=== PATIENT | female | born 1975 | race Caucasian/White ===

== ENCOUNTER → 2016-05-03 | Outpatient (CLI) | payer OTHER ==
--- NOTE | 2016-05-03 17:31 | WOMENS IMAGING REPORT ---
EXAM DESCRIPTION: BILAT DIAGNOSTIC MAMMO W/CAD; U/S BREAST UNILAT LIMITED COMPLETED DATE/TIME: 05/03/2016 11:02 am; 05/03/2016 1:39 pm REASON FOR STUDY: N64.4 BREAST PAIN; LT BREAST PAIN,N64.4 Z12.31 ENCNTR SCREEN MAMMOGRAM FOR MALIGN ANT NEOPLASM OF GERALDINE COMPARISON: None. TECHNIQUE: Standard craniocaudal and mediolateral oblique views of each breast recorded using digita l acquisition, bilateral 90 mediolateral tomosynthesis, left breast diagnostic 90 mediolateral view . Because of a history of left breast pain, left breast ultrasound was performed. Or And breast tomosy nthesis. LIMITATIONS: None. FINDINGS: RIGHT BREAST MASSES: No suspicious masses. CALCIFICATIONS: There are multiple calcifications which assume a meniscus shape on the 90 mediolater al view, benign milk of calcium. ARCHITECTURAL DISTORTION: None. DEVELOPING DENSITY: None. ASYMMETRY: None noted. OTHER: No other significant findings. LEFT BREAST MASSES: No suspicious masses. CALCIFICATIONS: There are multiple calcifications which assume a meniscus shape on the 90 mediolater al view, benign [id number]. ARCHITECTURAL DISTORTION: None. DEVELOPING DENSITY: None. ASYMMETRY: None noted. OTHER: No other significant finding. Read with the assistance of CAD: .[facility] - R2 Cenova Version 1.3 .[facility] - R2 Cenova Version 1.3 .[facility] - R2 Cenova Version 2.4 .[facility] [place] Cenova Version 2.4 .[facility] - R2 Maintenance Manager Version 9.2 Left breast ultrasound: Ultrasound of left breast was performed. Patient has pain in the left breast upper outer quadrant. This area was examined with ultrasound, multiple tiny less than 5 mm breast parenchymal cysts are pre sent. No solid nodules. No worrisome acoustic absorption BREAST DENSITY: c. The breasts are heterogeneously dense, which may obscure small masses. BIRAD: 2 Benign findings. RECOMMENDATION: RECOMMENDED FOLLOW UP: Please continue yearly bilateral screening tomosynthesis in J an 2018 unless otherwise clinically indicated sooner SPECIFIC INTERVENTION/IMAGING/CONSULTATION RECOMMENDED:No additional intervention/ imaging/consultati on needed at this time. COMMUNICATION:Patient notified by letter COMMENT: PATIENT NOTIFIED BY LETTER. The [employer] (ACR) has developed recommendations for screening MRI of the breast s in certain patient populations, to be used in conjunction with mammography. Breast MRI surveillanc e may be appropriate for women with more than 20% lifetime risk of developing breast cancer as deter mined by genetic testing, significant family history of the disease, or history of mantle radiation f or Hodgkins Disease. ACR Practice Guidelines 2008. DBT Technology DBT is a type of tomographic mammography. With conventional mammography, overlapping breast tissue ma y make lesions difficult to detect, even with good compression. DBT uses an x-ray tube that rotates a round the breast, taking images at different angles. These images are then combined to create thin sl ices of the breast that the radiologist can view as a 3D reconstruction. The Log[employer] unit can perform full-field digital mammograms (2D imaging); or DBT (3D imaging); or both, in a combination mode that quickly performs both the mammogram and the tomosynthesis scan while the breast is still compressed. PQRS 6045F: Fluoroscopic imaging is not utilized for breast tomosynthesis. TECHNICAL DOCUMENTATION: FINDING NUMBER: (1) ASSESSMENT: (1) JOB ID: [id number] [employer]- All Rights Reserved
--- NOTE | 2016-05-03 17:31 | WOMENS IMAGING REPORT ---
EXAM DESCRIPTION: BILAT DIAGNOSTIC MAMMO W/CAD; U/S BREAST UNILAT LIMITED COMPLETED DATE/TIME: 05/03/2016 11:02 am; 05/03/2016 1:39 pm REASON FOR STUDY: N64.4 BREAST PAIN; LT BREAST PAIN,N64.4 Z12.31 ENCNTR SCREEN MAMMOGRAM FOR MALIGN ANT NEOPLASM OF GERALDINE COMPARISON: None. TECHNIQUE: Standard craniocaudal and mediolateral oblique views of each breast recorded using digita l acquisition, bilateral 90 mediolateral tomosynthesis, left breast diagnostic 90 mediolateral view . Because of a history of left breast pain, left breast ultrasound was performed. Or And breast tomosy nthesis. LIMITATIONS: None. FINDINGS: RIGHT BREAST MASSES: No suspicious masses. CALCIFICATIONS: There are multiple calcifications which assume a meniscus shape on the 90 mediolater al view, benign milk of calcium. ARCHITECTURAL DISTORTION: None. DEVELOPING DENSITY: None. ASYMMETRY: None noted. OTHER: No other significant findings. LEFT BREAST MASSES: No suspicious masses. CALCIFICATIONS: There are multiple calcifications which assume a meniscus shape on the 90 mediolater al view, benign [id number]. ARCHITECTURAL DISTORTION: None. DEVELOPING DENSITY: None. ASYMMETRY: None noted. OTHER: No other significant finding. Read with the assistance of CAD: .[facility] - R2 Cenova Version 1.3 .[facility] Imaging - R2 Cenova Version 1.3 .[facility] - R2 Cenova Version 2.4 .[facility] [place]2 Cenova Version 2.4 .[facility] - R2 Self Contained Behavior Unit Teacher Version 9.2 Left breast ultrasound: Ultrasound of left breast was performed. Patient has pain in the left breast upper outer quadrant. This area was examined with ultrasound, multiple tiny less than 5 mm breast parenchymal cysts are pre sent. No solid nodules. No worrisome acoustic absorption BREAST DENSITY: c. The breasts are heterogeneously dense, which may obscure small masses. BIRAD: 2 Benign findings. RECOMMENDATION: RECOMMENDED FOLLOW UP: Please continue yearly bilateral screening tomosynthesis in J an 2018 unless otherwise clinically indicated sooner SPECIFIC INTERVENTION/IMAGING/CONSULTATION RECOMMENDED:No additional intervention/ imaging/consultati on needed at this time. COMMUNICATION:Patient notified by letter COMMENT: PATIENT NOTIFIED BY LETTER. The [employer] (ACR) has developed recommendations for screening MRI of the breast s in certain patient populations, to be used in conjunction with mammography. Breast MRI surveillanc e may be appropriate for women with more than 20% lifetime risk of developing breast cancer as deter mined by genetic testing, significant family history of the disease, or history of mantle radiation f or Hodgkins Disease. ACR Practice Guidelines 2008. DBT Technology DBT is a type of tomographic mammography. With conventional mammography, overlapping breast tissue ma y make lesions difficult to detect, even with good compression. DBT uses an x-ray tube that rotates a round the breast, taking images at different angles. These images are then combined to create thin sl ices of the breast that the radiologist can view as a 3D reconstruction. The [employer] unit can perform full-field digital mammograms (2D imaging); or DBT (3D imaging); or both, in a combination mode that quickly performs both the mammogram and the tomosynthesis scan while the breast is still compressed. PQRS 6045F: Fluoroscopic imaging is not utilized for breast tomosynthesis. TECHNICAL DOCUMENTATION: FINDING NUMBER: (1) ASSESSMENT: (1) JOB ID: [id number] [employer]- All Rights Reserved
== END ==
LOC: WI 10:12
PROVIDERS: ATTEND Nurse Practitioner Adult Health
DX: N64.4 Mastodynia (principal)
CPT/HCPCS: 76642; G0204; 77066

== ENCOUNTER 2016-05-11 16:24 | Emergency (ER) | payer OTHER ==
--- NOTE | 2016-05-11 16:47 | ER Document Report ---
ED Medical Screen (RME) - General Stated Complaint: CHEST PAIN Notes: chest pain substernal, sharp shooting pain that radiates into her left arm. started last evening, was constant but she was able to sleep, she thought it might be related to anxiety but the pain radiating down her arm is new to her. has had chest pain before and has taken hydroxyzine in the past which resolved her symptoms, she took one last night and it did not improve her symptoms. + headache -HTN, HLD, DM, pt is nonsmoker, denies h/o CAD, MS denies fever, chills, prod cough, cold symptoms did receive a flu shot this year TRAVEL OUTSIDE OF THE [place] IN LAST 30 DAYS: No - Related Data Allergies/Adverse Reactions: No Known Allergies Allergy (Verified 05/11/16 16:41) Past Medical History Pulmonary Medical History: Reports: Hx Asthma, Hx Pneumonia Neurological Medical History: Reports: Hx Migraine GI Medical History: Reports: Hx Gastroesophageal Reflux Disease - IBS, Hx Irritable Bowel Psychiatric Medical History: Reports: Hx Anxiety, Hx Bipolar Disorder, Hx Depression, Hx Post Traumatic Stress Disorder Past Surgical History: Reports: Hx Abdominal Surgery - abdominal hernia, Hx Cholecystectomy, Hx Herniorrhaphy, Hx Hysterectomy, Hx Tonsillectomy, Hx Tubal Ligation, Hx Umbilical Hernia - Immunizations Immunizations up to date: Yes Hx Diphtheria, Pertussis, Tetanus Vaccination: Yes - <5 years
[2016-05-11 17:10] LABS: ABSOLUTE EOSINOPHILS # (AUTO) 0.2 10^3/uL (0.0-0.6); ABSOLUTE LYMPHOCYTES (AUTO) 1.9 10^3/uL (0.5-4.7); ABSOLUTE MONOCYTES (AUTO) 0.7 10^3/uL (0.1-1.4); ABSOLUTE NEUT (AUTO) 5.4 10^3/uL (1.7-8.2); BASOPHILS % (AUTO) 0.4 % (0-2); HEMATOCRIT 42.7 % (36.0-47.0); HEMOGLOBIN 14.4 g/dL (12.0-15.5); HGB HCT DIFFERENCE 0.5; LYMPHOCYTES % (AUTO) 22.7 % (13-45); MEAN CORPUSCULAR HEMOGLOBIN 30.8 pg (27.0-33.4); MEAN CORPUSCULAR HGB CONC 33.7 g/dL (32.0-36.0); MEAN CORPUSCULAR VOLUME 91 fl (80-97); RED BLOOD COUNT 4.67 10^6/uL (3.72-5.28); RED CELL DISTRIBUTION WIDTH 13.4 % (11.5-14.0); SEGMENTED NEUTROPHILS % (AUTO) 65.9 % (42-78); WHITE BLOOD COUNT 8.2 10^3/uL (4.0-10.5)
[2016-05-11 17:27] LABS: ALANINE AMINOTRANSFERASE 20 U/L (9-52); ALBUMIN 4.1 g/dL (3.5-5.0); ALKALINE PHOSPHATASE 66 U/L (38-126); ANION GAP 11 (5-19); ASPARTATE AMINO TRANSFERASE 15 U/L (14-36); BILIRUBIN,TOTAL 0.3 mg/dL (0.2-1.3); BLOOD UREA NITROGEN 11 mg/dL (7-20); CALCIUM 9.4 mg/dL (8.4-10.2); CARBON DIOXIDE 29 mmol/L (22-30); CHLORIDE 103 mmol/L (98-107); CREATINE KINASE 31 U/L (30-135); CREATININE RESULT 0.79 mg/dL (0.52-1.25); GLUCOSE 82 mg/dL (75-110); POTASSIUM 4.5 mmol/L (3.6-5.0); SODIUM 143.1 mmol/L (137-145)
[2016-05-11 17:42] LABS: CREATINE KINASE MB < 0.22 ng/mL (<4.55); TROPONIN I < 0.012 ng/mL
[2016-05-11] MEDS ORDERED: NITROGLYCERIN 0.4 MG/TAB 25 TAB/BOTTLE SL PRN (19:22)
--- NOTE | 2016-05-11 19:31 | ER Document Report ---
ED Cardiac - General Chief Complaint: Chest Pain Stated Complaint: CHEST PAIN Notes: The patient is a 40-year-old female, past medical history migraines, anxiety, no family history of early cardiac issues, presents with 1 day of left chest achiness with intermittent shooting down the arm and mild pain and left-sided face. She also says she started develop a early migraine. She has had this in the past. She took her anti-anxiety meds without much relief of her symptoms. She denies shortness of breath, leg swelling, smoking, recent travel, estrogen use, hemoptysis, fevers, back pain, fevers, cough or abdominal pain. TRAVEL OUTSIDE OF THE [place] IN LAST 30 DAYS: No - Related Data Allergies/Adverse Reactions: No Known Allergies Allergy (Verified 05/11/16 16:41) Past Medical History - General Information source: Patient - Social History Smoking Status: Never Smoker Chew tobacco use (# tins/day): No Frequency of alcohol use: None Drug Abuse: None Family History: Arthritis, Malignancy, DM, Reviewed & Not Pertinent, Thyroid Disfunction Patient has suicidal ideation: No Patient has homicidal ideation: No Pulmonary Medical History: Reports: Hx Asthma, Hx Pneumonia Neurological Medical History: Reports: Hx Migraine Renal/ Medical History: Denies: Hx Peritoneal Dialysis GI Medical History: Reports: Hx Gastroesophageal Reflux Disease - IBS, Hx Irritable Bowel Psychiatric Medical History: Reports: Hx Anxiety, Hx Bipolar Disorder, Hx Depression, Hx Post Traumatic Stress Disorder Past Surgical History: Reports: Hx Abdominal Surgery - abdominal hernia, Hx Cholecystectomy, Hx Herniorrhaphy, Hx Hysterectomy, Hx Tonsillectomy, Hx Tubal Ligation, Hx Umbilical Hernia - Immunizations Immunizations up to date: Yes Hx Diphtheria, Pertussis, Tetanus Vaccination: Yes - <5 years Hx Pneumococcal Vaccination: 06/14/13 Review of Systems - Review of Systems Notes: REVIEW OF SYSTEMS: CONSTITUTIONAL: -fevers, -chills EENT: -eye pain, -difficulty swallowing, -nasal congestion CARDIOVASCULAR: +chest pain, -syncope. RESPIRATORY: -cough, -SOB GASTROINTESTINAL: -abdominal pain, - nausea, -vomiting, -diarrhea GENITOURINARY: -dysuria, -hematuria MUSCULOSKELETAL: -back pain, -neck pain SKIN: -rash or skin lesions. HEMATOLOGIC: -easy bruising or bleeding. LYMPHATIC: -swollen, enlarged glands. NEUROLOGICAL: -altered mental status or loss of consciousness, -headache, +left arm tingling PSYCHIATRIC: -anxiety, -depression. ALL OTHER SYSTEMS REVIEWED AND NEGATIVE. Physical Exam - Vital signs Vitals: Temp Pulse Resp BP Pulse Ox 97.8 F 100 20 125/69 98 05/11/16 16:41 05/11/16 16:41 05/11/16 16:41 05/11/16 16:41 05/11/16 16:41 - Notes Notes: PHYSICAL EXAMINATION: GENERAL: Well-appearing, well-nourished and in no acute distress. HEAD: Atraumatic, normocephalic. EYES: Pupils equal round and reactive to light, extraocular movements intact, sclera anicteric, conjunctiva are normal. ENT: nares patent, oropharynx clear without exudates. Moist mucous membranes. NECK: Normal range of motion, supple without lymphadenopathy LUNGS: Breath sounds clear to auscultation bilaterally and equal. No wheezes rales or rhonchi. HEART: Regular rate and rhythm without murmurs ABDOMEN: Soft, nontender, normoactive bowel sounds. No guarding, no rebound. No masses appreciated. EXTREMITIES: Normal range of motion, no pitting or edema. No cyanosis. NEUROLOGICAL: Cranial nerves grossly intact. Normal speech, normal gait. Normal sensory, motor, and reflex exams. PSYCH: Normal mood, normal affect. SKIN: Warm, Dry, normal turgor, no rashes or lesions noted. Course - Re-evaluation Re-evalutation: HEART score 0. PERC negative. Patient chest pain-free. Will have her follow- up with her primary care physician at the [facility] for an outpatient stress test. - Vital Signs Vital signs: Temp Pulse Resp BP Pulse Ox 97.8 F 100 20 125/69 98 05/11/16 16:41 05/11/16 16:41 05/11/16 16:41 05/11/16 16:41 05/11/16 16:41 - Laboratory Result Diagrams: 05/11/16 16:55 05/11/16 16:55 - Diagnostic Test Radiology reviewed: Image reviewed, Reports reviewed Radiology results interpreted by me: NAD: CXR - EKG Interpretation by Me EKG shows normal: Sinus rhythm, [place], Intervals, QRS Complexes, ST-T Waves Rate: Normal Discharge - Discharge Clinical Impression: Chest pain Qualifiers: Chest pain type: other chest pain Qualified Code(s): R07.89 - Other chest pain ; R07.8 - Other chest pain Condition: Good Disposition: HOME, SELF-CARE Additional Instructions: Call your primary care physician and pneumatic tool repairer for further evaluation and treatment of this chest pain, including stress test. CHEST PAIN OF UNCLEAR CAUSE: The exact cause of your chest pain isn't clear. Fortunately, there is no evidence of a dangerous medical condition. Further testing may be required to find the source of the pain. Most often, we find that this pain is coming from the chest wall -- the muscles or rib joints in the chest. But chest pain can come from the lung and lung lining, the esophagus, the heart valves or heart lining, and even the stomach or gallbladder. Rest. Eat lightly until the pain is gone. We may prescribe medicine for pain and inflammation. You should call the physician immediately if the pain radiates to the shoulder, jaw or arms; if you start to run a fever or develop a cough; or if you develop shortness of breath, or other new or alarming symptoms. NORMAL EXAM AND WORKUP: At this time, your examination and workup show no significant abnormality. No significant abnormal physical findings were noted. All laboratory, EKG, and imaging (x-ray, CT scans, ultrasound) studies that were ordered show no significant abnormality. Although your examination and all studies that were ordered showed no significant abnormal finding, there are no examinations and no studies that are 100% accurate. There is always the possibility that some abnormality could exist and not be detected with physical examination or within the limits and capabilities of laboratory and other studies. You should return or follow up as you were instructed on your visit today for further evaluation if your symptoms do not resolve. CHEST WALL PAIN: Your chest pain may be coming from the chest wall. This is often caused by straining the muscles or joints in the chest during physical activity, direct trauma, coughing, or vigorous vomiting. Persons with arthritis are especially prone to this type of pain, due to inflammation of the cartilage joints near the breast bone. Occasionally, no cause can be found. Rest from strenuous physical activity. This kind of chest pain is usually made worse by movement of the chest. Depending on the symptoms, we may prescribe medicine for pain, muscle relaxation, and antiinflammatory effects. If the pain is new, and seems to be due to muscle strain, cold packs can help. Otherwise, apply gentle warmth to the painful area for 15 minutes every hour or two. You should call contact the doctor immediately if things change. Further evaluation is needed if you develop a fever or cough, if the nature of the pain changes, or if you become short of breath. ANGINA EPISODE: Your physician has diagnosed the pain you experienced as an episode of angina. Angina occurs when a portion of the heart muscle temporarily lacks oxygen. It does not cause any permanent heart damage, but serves as a warning. Hospitalization is not necessary now. Evaluation of your cardiac condition , and medical therapy for angina will be necessary. It's important you be sure to keep all appointments and take medication exactly as prescribed. Angina is usually treated with a type of "nitrate" medication. This is available as ointment, pills, or sublingual (under the tongue) tablets. Depending on your clinical situation, other medications may be added to help control angina. These may include beta blockers or calcium blockers. If episodes of angina are occurring with increased frequency, or if chest pain lasts longer than 15 minutes or does not respond to nitroglycerin, you must seek emergency medical care immediately. ACID REFLUX DISEASE (GERD): Gastro-Esophageal Reflux Disease (GERD) is caused by stomach acid refluxing back up into the esophagus. The valve at the end of the esophagus may be weak. This is common in persons with a hiatal hernia. GERD symptoms can include indigestion, chest pain, heartburn, or food "sticking." Certain foods, alcohol, and aspirin can make GERD worse. Treatment depends on the severity. Usually, antacids or acid-suppressing medicines are used. When the esophagus is acutely inflamed, the physician will often prescribe membrane-protective drugs such as Carafate. Some patients benefit from medication such as Reglan that tightens the valve at the top of the stomach. Avoid those foods that bring on your symptoms. For many people, these foods are coffee, chocolate, onions, garlic, and carbonated drinks. Don't use alcohol, aspirin, caffeine, or tobacco. Don't eat late at night -- within 4 hours of bedtime. Don't over-eat. If necessary, elevate the head of your bed about 4 inches so that stomach acid will not roll up into your esophagus. Call the doctor if you develop severe chest pain, inability to swallow fluids, fever, or worsening symptoms. ASPIRIN: Aspirin has been shown to have a beneficial effect on blood circulation by reducing the clotting effect of platelets in the blood. These beneficial effects can be achieved by taking just a single baby (81 mg) aspirin a day. It is recommended that any person over the age of forty take a single baby aspirin every day for heart and brain circulation, unless you are allergic to aspirin or have some significant bleeding disorder. It is strongly recommended that people who have proven cardiac or blood circulation disturbances should take a baby aspirin every day. NITRATES: Nitroglycerin and related longer-acting nitrate medications are used to prevent or treat attacks of angina. These medicines dilate blood vessels, decreasing the work of the heart, and improving its supply of oxygen. Many different forms are available, including sublingual tablets (used under the tongue), sprays, skin patches, and long-acting pills. If the particular form of medication you have been given is not working well for you, contact your doctor. Long-acting forms: Take exactly as prescribed. Sudden stopping of medication can provoke increased attacks. Sublingual tabs or spray: A headache will usually occur with use. Sit or lie while waiting for the pain to go away. If angina doesn't respond to three doses (five minutes apart), call for emergency assistance. ANTACID THERAPY: You have been instructed to start antacid therapy. Antacids directly neutralize stomach acid. This is useful for acid irritation of the esophagus, gastritis, and ulcers. You should take two tablespoons of antacid one hour after each meal and three hours after each meal. If you are not eating, take the antacid every two hours. If you are using a concentrate (such as Maalox TC), use only one tablespoon. Many antacids affect the bowels. The most common problem is diarrhea. In this case, a pure aluminum hydroxide antacid (such as AlternaGel) can be substituted for some or all doses. If the problem is constipation, add a teaspoon of Milk of Magnesia to each dose. Call the doctor if you experience continued diarrhea or constipation, or if you develop lightheadedness, bloody stool or vomitus, severe abdominal pain, or black stool. PRILOSEC (ACID PUMP INHIBITOR): Prilosec (omeprazole) is an acid-pump inhibitor. It blocks the secretion of hydrogen ions in the acid-producing cells of the stomach. Prilosec keeps your stomach from making acid. Take all medication as prescribed, even after the pain is gone. Regular antacids may be added as needed if you have symptoms while taking this medicine. There are usually no side effects from this medication. Contact your doctor if there is fever, rash, yellow skin color, increasing abdominal pain, weakness, or unusual bruising. Return at once if you develop lightheadedness, black or bloody stool, or bloody vomitus. FOLLOW-UP CARE: If you have been referred to a physician for follow-up care, call the physician s office for an appointment as you were instructed or within the next two days. If you experience worsening or a significant change in your symptoms, notify the physician immediately or return to the Emergency Department at any time for re-evaluation. Referrals: MARINA HOLLOWAY MD [ACTIVE STAFF] - Follow up as needed
[2016-05-11] MEDS ORDERED: NITROGLYCERIN 5 MG (0.2 MG/HR) PATCH.TD24 TD ONE (19:52)
[2016-05-11 19:54] VITALS: BP 109/69
--- NOTE | 2016-05-12 14:57 | EKG REPORT ---
SEVERITY:- BORDERLINE ECG - SINUS RHYTHM BORDERLINE T ABNORMALITIES, ANTERIOR LEADS : Confirmed by: Joe Olmedo 12-May-2016 14:56:20
== END 2016-05-11 20:00 | disposition home or self-care (01) ==
LOC: ER 16:24
DX: R07.89 Other chest pain (principal)
CPT/HCPCS: 93005; 99285; 36415; 82553; 82550; 85025; 80053; 84484; 71010; 93010; J3490

== ENCOUNTER 2016-06-09 18:30 | Emergency (ER) | payer OTHER ==
--- NOTE | 2016-06-09 19:14 | EKG REPORT ---
SEVERITY:- BORDERLINE ECG - SINUS RHYTHM BORDERLINE T ABNORMALITIES, ANTERIOR LEADS : Confirmed by: Elvis Kngiht MD 09-Jun-2016 19:13:51
[2016-06-09] MEDS ORDERED: ASPIRIN 81 MG TABLET, CHEWABLE PO ONE (19:19)
--- NOTE | 2016-06-09 19:24 | ER Document Report ---
ED Medical Screen (RME) - General Chief Complaint: Chest Pain Stated Complaint: CHEST PAIN Notes: 40 year old, complaint of left tooth pain radiating to left ear, but also pain radiating down neck, into left chest, and into left arm. Intermittent since Sunday. Seen Dentist twice, currently on clindamycin and hydrocodone. Denies cardiac hx, smoking, FH cardiac history. Denies shortness of breath. Had a hysterectomy. TRAVEL OUTSIDE OF THE [place] IN LAST 30 DAYS: No - Related Data Allergies/Adverse Reactions: No Known Allergies Allergy (Verified 06/09/16 19:10) Past Medical History - Social History Chew tobacco use (# tins/day): No Frequency of alcohol use: None Drug Abuse: None Pulmonary Medical History: Reports: Hx Asthma, Hx Pneumonia Neurological Medical History: Reports: Hx Migraine Renal/ Medical History: Denies: Hx Peritoneal Dialysis GI Medical History: Reports: Hx Gastroesophageal Reflux Disease - IBS, Hx Irritable Bowel Psychiatric Medical History: Reports: Hx Anxiety, Hx Bipolar Disorder, Hx Depression, Hx Post Traumatic Stress Disorder Past Surgical History: Reports: Hx Abdominal Surgery - abdominal hernia, Hx Cholecystectomy, Hx Herniorrhaphy, Hx Hysterectomy, Hx Tonsillectomy, Hx Tubal Ligation, Hx Umbilical Hernia - Immunizations Immunizations up to date: Yes Hx Diphtheria, Pertussis, Tetanus Vaccination: Yes - <5 years Physical Exam - Vital signs Vitals: Temp Pulse Resp BP Pulse Ox 98.0 F 104 H 18 125/64 98 06/09/16 19:00 06/09/16 19:00 06/09/16 19:00 06/09/16 19:00 06/09/16 19:00 - Respiratory Respiratory status: No respiratory distress Breath sounds: Normal. No: Decreased air movement, Productive cough, Rales, Rhonchi, Stridor, Wheezing - Cardiovascular Rhythm: Regular. No: Tachycardia - not tachycardic on my exam Heart sounds: Normal auscultation, S1 appreciated, S2 appreciated Course - Vital Signs Vital signs: Temp Pulse Resp BP Pulse Ox 98.0 F 104 H 18 125/64 98 06/09/16 19:00 06/09/16 19:00 06/09/16 19:00 06/09/16 19:00 06/09/16 19:00
[2016-06-09 23:24] LABS: ABSOLUTE EOSINOPHILS # (AUTO) 0.1 10^3/uL (0.0-0.6); ABSOLUTE MONOCYTES (AUTO) 0.6 10^3/uL (0.1-1.4); ABSOLUTE NEUT (AUTO) 4.2 10^3/uL (1.7-8.2); BASOPHILS % (AUTO) 0.5 % (0-2); EOSINOPHILS % (AUTO) 1.2 % (0-6); HEMATOCRIT 39.4 % (36.0-47.0); HEMOGLOBIN 13.3 g/dL (12.0-15.5); HGB HCT DIFFERENCE 0.5; MEAN CORPUSCULAR HEMOGLOBIN 30.7 pg (27.0-33.4); MEAN CORPUSCULAR HGB CONC 33.7 g/dL (32.0-36.0); MEAN CORPUSCULAR VOLUME 91 fl (80-97); MONOCYTES % (AUTO) 8.7 % (3-13); RED BLOOD COUNT 4.33 10^6/uL (3.72-5.28); RED CELL DISTRIBUTION WIDTH 13.7 % (11.5-14.0); SEGMENTED NEUTROPHILS % (AUTO) 60.6 % (42-78); WHITE BLOOD COUNT 6.8 10^3/uL (4.0-10.5)
[2016-06-09 23:37] LABS: ALANINE AMINOTRANSFERASE 38 U/L (9-52); ALBUMIN 4.2 g/dL (3.5-5.0); ALKALINE PHOSPHATASE 63 U/L (38-126); ANION GAP 10 (5-19); ASPARTATE AMINO TRANSFERASE 29 U/L (14-36); BILIRUBIN,TOTAL 0.5 mg/dL (0.2-1.3); BLOOD UREA NITROGEN 13 mg/dL (7-20); CALCIUM 9.6 mg/dL (8.4-10.2); CARBON DIOXIDE 25 mmol/L (22-30); CHLORIDE 105 mmol/L (98-107); CREATININE RESULT 0.75 mg/dL (0.52-1.25); GLUCOSE 95 mg/dL (75-110); POTASSIUM 4.5 mmol/L (3.6-5.0); SODIUM 139.7 mmol/L (137-145)
[2016-06-09] MEDS ORDERED: HYDROCODONE/ACETAMINOPHEN 5-325 MG 6 TAB/DSPK PO PRN (23:59)
[2016-06-09] MEDS ORDERED: ONDANSETRON ODT 4 MG TAB (6 TAB/DSPK) PO PRN (23:59)
--- NOTE | 2016-06-10 00:02 | ER Document Report ---
ED General - General Chief Complaint: Dental Injury Stated Complaint: CHEST PAIN Notes: Patient is a 40-year-old female who presents with 2 days of progressively worsening facial pain after she had a root canal done of tooth #10. Describes the pain as a constant, sharp, radiating pain from the tooth to the entirety of the left side of her face and into the left ureter. States of the pain radiates down into the neck and into the chest. This is been constant since a root canal was completed. She has been taking Vicodin at home with minimal relief of her pain. Nothing improves the pain. It is worsened by eating food or using the left side of her mouth. She was instructed to come to the emergency department tonight by her dentist. She denies any associated fever, nausea or vomiting. No facial swelling, difficulty breathing or difficulty swallowing. She denies any chest pressure, shortness of breath or diaphoresis. TRAVEL OUTSIDE OF THE [place] IN LAST 30 DAYS: No - Related Data Allergies/Adverse Reactions: No Known Allergies Allergy (Verified 06/09/16 19:10) Past Medical History - General Information source: Patient - Social History Smoking Status: Never Smoker Chew tobacco use (# tins/day): No Frequency of alcohol use: None Drug Abuse: None Lives with: Family Family History: Arthritis, Malignancy, DM, Reviewed & Not Pertinent, Thyroid Disfunction Patient has suicidal ideation: No Patient has homicidal ideation: No Pulmonary Medical History: Reports: Hx Asthma, Hx Pneumonia Neurological Medical History: Reports: Hx Migraine Renal/ Medical History: Denies: Hx Peritoneal Dialysis GI Medical History: Reports: Hx Gastroesophageal Reflux Disease - IBS, Hx Irritable Bowel Psychiatric Medical History: Reports: Hx Anxiety, Hx Bipolar Disorder, Hx Depression, Hx Post Traumatic Stress Disorder Past Surgical History: Reports: Hx Abdominal Surgery - abdominal hernia, Hx Cholecystectomy, Hx Herniorrhaphy, Hx Hysterectomy, Hx Tonsillectomy, Hx Tubal Ligation, Hx Umbilical Hernia - Immunizations Immunizations up to date: Yes Hx Diphtheria, Pertussis, Tetanus Vaccination: Yes - <5 years Hx Pneumococcal Vaccination: 06/14/13 Review of Systems - Review of Systems Notes: Constitutional: Negative for fever. HENT: Negative for sore throat. Positive for dental pain and mouth pain Eyes: Negative for visual changes. Cardiovascular: Negative for chest pain. Respiratory: Negative for shortness of breath. Gastrointestinal: Negative for abdominal pain, vomiting or diarrhea. Genitourinary: Negative for dysuria. Musculoskeletal: Negative for back pain. Skin: Negative for rash. Neurological: Negative for headaches, weakness or numbness. 10 point ROS negative except as marked above and in HPI. Physical Exam - Vital signs Vitals: Temp Pulse Resp BP Pulse Ox 98.0 F 104 H 18 125/64 98 06/09/16 19:00 06/09/16 19:00 06/09/16 19:00 06/09/16 19:00 06/09/16 19:00 Interpretation: Tachycardic Notes: PHYSICAL EXAMINATION: GENERAL: Well-appearing, well-nourished and in no acute distress. HEAD: Atraumatic, normocephalic. EYES: Pupils equal round and reactive to light, extraocular movements intact, sclera anicteric, conjunctiva are normal. ENT: nares patent, oropharynx clear without exudates. Moist mucous membranes. NECK: Normal range of motion, supple without lymphadenopathy LUNGS: Breath sounds clear to auscultation bilaterally and equal. No wheezes rales or rhonchi. HEART: Regular rate and rhythm without murmurs ABDOMEN: Soft, nontender, normoactive bowel sounds. No guarding, no rebound. No masses appreciated. EXTREMITIES: Normal range of motion, no pitting or edema. No cyanosis. NEUROLOGICAL: No focal neurological deficits. Moves all extremities spontaneously and on command. PSYCH: Normal mood, normal affect. SKIN: Warm, Dry, normal turgor, no rashes or lesions noted. Course - Re-evaluation Re-evalutation: 06/10/16 00:00 Patient presents with complaints of tooth pain radiating into the face and the left ear after a root canal. Presentation is most consistent with likely tooth nerve root irritation. Her clinical history is not consistent with ACS as the pain has been ongoing since the root canal. EKG unremarkable and troponin is negative. Chest x-ray is clear. PE not clinically likely and she has her criteria negative. No history to suggest an aortic dissection or cervical artery dissection. The tooth itself does not appear infected and patient is already on antibiotics. I've encouraged him to follow closely the dentist who initially performed this procedure.At this time will discharge with return precautions and follow-up recommendations. Verbal discharge instructions given a the bedside and opportunity for questions given. Medication warnings reviewed. Patient is in agreement with this plan and has verbalized understanding of return precautions and the need for primary care follow-up in the next 24-72 hours. - Vital Signs Vital signs: Temp Pulse Resp BP Pulse Ox 97.7 F 91 18 110/65 97 06/10/16 00:10 06/10/16 00:10 06/10/16 00:10 06/10/16 00:10 06/10/16 00:10 - Laboratory Result Diagrams: 06/09/16 23:11 06/09/16 23:11 - Diagnostic Test Radiology reviewed: Image reviewed, Reports reviewed Radiology results interpreted by me: 06/10/16 02:53 Chest x-ray: No acute infiltrate - EKG Interpretation by Me Additional EKG results interpreted by me: 06/10/16 02:53 Sinus rhythm. Rate 96. No ST elevations or depressions. QTC is 420. Discharge - Discharge Clinical Impression: Tooth pain, Facial pain Condition: Good Disposition: HOME, SELF-CARE Additional Instructions: You have been seen for dental pain. It is very important that you follow-up with a dentist for definitive care. Please return if you develop fever greater than 101, swelling in your face, vomiting, difficulty breathing or swallowing, or any other symptoms that are concerning to you. For pain you should take ibuprofen 600 mg every 6 hours as needed.
[2016-06-10 00:12] VITALS: BP 110/65
== END 2016-06-10 00:12 | disposition home or self-care (01) ==
LOC: ER 18:30
DX: K08.89 Other specified disorders of teeth and supporting structures (principal); R51 Headache; R07.9 Chest pain, unspecified; Z98.890 Other specified postprocedural states; J45.909 Unspecified asthma, uncomplicated
CPT/HCPCS: 36415; 71010; 80053; 84484; 85025; 93005; 93010; 99285

== ENCOUNTER 2016-08-14 11:33 | Emergency (ER) | payer OTHER ==
[2016-08-14] MEDS ORDERED: ONDANSETRON 4 MG TAB.RAPDIS PO ONE (12:00)
--- NOTE | 2016-08-14 12:02 | ER Document Report ---
ED Medical Screen (RME) - General Chief Complaint: Abdominal Pain Stated Complaint: NAUSEA,ABDOMINAL PAIN Notes: This 40-year-old female patient comes from complaining of right-sided abdominal pain that started yesterday afternoon. Her last bowel movement was a liquid stool yesterday. She reports the pain got much worse last night. There is nausea without vomiting. She reports the pain is in the right lower abdomen. On brief exam she is found to have pain in the right upper abdomen just as severe as the right lower abdomen, the pain seems to be possibly coming from the anterior abdominal muscle wall. I have greeted and performed a rapid initial assessment of this patient. A comprehensive ED assessment and evaluation of the patient, analysis of test results and completion of the medical decision making process will be conducted by additional ED providers. TRAVEL OUTSIDE OF THE [place] IN LAST 30 DAYS: No - Related Data Allergies/Adverse Reactions: No Known Allergies Allergy (Verified 08/14/16 11:44) Past Medical History Pulmonary Medical History: Reports: Hx Asthma, Hx Pneumonia Neurological Medical History: Reports: Hx Migraine Renal/ Medical History: Denies: Hx Peritoneal Dialysis GI Medical History: Reports: Hx Gastroesophageal Reflux Disease - IBS, Hx Irritable Bowel Psychiatric Medical History: Reports: Hx Anxiety, Hx Bipolar Disorder, Hx Depression, Hx Post Traumatic Stress Disorder Past Surgical History: Reports: Hx Abdominal Surgery - abdominal hernia, Hx Cholecystectomy, Hx Herniorrhaphy, Hx Hysterectomy, Hx Tonsillectomy, Hx Tubal Ligation, Hx Umbilical Hernia - Immunizations Immunizations up to date: Yes Hx Diphtheria, Pertussis, Tetanus Vaccination: Yes - <5 years Physical Exam - Vital signs Vitals: Temp Pulse Resp BP Pulse Ox 98.5 F 78 16 134/65 H 99 08/14/16 11:44 08/14/16 11:44 08/14/16 11:44 08/14/16 11:44 08/14/16 11:44 Course - Vital Signs Vital signs: Temp Pulse Resp BP Pulse Ox 98.5 F 78 16 134/65 H 99 08/14/16 11:44 08/14/16 11:44 08/14/16 11:44 08/14/16 11:44 08/14/16 11:44
[2016-08-14 12:30] LABS: ABSOLUTE EOSINOPHILS # (AUTO) 0.1 10^3/uL (0.0-0.6); ABSOLUTE LYMPHOCYTES (AUTO) 1.8 10^3/uL (0.5-4.7); ABSOLUTE MONOCYTES (AUTO) 0.4 10^3/uL (0.1-1.4); ABSOLUTE NEUT (AUTO) 3.1 10^3/uL (1.7-8.2); BASOPHILS % (AUTO) 0.2 % (0-2); EOSINOPHILS % (AUTO) 1.9 % (0-6); HEMATOCRIT 42.4 % (36.0-47.0); HEMOGLOBIN 14.2 g/dL (12.0-15.5); HGB HCT DIFFERENCE 0.2; LYMPHOCYTES % (AUTO) 32.7 % (13-45); MEAN CORPUSCULAR HEMOGLOBIN 30.8 pg (27.0-33.4); MEAN CORPUSCULAR HGB CONC 33.6 g/dL (32.0-36.0); MEAN CORPUSCULAR VOLUME 92 fl (80-97); MONOCYTES % (AUTO) 7.8 % (3-13); RED BLOOD COUNT 4.63 10^6/uL (3.72-5.28); RED CELL DISTRIBUTION WIDTH 13.3 % (11.5-14.0); SEGMENTED NEUTROPHILS % (AUTO) 57.4 % (42-78); WHITE BLOOD COUNT 5.4 10^3/uL (4.0-10.5)
[2016-08-14 12:44] LABS: ALANINE AMINOTRANSFERASE 26 U/L (9-52); ALBUMIN 4.1 g/dL (3.5-5.0); ALKALINE PHOSPHATASE 64 U/L (38-126); ANION GAP 10 (5-19); ASPARTATE AMINO TRANSFERASE 21 U/L (14-36); BILIRUBIN,DIRECT 0.1 mg/dL (0.0-0.4); BILIRUBIN,TOTAL 0.4 mg/dL (0.2-1.3); BLOOD UREA NITROGEN 6 mg/dL (7-20); CALCIUM 9.4 mg/dL (8.4-10.2); CARBON DIOXIDE 26 mmol/L (22-30); CHLORIDE 107 mmol/L (98-107); CREATININE RESULT 0.64 mg/dL (0.52-1.25); GLUCOSE 86 mg/dL (75-110); LIPASE 62.6 U/L (23-300); POTASSIUM 4.8 mmol/L (3.6-5.0); SODIUM 142.9 mmol/L (137-145); TOTAL PROTEIN 6.9 g/dL (6.3-8.2)
[2016-08-14 12:47] LABS: APPEARANCE,URINE CLEAR; BILIRUBIN,URINE NEGATIVE (NEGATIVE); GLUCOSE, URINE NEGATIVE (NEGATIVE); KETONES,URINE NEGATIVE (NEGATIVE); LEUKOCYTE ESTERASE,URINE NEGATIVE (NEGATIVE); NITRITE,URINE NEGATIVE (NEGATIVE); PROTEIN,URINE NEGATIVE (NEGATIVE); URINE SPECIFIC GRAVITY 1.003; UROBILINOGEN,URINE NEGATIVE mg/dL (<2.0)
[2016-08-14] MEDS ORDERED: NORMAL SALINE 1000 ML 1,000 ML IV ONE ×2 (13:45→16:54)
[2016-08-14] MEDS ORDERED: MORPHINE SULFATE 10 MG/ML INJ IV ONE ×2 (13:45→16:54)
--- NOTE | 2016-08-14 13:50 | ER Document Report ---
ED GI/ <RIDGE JOYCE - Last Filed: 08/14/16 20:28> - General Time seen by provider: 13:46 Mode of Arrival: Ambulatory Information source: Patient TRAVEL OUTSIDE OF THE [place] IN LAST 30 DAYS: No - HPI Patient complains to provider of: Abdominal pain, Vomiting - Nausea no vomiting Onset: Yesterday Timing/Duration: Gradual Quality of pain: Sharp Severity at maximum: Moderate Severity in ED: Moderate Pain Level: 4 Location: RLQ, Pelvis LMP: hysterectomy still has ovaries Associated symptoms: Nausea. denies: Vomiting Exacerbated by: Movement, Walking Relieved by: Denies Similar symptoms previously: No Recently seen / treated by doctor: No <PAMELA BENOIT - Last Filed: 08/15/16 07:10> - General Chief Complaint: Abdominal Pain Stated Complaint: NAUSEA,ABDOMINAL PAIN Notes: 40-year-old female presents to ED for complaint of right lower abdominal pain that started yesterday afternoon. Last bowel movement was a liquid stool yesterday. She states that the pain has gotten worse worse during the night. This nausea without vomiting. (PAMELA BENOIT) - Related Data Allergies/Adverse Reactions: No Known Allergies Allergy (Verified 08/14/16 11:44) Past Medical History - General Information source: Patient - Social History Smoking Status: Former Smoker Cigarette use (# per day): No Chew tobacco use (# tins/day): No Smoking Education Provided: No Frequency of alcohol use: None Drug Abuse: None Lives with: Family - Children and mother Family History: Arthritis, CVA, DM, Malignancy, Thyroid Disfunction Patient has suicidal ideation: No Patient has homicidal ideation: No - Past Medical History Cardiac Medical History: Reports: None Pulmonary Medical History: Reports: Hx Asthma, Hx Pneumonia EENT Medical History: Reports: None Neurological Medical History: Reports: Hx Migraine Endocrine Medical History: Reports: None Renal/ Medical History: Reports: Hx Ovarian Cysts Malignancy Medical History: Reports: None GI Medical History: Reports: Hx Gastroesophageal Reflux Disease - IBS, Hx Irritable Bowel Musculoskeltal Medical History: Reports None Skin Medical History: Reports None Psychiatric Medical History: Reports: Hx Anxiety, Hx Bipolar Disorder, Hx Depression, Hx Post Traumatic Stress Disorder Traumatic Medical History: Reports: None Infectious Medical History: Reports: None Past Surgical History: Reports: Hx Cholecystectomy, Hx Hysterectomy, Hx Tonsillectomy, Hx Tubal Ligation, Hx Umbilical Hernia - Immunizations Immunizations up to date: Yes Hx Diphtheria, Pertussis, Tetanus Vaccination: Yes - <5 years Hx Pneumococcal Vaccination: 06/14/13 <PAMELA BENOIT - Last Filed: 08/15/16 07:10> Review of Systems - Review of Systems Constitutional: No symptoms reported EENT: No symptoms reported Cardiovascular: No symptoms reported Respiratory: No symptoms reported Gastrointestinal: Abdominal pain - Right lower quadrant, Nausea Genitourinary: No symptoms reported Female Genitourinary: Other - Right pelvic pain Musculoskeletal: No symptoms reported Skin: No symptoms reported Hematologic/Lymphatic: No symptoms reported Neurological/Psychological: No symptoms reported -: Yes All other systems reviewed and negative <PAMELA BENOIT - Last Filed: 08/15/16 07:10> Physical Exam - Vital signs Interpretation: Normal - General General appearance: Appears well, Alert - HEENT Head: Normocephalic, Atraumatic Eyes: Normal Pupils: PERRL - Respiratory Respiratory status: No respiratory distress Chest status: Nontender Breath sounds: Normal Chest palpation: Normal - Cardiovascular Rhythm: Regular Heart sounds: Normal auscultation Murmur: No - Abdominal Inspection: Normal Distension: No distension Bowel sounds: Normal Tenderness: Tender - Right lower quadrant down to pelvic pain Organomegaly: No organomegaly - Back Back: Normal, Nontender - Extremities General upper extremity: Normal inspection, Nontender, Normal color, Normal ROM , Normal temperature General lower extremity: Normal inspection, Nontender, Normal color, Normal ROM , Normal temperature, Normal weight bearing. No: Arun's sign - Neurological Neuro grossly intact: Yes Cognition: Normal Orientation: AAOx4 Brain Coma Scale Eye Opening: Spontaneous [place] Coma Scale Verbal: Oriented Brain Coma Scale Motor: Obeys Commands Brain Coma Scale Total: 15 Speech: Normal Motor strength normal: LUE, RUE, LLE, RLE Sensory: Normal - Psychological Associated symptoms: Normal affect, Normal mood - Skin Skin Temperature: Warm Skin Moisture: Dry Skin Color: Normal <PAMELA BENOIT - Last Filed: 08/15/16 07:10> - Vital signs Vitals: Temp Pulse Resp BP Pulse Ox 98.5 F 78 16 134/65 H 99 08/14/16 11:44 08/14/16 11:44 08/14/16 11:44 08/14/16 11:44 08/14/16 11:44 Course - Laboratory Result Diagrams: 08/14/16 12:00 08/14/16 12:00 - Diagnostic Test Radiology reviewed: Reports reviewed - CT negative <RIDGE JOYCE - Last Filed: 08/14/16 20:28> - Laboratory Result Diagrams: 08/14/16 12:00 08/14/16 12:00 <PAMELA BENOIT - Last Filed: 08/15/16 07:10> - Re-evaluation Re-evalutation: 08/14/16 19:05 Excuse myself to the patient. The patient is currently resting comfortably at this time. She is no complaints at this moment. She is currently awaiting CT of the abdomen and pelvis to complete her emergency department workup for her abdominal pain. Once results are available, I will discuss them with the patient and dispo her accordingly. 08/14/16 20:30 Patient's nontoxic. Stable vitals. The patient's workup in the emergency department has been unremarkable. Her lab work is unremarkable. Ultrasound negative. CT is negative. The patient can be discharged home with instructions to follow-up with her doctor at the next available appointment. Follow up sooner for increased pain, fever, persistent vomiting, or any further concerns. (RIDGE JOYCE) 08/14/16 18:51 Discussed labs and assessment with Dr. Parra. Pelvic exam completed in patient sent for a pelvic ultrasound. Results of this discussed with Dr. Parra as it was negative. Dr. Parra stated that the CT abdomen and pelvis with IV and oral contrast was ordered patient would need a CT abdomen pelvis IV and oral contrast if she is continuing to have abdominal pain. ( PAMELA BENOIT) - Vital Signs Vital signs: Temp Pulse Resp BP Pulse Ox 97.4 F 72 18 114/71 100 08/14/16 18:14 08/14/16 20:55 08/14/16 18:14 08/14/16 20:55 08/14/16 20:55 - Laboratory Laboratory results interpreted by me: 08/14/16 12:00 BUN 6 L Discharge <RIDGE JOYCE - Last Filed: 08/14/16 20:28> <PAMELA BENOIT - Last Filed: 08/15/16 07:10> - Discharge Clinical Impression: Bacterial vaginosis Abdominal pain Qualifiers: Abdominal location: right lower quadrant Qualified Code(s): R10.31 - Right lower quadrant pain Condition: Stable Disposition: HOME, SELF-CARE Instructions: Abdominal Pain ([facility]) Additional Instructions: Take medications as prescribed. Follow-up with your doctor at the next available appointment. Follow-up sooner for increased pain, fever, persistent vomiting, or any further concerns. Prescriptions: Metronidazole [Flagyl 500 mg Tablet] 500 mg PO TID #21 tablet Ondansetron HCl [Zofran 4 mg Tablet] 1 tab PO Q6H PRN #10 tablet PRN Reason:
[2016-08-14 15:59] LABS: CHLAM PCR NOT DETECTED (NOT DETECT)
[2016-08-14] MEDS ORDERED: ONDANSETRON HCL INJ/PF 4 MG/2 ML SDV IV ONE (16:54)
[2016-08-14 20:57] VITALS: BP 114/71
== END 2016-08-14 21:00 | disposition home or self-care (01) ==
LOC: ER 11:33
DX: N76.0 Acute vaginitis (principal); B96.89 Other specified bacterial agents as the cause of diseases classified elsewhere; R10.31 Right lower quadrant pain; R11.0 Nausea; K21.9 Gastro-esophageal reflux disease without esophagitis; Z90.49 Acquired absence of other specified parts of digestive tract; Z90.710 Acquired absence of both cervix and uterus
CPT/HCPCS: 96376; 99284; 96374; 96375; 36415; 87210; 83690; 84703; 85025; 80053; 81001; 87491; 87591; 74022; 76830; 93976; 74177; S0119; J2270; J2405; J7030

== ENCOUNTER 2016-08-27 11:27 | Emergency (ER) | payer OTHER, MEDICARE ==
[2016-08-27 11:35] VITALS: BP 118/68
--- NOTE | 2016-08-27 11:57 | ER Document Report ---
HPI - HPI Patient complains to provider of: sore throat, fever, chills, body aches, SOB Onset: Other - Sunday Quality of pain: Achy Severity: Severe Pain Level: 4 Context: Patient presents to the ED with c/o sore throat, body aches, fever, recent exposure to strep and SOB. She reports that she has a history of asthma when she doesn't feel good her asthma kicks up. She reports the shortness of breath goes away when she uses her inhaler. Denies chest pain. She reports her son was recently diagnosed with strep a few days ago. She reports she started having symptoms on Sunday to include fever or sore throat body aches. She did not take her temperature jsut felt warm, reports 99 is high for her. She denies vomiting diarrhea. Denies pain with void. She reports she is eating drinking swallowing without problems. Associated Symptoms: Body/muscle aches, Fever, Sore throat. denies: Nausea, Vomiting Exacerbated by: Denies Relieved by: Denies Similar symptoms previously: No Recently seen / treated by doctor: No - REPRODUCTIVE Reproductive: DENIES: : - DERM Skin Color: Normal Past Medical History - General Information source: Patient - Social History Smoking Status: Unknown if Ever Smoked Cigarette use (# per day): No Frequency of alcohol use: None Drug Abuse: None Occupation: none Lives with: Family Family History: Arthritis, CVA, DM, Malignancy, Thyroid Disfunction Patient has suicidal ideation: No Patient has homicidal ideation: No Pulmonary Medical History: Reports: Hx Asthma, Hx Pneumonia Neurological Medical History: Reports: Hx Migraine Renal/ Medical History: Reports: Hx Ovarian Cysts. Denies: Hx Peritoneal Dialysis GI Medical History: Reports: Hx Gastroesophageal Reflux Disease - IBS, Hx Irritable Bowel Psychiatric Medical History: Reports: Hx Anxiety, Hx Bipolar Disorder, Hx Depression, Hx Post Traumatic Stress Disorder Past Surgical History: Reports: Hx Abdominal Surgery - abdominal hernia, Hx Cholecystectomy, Hx Herniorrhaphy, Hx Hysterectomy, Hx Tonsillectomy, Hx Tubal Ligation, Hx Umbilical Hernia - Immunizations Immunizations up to date: Yes Hx Diphtheria, Pertussis, Tetanus Vaccination: Yes - <5 years Hx Pneumococcal Vaccination: 06/14/13 Vertical Provider Document - CONSTITUTIONAL Agree With Documented VS: Yes Exam Limitations: No Limitations General Appearance: WD/WN, No Apparent Distress - INFECTION CONTROL TRAVEL OUTSIDE OF THE [place] IN LAST 30 DAYS: No - HEENT HEENT: Atraumatic, Normocephalic, Pharyngeal Erythema - No peritonsillar abscess good clear voice no trismus. negative: Conjuctival Injection, Pharyngeal Exudate, Tympanic Membrane Red, Tympanic Membrane Bulging - NECK Neck: Normal Inspection, Supple. negative: Lymphadenopathy-Left, Lymphadenopathy-Right - RESPIRATORY Respiratory: Breath Sounds Normal, No Respiratory Distress O2 Sat by Pulse Oximetry: 99 - CARDIOVASCULAR Cardiovascular: Regular Rate - GI/ABDOMEN Gastrointestinal: Abdomen Soft, Abdomen Non-Tender - BACK Back: Normal Inspection - denies pain - NEURO Level of Consciousness: Awake, Alert, Appropriate Motor/Sensory: No Motor Deficit - DERM Integumentary: Warm, Dry, No Rash Course - Re-evaluation Re-evalutation: 08/27/16 12:07 pt instructed strep to be done for throat culture. she was instructed on penicillin, tyelnol for fever and body aches. She was also instructed to follow up with the ID clinic for recheck within 1 week She verbalized understanding to all instructions. - Vital Signs Vital signs: Temp Pulse Resp BP Pulse Ox 99.0 F 100 18 118/68 99 08/27/16 11:34 08/27/16 11:34 08/27/16 11:34 08/27/16 11:34 08/27/16 11:34 Discharge - Discharge Clinical Impression: Sore throat, Body aches, Fever, Exposure to strep throat Condition: Stable Disposition: HOME, SELF-CARE Instructions: Acetaminophen, Penicillin V K ([facility]), Sore Throat ([facility]), Fever ( [facility]) Additional Instructions: *You have been evaluated for a sore throat, body aches,fever, exposure to strep throat *Take medication as prescribed *Monitor your temperature, take tylenol or motrin as indicated *Warm salt water gargles and throat lozenges for comfort *Change toothbrush after two days of antibiotics *Do not let anyone drink/eat after you *Good hand washing *Follow-up with a primary care provider within one week for recheck *Return to ED for worsening condition change, needs Prescriptions: Penicillin V Potassium [Penicillin Vk 500 mg Tablet] 500 mg PO BID #20 tablet
== END 2016-08-27 12:04 | disposition home or self-care (01) ==
LOC: ER 11:27
DX: J02.9 Acute pharyngitis, unspecified (principal); M79.1 Myalgia; R50.9 Fever, unspecified; R06.02 Shortness of breath; Z90.49 Acquired absence of other specified parts of digestive tract; Z90.710 Acquired absence of both cervix and uterus
CPT/HCPCS: 87070; 87880; 99283

== ENCOUNTER 2016-09-12 16:56 | Emergency (ER) | payer OTHER, MEDICARE ==
[2016-09-12 17:20] VITALS: BP 117/68
[2016-09-12] MEDS ORDERED: AMOXICILLIN TR/POT CLAVULANATE 500-125 MG TAB PO ONE (18:21)
--- NOTE | 2016-09-12 18:27 | ER Document Report ---
HPI - HPI Patient complains to provider of: ear pain Pain Level: 3 Context: Patient is a 40-year-old female presents emergency Department complaining of left ear pain for the past 2 days. Patient states that she recently completed penicillin for strep throat which she completed about 7 days ago. Patient states that her son has been reinfected with strep and she is concerned that she cut it. Patient denies any throat pain but admits to severe air pain with associated headache. She denies any hearing loss or trauma. - REPRODUCTIVE LMP: n/a Reproductive: DENIES: : - DERM Skin Color: Normal Past Medical History - Social History Smoking Status: Unknown if Ever Smoked Family History: Arthritis, CVA, DM, Malignancy, Thyroid Disfunction Patient has suicidal ideation: No Patient has homicidal ideation: No Pulmonary Medical History: Reports: Hx Asthma, Hx Pneumonia Neurological Medical History: Reports: Hx Migraine Renal/ Medical History: Reports: Hx Ovarian Cysts. Denies: Hx Peritoneal Dialysis GI Medical History: Reports: Hx Gastroesophageal Reflux Disease - IBS, Hx Irritable Bowel Psychiatric Medical History: Reports: Hx Anxiety, Hx Bipolar Disorder, Hx Depression, Hx Post Traumatic Stress Disorder Past Surgical History: Reports: Hx Abdominal Surgery - abdominal hernia, Hx Cholecystectomy, Hx Herniorrhaphy, Hx Hysterectomy, Hx Tonsillectomy, Hx Tubal Ligation, Hx Umbilical Hernia - Immunizations Immunizations up to date: Yes Hx Diphtheria, Pertussis, Tetanus Vaccination: Yes - <5 years Hx Pneumococcal Vaccination: 06/14/13 Vertical Provider Document - CONSTITUTIONAL Agree With Documented VS: Yes Exam Limitations: No Limitations General Appearance: WD/WN, No Apparent Distress - INFECTION CONTROL TRAVEL OUTSIDE OF THE [place] IN LAST 30 DAYS: No - HEENT HEENT: Atraumatic, Normocephalic, Tympanic Membrane Red, Tympanic Membrane Bulging Notes: Of the left ear Noted serous effusion and tenderness of the external auditory canal. Uvula midline. Airway patent. No evidence of tonsillar enlargement, peritonsillar abscess, retropharyngeal abscess. - NECK Neck: Normal Inspection. negative: Lymphadenopathy-Left, Lymphadenopathy-Right - RESPIRATORY Respiratory: Breath Sounds Normal, No Respiratory Distress, Chest Non-Tender O2 Sat by Pulse Oximetry: 98 - CARDIOVASCULAR Cardiovascular: Regular Rate, Regular Rhythm, No Murmur Course - Re-evaluation Re-evalutation: 09/12/16 20:07 Patient with evidence of serous otitis media of left ear. We'll discharge home on by mouth antibiotics and follow up with primary care. - Vital Signs Vital signs: Temp Pulse Resp BP Pulse Ox 98.2 F 91 18 117/68 98 09/12/16 17:19 09/12/16 17:19 09/12/16 17:19 09/12/16 17:19 09/12/16 17:19 Discharge - Discharge Clinical Impression: Otitis media Condition: Good Disposition: HOME, SELF-CARE Instructions: Otitis Media ([facility]) Prescriptions: Amox Tr/Potassium Clavulanate [Augmentin 875-125 Tablet] 1 tab PO BID 7 Days Referrals: SUDHIR GALICIA MD [ACTIVE STAFF] - Follow up as needed
== END 2016-09-12 18:45 | disposition home or self-care (01) ==
LOC: ER 16:56
DX: H66.92 Otitis media, unspecified, left ear (principal); H92.02 Otalgia, left ear; R51 Headache
CPT/HCPCS: 99282

== ENCOUNTER 2016-09-23 08:56 | Emergency (ER) | payer OTHER, MEDICARE ==
[2016-09-23 09:01] VITALS: BP 129/66
[2016-09-23] MEDS ORDERED: CEPHALEXIN 500 MG CAPSULE PO ONE (09:20)
[2016-09-23] MEDS ORDERED: OXYCODONE-ACETAMINOPHEN 5-325 MG TABLET PO ONE (09:20)
--- NOTE | 2016-09-23 09:24 | ER Document Report ---
HPI - HPI Patient complains to provider of: ear pain Onset: Other - 11 days Onset/Duration: Persistent, Worse Quality of pain: Sharp Pain Level: 5 Context: Patient complains of left ear pain for the past 11 days. Patient states that initially she had strep and was treated with antibiotics and then she was placed on antibiotic eardrops yesterday at an urgent care. Patient complains of swelling to left ear and increase in pain. Pt denies any fever Associated Symptoms: Earache. denies: Fever, Sore throat Exacerbated by: Denies Relieved by: Denies Similar symptoms previously: No Recently seen / treated by doctor: Yes - ROS ROS below otherwise negative: Yes Systems Reviewed and Negative: Yes All other systems reviewed and negative - CONSTITUTIONAL Constitutional: DENIES: Fever, Chills - EENT EENT: REPORTS: Ear Pain. DENIES: Sore Throat - RESPIRATORY Respiratory: DENIES: Coughing - REPRODUCTIVE Reproductive: DENIES: : - MUSCULOSKELETAL Musculoskeletal: REPORTS: Neck Pain, Swelling. DENIES: Extremity pain, Back Pain - DERM Skin Color: Normal Skin Problems: None Past Medical History - General Information source: Patient Last Menstrual Period: hyster - Social History Smoking Status: Never Smoker Cigarette use (# per day): No Chew tobacco use (# tins/day): No Frequency of alcohol use: None Drug Abuse: None Occupation: none Family History: Arthritis, CVA, DM, Malignancy, Thyroid Disfunction Patient has suicidal ideation: No Patient has homicidal ideation: No Pulmonary Medical History: Reports: Hx Asthma, Hx Pneumonia Neurological Medical History: Reports: Hx Migraine Renal/ Medical History: Reports: Hx Ovarian Cysts. Denies: Hx Peritoneal Dialysis GI Medical History: Reports: Hx Gastroesophageal Reflux Disease - IBS, Hx Irritable Bowel Psychiatric Medical History: Reports: Hx Anxiety, Hx Bipolar Disorder, Hx Depression, Hx Post Traumatic Stress Disorder Traumatic Medical History: Reports: Hx Traumatic Brain Injury Past Surgical History: Reports: Hx Abdominal Surgery - abdominal hernia, Hx Cholecystectomy, Hx Herniorrhaphy, Hx Hysterectomy, Hx Tonsillectomy, Hx Tubal Ligation, Hx Umbilical Hernia - Immunizations Immunizations up to date: Yes Hx Diphtheria, Pertussis, Tetanus Vaccination: Yes - <5 years Hx Pneumococcal Vaccination: 06/14/13 Vertical Provider Document - CONSTITUTIONAL Agree With Documented VS: Yes Exam Limitations: No Limitations General Appearance: WD/WN, No Apparent Distress - INFECTION CONTROL TRAVEL OUTSIDE OF THE [place] IN LAST 30 DAYS: No - HEENT HEENT: Atraumatic, Normocephalic. negative: Pharyngeal Exudate, Pharyngeal Tenderness, Pharyngeal Erythema, Tympanic Membrane Red, Tympanic Membrane Bulging Notes: left EAC swollen with exudate, no mastoid tenderness or swelling. Pt with subtle erythema to ear canal and preauricular area - NECK Neck: Supple, Lymphadenopathy-Left. negative: Lymphadenopathy-Right - RESPIRATORY Respiratory: Breath Sounds Normal, No Respiratory Distress O2 Sat by Pulse Oximetry: 98 - CARDIOVASCULAR Cardiovascular: Regular Rate, Regular Rhythm, No Murmur - BACK Back: Normal Inspection - MUSCULOSKELETAL/EXTREMETIES Musculoskeletal/Extremeties: MAEW, FROM - NEURO Level of Consciousness: Awake, Alert, Appropriate Motor/Sensory: No Motor Deficit - DERM Integumentary: Warm, Dry Course - Vital Signs Vital signs: Temp Pulse Resp BP Pulse Ox 98.2 F 97 18 129/66 H 98 09/23/16 09:00 09/23/16 09:00 09/23/16 09:00 09/23/16 09:00 09/23/16 09:00 Discharge - Discharge Clinical Impression: Otitis externa Qualifiers: Otitis externa type: unspecified type Laterality: left Chronicity: acute Qualified Code(s): H60.502 - Unspecified acute noninfective otitis externa, left ear Cellulitis of ear Qualifiers: Laterality: left Qualified Code(s): H60.12 - Cellulitis of left external ear Condition: Stable Disposition: HOME, SELF-CARE Instructions: Oral Narcotic Medication ([facility]), Otitis Externa ([facility]), Use of Ear Drops ([facility]), Cellulitis ([facility]), Cephalexin ([facility]) Additional Instructions: Return immediately for any new or worsening symptoms Followup with your primary care provider, call tomorrow to make a followup appointment Continue to use your eardrops as previously prescribed Culture is pending, we will call if you need any different treatment Prescriptions: Cephalexin Monohydrate [Keflex 500 mg Capsule] 500 mg PO Q6H 5 Days Oxycodone HCl/Acetaminophen [Percocet 5-325 mg Tablet] 1 - 2 tab PO ASDIR PRN # 15 tablet PRN Reason: Referrals: [facility] [Provider Group] - 09/25/16
== END 2016-09-23 09:36 | disposition home or self-care (01) ==
LOC: ER 08:56
DX: H60.502 Unspecified acute noninfective otitis externa, left ear (principal); H60.12 Cellulitis of left external ear; Z87.820 Personal history of traumatic brain injury; Z90.49 Acquired absence of other specified parts of digestive tract; Z90.710 Acquired absence of both cervix and uterus
CPT/HCPCS: 87070; 87077; 87186; 87205; 99282

== ENCOUNTER 2016-10-01 21:53 | Emergency (ER) | payer OTHER, MEDICARE ==
--- NOTE | 2016-10-01 23:40 | RADIOLOGY REPORT (SQ) ---
EXAM DESCRIPTION: ANKLE LEFT COMPLETE COMPLETED DATE/TIME: 10/01/2016 11:15 pm REASON FOR STUDY: left ankle injury COMPARISON: None. NUMBER OF VIEWS: Three views. TECHNIQUE: AP, lateral, and oblique radiographic images acquired of the left ankle. LIMITATIONS: None. FINDINGS: MINERALIZATION: Normal. BONES: No acute fracture or dislocation. No worrisome bone lesions. JOINTS: No effusions. SOFT TISSUES: No soft tissue swelling. No foreign body. OTHER: No other significant finding. IMPRESSION: NO RADIOGRAPHIC EVIDENCE OF ACUTE INJURY. TECHNICAL DOCUMENTATION: JOB ID: [id number] [employer]- All Rights Reserved
[2016-10-02 02:00] VITALS: BP 118/66
--- NOTE | 2016-10-02 03:09 | ER Document Report ---
HPI - HPI Patient complains to provider of: Twisted left ankle Onset: Just prior to arrival Onset/Duration: Sudden Quality of pain: Achy Pain Level: 3 Context: 40-year-old female twisted her left ankle last night. It hurts to walk on it. Sprained in the past. Associated Symptoms: None Exacerbated by: Movement, Walking Relieved by: Denies Similar symptoms previously: No Recently seen / treated by doctor: No - ROS ROS below otherwise negative: Yes Systems Reviewed and Negative: Yes All other systems reviewed and negative - CARDIOVASCULAR Cardiovascular: DENIES: Chest pain - REPRODUCTIVE LMP: hysterectomy Reproductive: DENIES: : Past Medical History - General Information source: Patient - Social History Smoking Status: Never Smoker Frequency of alcohol use: None Drug Abuse: None Lives with: Parents Family History: Arthritis, CVA, DM, Malignancy, Thyroid Disfunction Pulmonary Medical History: Reports: Hx Asthma, Hx Pneumonia Neurological Medical History: Reports: Hx Migraine Renal/ Medical History: Reports: Hx Ovarian Cysts. Denies: Hx Peritoneal Dialysis GI Medical History: Reports: Hx Gastroesophageal Reflux Disease - IBS, Hx Irritable Bowel Psychiatric Medical History: Reports: Hx Anxiety, Hx Bipolar Disorder, Hx Depression, Hx Post Traumatic Stress Disorder Traumatic Medical History: Reports: Hx Traumatic Brain Injury Past Surgical History: Reports: Hx Abdominal Surgery - abdominal hernia, Hx Cholecystectomy, Hx Herniorrhaphy, Hx Hysterectomy, Hx Tonsillectomy, Hx Tubal Ligation, Hx Umbilical Hernia - Immunizations Immunizations up to date: Yes Hx Diphtheria, Pertussis, Tetanus Vaccination: Yes - <5 years Hx Pneumococcal Vaccination: 06/14/13 Vertical Provider Document - CONSTITUTIONAL Agree With Documented VS: Yes Exam Limitations: No Limitations - INFECTION CONTROL TRAVEL OUTSIDE OF THE [place] IN LAST 30 DAYS: No - HEENT HEENT: Normocephalic - NECK Neck: Supple - RESPIRATORY O2 Sat by Pulse Oximetry: 99 - MUSCULOSKELETAL/EXTREMETIES Musculoskeletal/Extremeties: MAEW, FROM, Tender - lateral malleolus, Edema, Eccymosis - NEURO Level of Consciousness: Awake, Alert Motor/Sensory: No Motor Deficit, No Sensory Deficit - DERM Integumentary: Warm, Dry, No Rash Course - Vital Signs Vital signs: Temp Pulse Resp BP Pulse Ox 98.2 F 95 118/66 99 10/02/16 01:59 10/02/16 01:59 10/02/16 01:59 10/02/16 01:59 Procedures - Immobilization Ankle Pre-Proc Neuro Vasc Exam: Normal Immobilizer type: Posterior ankle Performed by: PCT Post-Proc Neuro Vasc Exam: Normal Alignment checked and good: Yes Discharge - Discharge Clinical Impression: left ankle sparin Condition: Good Disposition: HOME, SELF-CARE Instructions: Use of Crutches ([facility]), Sprained Ankle ([facility]), Temporary Splint ( [facility]), Splint Precautions ([facility]) Additional Instructions: elevate crutches splint for comfort this week to er any concerns
[2016-10-02] MEDS ORDERED: IBUPROFEN 800 MG TABLET PO ONE (03:13)
== END 2016-10-02 03:35 | disposition home or self-care (01) ==
LOC: ER 21:53
PROC: 2W3RX1Z Immobilization of Left Lower Leg using Splint (ICD-10-PCS; principal; 2016-10-01)
DX: S93.402A Sprain of unspecified ligament of left ankle, initial encounter (principal); X50.0XXA Overexertion from strenuous movement or load, initial encounter; J45.909 Unspecified asthma, uncomplicated; K21.9 Gastro-esophageal reflux disease without esophagitis; Z87.820 Personal history of traumatic brain injury; Z90.49 Acquired absence of other specified parts of digestive tract; Z90.710 Acquired absence of both cervix and uterus
CPT/HCPCS: 99283

== ENCOUNTER 2016-12-17 17:21 | Emergency (ER) | payer OTHER, MEDICARE ==
[2016-12-17] MEDS ORDERED: ASPIRIN 325 MG TABLET PO ONE (18:16)
[2016-12-17] MEDS ORDERED: NORMAL SALINE 1000 ML 1,000 ML IV ONE (18:16)
[2016-12-17] MEDS ORDERED: DIPHENHYDRAMINE HCL 50 MG/ML VIAL IV ONE (18:16)
[2016-12-17] MEDS ORDERED: PROCHLORPERAZINE EDISYLATE INJ 10 MG/2 ML VIAL IV ONE (18:16)
--- NOTE | 2016-12-17 18:18 | ER Document Report ---
ED Medical Screen (RME) - General Chief Complaint: chest pain, SOB, Migraine Stated Complaint: CHEST PAIN Time Seen by Provider: 12/17/16 18:12 Mode of Arrival: Ambulatory Information source: Patient Notes: 5-year-old female who had Botox injections 1 week ago with history of migraine headache presents with complaints of headache and now having chest pain sharp today I have greeted and performed a rapid initial assessment of this patient. A comprehensive ED assessment and evaluation of the patient, analysis of test results and completion of the medical decision making process will be conducted by additional ED providers. PHYSICAL EXAMINATION: GENERAL: Well-appearing, well-nourished and in no acute distress. HEAD: Atraumatic, normocephalic. EYES: Pupils equal round extraocular movements intact, conjunctiva are normal. ENT: Nares patent NECK: Normal range of motion LUNGS: No respiratory distress Musculoskeletal: Normal range of motion NEUROLOGICAL: Normal speech, normal gait. PSYCH: Normal mood, normal affect. SKIN: Warm, Dry, normal turgor, no rashes or lesions noted. TRAVEL OUTSIDE OF THE [place] IN LAST 30 DAYS: No - Related Data Allergies/Adverse Reactions: sulfamethoxazole [From Bactrim] Allergy (Verified 12/17/16 17:59) trimethoprim [From Bactrim] Allergy (Verified 12/17/16 17:59) Past Medical History - Social History Chew tobacco use (# tins/day): No Frequency of alcohol use: None Drug Abuse: None Pulmonary Medical History: Reports: Hx Asthma, Hx Pneumonia Neurological Medical History: Reports: Hx Migraine Renal/ Medical History: Reports: Hx Ovarian Cysts. Denies: Hx Peritoneal Dialysis GI Medical History: Reports: Hx Gastroesophageal Reflux Disease - IBS, Hx Irritable Bowel Psychiatric Medical History: Reports: Hx Anxiety, Hx Bipolar Disorder, Hx Depression, Hx Post Traumatic Stress Disorder Traumatic Medical History: Reports: Hx Traumatic Brain Injury Past Surgical History: Reports: Hx Abdominal Surgery - abdominal hernia, Hx Cholecystectomy, Hx Herniorrhaphy, Hx Hysterectomy, Hx Tonsillectomy, Hx Tubal Ligation, Hx Umbilical Hernia - Immunizations Immunizations up to date: Yes Hx Diphtheria, Pertussis, Tetanus Vaccination: Yes - <5 years Physical Exam - Vital signs Vitals: Temp Pulse Resp BP Pulse Ox 98.4 F 101 H 20 131/78 H 98 12/17/16 17:49 12/17/16 17:49 12/17/16 17:49 12/17/16 17:49 12/17/16 17:49 Course - Vital Signs Vital signs: Temp Pulse Resp BP Pulse Ox 98.4 F 101 H 20 131/78 H 98 12/17/16 17:49 12/17/16 17:49 12/17/16 17:49 12/17/16 17:49 12/17/16 17:49
[2016-12-17 18:59] LABS: ABSOLUTE EOSINOPHILS # (AUTO) 0.1 10^3/uL (0.0-0.6); ABSOLUTE LYMPHOCYTES (AUTO) 2.2 10^3/uL (0.5-4.7); ABSOLUTE MONOCYTES (AUTO) 0.8 10^3/uL (0.1-1.4); ABSOLUTE NEUT (AUTO) 6.5 10^3/uL (1.7-8.2); BASOPHILS % (AUTO) 0.4 % (0-2); EOSINOPHILS % (AUTO) 0.8 % (0-6); HEMATOCRIT 41.9 % (36.0-47.0); HEMOGLOBIN 14.4 g/dL (12.0-15.5); HGB HCT DIFFERENCE 1.3; LYMPHOCYTES % (AUTO) 23.3 % (13-45); MEAN CORPUSCULAR HEMOGLOBIN 32.1 pg (27.0-33.4); MEAN CORPUSCULAR HGB CONC 34.3 g/dL (32.0-36.0); MEAN CORPUSCULAR VOLUME 94 fl (80-97); MONOCYTES % (AUTO) 8.3 % (3-13); RED BLOOD COUNT 4.48 10^6/uL (3.72-5.28); RED CELL DISTRIBUTION WIDTH 13.4 % (11.5-14.0); SEGMENTED NEUTROPHILS % (AUTO) 67.2 % (42-78); WHITE BLOOD COUNT 9.6 10^3/uL (4.0-10.5)
[2016-12-17] MEDS ORDERED: IPRATROPIUM/ALBUTEROL 0.5-2.5 MG/3 ML AMPUL NEB ONE (19:12)
[2016-12-17] MEDS ORDERED: DEXAMETHASONE SOD PHOS INJ 10 MG/1 ML VIAL IV ONE (19:13)
[2016-12-17 19:14] LABS: ALANINE AMINOTRANSFERASE 38 U/L (9-52); ALBUMIN 4.4 g/dL (3.5-5.0); ALKALINE PHOSPHATASE 74 U/L (38-126); ANION GAP 12 (5-19); ASPARTATE AMINO TRANSFERASE 23 U/L (14-36); BILIRUBIN,DIRECT 0.4 mg/dL (0.0-0.4); BILIRUBIN,TOTAL 0.5 mg/dL (0.2-1.3); BLOOD UREA NITROGEN 10 mg/dL (7-20); CALCIUM 9.5 mg/dL (8.4-10.2); CARBON DIOXIDE 21 mmol/L (22-30); CHLORIDE 104 mmol/L (98-107); CREATININE RESULT 0.75 mg/dL (0.52-1.25); GLUCOSE 78 mg/dL (75-110); POTASSIUM 4.3 mmol/L (3.6-5.0); TOTAL PROTEIN 7.6 g/dL (6.3-8.2)
--- NOTE | 2016-12-17 19:17 | ER Document Report ---
ED General - General Chief Complaint: chest pain, SOB, Migraine Stated Complaint: CHEST PAIN Time Seen by Provider: 12/17/16 18:12 Mode of Arrival: Ambulatory Notes: Patient is a 41-year-old female with a past medical history of chronic migraine headaches, bipolar disorder, who presents with 1 week of a typical migraine headache. She does describe it as a dull, constant, throbbing pain to the right side of the head that is worsened by lights and sounds. She has been trying her typical antimigraine medications without any relief. States the migraine started after she had a Botox injection done for her migraine headaches. States that has not provided any relief. She denies any nausea, vomiting, weakness, numbness, altered mental status, fever or constitutional symptoms. Patient states that the headache is a typical headache for her. She also complains of some chest tightness. States this is been present for 36-48 hours. Denies it as a chest pain. States it feels more like it is difficult to get a deep breath. She does have a history of asthma and seasonal allergens and feels like this is likely the cause. She is using albuterol inhaler at home with some improvement of her symptoms. Denies any history of DVT or pulmonary embolus. No use of estrogen. TRAVEL OUTSIDE OF THE [place] IN LAST 30 DAYS: No - Related Data Allergies/Adverse Reactions: sulfamethoxazole [From Bactrim] Allergy (Verified 12/17/16 17:59) trimethoprim [From Bactrim] Allergy (Verified 12/17/16 17:59) Past Medical History - General Information source: Patient - Social History Smoking Status: Never Smoker Chew tobacco use (# tins/day): No Frequency of alcohol use: None Drug Abuse: None Lives with: Family Family History: Arthritis, CVA, DM, Malignancy, Thyroid Disfunction Pulmonary Medical History: Reports: Hx Asthma, Hx Pneumonia Neurological Medical History: Reports: Hx Migraine Renal/ Medical History: Reports: Hx Ovarian Cysts. Denies: Hx Peritoneal Dialysis GI Medical History: Reports: Hx Gastroesophageal Reflux Disease - IBS, Hx Irritable Bowel Psychiatric Medical History: Reports: Hx Anxiety, Hx Bipolar Disorder, Hx Depression, Hx Post Traumatic Stress Disorder Traumatic Medical History: Reports: Hx Traumatic Brain Injury Past Surgical History: Reports: Hx Abdominal Surgery - abdominal hernia, Hx Cholecystectomy, Hx Herniorrhaphy, Hx Hysterectomy, Hx Tonsillectomy, Hx Tubal Ligation, Hx Umbilical Hernia - Immunizations Immunizations up to date: Yes Hx Diphtheria, Pertussis, Tetanus Vaccination: Yes - <5 years Hx Pneumococcal Vaccination: 06/14/13 Review of Systems - Review of Systems Notes: Constitutional: Negative for fever. HENT: Negative for sore throat. Eyes: Negative for visual changes. Cardiovascular: Negative for chest pain. Respiratory: Negative for shortness of breath. Gastrointestinal: Negative for abdominal pain, vomiting or diarrhea. Genitourinary: Negative for dysuria. Musculoskeletal: Negative for back pain. Skin: Negative for rash. Neurological: Positive for headaches, negative for weakness or numbness. 10 point ROS negative except as marked above and in HPI. Physical Exam - Vital signs Vitals: Temp Pulse Resp BP Pulse Ox 98.4 F 101 H 20 131/78 H 98 12/17/16 17:49 12/17/16 17:49 12/17/16 17:49 12/17/16 17:49 12/17/16 17:49 Interpretation: Normal Notes: PHYSICAL EXAMINATION: GENERAL: Well-appearing, well-nourished and in no acute distress. HEAD: Atraumatic, normocephalic. EYES: Pupils equal round and reactive to light, extraocular movements intact, sclera anicteric, conjunctiva are normal. ENT: nares patent, oropharynx clear without exudates. Moist mucous membranes. NECK: Normal range of motion, supple without lymphadenopathy LUNGS: Breath sounds clear to auscultation bilaterally and equal. No wheezes rales or rhonchi. HEART: Regular rate and rhythm without murmurs ABDOMEN: Soft, nontender, normoactive bowel sounds. No guarding, no rebound. No masses appreciated. EXTREMITIES: Normal range of motion, no pitting or edema. No cyanosis. NEUROLOGICAL: Face symmetric. Tongue protrudes midline. Extraocular motions intact. Pupils are 2 mm and equally reactive. Normal speech, normal gait. 5 out of 5 strength in both the distal and proximal upper and lower extremities bilaterally. Sensation is grossly intact throughout. Finger to nose testing normal. Pronator drift normal. PSYCH: Normal mood, normal affect. SKIN: Warm, Dry, normal turgor, no rashes or lesions noted. Course - Re-evaluation Re-evalutation: 12/17/16 19:13 Patient presents with 2 distinct complaints 1.) Migraine headache: Presentation of a headache that appears to be most consistent with tension versus migrainous type headache. Headache was not maximal in onset, patient has no focal neurologic deficits, no nuchal rigidity, vital signs within normal limits, no papilledema, and patient is overall well in appearance. Patient states this is similar to prior migraine headaches that she has had in the past. Based on clinical history and examination I do not suspect an acute subarachnoid hemorrhage, dural venous sinus thrombosis, acute meningitis, or intercranial mass. Given my low clinical suspicion for any acute life-threatening etiology, I do not feel advanced neuro imaging is indicated at this time. Will proceed with headache cocktail and reassess. 2.) Shortness of breath/chest pain: Low clinical suspicion for ACS given clinical history, exam, EKG without ST elevations or depressions, and negative initial troponin. HEART score less than or equal to 3. PE also seems unlikely given clinical history, absence of dyspnea or pleuritic pain. No estrogen. Hr initially minimally elevated but 82 at time of my assessment. CXR without evidence of pneumothorax or pneumonia. No widened mediastinum. Aortic dissection also seems unlikely given history, symmetric pulses, CXR, and vitals. Patient's symptoms have been present for greater than 24 hours making serial troponins not indicated. HEART Score: History: 0 EC Age: 1 Risk Factors: 1 Troponin:0 Total: 1 12/17/16 20:33 Patient has had complete resolution of her headache as well as her chest tightness after receiving albuterol nebulizer here in the emergency department. At this time will discharge with return precautions and follow-up recommendations. Verbal discharge instructions given a the bedside and opportunity for questions given. Medication warnings reviewed. Patient is in agreement with this plan and has verbalized understanding of return precautions and the need for primary care follow-up in the next 24-72 hours. - Vital Signs Vital signs: Temp Pulse Resp BP Pulse Ox 98.4 F 101 H 17 103/57 L 100 12/17/16 17:49 12/17/16 17:49 12/17/16 20:44 12/17/16 20:44 12/17/16 20:44 - Laboratory Result Diagrams: 12/17/16 18:46 12/17/16 18:46 Laboratory results interpreted by me: 12/17/16 18:46 Carbon Dioxide 21 L - Diagnostic Test Radiology reviewed: Image reviewed, Reports reviewed Radiology results interpreted by me: 12/17/16 20:33 Chest x-ray: No acute infiltrate or pneumothorax - EKG Interpretation by Me Additional EKG results interpreted by me: 12/17/16 19:17 Sinus tachycardia. Rate 102. No ST elevations or depressions. QTC is 417. Discharge - Discharge Clinical Impression: Chest tightness Migraine headache Qualifiers: Migraine type: unspecified Status migrainosus presence: with status migrainosus Intractability: not intractable Qualified Code(s): G43.901 - Migraine, unspecified, not intractable, with status migrainosus Condition: Good Disposition: HOME, SELF-CARE Additional Instructions: You were seen today for a migraine headache. Please follow-up with your primary care doctor regarding today's ED visit. Return to emergency department immediately if you develop a headache that gets to its maximum severity within 20 minutes of onset, you pass out, you develop weakness, numbness, changes in your vision, become unable to keep any fluids down for more than 12 hours, or develop a fever greater than 100.4 degrees Fahrenheit. If you develop a similar migraine headache in the future I recommend that you immediately take 600 mg of ibuprofen and 50 mg of Benadryl and go to sleep as quickly as possible. This can often prevent your migraine headache from becoming severe. You were seen today for chest pain. The exact cause of your pain is unclear. However, based on your cardiac enzyme testing, chest x-ray, and EKG it does not appear that it is from an immediately life-threatening cause at this time. Although your testing here is normal is critical that you follow-up with your primary care physician for continued evaluation of this chest pain. Please return to emergency department immediately if you have worsening of your chest pain, shortness of breath, vomiting, become unable to exert yourself due to pain or difficulty breathing, you pass out, or have any pain that radiates into your arms, jaw, or back. Please also return if you have any additional symptoms that are concerning to you.
--- NOTE | 2016-12-17 19:57 | RADIOLOGY REPORT (SQ) ---
EXAM DESCRIPTION: CHEST SINGLE VIEW COMPLETED DATE/TIME: 12/17/2016 7:45 pm REASON FOR STUDY: sob COMPARISON: May 2016 EXAM PARAMETERS: NUMBER OF VIEWS: One view. TECHNIQUE: Single frontal radiographic view of the chest acquired. RADIATION DOSE: NA LIMITATIONS: None. FINDINGS: LUNGS AND PLEURA: No opacities, masses or pneumothorax. No pleural effusion. MEDIASTINUM AND HILAR STRUCTURES: No masses. Contour normal. HEART AND VASCULAR STRUCTURES: Heart normal in size. Normal vasculature. BONES: No acute findings. HARDWARE: None in the chest. OTHER: No other significant finding. IMPRESSION: NO ACUTE RADIOGRAPHIC FINDING IN THE CHEST. TECHNICAL DOCUMENTATION: JOB ID: [id number]
[2016-12-17] MEDS ORDERED: HALOPERIDOL LACTATE INJ 5 MG/1 ML VIAL IV ONE (20:02)
[2016-12-17 20:49] VITALS: BP 103/57
--- NOTE | 2016-12-17 21:11 | EKG REPORT ---
SEVERITY:- OTHERWISE NORMAL ECG - SINUS TACHYCARDIA : Confirmed by: Elvis Knight MD 17-Dec-2016 21:10:40
== END 2016-12-17 20:49 | disposition home or self-care (01) ==
LOC: ER 17:21
DX: G43.901 Migraine, unspecified, not intractable, with status migrainosus (principal); Z98.890 Other specified postprocedural states; R07.89 Other chest pain; J45.909 Unspecified asthma, uncomplicated; R06.02 Shortness of breath; R00.0 Tachycardia, unspecified; Z88.1 Allergy status to other antibiotic agents
CPT/HCPCS: 93005; 94640; 99285; 96374; 96375; 36415; 85025; 80053; 84484; 71010; 93010; J1200; J1630; J0780; J7030; J1100; J7620

== ENCOUNTER 2017-01-25 14:25 | Emergency (ER) | payer OTHER, MEDICARE ==
--- NOTE | 2017-01-25 15:03 | ER Document Report ---
ED Medical Screen (RME) - General Chief Complaint: Abdominal Pain Stated Complaint: ABDOMINAL PAIN Time Seen by Provider: 01/25/17 15:02 Notes: Patient has had a previous cholecystectomy she now presents with severe right upper quadrant abdominal pain. She has loss of appetite. She has diarrhea. She denies any urinary complaints or worse. TRAVEL OUTSIDE OF THE [place] IN LAST 30 DAYS: No - Related Data Allergies/Adverse Reactions: sulfamethoxazole [From Bactrim] Allergy (Verified 01/25/17 14:33) trimethoprim [From Bactrim] Allergy (Verified 01/25/17 14:33) Past Medical History - Social History Chew tobacco use (# tins/day): No Frequency of alcohol use: None Drug Abuse: None Pulmonary Medical History: Reports: Hx Asthma, Hx Pneumonia Neurological Medical History: Reports: Hx Migraine Renal/ Medical History: Reports: Hx Ovarian Cysts. Denies: Hx Peritoneal Dialysis GI Medical History: Reports: Hx Gastroesophageal Reflux Disease - IBS, Hx Irritable Bowel Psychiatric Medical History: Reports: Hx Anxiety, Hx Bipolar Disorder, Hx Depression, Hx Post Traumatic Stress Disorder Traumatic Medical History: Reports: Hx Traumatic Brain Injury Past Surgical History: Reports: Hx Abdominal Surgery - abdominal hernia, Hx Cholecystectomy, Hx Herniorrhaphy, Hx Hysterectomy, Hx Tonsillectomy, Hx Tubal Ligation, Hx Umbilical Hernia - Immunizations Immunizations up to date: Yes Hx Diphtheria, Pertussis, Tetanus Vaccination: Yes - <5 years Physical Exam - Vital signs Vitals: Temp Pulse Resp BP Pulse Ox 98.8 F 93 18 124/72 98 01/25/17 14:32 01/25/17 14:32 01/25/17 14:32 01/25/17 14:32 01/25/17 14:32 Course - Vital Signs Vital signs: Temp Pulse Resp BP Pulse Ox 98.8 F 93 18 124/72 98 01/25/17 14:32 01/25/17 14:32 01/25/17 14:32 01/25/17 14:32 01/25/17 14:32
[2017-01-25 15:36] LABS: ABSOLUTE LYMPHOCYTES (AUTO) 1.9 10^3/uL (0.5-4.7); ABSOLUTE MONOCYTES (AUTO) 0.6 10^3/uL (0.1-1.4); ABSOLUTE NEUT (AUTO) 5.7 10^3/uL (1.7-8.2); BASOPHILS % (AUTO) 0.3 % (0-2); EOSINOPHILS % (AUTO) 0.3 % (0-6); HEMATOCRIT 41.3 % (36.0-47.0); HEMOGLOBIN 14.3 g/dL (12.0-15.5); HGB HCT DIFFERENCE 1.6; LYMPHOCYTES % (AUTO) 22.5 % (13-45); MEAN CORPUSCULAR HEMOGLOBIN 31.9 pg (27.0-33.4); MEAN CORPUSCULAR HGB CONC 34.7 g/dL (32.0-36.0); MEAN CORPUSCULAR VOLUME 92 fl (80-97); MONOCYTES % (AUTO) 7.8 % (3-13); RED BLOOD COUNT 4.48 10^6/uL (3.72-5.28); RED CELL DISTRIBUTION WIDTH 13.4 % (11.5-14.0); SEGMENTED NEUTROPHILS % (AUTO) 69.1 % (42-78); WHITE BLOOD COUNT 8.3 10^3/uL (4.0-10.5)
[2017-01-25 15:44] LABS: APPEARANCE,URINE CLEAR; BILIRUBIN,URINE NEGATIVE (NEGATIVE); GLUCOSE, URINE NEGATIVE (NEGATIVE); KETONES,URINE NEGATIVE (NEGATIVE); LEUKOCYTE ESTERASE,URINE NEGATIVE (NEGATIVE); NITRITE,URINE NEGATIVE (NEGATIVE); PROTEIN,URINE NEGATIVE (NEGATIVE); URINE SPECIFIC GRAVITY 1.003; UROBILINOGEN,URINE NEGATIVE mg/dL (<2.0)
[2017-01-25 15:53] LABS: ALANINE AMINOTRANSFERASE 20 U/L (9-52); ALBUMIN 4.5 g/dL (3.5-5.0); ALKALINE PHOSPHATASE 74 U/L (38-126); ANION GAP 10 (5-19); ASPARTATE AMINO TRANSFERASE 13 U/L (14-36); BILIRUBIN,DIRECT 0.3 mg/dL (0.0-0.4); BILIRUBIN,TOTAL 0.6 mg/dL (0.2-1.3); BLOOD UREA NITROGEN 6 mg/dL (7-20); CALCIUM 9.4 mg/dL (8.4-10.2); CARBON DIOXIDE 25 mmol/L (22-30); CHLORIDE 106 mmol/L (98-107); CREATININE RESULT 0.75 mg/dL (0.52-1.25); GLUCOSE 73 mg/dL (75-110); LIPASE 105.1 U/L (23-300); POTASSIUM 4.2 mmol/L (3.6-5.0); SODIUM 140.5 mmol/L (137-145); TOTAL PROTEIN 7.5 g/dL (6.3-8.2)
--- NOTE | 2017-01-25 17:36 | ER Document Report ---
ED GI/ - General Chief Complaint: Abdominal Pain Stated Complaint: ABDOMINAL PAIN Time Seen by Provider: 01/25/17 15:02 Notes: The patient is a 41-year-old female, past medical history cholecystectomy, IBS, bipolar, presents with right upper quadrant abdominal pain, nausea, vomiting, diarrhea and chills over the past 2 days. Pain is not associated with food. She denies hematemesis, blood in stool, chest pain, shortness of breath, urinary symptoms or headache. TRAVEL OUTSIDE OF THE [place] IN LAST 30 DAYS: No - Related Data Allergies/Adverse Reactions: sulfamethoxazole [From Bactrim] Allergy (Verified 01/25/17 14:33) trimethoprim [From Bactrim] Allergy (Verified 01/25/17 14:33) Past Medical History - General Information source: Patient - Social History Smoking Status: Former Smoker Chew tobacco use (# tins/day): No Frequency of alcohol use: None Drug Abuse: None Family History: Arthritis, CVA, DM, Malignancy, Thyroid Disfunction Pulmonary Medical History: Reports: Hx Asthma, Hx Pneumonia Neurological Medical History: Reports: Hx Migraine Renal/ Medical History: Reports: Hx Ovarian Cysts. Denies: Hx Peritoneal Dialysis GI Medical History: Reports: Hx Gastroesophageal Reflux Disease - IBS, Hx Irritable Bowel Psychiatric Medical History: Reports: Hx Anxiety, Hx Bipolar Disorder, Hx Depression, Hx Post Traumatic Stress Disorder Traumatic Medical History: Reports: Hx Traumatic Brain Injury Past Surgical History: Reports: Hx Abdominal Surgery - abdominal hernia, Hx Cholecystectomy, Hx Herniorrhaphy, Hx Hysterectomy, Hx Tonsillectomy, Hx Tubal Ligation, Hx Umbilical Hernia - Immunizations Immunizations up to date: Yes Hx Diphtheria, Pertussis, Tetanus Vaccination: Yes - <5 years Hx Pneumococcal Vaccination: 06/14/13 Review of Systems - Review of Systems Notes: REVIEW OF SYSTEMS: CONSTITUTIONAL: -fevers, +chills EENT: -eye pain, -difficulty swallowing, -nasal congestion CARDIOVASCULAR:-chest pain, -syncope. RESPIRATORY: -cough, -SOB GASTROINTESTINAL: +abdominal pain, +nausea, +vomiting, +diarrhea GENITOURINARY: -dysuria, -hematuria MUSCULOSKELETAL: -back pain, -neck pain SKIN: -rash or skin lesions. HEMATOLOGIC: -easy bruising or bleeding. LYMPHATIC: -swollen, enlarged glands. NEUROLOGICAL: -altered mental status or loss of consciousness, -headache, - neurologic symptoms PSYCHIATRIC: -anxiety, -depression. ALL OTHER SYSTEMS REVIEWED AND NEGATIVE. Physical Exam - Vital signs Vitals: Temp Pulse Resp BP Pulse Ox 98.8 F 93 18 124/72 98 01/25/17 14:32 01/25/17 14:32 01/25/17 14:32 01/25/17 14:32 01/25/17 14:32 - Notes Notes: PHYSICAL EXAMINATION: GENERAL: Well-appearing, well-nourished and in no acute distress. HEAD: Atraumatic, normocephalic. EYES: Pupils equal round and reactive to light, extraocular movements intact, sclera anicteric, conjunctiva are normal. ENT: nares patent, oropharynx clear without exudates. Moist mucous membranes. NECK: Normal range of motion, supple without lymphadenopathy LUNGS: Breath sounds clear to auscultation bilaterally and equal. No wheezes rales or rhonchi. HEART: Regular rate and rhythm without murmurs ABDOMEN: Soft, mild RUQ tenderness, normoactive bowel sounds. No guarding, no rebound. No masses appreciated. EXTREMITIES: Normal range of motion, no pitting or edema. No cyanosis. NEUROLOGICAL: Cranial nerves grossly intact. Normal speech, normal gait. Normal sensory and motor exams. PSYCH: Normal mood, normal affect. SKIN: Warm, Dry, normal turgor, no rashes or lesions noted. Course - Re-evaluation Re-evalutation: Patient's labs appear well. Ultrasound does not show any acute findings such as a retained stone. After Zofran, she is drinking without vomiting. Instructed her to stay hydrated and follow-up with her GI doctor. - Vital Signs Vital signs: Temp Pulse Resp BP Pulse Ox 98.2 F 87 18 120/70 99 01/25/17 21:15 01/25/17 21:15 01/25/17 21:15 01/25/17 21:15 01/25/17 21:15 - Laboratory Result Diagrams: 01/25/17 15:20 01/25/17 15:20 Laboratory results interpreted by me: 01/25/17 01/25/17 15:20 15:20 BUN 6 L Glucose 73 L AST 13 L Urine Blood SMALL H - Diagnostic Test Radiology reviewed: Image reviewed, Reports reviewed Radiology results interpreted by me: RUHelen US: NAD Discharge - Discharge Clinical Impression: Right upper quadrant abdominal pain, Nausea vomiting and diarrhea Condition: Stable Disposition: HOME, SELF-CARE Additional Instructions: ABDOMINAL PAIN: There are many causes of abdominal pain. Pain can mean a serious problem requiring surgery (such as appendicitis). It can also be an innocent problem that goes away on its own (such as a viral infection). Often, time must pass to determine the cause of pain. The physician does not feel that hospitalization is necessary, at present. Things may change within the next 24 hours. Call the doctor or come back for re- examination if any problems occur, such as: (1) Pain that becomes more severe, steady, or becomes concentrated in one specific area. Also, pain that is more severe with movement or coughing. (2) Vomiting that persists or becomes more frequent. (3) Blood in the vomitus, urine, or bowel movements. Blood in the stool may have a tarry or black appearance. (4) Shaking chills or fever greater than 100 degrees F. (5) The abdomen becomes more distended or swollen. (6) Bowel movements cease. (7) Failure to improve as expected. NORMAL EXAM AND WORKUP: At this time, your examination and workup show no significant abnormality. No significant abnormal physical findings are noted. All laboratory, EKG, and imaging (x-ray, CT scans, ultrasound) studies that were ordered show no significant abnormality. Although your examination and all studies that were ordered showed no significant abnormal finding, there are no examinations and no studies that are 100% accurate. There is always the possibility that some abnormality could exist and not be detected with physical examination or within the limits and capabilities of laboratory and other studies. You should return or follow up as you were instructed on your visit today for further evaluation if your symptoms do not resolve. ANTINAUSEA MEDICATION: You have been given a medication to suppress nausea and vomiting. This type of medication can be given as a shot, pill, or suppository. It will usually last for many hours. Pills and shots usually last six to eight hours, suppositories last about 12 hours. For the typical illness, only one or two doses of the medication may be necessary. Mild lightheadedness may occur. This type of medicine can cause drowsiness. Do not drive or operate dangerous machinery while under its influence. Do not mix with alcohol. See your doctor at once if you have muscle spasms or tightness, or uncontrollable motions (particularly of the neck, mouth, or jaw). Persistent vomiting or severe lightheadedness should also be evaluated by the physician. FOLLOW-UP CARE: If you have been referred to a physician for follow-up care, call the physician s office for an appointment as you were instructed or within the next two days. If you experience worsening or a significant change in your symptoms, notify the physician immediately or return to the Emergency Department at any time for re-evaluation. Prescriptions: Dicyclomine HCl [Bentyl 20 mg Tablet] 20 mg PO QID #20 tablet Ondansetron [Zofran Odt 4 mg Tablet] 1 - 2 tab PO Q4H PRN #15 tab.rapdis PRN Reason: For Nausea/Vomiting Referrals: ANGIE REYES MD [ACTIVE STAFF] - Follow up as needed
[2017-01-25] MEDS ORDERED: ACETAMINOPHEN WITH CODEINE #3 TABLET PO ONE (17:44)
[2017-01-25] MEDS ORDERED: ONDANSETRON 4 MG TAB.RAPDIS PO ONE (17:44)
--- NOTE | 2017-01-25 19:15 | RADIOLOGY REPORT (SQ) ---
EXAM DESCRIPTION: U/S ABDOMEN LIMITED W/O DOP COMPLETED DATE/TIME: 01/25/2017 7:04 pm REASON FOR STUDY: RUQ pain COMPARISON: None. TECHNIQUE: Dynamic and static grayscale images acquired of the abdomen and recorded on PACS. Additio nal selected color Doppler and spectral images recorded. LIMITATIONS: Study is limited due to overlying bowel gas. FINDINGS: PANCREAS: The pancreas was incompletely visualized due to overlying bowel gas. LIVER: No masses. Echotexture normal. LIVER VASCULATURE: Normal blood flow is identified in the portal vein GALLBLADDER: No stones. Normal wall thickness. No pericholecystic fluid. ULTRASOUND-DETECTED MCCARTY'S SIGN: Negative. INTRAHEPATIC DUCTS AND COMMON DUCT: CBD and intrahepatic ducts normal caliber. No filling defects. INFERIOR VENA CAVA: Normal flow. AORTA: No aneurysm. RIGHT KIDNEY: Normal size. Normal echogenicity. No solid or suspicious masses. No hydronephrosis. No calcifications. PERITONEAL AND RIGHT PLEURAL SPACE: No ascites or effusions. OTHER: No other significant findings. IMPRESSION: Somewhat limited study as noted above. No significant intra-abdominal abnormalities wer e identified. TECHNICAL DOCUMENTATION: JOB ID: [id number] [employer]- All Rights Reserved
[2017-01-25 21:17] VITALS: BP 120/70
== END 2017-01-25 21:18 | disposition home or self-care (01) ==
LOC: ER 14:25
DX: R10.11 Right upper quadrant pain (principal); K58.9 Irritable bowel syndrome, unspecified; F31.9 Bipolar disorder, unspecified; R11.2 Nausea with vomiting, unspecified; R19.7 Diarrhea, unspecified; Z98.890 Other specified postprocedural states; Z87.891 Personal history of nicotine dependence
CPT/HCPCS: 36415; 76705; 80053; 81001; 81025; 83690; 85025; 99284

== ENCOUNTER 2017-03-23 09:22 | Emergency (ER) | payer OTHER, MEDICARE ==
[2017-03-23 09:33] VITALS: BP 128/71
[2017-03-23] MEDS ORDERED: IBUPROFEN 600 MG TABLET PO ONE (09:49)
--- NOTE | 2017-03-23 09:51 | ER Document Report ---
ED Eye Complaint - General Chief Complaint: Eye Problem Stated Complaint: RIGHT EYE IRRITATION Time Seen by Provider: 03/23/17 09:39 Notes: Patient is a 41-year-old female who presents emergency department complaining of right eyelid irritation. She states that she noticed it this morning. She denies any trauma. She denies any eye irritation, redness, purulent drainage, trauma, vision changes or headaches. TRAVEL OUTSIDE OF THE [place] IN LAST 30 DAYS: No - Related Data Allergies/Adverse Reactions: sulfamethoxazole [From Bactrim] Allergy (Verified 03/23/17 09:32) trimethoprim [From Bactrim] Allergy (Verified 03/23/17 09:32) Past Medical History - Social History Smoking Status: Never Smoker Chew tobacco use (# tins/day): No Frequency of alcohol use: None Drug Abuse: None Family History: Arthritis, CVA, DM, Malignancy, Thyroid Disfunction. denies: CAD, COPD, Hyperlipidemia, Hypertension Patient has suicidal ideation: No Patient has homicidal ideation: No Pulmonary Medical History: Reports: Hx Asthma, Hx Bronchitis, Hx Pneumonia Neurological Medical History: Reports: Hx Migraine Renal/ Medical History: Reports: Hx Ovarian Cysts. Denies: Hx Peritoneal Dialysis GI Medical History: Reports: Hx Gastroesophageal Reflux Disease - IBS, Hx Irritable Bowel, Hx Colonoscopy Musculoskeltal Medical History: Reports Hx Arthritis, Reports Hx Musculoskeletal Deformity, Reports Hx Musculoskeletal Trauma Psychiatric Medical History: Reports: Hx Anxiety, Hx Bipolar Disorder, Hx Depression, Hx Post Traumatic Stress Disorder Traumatic Medical History: Reports: Hx Traumatic Brain Injury Past Surgical History: Reports: Hx Abdominal Surgery - umbilical hernia repair, Hx Adenoidectomy, Hx Cholecystectomy, Hx Hysterectomy, Hx Tonsillectomy, Hx Tubal Ligation, Hx Umbilical Hernia - Immunizations Immunizations up to date: Yes Hx Diphtheria, Pertussis, Tetanus Vaccination: Yes - 2009 Hx Pneumococcal Vaccination: 06/14/13 Review of Systems - Review of Systems Constitutional: No symptoms reported EENT: See HPI Neurological/Psychological: No symptoms reported -: Yes All other systems reviewed and negative Physical Exam - Vital signs Vitals: Temp Pulse Resp BP Pulse Ox 98.5 F 88 18 128/71 H 97 03/23/17 09:31 03/23/17 09:31 03/23/17 09:31 03/23/17 09:31 03/23/17 09:31 - General General appearance: Appears well, Alert In distress: None - HEENT Eyes: No: Periorbital ecchymosis, Periorbital edema Conjunctiva: No: Injected, Purulent discharge Cornea: Normal Extraocular movements intact: Yes Eyelashes: Normal Pupils: PERRL Visual acuity- Right eye: 20/50 Visual acuity- Left eye: 20/20 Visual acuity- Both eyes: 20/20 Corrective lenses worn: No Lids everted for exam: right: Stye - lower eyelid Fundascopic: Normal - Skin Skin Temperature: Warm Skin Moisture: Dry Skin Color: Normal Skin Turgor: Elastic Course - Re-evaluation Re-evalutation: 03/23/17 9:45 Patient is a 41-year-old female who is hemodynamically stable, no acute distress and afebrile. Presentation today is consistent with a stye of the right lower eyelid. No evidence of conjunctivitis or eye irritation/trauma. Naila with patient to utilize warm compresses and [id number] medications for pain and otherwise can follow-up with ophthalmology next week. Patient agrees with plan and is stable for discharge - Vital Signs Vital signs: Temp Pulse Resp BP Pulse Ox 98.5 F 88 18 128/71 H 97 03/23/17 09:31 03/23/17 09:31 03/23/17 09:31 03/23/17 09:31 03/23/17 09:31 Discharge - Discharge Clinical Impression: Stye Condition: Good Disposition: HOME, SELF-CARE Instructions: Monique (REPLACED BY [facility]) Referrals: SHABANA BHAKTA MD [ACTIVE STAFF] - Follow up in 3-5 days
== END 2017-03-23 10:02 | disposition home or self-care (01) ==
LOC: ER 09:22
DX: H00.012 Hordeolum externum right lower eyelid (principal); H57.11 Ocular pain, right eye
CPT/HCPCS: 99283

== ENCOUNTER 2017-06-01 00:51 | Emergency (ER) | payer OTHER, MEDICARE ==
[2017-06-01 02:07] LABS: APPEARANCE,URINE CLOUDY; BILIRUBIN,URINE NEGATIVE (NEGATIVE); COLOR,URINE YELLOW; GLUCOSE, URINE NEGATIVE (NEGATIVE); KETONES,URINE NEGATIVE (NEGATIVE); LEUKOCYTE ESTERASE,URINE LARGE (NEGATIVE); NITRITE,URINE POSITIVE (NEGATIVE); PROTEIN,URINE 100 mg/dL (NEGATIVE); URINE SPECIFIC GRAVITY 1.011; UROBILINOGEN,URINE NEGATIVE mg/dL (<2.0)
--- NOTE | 2017-06-01 05:11 | ER Document Report ---
ED GI/ - General Chief Complaint: Abdominal Pain Stated Complaint: RIGHT FLANK PAIN Time Seen by Provider: 06/01/17 05:10 Mode of Arrival: Ambulatory Information source: Patient Notes: Patient is a 41-year-old female who presents to the ER today for right flank pain radiating into the right lower abdomen. Patient states that she had some burning with urination but denies any hematuria. She denies any fevers or chills. She denies any history of kidney stones, ovarian cysts. She denies . TRAVEL OUTSIDE OF THE [place] IN LAST 30 DAYS: No - Related Data Allergies/Adverse Reactions: sulfamethoxazole [From Bactrim] Allergy (Verified 06/01/17 01:30) trimethoprim [From Bactrim] Allergy (Verified 06/01/17 01:30) Past Medical History - General Information source: Patient - Social History Smoking Status: Unknown if Ever Smoked Family History: Arthritis, CVA, DM, Malignancy, Thyroid Disfunction. denies: CAD, COPD, Hyperlipidemia, Hypertension Pulmonary Medical History: Reports: Hx Asthma, Hx Bronchitis, Hx Pneumonia Neurological Medical History: Reports: Hx Migraine Renal/ Medical History: Reports: Hx Ovarian Cysts. Denies: Hx Peritoneal Dialysis GI Medical History: Reports: Hx Gastroesophageal Reflux Disease - IBS, Hx Irritable Bowel, Hx Colonoscopy Musculoskeltal Medical History: Reports Hx Arthritis, Reports Hx Musculoskeletal Deformity, Reports Hx Musculoskeletal Trauma Psychiatric Medical History: Reports: Hx Anxiety, Hx Bipolar Disorder, Hx Depression, Hx Post Traumatic Stress Disorder Traumatic Medical History: Reports: Hx Traumatic Brain Injury Past Surgical History: Reports: Hx Abdominal Surgery - umbilical hernia repair, Hx Adenoidectomy, Hx Cholecystectomy, Hx Hysterectomy, Hx Tonsillectomy, Hx Tubal Ligation, Hx Umbilical Hernia - Immunizations Immunizations up to date: Yes Hx Diphtheria, Pertussis, Tetanus Vaccination: Yes - 2009 Hx Pneumococcal Vaccination: 06/14/13 Review of Systems - Review of Systems Constitutional: No symptoms reported EENT: No symptoms reported Cardiovascular: No symptoms reported Respiratory: No symptoms reported Gastrointestinal: No symptoms reported Genitourinary: See HPI Female Genitourinary: No symptoms reported Musculoskeletal: No symptoms reported Skin: No symptoms reported Hematologic/Lymphatic: No symptoms reported Neurological/Psychological: No symptoms reported Physical Exam - Vital signs Vitals: Temp Pulse Resp BP Pulse Ox 98.5 F 109 H 16 107/44 L 100 06/01/17 01:36 06/01/17 01:36 06/01/17 01:36 06/01/17 01:36 06/01/17 01:36 - Notes Notes: PHYSICAL EXAMINATION: GENERAL: Well-appearing and in no acute distress. HEAD: Atraumatic, normocephalic. EYES: Pupils equal round and reactive to light, extraocular movements intact, sclera anicteric, conjunctiva are normal. NECK: Normal range of motion, supple without lymphadenopathy LUNGS: CTAB and equal. No wheezes rales or rhonchi. HEART: Regular rate and rhythm without murmurs ABDOMEN: Soft, right-sided tenderness. No guarding, no rebound BACK: no vertebral tenderness, normal ROM GI/: Right CVA tenderness EXTREMITIES: Normal range of motion, no pitting edema. No cyanosis. NEUROLOGICAL: Cranial nerves grossly intact. Normal sensory/motor exams. PSYCH: Normal mood, normal affect. SKIN: Warm, Dry, normal turgor, no rashes or lesions noted Course - Re-evaluation Re-evalutation: 06/01/17 07:35 Urinalysis reveals moderate blood, large leukocytes, positive for nitrites, greater than [address] renal protocol negative for any stones. Patient was treated here with IV Rocephin and fluids. will be sent home on Cipro with some pain medication. - Vital Signs Vital signs: Temp Pulse Resp BP Pulse Ox 98.5 F 109 H 16 107/44 L 100 06/01/17 01:36 06/01/17 01:36 06/01/17 01:36 06/01/17 01:36 06/01/17 01:36 - Laboratory Laboratory results interpreted by me: 06/01/17 01:30 Urine Protein 100 H Urine Blood MODERATE H Urine Nitrite POSITIVE H Ur Leukocyte Esterase LARGE H Discharge - Discharge Clinical Impression: Pyelonephritis Condition: Stable Disposition: HOME, SELF-CARE Instructions: Pyelonephritis ([facility]) Additional Instructions: Return immediately for any new or worsening symptoms. Follow up with primary care provider, call tomorrow to make followup appointment. Drink plenty of water. Prescriptions: Ciprofloxacin HCl [Cipro 500 mg Tablet] 500 mg PO BID #20 tablet Hydrocodone/Acetaminophen [Gay 5-325 mg Tablet] 1 tab PO Q4 PRN #12 tablet PRN Reason: Ondansetron [Zofran Odt 4 mg Tablet] 1 - 2 tab PO Q4H PRN #15 tab.rapdis PRN Reason: For Nausea/Vomiting Forms: Return to Work
--- NOTE | 2017-06-01 05:55 | RADIOLOGY REPORT (SQ) ---
EXAM DESCRIPTION: CT LTD RENAL STONE PROTOCOL ON COMPLETED DATE/TIME: 06/01/2017 5:38 am REASON FOR STUDY: R flank pain COMPARISON: CT abdomen and pelvis 08/14/2016, 03/25/2012. TECHNIQUE: CT scan of the abdomen and pelvis performed without intravenous or oral contrast. Images reviewed with lung, soft tissue, and bone windows. Reconstructed coronal and sagittal MPR images revi ewed. All images stored on PACS. All CT scanners at this facility use dose modulation, iterative reconstruction, and/or weight based d osing when appropriate to reduce radiation dose to as low as reasonably achievable (ALARA). [facility]: Dose Right [facility]: CareDose [facility]: Dose Right [facility]: Teradose 4D [facility]: [employer] RADIATION DOSE: CT Rad equipment meets quality standard of care and radiation dose reduction techniq ues were employed. CTDIvol: 17.0 mGy. DLP: 924 mGy-cm.mGy. LIMITATIONS: None. FINDINGS: LOWER CHEST: No consolidation or pleural effusion. NON-CONTRASTED LIVER, SPLEEN, ADRENALS: Evaluation limited by lack of IV contrast. No identified sign ificant masses. PANCREAS: No peripancreatic inflammatory changes. GALLBLADDER: Surgically absent. RIGHT KIDNEY AND URETER: No significant calcifications. No hydronephrosis or hydroureter. LEFT KIDNEY AND URETER: No significant calcifications. No hydronephrosis or hydroureter. AORTA AND RETROPERITONEUM: No abdominal aortic aneurysm. No retroperitoneal masses or adenopathy. BOWEL AND PERITONEAL CAVITY: No dilated bowel loop or inflammatory changes. No free fluid. APPENDIX: Normal. PELVIS, BLADDER, AND ABDOMINAL WALL:The urinary bladder is partially distended. The uterus is surgic ally absent. No free fluid. Status post umbilical hernia repair. BONES: No significant findings. IMPRESSION: No urinary tract calculi or hydronephrosis. No acute findings on unenhanced CT. COMMENT: Quality ID # [id number]: Final reports with documentation of one or more dose reduction techniques (e.g., Automated exposure control, adjustment of the mA and/or kV according to patient size, use of iterative reconstruction technique) TECHNICAL DOCUMENTATION: JOB ID: [id number]- All Rights Reserved
[2017-06-01] MEDS ORDERED: CEFTRIAXONE INJ 1000 MG VIAL IV ONE (05:59)
[2017-06-01] MEDS ORDERED: NORMAL SALINE 1000 ML 1,000 ML IV ONE (05:59)
[2017-06-01] MEDS ORDERED: OXYCODONE-ACETAMINOPHEN 5-325 MG TABLET PO ONE (05:59)
[2017-06-01 07:35] VITALS: BP 110/55
== END 2017-06-01 07:35 | disposition home or self-care (01) ==
LOC: ER 00:51
DX: N12 Tubulo-interstitial nephritis, not specified as acute or chronic (principal); R10.31 Right lower quadrant pain
CPT/HCPCS: 99284; 96365; 87086; 87088; 81001; 87186; 76380; J0696; J7030

== ENCOUNTER 2017-07-03 18:17 | Emergency (ER) | payer OTHER, MEDICARE ==
[2017-07-03] MEDS ORDERED: ASPIRIN 81 MG TABLET, CHEWABLE PO ONE (19:00)
--- NOTE | 2017-07-03 19:03 | ER Document Report ---
ED Medical Screen (RME) - General Chief Complaint: Chest Pain Stated Complaint: CHEST PAIN Time Seen by Provider: 07/03/17 18:56 Notes: RME DISCLOSURE I have seen this patient as part of a Rapid Medical Evaluation and, if applicable, placed any initially appropriate orders. The patient will be seen and fully evaluated, including a full history and physical exam, by a provider ( in Main ED or Fast Track) when a room becomes available. 41-year-old female here with complaints of right-sided chest pain radiating up to the right shoulder and down the right arm with shortness of breath dizziness and lightheadedness that started 2.5 hours ago while she was driving. The symptoms are not worse with exertion. She has had chest pains in the past due to anxiety however today she has not felt any anxiety whatsoever and this feels different she reports. She recently drove up to [facility] last week which is a [address] She has no prior history of PE/DVT. She does not take any control. No prior history of cancer. EXAM Minimal right chest wall tenderness (states this is not the same pain that she is having) Clear to auscultation bilaterally TRAVEL OUTSIDE OF THE [place] IN LAST 30 DAYS: No - Related Data Allergies/Adverse Reactions: sulfamethoxazole [From Bactrim] Allergy (Verified 06/01/17 01:30) trimethoprim [From Bactrim] Allergy (Verified 06/01/17 01:30) Past Medical History - Social History Chew tobacco use (# tins/day): No Frequency of alcohol use: None Drug Abuse: None Pulmonary Medical History: Reports: Hx Asthma, Hx Bronchitis, Hx Pneumonia Neurological Medical History: Reports: Hx Migraine Renal/ Medical History: Reports: Hx Ovarian Cysts. Denies: Hx Peritoneal Dialysis GI Medical History: Reports: Hx Gastroesophageal Reflux Disease - IBS, Hx Irritable Bowel, Hx Colonoscopy Musculoskeltal Medical History: Reports Hx Arthritis, Reports Hx Musculoskeletal Deformity, Reports Hx Musculoskeletal Trauma Psychiatric Medical History: Reports: Hx Anxiety, Hx Bipolar Disorder, Hx Depression, Hx Post Traumatic Stress Disorder Traumatic Medical History: Reports: Hx Traumatic Brain Injury Past Surgical History: Reports: Hx Abdominal Surgery - umbilical hernia repair, Hx Adenoidectomy, Hx Cholecystectomy, Hx Hysterectomy, Hx Tonsillectomy, Hx Tubal Ligation, Hx Umbilical Hernia - Immunizations Immunizations up to date: Yes Hx Diphtheria, Pertussis, Tetanus Vaccination: Yes - 2009 Physical Exam - Vital signs Vitals: Temp Pulse Resp BP Pulse Ox 98.5 F 84 16 118/73 98 07/03/17 18:37 07/03/17 18:37 07/03/17 18:37 07/03/17 18:37 07/03/17 18:37 Course - Vital Signs Vital signs: Temp Pulse Resp BP Pulse Ox 98.5 F 84 16 118/73 98 07/03/17 18:37 07/03/17 18:37 07/03/17 18:37 07/03/17 18:37 07/03/17 18:37
[2017-07-03 19:47] LABS: ABSOLUTE MONOCYTES (AUTO) 0.6 10^3/uL (0.1-1.4); BASOPHILS % (AUTO) 0.4 % (0-2); EOSINOPHILS % (AUTO) 0.1 % (0-6); HEMATOCRIT 42.6 % (36.0-47.0); HEMOGLOBIN 14.4 g/dL (12.0-15.5); LYMPHOCYTES % (AUTO) 25.9 % (13-45); MEAN CORPUSCULAR HEMOGLOBIN 31.4 pg (27.0-33.4); MEAN CORPUSCULAR HGB CONC 33.7 g/dL (32.0-36.0); MEAN CORPUSCULAR VOLUME 93 fl (80-97); MONOCYTES % (AUTO) 7.9 % (3-13); PLATELET COUNT 295 10^3/uL (150-450); RED BLOOD COUNT 4.57 10^6/uL (3.72-5.28); RED CELL DISTRIBUTION WIDTH 13.2 % (11.5-14.0); SEGMENTED NEUTROPHILS % (AUTO) 65.7 % (42-78); TOTAL CELLS COUNTED % (AUTO) 100 %; WHITE BLOOD COUNT 7.6 10^3/uL (4.0-10.5)
[2017-07-03] MEDS ORDERED: KETOROLAC TROMETHAMINE INJ/PF 30 MG/1 ML SDV IM ONE (19:47)
--- NOTE | 2017-07-03 19:51 | ER Document Report ---
ED Cardiac - General Chief Complaint: Chest Pain Stated Complaint: CHEST PAIN Time Seen by Provider: 07/03/17 18:56 Mode of Arrival: Ambulatory Information source: Patient TRAVEL OUTSIDE OF THE [place] IN LAST 30 DAYS: No - HPI Patient complains to provider of: Chest pain Notes: The patient is here with complaints of right-sided chest pain. States that this pain started approximately 2-1/2 hours prior to her arrival here. She states that she was driving home from [place] which is approximately a [address] Pain radiates down her right arm. It is worse with deep breath. States that she feels slightly short of breath. She denies any nausea, vomiting , diarrhea. She denies abdominal pain. She denies fever. She denies dysuria or hematuria. She denies any significant cough. She denies any injury. She denies any leg swelling or leg pain, hormone use, smoking, history of cancer, history of DVT or PE. She denies a history of high cholesterol, hypertension, diabetes, smoking, drug use, CAD, family history of CAD. She does report having a history of anxiety in the past. She denies any unilateral numbness, tingling, weakness. She denies any other significant complaints at this time. - Related Data Allergies/Adverse Reactions: sulfamethoxazole [From Bactrim] Allergy (Verified 06/01/17 01:30) trimethoprim [From Bactrim] Allergy (Verified 06/01/17 01:30) Past Medical History - Social History Smoking Status: Never Smoker Chew tobacco use (# tins/day): No Frequency of alcohol use: None Drug Abuse: None Family History: Arthritis, CVA, DM, Malignancy, Thyroid Disfunction. denies: CAD, COPD, Hyperlipidemia, Hypertension Patient has suicidal ideation: No Patient has homicidal ideation: No Pulmonary Medical History: Reports: Hx Asthma, Hx Bronchitis, Hx Pneumonia Neurological Medical History: Reports: Hx Migraine Renal/ Medical History: Reports: Hx Ovarian Cysts. Denies: Hx Peritoneal Dialysis GI Medical History: Reports: Hx Gastroesophageal Reflux Disease - IBS, Hx Irritable Bowel, Hx Colonoscopy Musculoskeltal Medical History: Reports Hx Arthritis, Reports Hx Musculoskeletal Deformity, Reports Hx Musculoskeletal Trauma Psychiatric Medical History: Reports: Hx Anxiety, Hx Bipolar Disorder, Hx Depression, Hx Post Traumatic Stress Disorder Traumatic Medical History: Reports: Hx Traumatic Brain Injury Past Surgical History: Reports: Hx Abdominal Surgery - umbilical hernia repair, Hx Adenoidectomy, Hx Cholecystectomy, Hx Hysterectomy, Hx Tonsillectomy, Hx Tubal Ligation, Hx Umbilical Hernia - Immunizations Immunizations up to date: Yes Hx Diphtheria, Pertussis, Tetanus Vaccination: Yes - 2009 Hx Pneumococcal Vaccination: 06/14/13 Review of Systems - Review of Systems -: Yes All other systems reviewed and negative Physical Exam - Vital signs Vitals: Temp Pulse Resp BP Pulse Ox 98.5 F 84 16 118/73 98 07/03/17 18:37 07/03/17 18:37 07/03/17 18:37 07/03/17 18:37 07/03/17 18:37 - Notes Notes: GENERAL: alert, cooperative, nontoxic, no distress. HEAD: normocephalic, atraumatic EYES: conjunctiva pink without discharge, no external redness or swelling. EARS: no external swelling, no external redness NOSE: atraumatic, no external swelling MOUTH/THROAT: mucous membranes moist and pink, posterior pharynx without erythema, swelling, exudate. No trismus or drooling. NECK: soft, supple, full range of motion, no meningismus. CHEST: no distress, lungs clear and equal throughout. No wheezing, rales, rhonchi. Tenderness to palpation of the right anterior chest wall. CARDIAC: regular rate and rhythm, no murmur, normal capillary refill, normal pulses. No peripheral edema noted. ABDOMEN: Soft, nontender. No rebound tenderness or guarding. No right upper quadrant tenderness. No mass. Obese abdomen. BACK: full range of motion, no CVA tenderness. EXTREMITIES: full range of motion of all extremities. No redness, no swelling. NEURO: alert and oriented x 3, no focal deficits, full range of motion of all extremities. PYSCH: appropriate mood, affect. Patient is cooperative. SKIN: pink, warm, dry, no rash. Course - Re-evaluation Re-evalutation: 07/03/17 19:51 Patient recent [address] and developed some right sided pleuritic type chest pain. The patient has no PE risk factors. The patient is PERC rule negative for PE. At this point a d-dimer has been ordered to help further rule out PE in this low risk patient. 07/03/17 23:47 Heart score 0 0 points Low Score (0-3 points) Risk of MACE of 0.9-1.7%. Patient is nontoxic appearing with stable vitals. The patient arrives with right-sided chest pain is worse with deep breath and also reproducible with palpation. This started after driving home from [place]. Patient has no PE risk factors and was PERC rule negative, therefore a d-dimer was ordered. The d -dimer was mildly elevated at 0.77, therefore CTA of the chest was ordered and negative. 2 troponins are negative. No signs of consolidation on CT or x-ray of the chest. Pain is most likely chest wall in nature due to the fact that it is pleuritic as well as reproducible with palpation. At this point the patient will be discharged home with a prescription of Voltaren with instructions to follow-up with her doctor at the next available appointment for recheck. Follow -up sooner for increasing pain, high fever, persistent vomiting, or for any further concerns. The patient's emergency department workup and current diagnosis were explained to the patient and or family. Follow-up instructions were provided. Medications if prescribed were discussed. Instructions for when to return to the emergency department including specific worrisome symptoms were discussed with the patient and/or family. - Vital Signs Vital signs: Temp Pulse Resp BP Pulse Ox 98.5 F 84 17 117/52 L 97 07/03/17 18:37 07/03/17 18:37 07/03/17 23:01 07/03/17 23:01 07/03/17 23:01 - Laboratory Result Diagrams: 07/03/17 19:28 07/03/17 20:05 Laboratory results interpreted by me: 07/03/17 07/03/17 07/03/17 20:05 20:05 20:05 D-Dimer 0.77 H Chloride 109 H Direct Bilirubin 0.5 H - Diagnostic Test Radiology reviewed: Image reviewed, Reports reviewed - Chest x-ray unremarkable. CTA of the chest shows no acute abnormality. - EKG Interpretation by [facility] EKG shows normal: Sinus rhythm, [place], Intervals, QRS Complexes, ST-T Waves Rate: Normal When compared to previous EKG there are: Previous EKG unavailable Discharge - Discharge Clinical Impression: Right-sided chest pain Condition: Stable Disposition: HOME, SELF-CARE Instructions: Chest Pain of Unclear Cause ([facility]) Additional Instructions: Take medications as prescribed. Follow-up with your primary care doctor at the next available appointment. Follow-up sooner for worsening pain, high fever, persistent vomiting, or for any further concerns. Prescriptions: Diclofenac Sodium [Voltaren 50 Mg Tablet.] 50 mg PO BID #20 tablet. Forms: Smoking Cessation Education Referrals: [facility] [Provider Group] - Follow up as needed
--- NOTE | 2017-07-03 20:37 | RADIOLOGY REPORT (SQ) ---
EXAM DESCRIPTION: CHEST SINGLE VIEW COMPLETED DATE/TIME: 07/03/2017 8:02 pm REASON FOR STUDY: right cp COMPARISON: 12/17/2016. EXAM PARAMETERS: NUMBER OF VIEWS: One view. TECHNIQUE: Single frontal radiographic view of the chest acquired. RADIATION DOSE: NA LIMITATIONS: None. FINDINGS: LUNGS AND PLEURA: No opacities, masses or pneumothorax. No pleural effusion. MEDIASTINUM AND HILAR STRUCTURES: No masses. Contour normal. HEART AND VASCULAR STRUCTURES: Heart normal in size. Normal vasculature. BONES: No acute findings. HARDWARE: None in the chest. OTHER: No other significant finding. IMPRESSION: NO ACUTE RADIOGRAPHIC FINDING IN THE CHEST. TECHNICAL DOCUMENTATION: JOB ID: [id number] [employer]- All Rights Reserved Reading location - IP/workstation name: [email or web address]
[2017-07-03 20:38] LABS: APPEARANCE,URINE CLEAR; BILIRUBIN,URINE NEGATIVE (NEGATIVE); COLOR,URINE STRAW; GLUCOSE, URINE NEGATIVE (NEGATIVE); KETONES,URINE NEGATIVE (NEGATIVE); LEUKOCYTE ESTERASE,URINE NEGATIVE (NEGATIVE); NITRITE,URINE NEGATIVE (NEGATIVE); PROTEIN,URINE NEGATIVE (NEGATIVE); URINE SPECIFIC GRAVITY 1.009; UROBILINOGEN,URINE NEGATIVE mg/dL (<2.0)
[2017-07-03 20:49] LABS: ANION GAP 7 (5-19); BLOOD UREA NITROGEN 9 mg/dL (7-20); CALCIUM 9.6 mg/dL (8.4-10.2); CARBON DIOXIDE 25 mmol/L (22-30); CHLORIDE 109 mmol/L (98-107); GLUCOSE 89 mg/dL (75-110); SODIUM 141.3 mmol/L (137-145)
[2017-07-03 20:50] LABS: ALANINE AMINOTRANSFERASE 20 U/L (9-52); ALBUMIN 4.3 g/dL (3.5-5.0); ALKALINE PHOSPHATASE 58 U/L (38-126); ASPARTATE AMINO TRANSFERASE 20 U/L (14-36); BILIRUBIN,DIRECT 0.5 mg/dL (0.0-0.4); BILIRUBIN,TOTAL 0.5 mg/dL (0.2-1.3); LIPASE 76.6 U/L (23-300); TOTAL PROTEIN 7.3 g/dL (6.3-8.2)
--- NOTE | 2017-07-03 21:20 | EKG REPORT ---
SEVERITY:- NORMAL ECG - SINUS RHYTHM : Confirmed by: Joe Olmedo 03-Jul-2017 21:20:07
--- NOTE | 2017-07-03 23:40 | RADIOLOGY REPORT (SQ) ---
EXAM DESCRIPTION: CTA CHEST COMPLETED DATE/TIME: 07/03/2017 9:52 pm REASON FOR STUDY: cp, sob, elevated d-dimer COMPARISON: None. TECHNIQUE: CT scan of the chest performed using helical scanning technique with dynamic intravenous contrast injection. Images reviewed with lung, soft tissue and bone windows. Reconstructed coronal and sagittal MPR images reviewed. Additional 3 dimensional post-processing performed to develop Maximal Intensity Projection images (MD P). All images stored on PACS. All CT scanners at this facility use dose modulation, iterative reconstruction, and/or weight based d osing when appropriate to reduce radiation dose to as low as reasonably achievable (ALARA). [facility]: Dose Right [facility]: CareDose [facility]: Dose Right [facility]: Teradose 4D [facility]: [place] CONTRAST TYPE AND DOSE: contrast/concentration: Isovue 370.00 mg/ml; Total Contrast Delivered: 82.0 ml; Total Saline Delivered: 110.0 ml Contrast bolus adequate for pulmonary arteries and aorta. RENAL FUNCTION: GFR > 60. RADIATION DOSE: CT Rad equipment meets quality standard of care and radiation dose reduction techniq ues were employed. CTDIvol: 16.5 - 18.4 mGy. DLP: 719 mGy-cm. . LIMITATIONS: None. FINDINGS: LUNGS AND PLEURA: No masses, consolidation, pneumothorax. No pleural effusions, calcifica tions. AORTA AND GREAT VESSELS: No aneurysm. Contrast bolus not optimized for the aorta. HEART: No pericardial effusion. No significant coronary artery calcifications. PULMONARY ARTERIES: No emboli visualized in the main pulmonary arteries or the segmental branches. HILAR AND MEDIASTINAL STRUCTURES: No identified masses or abnormal nodes. HARDWARE: None in the chest. UPPER ABDOMEN: No significant findings. Limited exam. THYROID AND OTHER SOFT TISSUES: No masses. No adenopathy. BONES: No acute finding. 3D MIPS: Confirm above findings. OTHER: No other significant finding. IMPRESSION: No emboli visualized in the main pulmonary arteries or the segmental branches. No consolidation or pleural effusion. COMMENT: Quality ID # [id number]: Final reports with documentation of one or more dose reduction techniques (e.g., Automated exposure control, adjustment of the mA and/or kV according to patient size, use of iterative reconstruction technique) TECHNICAL DOCUMENTATION: JOB ID: [id number] [place]-72 2010 [employer] All Rights Reserved Reading location - IP/workstation name: [email or web address]
[2017-07-04 00:15] VITALS: BP 104/60
== END 2017-07-04 00:09 | disposition home or self-care (01) ==
LOC: ER 18:17
DX: R07.9 Chest pain, unspecified (principal); M79.601 Pain in right arm; R06.02 Shortness of breath; F41.9 Anxiety disorder, unspecified
CPT/HCPCS: 93005; 99285; 96372; 36415; 83690; 85025; 81025; 80076; 80048; 81001; 84484; 85379; 71045; 71275; 93010; J1885

== ENCOUNTER 2017-07-12 14:56 | Emergency (ER) | payer OTHER, MEDICARE ==
[2017-07-12] MEDS ORDERED: CYCLOBENZAPRINE HCL 10 MG TABLET PO ONE (15:17)
[2017-07-12] MEDS ORDERED: PREDNISONE 20 MG TABLET PO ONE (15:17)
--- NOTE | 2017-07-12 15:20 | ER Document Report ---
ED General - General Chief Complaint: Pain All Over Stated Complaint: BODY PAIN Time Seen by Provider: 07/12/17 15:08 Mode of Arrival: Ambulatory Information source: Patient Notes: Patient is a 41-year-old female who presents to the ER today for right lower back "spasm", bilateral hand pain, left knee pain without any injury 3 days. Patient states that she has been evaluated currently by the [facility] for fibromyalgia or lupus. Patient states that her sed rate and CRP are always elevated when her primary care provider at the [facility] draws them but they have not yet figured out what this means. Patient states she is just waiting for her next appointment to get more blood drawn. She states that it is hurting to walk upstairs and that she cannot perform daily tasks at this time with her hands. She admits to occasional swelling of random joints. She denies any tick bites that she knows of. She states that they have checked her for Lyme disease and it was negative. TRAVEL OUTSIDE OF THE [place]. IN LAST 30 DAYS: No - Related Data Allergies/Adverse Reactions: sulfamethoxazole [From Bactrim] Allergy (Verified 07/12/17 15:11) trimethoprim [From Bactrim] Allergy (Verified 07/12/17 15:11) Past Medical History - General Information source: Patient - Social History Smoking Status: Unknown if Ever Smoked Family History: Arthritis, CVA, DM, Malignancy, Thyroid Disfunction. denies: CAD, COPD, Hyperlipidemia, Hypertension Pulmonary Medical History: Reports: Hx Asthma, Hx Bronchitis, Hx Pneumonia Neurological Medical History: Reports: Hx Migraine Renal/ Medical History: Reports: Hx Ovarian Cysts. Denies: Hx Peritoneal Dialysis GI Medical History: Reports: Hx Gastroesophageal Reflux Disease - IBS, Hx Irritable Bowel, Hx Colonoscopy Musculoskeltal Medical History: Reports Hx Arthritis, Reports Hx Musculoskeletal Deformity, Reports Hx Musculoskeletal Trauma Psychiatric Medical History: Reports: Hx Anxiety, Hx Bipolar Disorder, Hx Depression, Hx Post Traumatic Stress Disorder Traumatic Medical History: Reports: Hx Traumatic Brain Injury Past Surgical History: Reports: Hx Abdominal Surgery - umbilical hernia repair, Hx Adenoidectomy, Hx Cholecystectomy, Hx Hysterectomy, Hx Tonsillectomy, Hx Tubal Ligation, Hx Umbilical Hernia - Immunizations Immunizations up to date: Yes Hx Diphtheria, Pertussis, Tetanus Vaccination: Yes - 2009 Hx Pneumococcal Vaccination: 06/14/13 Review of Systems - Review of Systems Constitutional: No symptoms reported EENT: No symptoms reported Cardiovascular: No symptoms reported Respiratory: No symptoms reported Gastrointestinal: No symptoms reported Genitourinary: No symptoms reported Female Genitourinary: No symptoms reported Musculoskeletal: See HPI Skin: No symptoms reported Hematologic/Lymphatic: No symptoms reported Neurological/Psychological: No symptoms reported Physical Exam - Vital signs Vitals: Temp Pulse Resp BP Pulse Ox 98.7 F 119 H 18 125/79 99 07/12/17 15:00 07/12/17 15:00 07/12/17 15:00 07/12/17 15:00 07/12/17 15:00 - Notes Notes: PHYSICAL EXAMINATION: GENERAL: Well-appearing and in no acute distress. HEAD: Atraumatic, normocephalic. EYES: Pupils equal round and reactive to light, extraocular movements intact, sclera anicteric, conjunctiva are normal. ENT: ear canals without erythema or foreign body, TMs pearly pink with good bony landmarks, nares patent, oropharynx clear without exudates. Moist mucous membranes. NECK: Normal range of motion, supple without lymphadenopathy LUNGS: CTAB and equal. No wheezes rales or rhonchi. HEART: Regular rate and rhythm without murmurs ABDOMEN: Soft, no tenderness. No guarding, no rebound BACK: moderate right lumbar tenderness, no vertebral tenderness, normal ROM GI/: no CVA tenderness EXTREMITIES: Normal range of motion, no pitting edema. No cyanosis. NEUROLOGICAL: Cranial nerves grossly intact. Normal sensory/motor exams. PSYCH: Normal mood, normal affect. SKIN: Warm, Dry, normal turgor, no rashes or lesions noted Course - Re-evaluation Re-evalutation: 07/12/17 15:49 Patient has been seen here many times for pain related complaints and psychiatric evaluations, suicidal ideations. For this reason I will not give her any narcotic pain medication, she has no objective findings today and has had no injury. Patient is already in the middle of a workup by her primary care provider. I will provide her with prednisone and a muscle relaxer for pain and swelling of joints. - Vital Signs Vital signs: Temp Pulse Resp BP Pulse Ox 98.7 F 119 H 18 125/79 99 07/12/17 15:00 07/12/17 15:00 07/12/17 15:00 07/12/17 15:07/12/17 15:00 Discharge - Discharge Clinical Impression: Muscle spasm of back Joint pain Qualifiers: Joint pain location: unspecified Qualified Code(s): M25.50 - Pain in unspecified joint Condition: Stable Disposition: HOME, SELF-CARE Additional Instructions: Return immediately for any new or worsening symptoms. Follow up with primary care provider, call tomorrow to make followup appointment. Definitely follow-up with them about your Rheumatologic workup that needs to be done. Prescriptions: Cyclobenzaprine HCl [Flexeril 10 mg Tablet] 10 mg PO TIDP PRN #15 tab PRN Reason: Prednisone [Deltasone 20 mg Tablet] 3 tab PO DAILY 5 Days tablet
[2017-07-12 15:56] VITALS: BP 130/81
== END 2017-07-12 15:56 | disposition home or self-care (01) ==
LOC: ER 14:56
DX: M62.830 Muscle spasm of back (principal); M25.562 Pain in left knee; M25.40 Effusion, unspecified joint; M79.641 Pain in right hand; M79.642 Pain in left hand; J45.909 Unspecified asthma, uncomplicated; Z88.1 Allergy status to other antibiotic agents; Z82.61 Family history of arthritis
CPT/HCPCS: 99283; J7512

== ENCOUNTER 2017-07-21 11:20 | Emergency (ER) | payer OTHER, MEDICARE ==
[2017-07-21] MEDS ORDERED: ONDANSETRON HCL INJ/PF 4 MG/2 ML SDV IV ONE (11:56)
[2017-07-21] MEDS ORDERED: HYDROMORPHONE HCL INJ/PF 2 MG/ML AMPULE IV ONE ×2 (11:56→13:13)
--- NOTE | 2017-07-21 11:56 | ER Document Report ---
ED Medical Screen (RME) - General Mode of Arrival: Ambulatory Information source: Patient TRAVEL OUTSIDE OF THE [place] IN LAST 30 DAYS: No - HPI Patient complains to provider of: LLQ abdominal pain Onset: This morning - 0300 Associated Symptoms: Other - see notes above <CHUY GALICIA - Last Filed: 07/21/17 12:09> <JUAN LUIS DEWITT - Last Filed: 07/21/17 18:15> - General Chief Complaint: Abdominal Pain Stated Complaint: ABDOMINAL PAIN,NAUSEA,DIARRHEA Time Seen by Provider: 07/21/17 11:51 Notes: 41 year old female with history of hysterectomy, cholecystectomy, and IBS presents to the ED complaining of left lower quadrant abdominal pain that started at 0500 and has been constant since. Patient additionally complains of nausea and vomiting, but denies dysuria, burning with urination, and fever. Patient reports that her IBS symptoms present with mid abdominal pain and that her current pain is not consistent with this. (CHUY GALICIA) - Related Data Allergies/Adverse Reactions: sulfamethoxazole [From Bactrim] Allergy (Verified 07/21/17 11:20) trimethoprim [From Bactrim] Allergy (Verified 07/21/17 11:20) Past Medical History - General Information source: Patient - Social History Frequency of alcohol use: None Drug Abuse: None Pulmonary Medical History: Reports: Hx Asthma, Hx Bronchitis, Hx Pneumonia Neurological Medical History: Reports: Hx Migraine Renal/ Medical History: Reports: Hx Ovarian Cysts. Denies: Hx Peritoneal Dialysis GI Medical History: Reports: Hx Gastroesophageal Reflux Disease - IBS, Hx Irritable Bowel, Hx Colonoscopy Musculoskeltal Medical History: Reports Hx Arthritis, Reports Hx Musculoskeletal Deformity, Reports Hx Musculoskeletal Trauma Psychiatric Medical History: Reports: Hx Anxiety, Hx Bipolar Disorder, Hx Depression, Hx Post Traumatic Stress Disorder Traumatic Medical History: Reports: Hx Traumatic Brain Injury Past Surgical History: Reports: Hx Abdominal Surgery - umbilical hernia repair, Hx Adenoidectomy, Hx Cholecystectomy, Hx Hysterectomy, Hx Tonsillectomy, Hx Tubal Ligation, Hx Umbilical Hernia - Immunizations Immunizations up to date: Yes Hx Diphtheria, Pertussis, Tetanus Vaccination: Yes - 2009 <CHUY GALICIA - Last Filed: 07/21/17 12:09> Review of Systems - Review of Systems Constitutional: No symptoms reported. denies: Fever EENT: No symptoms reported Cardiovascular: No symptoms reported Respiratory: No symptoms reported Gastrointestinal: See HPI, Abdominal pain - LLQ, Nausea, Vomiting Genitourinary: No symptoms reported. denies: Burning, Dysuria Female Genitourinary: No symptoms reported Musculoskeletal: No symptoms reported Skin: No symptoms reported Hematologic/Lymphatic: No symptoms reported Neurological/Psychological: No symptoms reported <CHUY GALICIA - Last Filed: 07/21/17 12:09> Physical Exam - General General appearance: Alert In distress: None - HEENT Head: Normocephalic, Atraumatic Eyes: Normal Extraocular movements intact: Yes Pupils: PERRL - Respiratory Respiratory status: No respiratory distress Breath sounds: Normal - Cardiovascular Rhythm: Regular Heart sounds: Normal auscultation - Abdominal Inspection: Normal Tenderness: Tender - RLQ <CHUY GALICIA - Last Filed: 07/21/17 12:09> - Vital signs Vitals: Temp Pulse Resp BP Pulse Ox 98.3 F 126 H 17 135/97 H 99 07/21/17 11:46 07/21/17 11:46 07/21/17 11:46 07/21/17 11:46 07/21/17 11:46 Course - Laboratory Result Diagrams: 07/21/17 12:06 07/21/17 12:06 <JUAN LUIS DEWITT - Last Filed: 07/21/17 18:15> - Vital Signs Vital signs: Temp Pulse Resp BP Pulse Ox 98.2 F 93 20 116/71 99 07/21/17 15:24 07/21/17 15:24 07/21/17 15:24 07/21/17 15:24 07/21/17 15:24 - Laboratory Laboratory results interpreted by me: 07/21/17 07/21/17 12:06 12:06 WBC 12.7 H Potassium 5.2 H AST 93 H ALT 100 H Doctor's Discharge <CHUY GALICIA - Last Filed: 07/21/17 12:09> <JUAN LUIS DEWITT - Last Filed: 07/21/17 18:15> - Discharge Clinical Impression: Abdominal pain, Nausea & vomiting Condition: Good Disposition: HOME, SELF-CARE Instructions: Abdominal Pain ([facility]), Vomiting ([facility]) Additional Instructions: CAT scan today and laboratory studies not show any signs of acute infection require antibiotics or surgery. Do believe her symptoms are more viral related. Please take medication as prescribed return to ER symptoms worsen. Prescriptions: Ondansetron [Zofran Odt 4 mg Tablet] 4 mg PO Q4HP PRN #30 tab.rapdis PRN Reason: Dicyclomine HCl [Bentyl 20 mg Tablet] 20 mg PO QID #30 tablet Promethazine HCl [Phenergan 25 mg Tablet] 25 mg PO Q6 #30 tablet Forms: Return to Work Scribe Documentation - Scribe Written by Donavon:: Donavon Hernandez, 07/21/2017 1213 acting as scribe for :: Phong <CHUY GALICIA - Last Filed: 07/21/17 12:09>
[2017-07-21] MEDS ORDERED: NORMAL SALINE 1000 ML 1,000 ML IV ONE (12:17)
[2017-07-21 12:30] LABS: AMORPHOUS SEDIMENT,URINE TRACE /HPF; APPEARANCE,URINE CLOUDY; BILIRUBIN,URINE NEGATIVE (NEGATIVE); COLOR,URINE YELLOW; GLUCOSE, URINE NEGATIVE (NEGATIVE); KETONES,URINE NEGATIVE (NEGATIVE); LEUKOCYTE ESTERASE,URINE NEGATIVE (NEGATIVE); NITRITE,URINE NEGATIVE (NEGATIVE); PROTEIN,URINE NEGATIVE (NEGATIVE); URINE SPECIFIC GRAVITY 1.017; UROBILINOGEN,URINE NEGATIVE mg/dL (<2.0)
[2017-07-21 12:31] LABS: HEMATOCRIT 45.1 % (36.0-47.0); HEMOGLOBIN 15.3 g/dL (12.0-15.5); MEAN CORPUSCULAR HEMOGLOBIN 31.2 pg (27.0-33.4); MEAN CORPUSCULAR HGB CONC 33.9 g/dL (32.0-36.0); MEAN CORPUSCULAR VOLUME 92 fl (80-97); PLATELET COUNT 293 10^3/uL (150-450); RED CELL DISTRIBUTION WIDTH 13.5 % (11.5-14.0); WHITE BLOOD COUNT 12.7 10^3/uL (4.0-10.5)
[2017-07-21 12:45] LABS: ALANINE AMINOTRANSFERASE 100 U/L (9-52); ALBUMIN 4.3 g/dL (3.5-5.0); ALKALINE PHOSPHATASE 77 U/L (38-126); ANION GAP 6 (5-19); ASPARTATE AMINO TRANSFERASE 93 U/L (14-36); BILIRUBIN,DIRECT 0.2 mg/dL (0.0-0.4); BILIRUBIN,TOTAL 0.7 mg/dL (0.2-1.3); BLOOD UREA NITROGEN 13 mg/dL (7-20); CALCIUM 9.9 mg/dL (8.4-10.2); CARBON DIOXIDE 29 mmol/L (22-30); CHLORIDE 102 mmol/L (98-107); GLUCOSE 82 mg/dL (75-110); POTASSIUM 5.2 mmol/L (3.6-5.0); SODIUM 137.3 mmol/L (137-145); TOTAL PROTEIN 7.2 g/dL (6.3-8.2)
[2017-07-21 13:00] LABS: ABSOLUTE LYMPHOCYTES# (MANUAL) 4.4 10^3/uL (0.5-4.7); ABSOLUTE MONOCYTES # (MANUAL) 0.5 10^3/uL (0.1-1.4); ABSOLUTE NEUTROPHILS# (MANUAL) 7.6 10^3/uL (1.7-8.2); BASOPHILS % (MANUAL) 0 % (0-2); EOSINOPHILS % (MANUAL) 1 % (0-6); LYMPHOCYTES % (MANUAL) 35 % (13-45); MONOCYTES % (MANUAL) 4 % (3-13); SEGMENTED NEUTROPHILS % (MAN) 60 % (42-78); TOTAL CELLS COUNTED 100
[2017-07-21 13:01] LABS: PLATELET COMMENT ADEQUATE; RBC MORPHOLOGY COMMENT NORMO-CYTIC/CHROMIC; TOXIC GRANULATION SLIGHT
--- NOTE | 2017-07-21 14:07 | RADIOLOGY REPORT (SQ) ---
EXAM DESCRIPTION: CT ABD/PELVIS WITH IV ONLY COMPLETED DATE/TIME: 07/21/2017 1:56 pm REASON FOR STUDY: rlq pain COMPARISON: 06/01/2017 TECHNIQUE: CT scan of the abdomen and pelvis performed using helical scanning technique with dynamic intravenous contrast injection. No oral contrast. Images reviewed with lung, soft tissue, and bone windows. Reconstructed coronal and sagittal MPR images reviewed. Delayed images for evaluation of the urinary system also acquired. All images stored on PACS. All CT scanners at this facility use dose modulation, iterative reconstruction, and/or weight based d osing when appropriate to reduce radiation dose to as low as reasonably achievable (ALARA). [facility]: Dose Right [facility]: CareDose [facility]: Dose Right [facility]: Teradose 4D [facility]: [place] CONTRAST TYPE AND DOSE: contrast/concentration: Isovue 370.00 mg/ml; Total Contrast Delivered: 100.0 ml; Total Saline Delivered: 72.0 ml RENAL FUNCTION: GFR > 60. RADIATION DOSE: CT Rad equipment meets quality standard of care and radiation dose reduction techniq ues were employed. CTDIvol: 16.9 - 19.4 mGy. DLP: 2154 mGy-cm.. LIMITATIONS: None. FINDINGS: LOWER CHEST: No significant findings. No nodules or infiltrates. LIVER: Normal size. No masses. No dilated ducts. SPLEEN: Normal size. No focal lesions. PANCREAS: No masses. No significant calcifications. No adjacent inflammation or peripancreatic fluid collections. Pancreatic duct not dilated. GALLBLADDER: Surgically absent. ADRENAL GLANDS: No significant masses or asymmetry. RIGHT KIDNEY AND URETER: No solid masses. No significant calcifications. No hydronephrosis or hyd roureter. LEFT KIDNEY AND URETER: No solid masses. No significant calcifications. No hydronephrosis or hydr oureter. AORTA AND VESSELS: No aneurysm. No dissection. Renal arteries, SMA, celiac without stenosis. RETROPERITONEUM: No retroperitoneal adenopathy, hemorrhage or masses. BOWEL AND PERITONEAL CAVITY: No masses or inflammatory changes. No free fluid or peritoneal masses. APPENDIX: Normal. PELVIS: No mass. No free fluid. Normal bladder. ABDOMINAL WALL: No masses. Stable postsurgical change related to periumbilical hernia repair without gross complication. . BONES: No significant or acute findings. OTHER: No other significant finding. IMPRESSION: NO SIGNIFICANT OR ACUTE FINDING IN THE ABDOMEN OR PELVIS ON CT SCAN WITH IV CONTRAST. N O SIGNIFICANT CHANGE FROM PRIOR CT. TECHNICAL DOCUMENTATION: JOB ID: [id number] Quality ID # [id number]: Final reports with documentation of one or more dose reduction techniques (e.g., Au tomated exposure control, adjustment of the mA and/or kV according to patient size, use of iterative reconstruction technique) 2010 [employer]- All Rights Reserved Reading location - IP/workstation name: [email or web address]
--- NOTE | 2017-07-21 15:24 | ER Document Report ---
ED General - General Chief Complaint: Abdominal Pain Stated Complaint: ABDOMINAL PAIN,NAUSEA,DIARRHEA Time Seen by Provider: 07/21/17 11:51 Mode of Arrival: Ambulatory TRAVEL OUTSIDE OF THE [place] IN LAST 30 DAYS: No - HPI Patient complains to provider of: Abdominal pain nausea vomiting Notes: Patient coming in feeling unwell abdominal pain right lower quadrant nausea vomiting diarrhea ongoing for approximately 24 hours. Patient denies any fevers at home. Patient is unable tolerate any food. Patient states pain with movement in the right lower quadrant. Has history of hysterectomy however still has her ovaries. Patient resting comfortably upon my evaluation. - Related Data Allergies/Adverse Reactions: sulfamethoxazole [From Bactrim] Allergy (Verified 07/21/17 11:20) trimethoprim [From Bactrim] Allergy (Verified 07/21/17 11:20) Past Medical History - General Information source: Patient - Social History Smoking Status: Never Smoker Frequency of alcohol use: None Drug Abuse: None Family History: Arthritis, CVA, DM, Malignancy, Thyroid Disfunction. denies: CAD, COPD, Hyperlipidemia, Hypertension Patient has suicidal ideation: No Patient has homicidal ideation: No Pulmonary Medical History: Reports: Hx Asthma, Hx Bronchitis, Hx Pneumonia Neurological Medical History: Reports: Hx Migraine Renal/ Medical History: Reports: Hx Ovarian Cysts. Denies: Hx Peritoneal Dialysis GI Medical History: Reports: Hx Gastroesophageal Reflux Disease - IBS, Hx Irritable Bowel, Hx Colonoscopy Musculoskeltal Medical History: Reports Hx Arthritis, Reports Hx Musculoskeletal Deformity, Reports Hx Musculoskeletal Trauma Psychiatric Medical History: Reports: Hx Anxiety, Hx Bipolar Disorder, Hx Depression, Hx Post Traumatic Stress Disorder Traumatic Medical History: Reports: Hx Traumatic Brain Injury Past Surgical History: Reports: Hx Abdominal Surgery - umbilical hernia repair, Hx Adenoidectomy, Hx Cholecystectomy, Hx Hysterectomy, Hx Tonsillectomy, Hx Tubal Ligation, Hx Umbilical Hernia - Immunizations Immunizations up to date: Yes Hx Diphtheria, Pertussis, Tetanus Vaccination: Yes - 2009 Hx Pneumococcal Vaccination: 06/14/13 Review of Systems - Review of Systems Constitutional: No symptoms reported EENT: No symptoms reported Cardiovascular: No symptoms reported Respiratory: No symptoms reported Gastrointestinal: Abdominal pain, Diarrhea, Nausea, Vomiting Genitourinary: No symptoms reported Female Genitourinary: No symptoms reported Musculoskeletal: No symptoms reported Skin: No symptoms reported Hematologic/Lymphatic: No symptoms reported Neurological/Psychological: No symptoms reported -: Yes All other systems reviewed and negative Physical Exam - Vital signs Vitals: Temp Pulse Resp BP Pulse Ox 98.3 F 126 H 17 135/97 H 99 07/21/17 11:46 07/21/17 11:46 07/21/17 11:46 07/21/17 11:46 07/21/17 11:46 Interpretation: Normal - General General appearance: Appears well, Alert - HEENT Head: Normocephalic, Atraumatic Eyes: Normal Pupils: PERRL - Respiratory Respiratory status: No respiratory distress Chest status: Nontender Breath sounds: Normal Chest palpation: Normal - Cardiovascular Rhythm: Regular Heart sounds: Normal auscultation Murmur: No - Abdominal Inspection: Obese Distension: No distension Bowel sounds: Normal Tenderness: Tender - Right lower quadrant abdominal pain when distracting the patient plan patient talking palpating her lower quadrant patient screams. Organomegaly: No organomegaly - Back Back: Normal, Nontender - Extremities General upper extremity: Normal inspection, Nontender, Normal color, Normal ROM , Normal temperature General lower extremity: Normal inspection, Nontender, Normal color, Normal ROM , Normal temperature, Normal weight bearing. No: Arun's sign - Neurological Neuro grossly intact: Yes Cognition: Normal Orientation: AAOx4 [place] Coma Scale Eye Opening: Spontaneous [place] Coma Scale Verbal: Oriented [place] Coma Scale Motor: Obeys Commands Brain Coma Scale Total: 15 Speech: Normal Motor strength normal: LUE, RUE, LLE, RLE Sensory: Normal - Psychological Associated symptoms: Normal affect, Normal mood - Skin Skin Temperature: Warm Skin Moisture: Dry Skin Color: Normal Course - Re-evaluation Re-evalutation: 07/21/17 16:02 The patient presents with abdominal pain without signs of peritonitis or other life-threatening or serious etiology. The patient appears stable for discharge and has been instructed to return immediately if the symptoms worsen in any way , or in 8-12hr if not improved for re-evaluation. The patient has been instructed to return if the symptoms worsen or change in any way. - Vital Signs Vital signs: Temp Pulse Resp BP Pulse Ox 98.2 F 93 20 116/71 99 07/21/17 15:24 07/21/17 15:24 07/21/17 15:24 07/21/17 15:24 07/21/17 15:24 - Laboratory Result Diagrams: 07/21/17 12:06 07/21/17 12:06 Laboratory results interpreted by me: 07/21/17 07/21/17 12:06 12:06 WBC 12.7 H Potassium 5.2 H AST 93 H ALT 100 H Discharge - Discharge Clinical Impression: Abdominal pain Qualifiers: Abdominal location: unspecified location Qualified Code(s): R10.9 - Unspecified abdominal pain Nausea & vomiting Qualifiers: Vomiting type: unspecified Vomiting Intractability: unspecified Qualified Code( s): R11.2 - Nausea with vomiting, unspecified Condition: Good Disposition: HOME, SELF-CARE Instructions: Abdominal Pain ([facility]), Vomiting ([facility]) Additional Instructions: CAT scan today and laboratory studies not show any signs of acute infection require antibiotics or surgery. Do believe her symptoms are more viral related. Please take medication as prescribed return to ER symptoms worsen. Prescriptions: Ondansetron [Zofran Odt 4 mg Tablet] 4 mg PO Q4HP PRN #30 tab.rapdis PRN Reason: Dicyclomine HCl [Bentyl 20 mg Tablet] 20 mg PO QID #30 tablet Promethazine HCl [Phenergan 25 mg Tablet] 25 mg PO Q6 #30 tablet Forms: Return to Work
[2017-07-21 15:26] VITALS: BP 116/71
== END 2017-07-21 15:26 | disposition home or self-care (01) ==
LOC: ER 11:20
DX: R10.31 Right lower quadrant pain (principal); R11.2 Nausea with vomiting, unspecified; R19.7 Diarrhea, unspecified; J45.909 Unspecified asthma, uncomplicated; Z88.1 Allergy status to other antibiotic agents; Z90.49 Acquired absence of other specified parts of digestive tract; Z98.51 Tubal ligation status; Z90.710 Acquired absence of both cervix and uterus; Z87.42 Personal history of other diseases of the female genital tract
CPT/HCPCS: 96376; 99284; 96361; 96374; 96375; 36415; 85025; 81025; 80053; 81001; 74177; J1170; J2405; J7030

== ENCOUNTER 2017-08-10 22:31 | Emergency (ER) | payer OTHER, MEDICARE ==
--- NOTE | 2017-08-10 23:44 | RADIOLOGY REPORT (SQ) ---
EXAM DESCRIPTION: KNEE RIGHT 3 VIEWS CLINICAL HISTORY: 41 years, Female, pain COMPARISON: None. NUMBER OF VIEWS: 3 Findings: Bones, joints, and soft tissues of KNEE RIGHT 3 VIEWS appear intact. No significant effusion. IMPRESSION: No acute findings.
--- NOTE | 2017-08-10 23:46 | RADIOLOGY REPORT (SQ) ---
EXAM DESCRIPTION: ANKLE RIGHT COMPLETE CLINICAL HISTORY: 41 years, Female, pain COMPARISON: None. NUMBER OF VIEWS: 3 LIMITATIONS: None. FINDINGS: 0.5 cm ossicular fragmentation of the medial malleolus and small plantar fascial enthesophyte. IMPRESSION: No acute findings.
[2017-08-10] MEDS ORDERED: OXYCODONE-ACETAMINOPHEN 5-325 MG TABLET PO ONE (23:54)
--- NOTE | 2017-08-10 23:56 | ER Document Report ---
HPI - HPI Patient complains to provider of: right knee olga causing her to roll right ankle Onset: Just prior to arrival Onset/Duration: Sudden Quality of pain: Throbbing Severity: Moderate Pain Level: 3 Context: Patient states she was in the shower and her right knee buckled causing her to twist her right ankle. States this has never happened before. No other injury. Associated Symptoms: None Exacerbated by: Movement, Walking Relieved by: Denies Similar symptoms previously: Yes - right ankle Recently seen / treated by doctor: No - ROS ROS below otherwise negative: Yes Systems Reviewed and Negative: Yes All other systems reviewed and negative - REPRODUCTIVE Reproductive: DENIES: : - MUSCULOSKELETAL Musculoskeletal: REPORTS: Extremity pain - Right ankle and right knee - DERM Skin Color: Normal Past Medical History - General Information source: Patient - Social History Smoking Status: Current Every Day Smoker Cigarette use (# per day): Yes Chew tobacco use (# tins/day): No Frequency of alcohol use: None Drug Abuse: None Lives with: Family Family History: Arthritis, CVA, DM, Malignancy, Thyroid Disfunction Patient has suicidal ideation: No Patient has homicidal ideation: No Pulmonary Medical History: Reports: Hx Asthma, Hx Bronchitis, Hx Pneumonia Neurological Medical History: Reports: Hx Migraine Renal/ Medical History: Reports: Hx Ovarian Cysts GI Medical History: Reports: Hx Gastroesophageal Reflux Disease - IBS, Hx Irritable Bowel, Hx Colonoscopy Musculoskeltal Medical History: Reports Hx Arthritis, Reports Hx Musculoskeletal Deformity, Reports Hx Musculoskeletal Trauma Psychiatric Medical History: Reports: Hx Anxiety, Hx Bipolar Disorder, Hx Depression, Hx Post Traumatic Stress Disorder Traumatic Medical History: Reports: Hx Traumatic Brain Injury Past Surgical History: Reports: Hx Abdominal Surgery - umbilical hernia repair, Hx Adenoidectomy, Hx Cholecystectomy, Hx Hysterectomy, Hx Tonsillectomy, Hx Tubal Ligation, Hx Umbilical Hernia - Immunizations Immunizations up to date: Yes Hx Diphtheria, Pertussis, Tetanus Vaccination: Yes - 2009 Hx Pneumococcal Vaccination: 06/14/13 Vertical Provider Document - CONSTITUTIONAL Agree With Documented VS: Yes Exam Limitations: No Limitations General Appearance: WD/WN, No Apparent Distress - INFECTION CONTROL TRAVEL OUTSIDE OF THE [place] IN LAST 30 DAYS: No - HEENT HEENT: Atraumatic - RESPIRATORY Respiratory: Breath Sounds Normal, No Respiratory Distress - CARDIOVASCULAR Cardiovascular: Regular Rate, Regular Rhythm - MUSCULOSKELETAL/EXTREMETIES Musculoskeletal/Extremeties: Tender, Edema. negative: Eccymosis Notes: Patient is tender to palpation on right anterior knee. Mild edema noted, no bruising. Right lateral ankle with mild edema, no bruising. Patient states she has injured that ankle before. Neurovascular and sensation is intact to right foot. - NEURO Level of Consciousness: Awake, Alert, Appropriate - DERM Integumentary: Warm, Dry, No Rash Course - Re-evaluation Re-evalutation: 08/11/17 00:11 X-ray showed no acute fractures and this was discussed with patient. Small fragment from previous injury to right ankle seen on x-ray. - Vital Signs Vital signs: Temp Pulse Resp BP Pulse Ox 98.0 F 111 H 16 123/80 98 08/10/17 22:34 08/10/17 22:34 08/10/17 22:34 08/10/17 22:34 08/10/17 22:34 Procedures - Immobilization Right Ankle Pre-Proc Neuro Vasc Exam: Normal Immobilizer type: Binu wrap - right knee, Ankle stirrup - Right ankle, Crutches Performed by: PCT Post-Proc Neuro Vasc Exam: Normal Alignment checked and good: Yes Discharge - Discharge Clinical Impression: Right ankle sprain Qualifiers: Encounter type: initial encounter Involved ligament of ankle: unspecified ligament Qualified Code(s): S93.401A - Sprain of unspecified ligament of right ankle, initial encounter Right knee sprain Qualifiers: Encounter type: initial encounter Involved ligament of knee: unspecified ligament Qualified Code(s): S83.91XA - Sprain of unspecified site of right knee , initial encounter Condition: Good Disposition: HOME, SELF-CARE Instructions: Sprained Knee ([facility]), Sprained Ankle ([facility]), Oral Narcotic Medication ([facility]), Ice & Elevation ([facility]), Ankle Stirrup Splint ([facility]), Use of Crutches ([facility]), Binu Wrap ([facility]), Ice Packs ([facility]) Additional Instructions: Ice and elevate right knee and right ankle Use crutches for ambulation tylenol or ibuprofen for pain follow up with your primary care provider next week for recheck Return as needed Prescriptions: Ibuprofen 800 mg PO TID PRN #15 tablet PRN Reason:
[2017-08-11 00:51] VITALS: BP 115/78
== END 2017-08-11 00:49 | disposition home or self-care (01) ==
LOC: ER 22:31
PROC: 2W3QX1Z Immobilization of Right Lower Leg using Splint (ICD-10-PCS; principal; 2017-08-10)
DX: S93.401A Sprain of unspecified ligament of right ankle, initial encounter (principal); S83.91XA Sprain of unspecified site of right knee, initial encounter; M25.571 Pain in right ankle and joints of right foot; X50.1XXA Overexertion from prolonged static or awkward postures, initial encounter; Y92.003 Bedroom of unspecified non-institutional (private) residence as the place of occurrence of the external cause; F17.210 Nicotine dependence, cigarettes, uncomplicated; J45.909 Unspecified asthma, uncomplicated
CPT/HCPCS: 99283; 73610; 73562; 29515; L1902

== ENCOUNTER 2017-08-31 01:03 | Emergency (ER) | payer OTHER, MEDICARE ==
--- NOTE | 2017-08-31 01:28 | ER Document Report ---
HPI - HPI Pain Level: 3 Context: Patient is a 41-year-old female presents emergency department the chief complaint of left cervical pain. Patient states that over the past couple of days she has had gradual increasing discomfort in her left posterior neck and over her left shoulder. She has been doing Motrin 800 mg 3 times a day and utilizing ice without any significant improvement. She denies any recent fall or trauma, motor vehicle accident. She denies any weakness, paresthesias in her extremities. She denies any neck pain, headaches, dizziness, vision changes. - REPRODUCTIVE Reproductive: DENIES: : Past Medical History - Social History Smoking Status: Never Smoker Family History: Arthritis, CVA, DM, Malignancy, Thyroid Disfunction Pulmonary Medical History: Reports: Hx Asthma, Hx Bronchitis, Hx Pneumonia Neurological Medical History: Reports: Hx Migraine Renal/ Medical History: Reports: Hx Ovarian Cysts. Denies: Hx Peritoneal Dialysis GI Medical History: Reports: Hx Gastroesophageal Reflux Disease - IBS, Hx Irritable Bowel, Hx Colonoscopy Musculoskeltal Medical History: Reports Hx Arthritis, Reports Hx Musculoskeletal Deformity, Reports Hx Musculoskeletal Trauma Psychiatric Medical History: Reports: Hx Anxiety, Hx Bipolar Disorder, Hx Depression, Hx Post Traumatic Stress Disorder Traumatic Medical History: Reports: Hx Traumatic Brain Injury Past Surgical History: Reports: Hx Abdominal Surgery - umbilical hernia repair, Hx Adenoidectomy, Hx Cholecystectomy, Hx Hysterectomy, Hx Tonsillectomy, Hx Tubal Ligation, Hx Umbilical Hernia - Immunizations Immunizations up to date: Yes Hx Diphtheria, Pertussis, Tetanus Vaccination: Yes - 2009 Hx Pneumococcal Vaccination: 06/14/13 Vertical Provider Document - CONSTITUTIONAL Agree With Documented VS: Yes Notes: PHYSICAL EXAM GENERAL: Alert, interacts well. HEAD: Normocephalic, atraumatic. NECK: Full range of motion. Supple. Trachea midline. LUNGS: Clear to auscultation bilaterally, no wheezes, rales, or rhonchi. No respiratory distress. HEART: Regular rate and rhythm. No murmurs, gallops, or rubs. EXTREMITIES: Moves all 4 extremities spontaneously. Tenderness and pain reproducible to left trapezius, shoulder nontender, no deformity no edema, radial pulses 2/4 bilaterally. No cyanosis. NEUROLOGICAL: Alert and oriented x4. Normal speech. PSYCH: Normal affect, normal mood. SKIN: Warm, dry, normal turgor. No rashes or lesions noted. - INFECTION CONTROL TRAVEL OUTSIDE OF THE [place] IN LAST 30 DAYS: No Course - Re-evaluation Re-evalutation: 08/31/17 01:33 Patient is a 41-year-old female who is hemodynamically stable, no acute distress. Presentation is consistent with cervical strain. Patient without any evidence of focal neurological deficits. No deformities. Physical exam without any focal neurological deficits. Patient to be discharged home with conservative management and to follow-up with primary care. Patient agrees with plan stable for discharge home - Vital Signs Vital signs: Temp Pulse Resp BP Pulse Ox 97.9 F 104 H 18 127/70 H 100 08/31/17 01:04 08/31/17 01:04 08/31/17 01:04 08/31/17 01:04 08/31/17 01:04 Discharge - Discharge Clinical Impression: Cervical strain Qualifiers: Encounter type: initial encounter Qualified Code(s): S16.1XXA - Strain of muscle, fascia and tendon at neck level, initial encounter Condition: Good Disposition: HOME, SELF-CARE Instructions: Neck Injury (Cervical Strain) ([facility]), Exercise Program for the Shoulder ([facility]) Prescriptions: Cyclobenzaprine HCl [Flexeril 10 mg Tablet] 10 mg PO TIDP PRN #15 tab PRN Reason:
[2017-08-31] MEDS ORDERED: DEXAMETHASONE SOD PHOS INJ 10 MG/1 ML VIAL IM ONE (01:34)
[2017-08-31] MEDS ORDERED: KETOROLAC TROMETHAMINE INJ/PF 30 MG/1 ML SDV IM ONE (01:34)
[2017-08-31] MEDS ORDERED: CYCLOBENZAPRINE HCL 10 MG TABLET PO ONE (01:34)
[2017-08-31 03:05] VITALS: BP 135/96
== END 2017-08-31 03:06 | disposition home or self-care (01) ==
LOC: ER 01:03
DX: S16.1XXA Strain of muscle, fascia and tendon at neck level, initial encounter (principal); X58.XXXA Exposure to other specified factors, initial encounter; J45.909 Unspecified asthma, uncomplicated
CPT/HCPCS: 99283; 96372; 96374; J1885; J1100

== ENCOUNTER 2017-09-15 10:41 | Emergency (ER) | payer OTHER, MEDICARE ==
--- NOTE | 2017-09-15 11:42 | ER Document Report ---
ED General - General Chief Complaint: Shortness Of Breath Stated Complaint: COLD SYMPTOMS Time Seen by Provider: 09/15/17 11:33 Mode of Arrival: Ambulatory Information source: Patient Notes: This is a 41-year-old female with a history of bipolar affective disorder, asthma, migraines who presents to the emergency room with cough, shortness of breath, wheezing. Patient states symptoms have been going on for the past week and she is having a difficult time sleeping at night. TRAVEL OUTSIDE OF THE [place] IN LAST 30 DAYS: No - HPI Onset: Last week Onset/Duration: Gradual Quality of pain: No pain Severity: None Pain Level: Denies Associated symptoms: Nonproductive cough, Nausea, Shortness of breath Exacerbated by: Denies Relieved by: Denies Similar symptoms previously: Yes Recently seen / treated by doctor: Yes - Related Data Allergies/Adverse Reactions: sulfamethoxazole [From Bactrim] Allergy (Verified 09/15/17 10:42) trimethoprim [From Bactrim] Allergy (Verified 09/15/17 10:42) Past Medical History - General Information source: Patient - Social History Smoking Status: Never Smoker Cigarette use (# per day): No Chew tobacco use (# tins/day): No Smoking Education Provided: No Frequency of alcohol use: None Drug Abuse: None Lives with: Family Family History: Arthritis, CVA, DM, Malignancy, Thyroid Disfunction Pulmonary Medical History: Reports: Hx Asthma, Hx Bronchitis, Hx Pneumonia Neurological Medical History: Reports: Hx Migraine Renal/ Medical History: Reports: Hx Ovarian Cysts. Denies: Hx Peritoneal Dialysis GI Medical History: Reports: Hx Gastroesophageal Reflux Disease - IBS, Hx Irritable Bowel, Hx Colonoscopy Musculoskeltal Medical History: Reports Hx Arthritis, Reports Hx Musculoskeletal Deformity, Reports Hx Musculoskeletal Trauma Psychiatric Medical History: Reports: Hx Anxiety, Hx Bipolar Disorder, Hx Depression, Hx Post Traumatic Stress Disorder Traumatic Medical History: Reports: Hx Traumatic Brain Injury Past Surgical History: Reports: Hx Abdominal Surgery - umbilical hernia repair, Hx Adenoidectomy, Hx Cholecystectomy, Hx Hysterectomy, Hx Tonsillectomy, Hx Tubal Ligation, Hx Umbilical Hernia - Immunizations Immunizations up to date: Yes Hx Diphtheria, Pertussis, Tetanus Vaccination: Yes - 2009 Hx Pneumococcal Vaccination: 06/14/13 Review of Systems - Review of Systems Constitutional: denies: Chills, Fever EENT: No symptoms reported Cardiovascular: No symptoms reported Respiratory: See HPI Gastrointestinal: No symptoms reported Genitourinary: No symptoms reported Female Genitourinary: No symptoms reported Musculoskeletal: No symptoms reported Skin: No symptoms reported Hematologic/Lymphatic: No symptoms reported Neurological/Psychological: No symptoms reported Physical Exam - Vital signs Vitals: Temp Pulse Resp BP Pulse Ox 98.4 F 96 20 126/76 H 98 09/15/17 11:05 09/15/17 11:05 09/15/17 11:05 09/15/17 11:05 09/15/17 11:05 Notes: Physical exam: GENERAL: 41-year-old female, alert and oriented 3, no acute distress HEAD: Atraumatic, normocephalic. EYES: Pupils equal round and reactive to light, extraocular movements intact, sclera anicteric, conjunctiva are normal. ENT: TMs normal, nares patent, oropharynx clear without exudates. Moist mucous membranes. NECK: Normal range of motion, supple without obvious mass or JVD. LUNGS: Breath sounds clear to auscultation bilaterally and equal. No wheezes rales or rhonchi. HEART: Regular rate and rhythm without murmurs, rubs or gallops. ABDOMEN: Soft, normoactive bowel sounds. No tenderness to palpation. No guarding, no rebound. No masses appreciated. EXTREMITIES: Normal range of motion, no pitting or edema. No clubbing or cyanosis. NEUROLOGICAL: Cranial nerves II through XII grossly intact. Normal speech, moving all extremities. PSYCH: Normal mood, normal affect. SKIN: Warm, Dry, normal turgor, no rashes or lesions noted. Course - Vital Signs Vital signs: Temp Pulse Resp BP Pulse Ox 97.7 F 82 18 124/78 100 09/15/17 14:35 09/15/17 14:35 09/15/17 11:40 09/15/17 14:35 09/15/17 14:35 - Laboratory Result Diagrams: 09/15/17 12:00 09/15/17 12:00 - Diagnostic Test Radiology reviewed: Image reviewed, Reports reviewed - Chest x-ray shows no infiltrates or effusions - EKG Interpretation by [place] Rate: Normal Rhythm: NSR - EKG shows normal sinus rhythm with a ventricular rate of 80 ST-T wave changes Discharge - Discharge Clinical Impression: Viral syndrome Condition: Stable Disposition: HOME, SELF-CARE Additional Instructions: As we discussed, your lab tests look good: Kidney function tests, electrolytes, heart tests were normal. Your chest x-ray was clear Rest, drink plenty of fluids, follow-up with your doctors at the [place]. Bring a copy of today's labs with you as well as the x-ray report when you go see your doctor. Return to the emergency room for worsening pain or shortness of breath
--- NOTE | 2017-09-15 12:25 | RADIOLOGY REPORT (SQ) ---
EXAM DESCRIPTION: CHEST 2 VIEWS COMPLETED DATE/TIME: 09/15/2017 12:14 pm REASON FOR STUDY: cough, fever, sob COMPARISON: 06/09/2016. EXAM PARAMETERS: NUMBER OF VIEWS: two views TECHNIQUE: Digital Frontal and Lateral radiographic views of the chest acquired. RADIATION DOSE: NA LIMITATIONS: none FINDINGS: LUNGS AND PLEURA: No opacities, masses or pneumothorax. No pleural effusion. MEDIASTINUM AND HILAR STRUCTURES: No masses or contour abnormalities. HEART AND VASCULAR STRUCTURES: Heart normal size. No evidence for failure. BONES: No acute findings. HARDWARE: Clips in the upper abdomen. OTHER: No other significant finding. IMPRESSION: NO ACUTE RADIOGRAPHIC FINDING IN THE CHEST. TECHNICAL DOCUMENTATION: JOB ID: [id number] [employer]- All Rights Reserved Reading location - IP/workstation name: [email or web address]
[2017-09-15 12:41] LABS: HEMATOCRIT 40.1 % (36.0-47.0); HEMOGLOBIN 13.5 g/dL (12.0-15.5); MEAN CORPUSCULAR HEMOGLOBIN 31.2 pg (27.0-33.4); MEAN CORPUSCULAR HGB CONC 33.8 g/dL (32.0-36.0); MEAN CORPUSCULAR VOLUME 92 fl (80-97); PLATELET COUNT 301 10^3/uL (150-450); RED BLOOD COUNT 4.33 10^6/uL (3.72-5.28); WHITE BLOOD COUNT 7.6 10^3/uL (4.0-10.5)
[2017-09-15 12:45] LABS: ALANINE AMINOTRANSFERASE 34 U/L (9-52); ALBUMIN 3.8 g/dL (3.5-5.0); ALKALINE PHOSPHATASE 73 U/L (38-126); ANION GAP 11 (5-19); ASPARTATE AMINO TRANSFERASE 21 U/L (14-36); BILIRUBIN,DIRECT 0.2 mg/dL (0.0-0.4); BILIRUBIN,TOTAL 0.2 mg/dL (0.2-1.3); BLOOD UREA NITROGEN 7 mg/dL (7-20); CALCIUM 9.2 mg/dL (8.4-10.2); CARBON DIOXIDE 28 mmol/L (22-30); CHLORIDE 106 mmol/L (98-107); GLUCOSE 82 mg/dL (75-110); POTASSIUM 4.3 mmol/L (3.6-5.0); SODIUM 144.5 mmol/L (137-145); TOTAL PROTEIN 6.8 g/dL (6.3-8.2)
[2017-09-15 13:12] LABS: ABSOLUTE MONOCYTES # (MANUAL) 0.4 10^3/uL (0.1-1.4); ABSOLUTE NEUTROPHILS# (MANUAL) 5.2 10^3/uL (1.7-8.2); BASOPHILS % (MANUAL) 0 % (0-2); EOSINOPHILS % (MANUAL) 1 % (0-6); LYMPHOCYTES % (MANUAL) 26 % (13-45); MONOCYTES % (MANUAL) 5 % (3-13); SEGMENTED NEUTROPHILS % (MAN) 68 % (42-78); TOTAL CELLS COUNTED 100
[2017-09-15 13:13] LABS: ANISOCYTOSIS SLIGHT; PLATELET COMMENT ADEQUATE
[2017-09-15 14:35] VITALS: BP 124/78
--- NOTE | 2017-09-15 20:50 | EKG REPORT ---
SEVERITY:- NORMAL ECG - SINUS RHYTHM : Confirmed by: Joe Olmedo 15-Sep-2017 17:48:57
== END 2017-09-15 14:35 | disposition home or self-care (01) ==
LOC: ER 10:41
DX: B34.9 Viral infection, unspecified (principal); J45.909 Unspecified asthma, uncomplicated; R05 Cough; R06.02 Shortness of breath; R11.0 Nausea; Z88.1 Allergy status to other antibiotic agents; Z87.01 Personal history of pneumonia (recurrent)
CPT/HCPCS: 36415; 71046; 80053; 84484; 85025; 85379; 93005; 93010; 99285

== ENCOUNTER 2017-10-23 14:22 | Emergency (ER) | payer OTHER, MEDICARE ==
[2017-10-23] MEDS ORDERED: KETOROLAC TROMETHAMINE INJ/PF 30 MG/1 ML SDV IV ONE (15:26)
--- NOTE | 2017-10-23 15:29 | ER Document Report ---
ED Medical Screen (RME) - General Chief Complaint: Chest Pain Stated Complaint: CHEST PAIN Time Seen by Provider: 10/23/17 15:19 Notes: RAPID MEDICAL EVALUATION DISCLOSURE I have seen this patient as part of a Rapid Medical Evaluation and, if applicable, placed any initially appropriate orders. The patient will be seen and fully evaluated, including a full history and physical exam, by a provider ( in Main ED or Fast Track) when a room becomes available. 41-year-old female here with complaints of midsternal nonradiating constant chest pain that started yesterday and has progressively worsened. She has tried her home medication of indomethacin with minimal relief. She has not had any shortness of breath lightheadedness numbness tingling weakness nausea vomiting. She is afraid she might have a blood clot because she has been doing a lot of driving recently for work including trips to [place], [place], and [place] within the past 2 months. Of note, she has had positive D-dimers in the past. EXAM CTAB RRR No chest wall TTP TRAVEL OUTSIDE OF THE [place] IN LAST 30 DAYS: No - Related Data Allergies/Adverse Reactions: sulfamethoxazole [From Bactrim] Allergy (Verified 10/23/17 14:23) trimethoprim [From Bactrim] Allergy (Verified 10/23/17 14:23) Past Medical History Pulmonary Medical History: Reports: Hx Asthma, Hx Bronchitis, Hx Pneumonia Neurological Medical History: Reports: Hx Migraine Renal/ Medical History: Reports: Hx Ovarian Cysts. Denies: Hx Peritoneal Dialysis GI Medical History: Reports: Hx Gastroesophageal Reflux Disease - IBS, Hx Irritable Bowel, Hx Colonoscopy Musculoskeltal Medical History: Reports Hx Arthritis, Reports Hx Musculoskeletal Deformity, Reports Hx Musculoskeletal Trauma Psychiatric Medical History: Reports: Hx Anxiety, Hx Bipolar Disorder, Hx Depression, Hx Post Traumatic Stress Disorder Traumatic Medical History: Reports: Hx Traumatic Brain Injury Past Surgical History: Reports: Hx Abdominal Surgery - umbilical hernia repair, Hx Adenoidectomy, Hx Cholecystectomy, Hx Hysterectomy, Hx Tonsillectomy, Hx Tubal Ligation, Hx Umbilical Hernia - Immunizations Immunizations up to date: Yes Hx Diphtheria, Pertussis, Tetanus Vaccination: Yes - 2009 Physical Exam - Vital signs Vitals: Temp Pulse Resp BP Pulse Ox 98.9 F 91 16 130/68 H 100 10/23/17 14:29 10/23/17 14:29 10/23/17 14:29 10/23/17 14:29 10/23/17 14:29 Course - Vital Signs Vital signs: Temp Pulse Resp BP Pulse Ox 98.9 F 91 16 130/68 H 100 10/23/17 14:29 10/23/17 14:29 10/23/17 14:29 10/23/17 14:29 10/23/17 14:29
[2017-10-23 16:17] LABS: ABSOLUTE EOSINOPHILS # (AUTO) 0.1 10^3/uL (0.0-0.6); ABSOLUTE LYMPHOCYTES (AUTO) 1.6 10^3/uL (0.5-4.7); ABSOLUTE MONOCYTES (AUTO) 0.7 10^3/uL (0.1-1.4); ABSOLUTE NEUT (AUTO) 5.9 10^3/uL (1.7-8.2); BASOPHILS % (AUTO) 0.1 % (0-2); EOSINOPHILS % (AUTO) 0.8 % (0-6); HEMATOCRIT 40.2 % (36.0-47.0); HEMOGLOBIN 13.6 g/dL (12.0-15.5); LYMPHOCYTES % (AUTO) 19.5 % (13-45); MEAN CORPUSCULAR HEMOGLOBIN 31.3 pg (27.0-33.4); MEAN CORPUSCULAR HGB CONC 33.8 g/dL (32.0-36.0); MEAN CORPUSCULAR VOLUME 93 fl (80-97); MONOCYTES % (AUTO) 8.1 % (3-13); PLATELET COUNT 277 10^3/uL (150-450); RED BLOOD COUNT 4.33 10^6/uL (3.72-5.28); RED CELL DISTRIBUTION WIDTH 13.8 % (11.5-14.0); SEGMENTED NEUTROPHILS % (AUTO) 71.5 % (42-78); TOTAL CELLS COUNTED % (AUTO) 100 %; WHITE BLOOD COUNT 8.3 10^3/uL (4.0-10.5)
[2017-10-23 16:33] LABS: ALANINE AMINOTRANSFERASE 23 U/L (9-52); ALBUMIN 3.8 g/dL (3.5-5.0); ALKALINE PHOSPHATASE 61 U/L (38-126); ANION GAP 8 (5-19); ASPARTATE AMINO TRANSFERASE 21 U/L (14-36); BILIRUBIN,DIRECT 0.4 mg/dL (0.0-0.4); BILIRUBIN,TOTAL 0.4 mg/dL (0.2-1.3); BLOOD UREA NITROGEN 11 mg/dL (7-20); CALCIUM 9.5 mg/dL (8.4-10.2); CARBON DIOXIDE 26 mmol/L (22-30); CHLORIDE 109 mmol/L (98-107); GLUCOSE 77 mg/dL (75-110); POTASSIUM 4.4 mmol/L (3.6-5.0); SODIUM 142.8 mmol/L (137-145); TOTAL PROTEIN 6.8 g/dL (6.3-8.2)
--- NOTE | 2017-10-23 16:41 | RADIOLOGY REPORT (SQ) ---
EXAM DESCRIPTION: CTA CHEST COMPLETED DATE/TIME: 10/23/2017 4:18 pm REASON FOR STUDY: CP long car rides; eval PE COMPARISON: CT angio chest 06/30/2013, 07/03/2017 TECHNIQUE: CT scan of the chest performed using helical scanning technique with dynamic intravenous contrast injection. Images reviewed with lung, soft tissue and bone windows. Reconstructed coronal and sagittal MPR images reviewed. Additional 3 dimensional post-processing performed to develop Maximal Intensity Projection images (VT P). All images stored on PACS. All CT scanners at this facility use dose modulation, iterative reconstruction, and/or weight based d osing when appropriate to reduce radiation dose to as low as reasonably achievable (ALARA). [facility]: Dose Right [facility]: CareDose [facility]: Dose Right [facility]: Teradose 4D [facility]: Exeger [place] AB CONTRAST TYPE AND DOSE: contrast/concentration: Isovue 370.00 mg/ml; Total Contrast Delivered: 82.0 ml; Total Saline Delivered: 97.0 ml Contrast bolus optimized for the pulmonary arteries. Not diagnostic for the aorta. RENAL FUNCTION: None required. The patient is less than 50 years old. RADIATION DOSE: CT Rad equipment meets quality standard of care and radiation dose reduction techniq ues were employed. CTDIvol: 16.5 - 19.5 mGy. DLP: 748 mGy-cm. . LIMITATIONS: None. FINDINGS: LUNGS AND PLEURA: No masses, infiltrates, or pneumothorax. No pleural effusions or pleura l calcifications. AORTA AND GREAT VESSELS: No aneurysm. Contrast bolus not optimized for the aorta. HEART: No pericardial effusion. No significant coronary artery calcifications. PULMONARY ARTERIES: No emboli visualized in the main pulmonary arteries or the proximal segmental bra nches. Suboptimal contrast bolus HILAR AND MEDIASTINAL STRUCTURES: No identified masses or abnormal nodes. HARDWARE: None in the chest. UPPER ABDOMEN: Post cholecystectomy THYROID AND OTHER SOFT TISSUES: No masses. No adenopathy. BONES: No acute or significant finding. 3D MIPS: Confirm above findings. OTHER: No other significant finding. IMPRESSION: NORMAL CTA OF THE CHEST. NO PULMONARY EMBOLI. COMMENT: Quality ID # [id number]: Final reports with documentation of one or more dose reduction techniques (e.g., Automated exposure control, adjustment of the mA and/or kV according to patient size, use of iterative reconstruction technique) TECHNICAL DOCUMENTATION: JOB ID: [id number]- All Rights Reserved Reading location - IP/workstation name: [email or web address]
--- NOTE | 2017-10-23 17:57 | ER Document Report ---
ED Cardiac <JULY HITCHCOCK - Last Filed: 10/23/17 18:00> - General Mode of Arrival: Ambulatory Information source: Patient TRAVEL OUTSIDE OF THE [place] IN LAST 30 DAYS: No <KIKI DE LEON - Last Filed: 10/23/17 18:03> - General Chief Complaint: Chest Pain Stated Complaint: CHEST PAIN Time Seen by Provider: 10/23/17 15:19 Notes: 41 y.o. female with bipolar affective disorder, anxiety, depression, asthma, migraines and GERD presents to the ED with central CP of onset yesterday that has progressively worsened. Pt denies any radiation of pain. Pt reports a lot traveling recently, including traveling to [place], [place] and [place] within the past 2 months and is concerned for a blood clot. Pt reports getting up and walking and drinking plenty of fluids recently. Pt reports trying indomethacin at home but with minimal relief. Pt denies any SOB, lightheadedness , numbness, tingling, weakness, nausea or vomiting. Pt PCP is [facility] in [place]. (KIKI DE LEON) - Related Data Allergies/Adverse Reactions: sulfamethoxazole [From Bactrim] Allergy (Verified 10/23/17 14:23) trimethoprim [From Bactrim] Allergy (Verified 10/23/17 14:23) Past Medical History - General Information source: Patient - Social History Smoking Status: Never Smoker Chew tobacco use (# tins/day): No Frequency of alcohol use: None Drug Abuse: None Family History: Arthritis, CVA, DM, Malignancy, Thyroid Disfunction Patient has suicidal ideation: No Patient has homicidal ideation: No Pulmonary Medical History: Reports: Hx Asthma, Hx Bronchitis, Hx Pneumonia Neurological Medical History: Reports: Hx Migraine Renal/ Medical History: Reports: Hx Ovarian Cysts. Denies: Hx Peritoneal Dialysis GI Medical History: Reports: Hx Gastroesophageal Reflux Disease - IBS, Hx Irritable Bowel, Hx Colonoscopy Musculoskeltal Medical History: Reports Hx Arthritis, Reports Hx Musculoskeletal Deformity, Reports Hx Musculoskeletal Trauma Psychiatric Medical History: Reports: Hx Anxiety, Hx Bipolar Disorder, Hx Depression, Hx Post Traumatic Stress Disorder Traumatic Medical History: Reports: Hx Traumatic Brain Injury Past Surgical History: Reports: Hx Abdominal Surgery - umbilical hernia repair, Hx Adenoidectomy, Hx Cholecystectomy, Hx Hysterectomy, Hx Tonsillectomy, Hx Tubal Ligation, Hx Umbilical Hernia - Immunizations Immunizations up to date: Yes Hx Diphtheria, Pertussis, Tetanus Vaccination: Yes - 2009 Hx Pneumococcal Vaccination: 06/14/13 <KIKI DE LEON - Last Filed: 10/23/17 18:03> Review of Systems - Review of Systems Constitutional: No symptoms reported EENT: No symptoms reported Cardiovascular: See HPI, Chest pain. denies: Lightheaded Respiratory: See HPI. denies: Short of breath Gastrointestinal: See HPI, Vomiting. denies: Nausea Genitourinary: No symptoms reported Female Genitourinary: No symptoms reported Musculoskeletal: No symptoms reported Skin: No symptoms reported Hematologic/Lymphatic: No symptoms reported Neurological/Psychological: See HPI. denies: Weakness, Numbness, Tingling -: Yes All other systems reviewed and negative <KIKI DE LEON - Last Filed: 10/23/17 18:03> Physical Exam <JULY HITCHCOCK - Last Filed: 10/23/17 18:00> <KIKI DE LEON - Last Filed: 10/23/17 18:03> - Vital signs Vitals: Temp Pulse Resp BP Pulse Ox 98.9 F 91 16 130/68 H 100 10/23/17 14:29 10/23/17 14:29 10/23/17 14:29 10/23/17 14:29 10/23/17 14:29 - Notes Notes: Physical Exam: General: Alert, appears well. HEENT: Normocephalic. Atraumatic. PERRL. Extraocular movements intact. Oropharynx clear. Neck: Supple. Non-tender. Respiratory: No respiratory distress. Clear and equal breath sounds bilaterally. Cardiovascular: Regular rate and rhythm. Sternum very tender to palpate. Abdominal: Normal Inspection. Non-tender. No distension. Normal Bowel Sounds. Back: Non-tender. No deformity or step off. Extremities: Moves all four extremities. Upper extremities: Normal inspection. Normal ROM. Lower extremities: Normal inspection. No edema. Normal ROM. Neurological: Normal cognition. AAOx3. Normal speech. Psychological: Normal affect. Normal Mood. Skin: Warm. Dry. Normal color. (KIKI DE LEON) Course - Laboratory Result Diagrams: 10/23/17 15:55 10/23/17 15:55 - Diagnostic Test Radiology reviewed: Image reviewed, Reports reviewed - CTA chest is normal - EKG Interpretation by Me EKG shows normal: Sinus rhythm, [place], Intervals, QRS Complexes, ST-T Waves Rate: Normal - 99 Rhythm: NSR <JULY HITCHCOCK - Last Filed: 10/23/17 18:00> - Laboratory Result Diagrams: 10/23/17 15:55 10/23/17 15:55 <KIKI DE LEON - Last Filed: 10/23/17 18:03> - Vital Signs Vital signs: Temp Pulse Resp BP Pulse Ox 98.9 F 91 16 130/68 H 100 10/23/17 14:29 10/23/17 14:29 10/23/17 14:29 10/23/17 14:29 10/23/17 14:29 - Laboratory Laboratory results interpreted by me: 10/23/17 15:55 Chloride 109 H Discharge <JULY HITCHCOCK - Last Filed: 10/23/17 18:00> <KIKI DE LEON - Last Filed: 10/23/17 18:03> - Discharge Clinical Impression: Chest wall pain Additional Instructions: Chest Wall Pain Your chest pain has been diagnosed as coming from the chest wall. This is often caused by straining the muscles or joints in the chest during physical activity, direct trauma, coughing, or vigorous vomiting. Persons with arthritis are especially prone to this type of pain, due to inflammation of the cartilage joints near the breast bone. Occasionally, no cause can be found. Rest from strenuous physical activity. This kind of chest pain is usually made worse by movement of the chest. Depending on the symptoms, we may recommend medicine such as ibuprofen or Aleve for pain and antiinflammatory effects. If the pain is new, and seems to be due to muscle strain, cold packs can help. Otherwise, apply gentle warmth to the painful area for 15 minutes every hour or two. You should contact the doctor immediately if things change. Further evaluation is needed if you develop a fever or cough, if the nature of the pain changes, or if you become short of breath. FOLLOW UP WITH YOUR DOCTOR IF NOT IMPROVING. RETURN TO THE EMERGENCY ROOM IF ANY NEW OR WORSENING SYMPTOMS. Scribe Attestation: 10/23/17 18:00 I personally performed the services described in the documentation, reviewed and edited the documentation which was dictated to the scribe in my presence, and it accurately records my words and actions. (JULY HITCHCOCK) Scribe Documentation - Scribe Written by Donavon:: Donavon Guajardo 10/23/171802 acting as scribe for :: Kristopher <KIKI DE LEON - Last Filed: 10/23/17 18:03>
[2017-10-23 18:04] VITALS: BP 114/79
--- NOTE | 2017-10-23 19:42 | EKG REPORT ---
SEVERITY:- NORMAL ECG - SINUS RHYTHM : Confirmed by: Radha Silveira MD 23-Oct-2017 19:41:56
== END 2017-10-23 18:09 | disposition home or self-care (01) ==
LOC: ER 14:22
DX: R07.89 Other chest pain (principal); Z88.3 Allergy status to other anti-infective agents; Z90.49 Acquired absence of other specified parts of digestive tract
CPT/HCPCS: 93005; 99285; 96374; 36415; 85025; 80053; 84484; 71275; 93010; J1885

== ENCOUNTER 2017-11-08 07:55 | Emergency (ER) | payer OTHER, MEDICARE ==
[2017-11-08] MEDS ORDERED: PREDNISONE 20 MG TABLET PO ONE (08:29)
[2017-11-08] MEDS ORDERED: OXYCODONE-ACETAMINOPHEN 5-325 MG TABLET PO ONE (08:29)
--- NOTE | 2017-11-08 08:30 | ER Document Report ---
ED Neck/Back Problem - General Chief Complaint: Back Pain Stated Complaint: BACK PAIN Time Seen by Provider: 11/08/17 08:16 Mode of Arrival: Ambulatory Information source: Patient Notes: Patient is a 41-year-old female with fibromyalgia, chronic pain, history of anxiety and depression who is well-known to this emergency department for pain complaints who presents to the ER today for right-sided low back pain radiating sharp pain down the right leg. Patient denies any injury, history of chronic back pain. She denies any loss of bladder or bowel function. She denies any numbness or tingling. She denies any suicidal or homicidal ideations today. TRAVEL OUTSIDE OF THE [place] IN LAST 30 DAYS: No - Related Data Allergies/Adverse Reactions: sulfamethoxazole [From Bactrim] Allergy (Verified 10/23/17 14:23) trimethoprim [From Bactrim] Allergy (Verified 10/23/17 14:23) Past Medical History - General Information source: Patient - Social History Smoking Status: Unknown if Ever Smoked Family History: Arthritis, CVA, DM, Malignancy, Thyroid Disfunction Pulmonary Medical History: Reports: Hx Asthma, Hx Bronchitis, Hx Pneumonia Neurological Medical History: Reports: Hx Migraine Renal/ Medical History: Reports: Hx Ovarian Cysts. Denies: Hx Peritoneal Dialysis GI Medical History: Reports: Hx Gastroesophageal Reflux Disease - IBS, Hx Irritable Bowel, Hx Colonoscopy Musculoskeletal Medical History: Reports Hx Arthritis, Reports Hx Musculoskeletal Deformity, Reports Hx Musculoskeletal Trauma Psychiatric Medical History: Reports: Hx Anxiety, Hx Bipolar Disorder, Hx Depression, Hx Post Traumatic Stress Disorder Traumatic Medical History: Reports: Hx Traumatic Brain Injury Past Surgical History: Reports: Hx Abdominal Surgery - umbilical hernia repair, Hx Adenoidectomy, Hx Cholecystectomy, Hx Hysterectomy, Hx Tonsillectomy, Hx Tubal Ligation, Hx Umbilical Hernia - Immunizations Immunizations up to date: Yes Hx Diphtheria, Pertussis, Tetanus Vaccination: Yes - 2009 Hx Pneumococcal Vaccination: 06/14/13 Review of Systems - Review of Systems Constitutional: No symptoms reported EENT: No symptoms reported Cardiovascular: No symptoms reported Respiratory: No symptoms reported Gastrointestinal: No symptoms reported Genitourinary: No symptoms reported Female Genitourinary: No symptoms reported Musculoskeletal: See HPI Skin: No symptoms reported Hematologic/Lymphatic: No symptoms reported Neurological/Psychological: No symptoms reported Physical Exam - Vital signs Vitals: Temp Pulse Resp BP Pulse Ox 97.7 F 92 16 127/64 H 99 11/08/17 08:01 11/08/17 08:01 11/08/17 08:01 11/08/17 08:01 11/08/17 08:01 - Notes Notes: PHYSICAL EXAMINATION: GENERAL: Uncomfortable appearing, but in no acute distress. HEAD: Atraumatic, normocephalic. EYES: Pupils equal round and reactive to light, extraocular movements intact, sclera anicteric, conjunctiva are normal. ENT: ear canals without erythema or foreign body, TMs pearly pink with good bony landmarks, nares patent, oropharynx clear without exudates. Moist mucous membranes. NECK: Normal range of motion, supple without lymphadenopathy LUNGS: CTAB and equal. No wheezes rales or rhonchi. HEART: Regular rate and rhythm without murmurs ABDOMEN: Soft, no tenderness. No guarding, no rebound BACK: Lumbar vertebral tenderness right SI joint tenderness, normal ROM but with pain on bending and rotating at the hips GI/: no CVA tenderness EXTREMITIES: Normal range of motion, no pitting edema. No cyanosis. NEUROLOGICAL: Cranial nerves grossly intact. Normal sensory/motor exams. PSYCH: Normal mood, normal affect. SKIN: Warm, Dry, normal turgor, no rashes or lesions noted Course - Re-evaluation Re-evalutation: 11/08/17 09:31 Lumbar x-ray and SI joint x-ray negative for any acute pathology, patient has a significant history of chronic pain, here many times a month for different pain complaints. She also has a history of suicidal ideation and psychiatric evaluations here in the emergency department. For this reason I will not provide her with narcotic pain medication that she may be able to overdose on. - Vital Signs Vital signs: Temp Pulse Resp BP Pulse Ox 98.0 F 78 16 115/72 99 11/08/17 09:58 11/08/17 09:58 11/08/17 09:58 11/08/17 09:58 11/08/17 09:58 Discharge - Discharge Clinical Impression: Back pain Qualifiers: Back pain location: low back pain Chronicity: unspecified Back pain laterality : right Sciatica presence: with sciatica Sciatica laterality: sciatica of right side Qualified Code(s): M54.41 - Lumbago with sciatica, right side Condition: Stable Disposition: HOME, SELF-CARE Additional Instructions: Return immediately for any new or worsening symptoms. Follow up with primary care provider, call tomorrow to make followup appointment. Prescriptions: Lidocaine 1 each TP DAILY #10 adh..patch Methocarbamol [Robaxin 500 mg Tablet] 500 mg PO QID PRN #20 tablet PRN Reason: Methylprednisolone [Medrol Dosepack (4 mg/Tab) 21 Tab/Dosepak] 4 mg PO ASDIR PRN #21 tab.ds.pk PRN Reason:
--- NOTE | 2017-11-08 09:21 | RADIOLOGY REPORT (SQ) ---
EXAM DESCRIPTION: SACROILIAC JOINTS 3 OR MORE COMPLETED DATE/TIME: 11/08/2017 9:08 am REASON FOR STUDY: low back pain, sharp pain down leg, tender l spine COMPARISON: None. NUMBER OF VIEWS: Three views. TECHNIQUE: AP and oblique views of the sacroiliac joints. LIMITATIONS: None. FINDINGS: MINERALIZATION: Normal. BONES: No acute fracture or dislocation. No worrisome bone lesions. No significant osteophytes. JOINTS: The sacroiliac joints are patent. No unusual widening, sclerosis, or fusion. SOFT TISSUES: No soft tissue swelling. No radio-opaque foreign body. OTHER: There is a large right L5 transverse process articulating with the upper right sacrum. Mild b frank spurring. IMPRESSION: NORMAL STUDY OF THE SACROILIAC JOINTS. TECHNICAL DOCUMENTATION: JOB ID: [id number] [employer]- All Rights Reserved Reading location - IP/workstation name: [email or web address]
--- NOTE | 2017-11-08 09:23 | RADIOLOGY REPORT (SQ) ---
EXAM DESCRIPTION: L SPINE WHOLE COMPLETED DATE/TIME: 11/08/2017 9:08 am REASON FOR STUDY: low back pain, sharp pain down leg, tender l spine COMPARISON: CT abdomen pelvis 07/21/2017 Lumbar spine five views 04/28/2015 NUMBER OF VIEWS: Five views including obliques. TECHNIQUE: AP, lateral, oblique, and sacral radiographic images acquired of the lumbar spine. LIMITATIONS: None. FINDINGS: MINERALIZATION: Normal. SEGMENTATION: Large right L5 transverse process articulating with the upper sacrum. Mild bony spurri ng at this joint, similar compared to 2014 ALIGNMENT: Normal. VERTEBRAE: Maintained height. No fracture or worrisome bone lesion. DISCS: Preserved height. No significant osteophytes or end plate irregularity. POSTERIOR ELEMENTS: Pedicles and facets are intact. No pars defect or posterior arch defects. HARDWARE: Right upper quadrant clips post cholecystectomy. Laparoscopic tacks post ventral umbilical hernia repair PARASPINAL SOFT TISSUES: Normal. PELVIS: Intact as visualized. No fractures or worrisome bone lesions. SI joints intact. OTHER: No other significant finding. IMPRESSION: No acute findings TECHNICAL DOCUMENTATION: JOB ID: [id number]- All Rights Reserved Reading location - IP/workstation name: [email or web address]
[2017-11-08 10:00] VITALS: BP 115/72
== END 2017-11-08 10:00 | disposition home or self-care (01) ==
LOC: ER 07:55
DX: M54.41 Lumbago with sciatica, right side (principal); M79.1 Myalgia; F32.9 Major depressive disorder, single episode, unspecified; Z88.3 Allergy status to other anti-infective agents; Z87.820 Personal history of traumatic brain injury; Z90.49 Acquired absence of other specified parts of digestive tract; Z90.710 Acquired absence of both cervix and uterus
CPT/HCPCS: 99283; 72110; 72202; J7512

== ENCOUNTER 2018-03-08 10:33 | Emergency (ER) | payer OTHER, MEDICARE ==
--- NOTE | 2018-03-08 12:03 | ER Document Report ---
ED General - General Chief Complaint: Ankle Injury Stated Complaint: ANKLE INJURY Time Seen by Provider: 03/08/18 11:05 Mode of Arrival: Ambulatory Information source: Patient, [facility] Records Notes: 42-year-old female with fibromyalgia, arthritis, bipolar disorder, history of traumatic brain injury presents with complaint of right ankle pain. Patient states that just prior to arrival she was standing up when she rolled her ankle and felt immediate pain. Patient has been able to ambulate but with pain. She did take indomethacin which helped the pain mildly. She does report previous multiple sprained ankles. Patient did fall to the ground but denies any head injury, loss of consciousness, hip or back pain. TRAVEL OUTSIDE OF THE [place] IN LAST 30 DAYS: No - HPI Onset: Just prior to arrival Onset/Duration: Sudden Quality of pain: Throbbing Severity: Moderate Associated symptoms: None Exacerbated by: Movement, Walking Relieved by: Remaining still Similar symptoms previously: Yes Recently seen / treated by doctor: No - Related Data Allergies/Adverse Reactions: sulfamethoxazole [From Bactrim] Allergy (Verified 03/08/18 10:35) trimethoprim [From Bactrim] Allergy (Verified 03/08/18 10:35) Past Medical History - General Information source: Patient - Social History Smoking Status: Current Every Day Smoker Cigarette use (# per day): Yes - 15 Chew tobacco use (# tins/day): No Smoking Education Provided: Yes - Smoking cessation counseling was provided for 4 minutes at the bedside Frequency of alcohol use: None Drug Abuse: None Lives with: Spouse/Significant other Family History: Arthritis, CVA, DM, Malignancy, Thyroid Disfunction Patient has suicidal ideation: No Patient has homicidal ideation: No Pulmonary Medical History: Reports: Hx Asthma, Hx Bronchitis, Hx Pneumonia Neurological Medical History: Reports: Hx Migraine Renal/ Medical History: Reports: Hx Ovarian Cysts. Denies: Hx Peritoneal Dialysis GI Medical History: Reports: Hx Gastroesophageal Reflux Disease - IBS, Hx Irritable Bowel, Hx Colonoscopy Musculoskeletal Medical History: Reports Hx Arthritis, Reports Hx Musculoskeletal Deformity, Reports Hx Musculoskeletal Trauma Psychiatric Medical History: Reports: Hx Anxiety, Hx Bipolar Disorder, Hx Depression, Hx Post Traumatic Stress Disorder Traumatic Medical History: Reports: Hx Traumatic Brain Injury Past Surgical History: Reports: Hx Abdominal Surgery - umbilical hernia repair, Hx Adenoidectomy, Hx Cholecystectomy, Hx Hysterectomy, Hx Tonsillectomy, Hx Tubal Ligation, Hx Umbilical Hernia - Immunizations Immunizations up to date: Yes Hx Diphtheria, Pertussis, Tetanus Vaccination: Yes - 2009 Hx Pneumococcal Vaccination: 06/14/13 Review of Systems - Review of Systems Notes: REVIEW OF SYSTEMS: CONSTITUTIONAL : Denies fever, chills, or sweats. Denies recent illness. Denies weight loss, recent hospitalizations. EENT: Denies visual changes, eye pain. Denies sore throat, oral lesions, difficulty swallowing. CARDIOVASCULAR: Denies chest pain. Denies palpitations. Denies lower extremity edema. RESPIRATORY: Denies cough. Denies shortness of breath, wheezing. GASTROINTESTINAL: Denies abdominal pain or distention. Denies nausea, vomiting , or diarrhea. Denies blood in vomitus, stools, or per rectum. Denies black, tarry stools. Denies constipation. GENITOURINARY: Denies difficulty urinating, painful urination, frequency, blood in urine, or vaginal discharge. MUSCULOSKELETAL: Denies back or neck pain or stiffness. SKIN: Denies rash, lesions or sores. HEMATOLOGIC : Denies easy bruising or bleeding. LYMPHATIC: Denies swollen glands. NEUROLOGICAL: Denies confusion or altered mental status. Denies loss of consciousness. Denies dizziness or lightheadedness. Denies headache. Denies weakness or paralysis. Denies problems difficulty with ambulation, slurred speech. Denies sensory loss, numbness, or tingling. Denies seizures. PSYCHIATRIC: Denies anxiety or stress. Denies depression, suicidal ideation, or homicidal ideation. Denies visual or auditory hallucinations. Physical Exam - Vital signs Vitals: Temp Pulse Resp BP Pulse Ox 97.9 F 99 18 126/75 H 98 03/08/18 10:37 03/08/18 10:37 03/08/18 10:37 03/08/18 10:37 03/08/18 10:37 Interpretation: No: Febrile - Notes Notes: PHYSICAL EXAMINATION: GENERAL: Well-appearing, well-nourished and in no acute distress. HEAD: Atraumatic, normocephalic. EYES: Pupils equal round and reactive to light, extraocular movements intact, conjunctiva are normal. ENT: Nares patent, oropharynx clear without exudates. Moist mucous membranes. NECK: Normal range of motion, supple without lymphadenopathy LUNGS: Breath sounds clear to auscultation bilaterally and equal. No wheezes rales or rhonchi. HEART: Regular rate and rhythm without murmurs ABDOMEN: Soft, nontender, nondistended abdomen. No guarding, no rebound. No masses appreciated. Female : deferred Musculoskeletal: Normal range of motion, no pitting or edema. No cyanosis. Right ankle-tender along the lateral mall bolus. No obvious deformity. Patient is able to wiggle her toes. DP pulse intact. Sensation intact. Cap refill less than 3 seconds. NEUROLOGICAL: Cranial nerves grossly intact. Normal speech, normal gait. Normal sensory, motor exams PSYCH: Normal mood, normal affect. SKIN: Warm, Dry, normal turgor, no rashes or lesions noted. Course - Re-evaluation Re-evalutation: 03/08/18 21:46 42-year-old female presents after a slip and near fall with complaint of right ankle pain. Patient does have significant pain along the lateral malleolus. No obvious deformity, ecchymosis, swelling. X-rays negative for any acute fracture, dislocation. Vital signs stable upon arrival. Patient declining pain medication. Patient placed in an Binu wrap and Aircast. Patient was evaluated and treated as appropriate for the patient's presenting symptoms and complaint, with consideration of any critical or life threatening conditions that may be associated with their obtained history and exam as noted above. All results were discussed with patient. Patient provided the opportunity to ask questions, and express concerns. Patient was educated on treatments based on their presumed diagnosis as noted above. At this time we will discharge the patient with return precautions and follow-up recommendations. Verbal discharge instructions given a the bedside. Medication warnings reviewed. Patient is in agreement with this plan and has verbalized understanding of return precautions. After careful consideration I feel that that patient can be safely discharged from the emergency department, they were advised to followup with a primary care physician in 2-3 days. Dictation on this chart was performed using voice recognition software and may result in unintended grammatical, spelling, syntax or errors. - Vital Signs Vital signs: Temp Pulse Resp BP Pulse Ox 98.0 F 94 16 124/74 98 03/08/18 12:56 03/08/18 12:56 03/08/18 12:56 03/08/18 12:56 03/08/18 12:56 - Diagnostic Test Radiology reviewed: Image reviewed, Reports reviewed Discharge - Discharge Clinical Impression: Right ankle strain Qualifiers: Encounter type: initial encounter Qualified Code(s): S96.911A - Strain of unspecified muscle and tendon at ankle and foot level, right foot, initial encounter Right foot strain Qualifiers: Encounter type: initial encounter Qualified Code(s): S96.911A - Strain of unspecified muscle and tendon at ankle and foot level, right foot, initial encounter Fall Qualifiers: Encounter type: initial encounter Qualified Code(s): W19.XXXA - Unspecified fall, initial encounter Condition: Good Disposition: HOME, SELF-CARE Instructions: Binu Wrap ([facility]), Ankle Stirrup Splint ([facility]), Ice & Elevation ([facility]) , Sprained Ankle ([facility]) Additional Instructions: Your x-ray does not show any acute fracture. You have a sprained ankle. Keep the area elevated, apply ice 20 minutes every 2 hours, and use crutches as needed. You should take indomethacin as already prescribed. You can also take Tylenol 1000 mg every 6 hours.. Please return if you have worsening pain and swelling, fever greater than 101, you notice spreading redness from the area, or have any other symptoms that are concerning to you. Please follow-up with orthopedic surgery if your symptoms have not improved in the next 2-3 weeks. Forms: Elevated Blood Pressure
--- NOTE | 2018-03-08 12:04 | RADIOLOGY REPORT (SQ) ---
EXAM DESCRIPTION: ANKLE RIGHT COMPLETE COMPLETED DATE/TIME: 03/08/2018 11:34 am REASON FOR STUDY: pain COMPARISON: None. NUMBER OF VIEWS: Three views. TECHNIQUE: AP, lateral, and oblique radiographic images acquired of the right ankle. LIMITATIONS: None. FINDINGS: MINERALIZATION: Normal. BONES: Old avulsion fracture distal fibula. No acute fracture or dislocation. No worrisome bone les ions. JOINTS: No effusions. SOFT TISSUES: No soft tissue swelling. No foreign body. OTHER: No other significant finding. IMPRESSION: NO RADIOGRAPHIC EVIDENCE OF ACUTE INJURY. TECHNICAL DOCUMENTATION: JOB ID: [id number] [employer]- All Rights Reserved Reading location - IP/workstation name: [email or web address]
[2018-03-08 13:01] VITALS: BP 124/74
== END 2018-03-08 13:15 | disposition home or self-care (01) ==
LOC: ER 10:33
DX: S96.911A Strain of unspecified muscle and tendon at ankle and foot level, right foot, initial encounter (principal); M25.571 Pain in right ankle and joints of right foot; X50.0XXA Overexertion from strenuous movement or load, initial encounter; J45.909 Unspecified asthma, uncomplicated; F17.210 Nicotine dependence, cigarettes, uncomplicated; Z71.6 Tobacco abuse counseling; Z88.1 Allergy status to other antibiotic agents
CPT/HCPCS: 99283; 73610; L4350

== ENCOUNTER 2018-04-06 21:25 | Emergency (ER) | payer OTHER, MEDICARE ==
[2018-04-06] MEDS ORDERED: HYDROCODONE/ACETAMINOPHEN 5-325 MG TABLET PO ONE (22:26)
[2018-04-06] MEDS ORDERED: ONDANSETRON 4 MG TAB.RAPDIS PO ONE (22:26)
--- NOTE | 2018-04-06 22:54 | ER Document Report ---
HPI - HPI Patient complains to provider of: right ankle injury Time Seen by Provider: 04/06/18 22:20 Pain Level: 4 Context: Patient is a 42-year-old female that comes to the emergency department for chief complaint of right ankle injury. She states she tucked her leg up underneath her and sat down, she states that she felt a sharp pain and a pop, she states afterwards her ankle started to swell. She states she has broken this ankle before in a similar fashion, has repeated problems with this ankle. Pain radiates up into her right leg. Denies fall or any other injuries. Denies any other complaint. - REPRODUCTIVE Reproductive: DENIES: : Past Medical History - General Information source: Patient - Social History Smoking Status: Never Smoker Drug Abuse: None Family History: Arthritis, CVA, DM, Malignancy, Thyroid Disfunction Pulmonary Medical History: Reports: Hx Asthma, Hx Bronchitis, Hx Pneumonia Neurological Medical History: Reports: Hx Migraine Renal/ Medical History: Reports: Hx Ovarian Cysts. Denies: Hx Peritoneal Dialysis GI Medical History: Reports: Hx Gastroesophageal Reflux Disease - IBS, Hx Irritable Bowel, Hx Colonoscopy Musculoskeletal Medical History: Reports Hx Arthritis, Reports Hx Musculoskeletal Deformity, Reports Hx Musculoskeletal Trauma Psychiatric Medical History: Reports: Hx Anxiety, Hx Bipolar Disorder, Hx Depression, Hx Post Traumatic Stress Disorder Traumatic Medical History: Reports: Hx Traumatic Brain Injury Past Surgical History: Reports: Hx Abdominal Surgery - umbilical hernia repair, Hx Adenoidectomy, Hx Cholecystectomy, Hx Hysterectomy, Hx Tonsillectomy, Hx Tubal Ligation, Hx Umbilical Hernia - Immunizations Immunizations up to date: Yes Hx Diphtheria, Pertussis, Tetanus Vaccination: Yes - 2009 Hx Pneumococcal Vaccination: 06/14/13 Vertical Provider Document - CONSTITUTIONAL General Appearance: WD/WN, No Apparent Distress - INFECTION CONTROL TRAVEL OUTSIDE OF THE [place] IN LAST 30 DAYS: No - HEENT HEENT: Atraumatic, Normocephalic - NECK Neck: Normal Inspection - RESPIRATORY Respiratory: Breath Sounds Normal, No Respiratory Distress - CARDIOVASCULAR Cardiovascular: Regular Rate, Regular Rhythm - GI/ABDOMEN Gastrointestinal: Abdomen Soft, Abdomen Non-Tender - BACK Back: Normal Inspection - MUSCULOSKELETAL/EXTREMETIES Musculoskeletal/Extremeties: Tender - Tender over the lateral malleolus of the right ankle with some tenderness over the dorsum and lateral side of the foot. Pain with range of motion. Normal capillary refill and sensation. There is also pain over the lateral aspect of the leg approximately closer to the knee. Unremarkable calf, unremarkable lower extremity exam otherwise. Course - Re-evaluation Re-evalutation: X-ray shows no acute fracture or dislocation. It shows chronic avulsion injury at the medial malleolus, also shows spurring probably from repetitive plantar fasciitis. Patient states she has had to adjust her footwear, I did provide her with a copy of the report and discussed it. Patient does have evidence of ankle sprain on evaluation as well. Placed in ankle stirrup, crutches, referred to orthopedics, discussed referral and return precautions. Patient states understanding and agreement. 04/07/18 Patient asked me back to the room, requesting posterior splint be placed instead of ankle stirrup. Patient has had ankle stirrup in the past and states she feels this is not supportive enough. This was adjusted for her. She understands that she will be wearing it as needed. - Vital Signs Vital signs: Temp Pulse Resp BP Pulse Ox 97.4 F 101 H 18 134/67 H 99 04/06/18 21:31 04/06/18 21:31 04/06/18 21:31 04/06/18 21:31 04/06/18 21:31 Procedures - Immobilization right ankle Pre-Proc Neuro Vasc Exam: Normal Immobilizer type: Posterior ankle Performed by: PCT Post-Proc Neuro Vasc Exam: Normal Alignment checked and good: Yes Discharge - Discharge Clinical Impression: Right leg pain Right ankle pain Qualifiers: Chronicity: acute Qualified Code(s): M25.571 - Pain in right ankle and joints of right foot Condition: Stable Disposition: HOME, SELF-CARE Additional Instructions: Your examination today is consistent with a sprain and soft tissue swelling, no new fracture or dislocation is seen. Elevate your leg, apply ice 3-4 times a day for 10-15 minutes, take anti-inflammatory, wear the ankle stirrup, use crutches. Perform this for the next 2-3 days and resume activity as tolerated. You have old spurring and avulsion fractures in your ankle with healing. Because of ongoing problems with your ankle/foot I recommend orthopedic follow- up for additional management. Return for any concerning symptoms including severe swelling or pain. Prescriptions: Naproxen [Naprosyn 375 Mg Tablet] 375 mg PO BID #20 tablet Referrals: DAVIAN COLE MD [ACTIVE STAFF] - Follow up as needed
--- NOTE | 2018-04-06 22:55 | RADIOLOGY REPORT (SQ) ---
EXAM DESCRIPTION: XR TIBIA FIBULA 2 VIEWS, XR ANKLE 3 VIEWS COMPLETED DATE/TME: 04/06/2018 22:25 CLINICAL HISTORY: 42 years Female, ankle injury, pain at top of fibula COMPARISON: March 08, 2018, right ankle. Findings: Small chronic ossicular avulsive fragments measuring up to 0.7 cm of the medial malleolus stable compared with prior exam from March 08 2018.. Plantar fascial enthesophyte. Bones, joints, and soft tissues of the RIGHT XR TIBIA FIBULA 2 VIEWS, XR ANKLE 3 VIEWS appear otherwise intact. IMPRESSION: No acute findings.
[2018-04-06 23:47] VITALS: BP 129/66
== END 2018-04-06 23:28 | disposition home or self-care (01) ==
LOC: ER 21:25
DX: M25.571 Pain in right ankle and joints of right foot (principal); S93.401A Sprain of unspecified ligament of right ankle, initial encounter; X58.XXXA Exposure to other specified factors, initial encounter; M79.604 Pain in right leg; J45.909 Unspecified asthma, uncomplicated
CPT/HCPCS: 29515; 99283; 73610; 73590; L1902; S0119

== ENCOUNTER 2018-05-19 09:09 | Emergency (ER) | payer OTHER, MEDICARE ==
[2018-05-19 09:15] VITALS: BP 113/52
--- NOTE | 2018-05-19 09:31 | ER Document Report ---
HPI - HPI Time Seen by Provider: 05/19/18 09:23 Pain Level: 3 Notes: Patient is an otherwise healthy 42-year-old female who presents with chief complaint of right ankle pain. Patient reports approximately 10 minutes prior to arrival she was walking out her front door when she rolled her right ankle and felt and heard a pop. Patient reports history of fracture to this ankle many years ago. Patient reports she took Aleve prior to arrival. - REPRODUCTIVE Reproductive: DENIES: : - MUSCULOSKELETAL Musculoskeletal: REPORTS: Extremity pain - R ankle Past Medical History - General Information source: Patient - Social History Smoking Status: Never Smoker Chew tobacco use (# tins/day): No Frequency of alcohol use: None Drug Abuse: None Family History: Arthritis, CVA, DM, Malignancy, Thyroid Disfunction Patient has suicidal ideation: No Patient has homicidal ideation: No Pulmonary Medical History: Reports: Hx Asthma, Hx Bronchitis, Hx Pneumonia Neurological Medical History: Reports: Hx Migraine Renal/ Medical History: Reports: Hx Ovarian Cysts. Denies: Hx Peritoneal Dialysis GI Medical History: Reports: Hx Gastroesophageal Reflux Disease - IBS, Hx Irritable Bowel, Hx Colonoscopy Musculoskeletal Medical History: Reports Hx Arthritis, Reports Hx Musculoskeletal Deformity, Reports Hx Musculoskeletal Trauma Psychiatric Medical History: Reports: Hx Anxiety, Hx Bipolar Disorder, Hx Depression - PTSD, Hx Post Traumatic Stress Disorder Traumatic Medical History: Reports: Hx Traumatic Brain Injury Past Surgical History: Reports: Hx Abdominal Surgery - umbilical hernia repair, Hx Adenoidectomy, Hx Cholecystectomy, Hx Hysterectomy, Hx Tonsillectomy, Hx Tubal Ligation, Hx Umbilical Hernia - Immunizations Immunizations up to date: Yes Hx Diphtheria, Pertussis, Tetanus Vaccination: Yes - 2009 Hx Pneumococcal Vaccination: 06/14/13 Vertical Provider Document - CONSTITUTIONAL Notes: PHYSICAL EXAMINATION: GENERAL: Well-appearing, well-nourished and in no acute distress. HEAD: Atraumatic, normocephalic. EYES: Pupils equal round extraocular movements intact, conjunctiva are normal. ENT: Nares patent NECK: Normal range of motion LUNGS: No respiratory distress Musculoskeletal: Normal range of motion cap refill less than 3 seconds, no ecchymosis, erythema or edema noted,. Tenderness to palpation to lateral right ankle. NEUROLOGICAL: Normal speech. PSYCH: Normal mood, normal affect. SKIN: Warm, Dry, normal turgor, no rashes or lesions noted. - INFECTION CONTROL TRAVEL OUTSIDE OF THE [place] IN LAST 30 DAYS: No Course - Re-evaluation Re-evalutation: X-ray of the right ankle negative for any acute findings to include fracture or dislocation. Patient will be placed in ankle stirrup splint for comfort and support. - Vital Signs Vital signs: Temp Pulse Resp BP Pulse Ox 97.7 F 95 18 113/52 L 99 05/19/18 09:13 05/19/18 09:13 05/19/18 09:13 05/19/18 09:13 05/19/18 09:13 Procedures - Immobilization Right ankle Pre-Proc Neuro Vasc Exam: Normal Immobilizer type: Ankle stirrup, Crutches Performed by: PCT Post-Proc Neuro Vasc Exam: Normal Alignment checked and good: Yes Discharge - Discharge Clinical Impression: Ankle sprain Qualifiers: Encounter type: initial encounter Involved ligament of ankle: unspecified ligament Laterality: right Qualified Code(s): S93.401A - Sprain of unspecified ligament of right ankle, initial encounter Condition: Stable Disposition: HOME, SELF-CARE Additional Instructions: SPRAINED ANKLE: Your sprained ankle results from stretching or tearing of the ligaments which support the ankle. This usually results from twisting the foot inward and under. The ligaments will require time and protection in order to heal properly. Many ankle sprains are quite disabling, and should be taken seriously. The usual treatment for an ankle sprain is cold packs; protection with tape, splints, or wraps; elevation; and staying off the ankle for at least a day. As the ankle improves, you can walk IF it's not painful to bear weight. Sports are best postponed until healing is complete. More serious sprains usually require strengthening exercises after early healing. Your physician has assessed the seriousness of the ligament injury to your ankle. However, the treatment may change, depending on how your ankle progresses. If further exams were recommended, it is important that you follow through. Call the doctor if your foot becomes numb, painful, or severely swollen. ANKLE STIRRUP SPLINT: You are to use an ankle brace called a stirrup splint. This type of brace allows you to place greater stresses on the ankle without risk of re-injury, and is often used for more severe ankle injuries such as avulsion fractures and ligament ruptures. The splint can be worn over a sock or tape. For proper support, wear the splint with a shoe over it. It's important that the splint fit properly. Adjust the heel tension, if needed. If your splint has air bladders, peel back the bottom of each air bladder, then move the Velcro attachment of the heel strap up or down. Air bladder pressure can be adjusted by pulling up the valve at the top, threading the air tube down into the main bladder, then blowing air into the bladder or squeezing it out. The two sides of the stirrup can be moved forward or back on your ankle by changing the attachment of the main straps. If you are unable to use the ankle comfortably in the splint, return for re-evaluation. USE OF CRUTCHES: The doctor has recommended that you not bear weight at this time. You will need to use crutches. Adjust the crutches so the tops come to about two inches under the armpit while you are standing upright. Use your hands -- not your armpits -- to support your weight. To get into a chair, support yourself with one crutch on the injured side. Hold the chair with the other hand, then lower yourself while putting all your weight on the good leg. Going up stairs is `good leg up, step up, then bring up crutches and bad leg.' Down stairs is `bad leg and crutches down, then bring good leg down.' If you develop numbness or swelling in an arm or hand, you are using the crutches incorrectly. Return if you are having any problems with the crutches. ICE & ELEVATION: Apply ice packs frequently against the painful area. Many different schedules are recommended, such as "20 minutes on, 20 minutes off" or "one hour ice, two hours rest." If you need to work, you may need to go longer between ice treatments. You should plan to have the area ice packed AT LEAST one-fourth of the time. The ice should be applied over the wrap, tape, or splint, or over a layer of cloth -- not directly against the skin. Some ice bags have a built-in cloth and can be put directly on the skin. Your injured part should be elevated as much as possible over the next 48 hours. Try to keep the injury above the level of the heart. Avoid use of the injured area. Elevation and rest will decrease the swelling. USE OF KBII-EIL-IRGLUZS IBUPROFEN: Ibuprofen (Advil, Nuprin, Medipren, Motrin IB) is a medication for fever and pain control. In addition, it has anti- inflammatory effects which may be beneficial, especially in the treatment of injuries. It's best to take ibuprofen with food. Persons with ulcer disease or allergy to aspirin should notify their physician of this before taking ibuprofen. Ibuprofen can be given every four to six hours, for a total of four doses daily. Age Pain or fever dose Antiinflammatory dose 6-8 yr 200 mg (1 tab) 200 mg (1 tab) 9-11 yr 200 mg (1 tab) 200-400 mg (1-2 tab) 11-14 yr 200-400 mg (1-2 tab) 400 mg (2 tab) 15-adult 400 mg (2 tab) 600 mg (3 tab) FOLLOW-UP CARE: If you have been referred to a physician for follow-up care, call the physicians office for an appointment as you were instructed or within the next two days. If you experience worsening or a significant change in your symptoms, notify the physician immediately or return to the Emergency Department at any time for re-evaluation.
--- NOTE | 2018-05-19 10:14 | RADIOLOGY REPORT (SQ) ---
EXAM DESCRIPTION: ANKLE RIGHT COMPLETE COMPLETED DATE/TIME: 05/19/2018 10:05 am REASON FOR STUDY: rolled ankle today COMPARISON: 04/06/2018 and 02/28/2016. NUMBER OF VIEWS: Three views. TECHNIQUE: AP, lateral, and oblique radiographic images acquired of the right ankle. LIMITATIONS: None. FINDINGS: MINERALIZATION: Normal. BONES: No acute fracture or dislocation. Old ossicle adjacent to the medial malleolus. Prominent he el spur. No worrisome bone lesions. JOINTS: No effusions. SOFT TISSUES: No soft tissue swelling. No foreign body. OTHER: No other significant finding. IMPRESSION: NEGATIVE STUDY OF THE RIGHT ANKLE. NO RADIOGRAPHIC EVIDENCE OF ACUTE INJURY. TECHNICAL DOCUMENTATION: JOB ID: [id number] [employer]- All Rights Reserved Reading location - IP/workstation name: [email or web address]
== END 2018-05-19 10:31 | disposition home or self-care (01) ==
LOC: ER 09:09
DX: S93.401A Sprain of unspecified ligament of right ankle, initial encounter (principal); M25.571 Pain in right ankle and joints of right foot; X50.9XXA Other and unspecified overexertion or strenuous movements or postures, initial encounter; J45.909 Unspecified asthma, uncomplicated
CPT/HCPCS: 99283; 73610; L4350

== ENCOUNTER 2018-06-17 13:10 | Emergency (ER) | payer OTHER, MEDICARE | END 2018-06-17 13:53 | disposition left against medical advice (07) | LOC: ER 13:10 | DX: Z53.21 Procedure and treatment not carried out due to patient leaving prior to being seen by health care provider (principal) ==

== ENCOUNTER 2018-07-11 09:27 | Emergency (ER) | payer OTHER, MEDICARE ==
[2018-07-11] MEDS ORDERED: IBUPROFEN 800 MG TABLET PO ONE (10:07)
--- NOTE | 2018-07-11 10:13 | ER Document Report ---
HPI - HPI Patient complains to provider of: Left knee pain Time Seen by Provider: 07/11/18 09:59 Onset: Other - 2-3 days ago Onset/Duration: Persistent Quality of pain: Achy, Throbbing Pain Level: 3 Context: Patient presents emergency department with complaints of left knee pain. She reports she just woke up with a knee pain. Denies falling or trauma. She has not been exercising/walking more, does not work. Reports she sprained her knee approximately 1-1/2 years ago. No other complaints such as fever vomiting diarrhea. Associated Symptoms: None Exacerbated by: Movement, Walking Relieved by: Denies Similar symptoms previously: Yes Recently seen / treated by doctor: No - REPRODUCTIVE Reproductive: DENIES: : Past Medical History - General Information source: Patient Last Menstrual Period: Hysterectomy - Social History Smoking Status: Current Every Day Smoker Cigarette use (# per day): Yes Frequency of alcohol use: None Drug Abuse: None Family History: Arthritis, CVA, DM, Malignancy, Thyroid Disfunction Patient has suicidal ideation: No Patient has homicidal ideation: No Pulmonary Medical History: Reports: Hx Asthma, Hx Bronchitis, Hx Pneumonia Neurological Medical History: Reports: Hx Migraine Renal/ Medical History: Reports: Hx Ovarian Cysts. Denies: Hx Peritoneal Dialysis GI Medical History: Reports: Hx Gastroesophageal Reflux Disease - IBS, Hx Irritable Bowel, Hx Colonoscopy Musculoskeletal Medical History: Reports Hx Arthritis, Reports Hx Musculoskeletal Deformity, Reports Hx Musculoskeletal Trauma Psychiatric Medical History: Reports: Hx Anxiety, Hx Bipolar Disorder, Hx Depression - PTSD, Hx Post Traumatic Stress Disorder Traumatic Medical History: Reports: Hx Traumatic Brain Injury Past Surgical History: Reports: Hx Abdominal Surgery - umbilical hernia repair, Hx Adenoidectomy, Hx Cholecystectomy, Hx Hysterectomy, Hx Tonsillectomy, Hx Tubal Ligation, Hx Umbilical Hernia - Immunizations Immunizations up to date: Yes Hx Diphtheria, Pertussis, Tetanus Vaccination: Yes - 2009 Hx Pneumococcal Vaccination: 06/14/13 Vertical Provider Document - CONSTITUTIONAL Agree With Documented VS: Yes Exam Limitations: No Limitations General Appearance: WD/WN, No Apparent Distress - Nontoxic looking - INFECTION CONTROL TRAVEL OUTSIDE OF THE [place] IN LAST 30 DAYS: No - HEENT HEENT: Atraumatic - NECK Neck: Supple - RESPIRATORY Respiratory: No Respiratory Distress - CARDIOVASCULAR Cardiovascular: Regular Rate - MUSCULOSKELETAL/EXTREMETIES Musculoskeletal/Extremeties: MAEW, FROM, Tender - Right anterior patella tender, no obvious deformity no swelling no erythema no warmth full range of motion - NEURO Level of Consciousness: Awake, Alert, Appropriate Motor/Sensory: No Motor Deficit - DERM Integumentary: Warm, Dry Adult Front & Back Diagram: 1 - She reports tender to palpation pain Course - Re-evaluation Re-evalutation: 07/11/18 10:53 Left knee x-ray negative no acute injury no effusion no obvious swelling or deformity to knee. Patient was instructed on the x-ray. Patient was also advised to follow-up with orthopedic for continued pain rest ice and Motrin or Tylenol for the pain. Dictation of this chart was performed using voice recognition software; therefore, there may be some unintended grammatical errors. - Vital Signs Vital signs: Temp Pulse Resp BP Pulse Ox 98.2 F 94 18 114/80 98 07/11/18 09:37 07/11/18 09:37 07/11/18 09:37 07/11/18 09:37 07/11/18 09:37 - Diagnostic Test Radiology reviewed: Image reviewed, Reports reviewed - EXAM DESCRIPTION: KNEE LEFT 4 VIEW COMPLETED DATE/TIME: 07/11/2018 10:25 am REASON FOR STUDY: knee pain COMPARISON: None. NUMBER OF VIEWS: Four views. TECHNIQUE: AP, lateral, and both oblique radiographic images acquired of the left knee. LIMITATIONS: None. FINDINGS: MINERALIZATION: Normal. BONES: No acute fracture or dislocation. No worrisome bone lesions. No significant osteophytes. JOINT: No effusion. No chondrocalcinosis. OTHER: No other significant finding. IMPRESSION: NEGATIVE STUDY OF THE LEFT KNEE. NO EXPLANATION FOR PAIN. No interval change since multiple previous radiographs of the left knee. TECHNICAL DOCUMENTATION: JOB ID: [id number] [employer]- All Rights Reserved Reading location - IP/workstation name: [facility] Dictated by: LORAINE GREEN MD 1024 CC: CECELIA ROBERTS NP > 07/11/18 1037 Discharge - Discharge Clinical Impression: Left knee pain Qualifiers: Chronicity: acute Qualified Code(s): M25.562 - Pain in left knee Condition: Stable Disposition: HOME, SELF-CARE Instructions: Ice & Elevation ([facility]) Additional Instructions: *You have been evaluated for left knee pain *The x-ray did not show an acute injury *Rest/Ice/Elevate *Follow up with orthopedics for continued pain within one week-call for an appointment *Take ibuprofen as indicated for pain *Return to ED for worsening condition, changes, needs [facility]errals: [facility] [[facility] - Follow up in 3-5 days
--- NOTE | 2018-07-11 10:37 | RADIOLOGY REPORT (SQ) ---
EXAM DESCRIPTION: KNEE LEFT 4 VIEW COMPLETED DATE/TIME: 07/11/2018 10:25 am REASON FOR STUDY: knee pain COMPARISON: None. NUMBER OF VIEWS: Four views. TECHNIQUE: AP, lateral, and both oblique radiographic images acquired of the left knee. LIMITATIONS: None. FINDINGS: MINERALIZATION: Normal. BONES: No acute fracture or dislocation. No worrisome bone lesions. No significant osteophytes. JOINT: No effusion. No chondrocalcinosis. OTHER: No other significant finding. IMPRESSION: NEGATIVE STUDY OF THE LEFT KNEE. NO EXPLANATION FOR PAIN. No interval change since mult iple previous radiographs of the left knee. TECHNICAL DOCUMENTATION: JOB ID: [id number] [employer]- All Rights Reserved Reading location - IP/workstation name: [email or web address]
[2018-07-11 11:45] VITALS: BP 110/58
== END 2018-07-11 11:11 | disposition home or self-care (01) ==
LOC: ER 09:27
DX: M25.562 Pain in left knee (principal); F17.210 Nicotine dependence, cigarettes, uncomplicated
CPT/HCPCS: 99283

== ENCOUNTER 2018-12-14 16:15 | Emergency (ER) | payer OTHER, MEDICARE ==
[2018-12-14 16:25] VITALS: BP 125/63
[2018-12-14] MEDS ORDERED: HYDROCODONE/ACETAMINOPHEN 5-325 MG (6 TAB/ER DISP) PO PRN (17:23)
--- NOTE | 2018-12-14 17:26 | ER Document Report ---
HPI - HPI Patient complains to provider of: left knee pain Time Seen by Provider: 12/14/18 17:08 Onset: This afternoon Onset/Duration: Sudden Quality of pain: Achy Pain Level: 3 Context: Patient presents complaining of left knee pain. Patient was walking on the treadmill and it automatically started to incline. Patient states she felt her knee start to give out and popped. Patient did not fall. Patient does report a history of previous sprains involving the left knee. Associated Symptoms: Other - knee pain Exacerbated by: Standing, Movement, Walking Relieved by: Denies Similar symptoms previously: Yes Recently seen / treated by doctor: No - ROS ROS below otherwise negative: Yes Systems Reviewed and Negative: Yes All other systems reviewed and negative - CONSTITUTIONAL Constitutional: DENIES: Fever, Chills - NEURO Neurology: DENIES: Weakness - GASTROINTESTINAL Gastrointestinal: DENIES: Nausea, Patient vomiting - REPRODUCTIVE Reproductive: DENIES: : - MUSCULOSKELETAL Musculoskeletal: REPORTS: Extremity pain - LEFT KNEE. DENIES: Swelling - DERM Skin Color: Normal Skin Problems: None Past Medical History - General Information source: Patient - Social History Smoking Status: Never Smoker Chew tobacco use (# tins/day): No Frequency of alcohol use: None Drug Abuse: None Occupation: none Family History: Arthritis, CVA, DM, Malignancy, Thyroid Disfunction Patient has suicidal ideation: No Patient has homicidal ideation: No Pulmonary Medical History: Reports: Hx Asthma, Hx Bronchitis, Hx Pneumonia Neurological Medical History: Reports: Hx Migraine Renal/ Medical History: Reports: Hx Ovarian Cysts. Denies: Hx Peritoneal Dialysis GI Medical History: Reports: Hx Gastroesophageal Reflux Disease - IBS, Hx Irrit able Bowel, Hx Colonoscopy Musculoskeletal Medical History: Reports Hx Arthritis, Reports Hx Musculoskeletal Deformity, Reports Hx Musculoskeletal Trauma Psychiatric Medical History: Reports: Hx Anxiety, Hx Bipolar Disorder, Hx Depression - PTSD, Hx Post Traumatic Stress Disorder Traumatic Medical History: Reports: Hx Traumatic Brain Injury Past Surgical History: Reports: Hx Abdominal Surgery - umbilical hernia repair, Hx Adenoidectomy, Hx Cholecystectomy, Hx Hysterectomy, Hx Tonsillectomy, Hx T ubal Ligation, Hx Umbilical Hernia - Immunizations Immunizations up to date: Yes Hx Diphtheria, Pertussis, Tetanus Vaccination: Yes - 2009 Hx Pneumococcal Vaccination: 06/14/13 Vertical Provider Document - CONSTITUTIONAL Agree With Documented VS: Yes Exam Limitations: No Limitations General Appearance: WD/WN, No Apparent Distress - INFECTION CONTROL TRAVEL OUTSIDE OF THE [place] IN LAST 30 DAYS: No - HEENT HEENT: Atraumatic, Normocephalic - NECK Neck: Normal Inspection - RESPIRATORY Respiratory: Breath Sounds Normal, No Respiratory Distress - CARDIOVASCULAR Cardiovascular: Regular Rate, Regular Rhythm Pulses: Normal: Posterior tibial, Dorsalis pedis - MUSCULOSKELETAL/EXTREMETIES Musculoskeletal/Extremeties: MAEW, FROM, Tender - Left knee joint tenderness to medial compartment, no effusion, no laxity with varus or valgus maneuvers. Patellar tendon intact. Normal skin color and temperature overlying joint, No Edema - NEURO Level of Consciousness: Awake, Alert, Appropriate Motor/Sensory: No Motor Deficit - DERM Integumentary: Warm, Dry, No Rash Course - Re-evaluation Re-evalutation: 12/14/18 17:24 Patient with likely internal left knee injury given protracted history of frequent knee sprains. Patient states she is only followed up with physical therapy and has not had any advanced imaging. Patient does report having negative x-rays in the past. Patient denies any fall and only states that her knee felt like it gave out. No concern for dislocation at this time. No concern for septic arthritis or fracture. Patient agreeable with deferring x- ray imaging at this time. - Vital Signs Vital signs: Temp Pulse Resp BP Pulse Ox 98.4 F 110 H 16 125/63 97 12/14/18 16:24 12/14/18 16:24 12/14/18 16:24 12/14/18 16:24 12/14/18 16:24 Procedures - Immobilization Left Knee Pre-Proc Neuro Vasc Exam: Normal Immobilizer type: Knee immobilizer Performed by: PCT Post-Proc Neuro Vasc Exam: Normal Alignment checked and good: Yes Discharge - Discharge Clinical Impression: Left knee sprain Qualifiers: Encounter type: initial encounter Involved ligament of knee: unspecified ligament Qualified Code(s): S83.92XA - Sprain of unspecified site of left knee, initial encounter Condition: Stable Disposition: HOME, SELF-CARE Instructions: Use of Crutches ([facility]), Ice & Elevation ([facility]), Suspected Internal Knee Injury ([facility]), Knee Immobilizing Splint ([facility]), Sprained Knee ([facility]) Additional Instructions: Return immediately for any new or worsening symptoms Followup with your primary care provider, call tomorrow to make a followup appointment Follow-up with orthopedics for further evaluation, call Sunday for an appointment Referrals: [facility] [[facility]] - Follow up as needed [facility] [Provider Group] - Follow up in 3-5 days
== END 2018-12-14 17:39 | disposition home or self-care (01) ==
LOC: ER 16:15
DX: S83.92XA Sprain of unspecified site of left knee, initial encounter (principal); M25.562 Pain in left knee; X58.XXXA Exposure to other specified factors, initial encounter; J45.909 Unspecified asthma, uncomplicated
CPT/HCPCS: 99283; L1830

== ENCOUNTER 2019-01-13 17:02 | Emergency (ER) | payer OTHER, MEDICARE ==
[2019-01-13] MEDS ORDERED: ASPIRIN 81 MG TABLET, CHEWABLE PO ONE (17:34)
--- NOTE | 2019-01-13 17:40 | ER Document Report ---
ED Medical Screen (RME) - General Chief Complaint: Chest Pain Stated Complaint: CHEST PAINS Time Seen by Provider: 01/13/19 17:32 Primary Care Provider: JOSEPHINE COSTA [Primary Care Provider] - Follow up as needed Mode of Arrival: Ambulatory Information source: Patient Notes: Patient is a 43-year-old female presenting to the emergency department with 45- minute history of midsternal chest pressure and sharp stabbing pains. She reports pain started while she was sitting on the couch. She reports the pain radiates in the left arm and she has associated nausea. She denies any shortness of breath or diaphoresis. She denies any cardiac history. Exam: Heart sounds S1-S2 present with no ectopy noted. No pain with palpation to the chest wall. I have greeted and performed a rapid initial assessment of this patient. A comprehensive ED assessment and evaluation of the patient, analysis of test results and completion of the medical decision making process will be conducted by additional ED providers. I have specifically instructed the patient or family members with the patient to immediately return to any nursing staff should anything change in the patient's condition or with their chief complaint. This medical record was dictated with voice recognizing software. There may be grammatical, syntax errors that are unintended. TRAVEL OUTSIDE OF THE [place] IN LAST 30 DAYS: No - Related Data Allergies/Adverse Reactions: sulfamethoxazole [From Bactrim] Allergy (Verified 01/13/19 17:08) trimethoprim [From Bactrim] Allergy (Verified 01/13/19 17:08) Past Medical History - Social History Frequency of alcohol use: None Drug Abuse: None Pulmonary Medical History: Reports: Hx Asthma, Hx Bronchitis, Hx Pneumonia Neurological Medical History: Reports: Hx Migraine Renal/ Medical History: Reports: Hx Ovarian Cysts. Denies: Hx Peritoneal Dialysis GI Medical History: Reports: Hx Gastroesophageal Reflux Disease - IBS, Hx Irritable Bowel, Hx Colonoscopy Musculoskeltal Medical History: Reports Hx Arthritis, Reports Hx Musculoskeletal Deformity, Reports Hx Musculoskeletal Trauma Psychiatric Medical History: Reports: Hx Anxiety, Hx Bipolar Disorder, Hx Depression - PTSD, Hx Post Traumatic Stress Disorder Traumatic Medical History: Reports: Hx Traumatic Brain Injury Past Surgical History: Reports: Hx Abdominal Surgery - umbilical hernia repair, Hx Adenoidectomy, Hx Cholecystectomy, Hx Hysterectomy, Hx Tonsillectomy, Hx Tubal Ligation, Hx Umbilical Hernia - Immunizations Immunizations up to date: Yes Hx Diphtheria, Pertussis, Tetanus Vaccination: Yes - 2009 Physical Exam - Vital signs Vitals: Temp Pulse Resp BP Pulse Ox 97.9 F 89 16 124/66 97 01/13/19 17:18 01/13/19 17:18 01/13/19 17:18 01/13/19 17:18 01/13/19 17:18 Course - Vital Signs Vital signs: Temp Pulse Resp BP Pulse Ox 97.9 F 89 16 124/66 97 01/13/19 17:18 01/13/19 17:18 01/13/19 17:18 01/13/19 17:18 01/13/19 17:18 Doctor's Discharge - Discharge [facility]errals: [facility] [[facility]] - Follow up as needed
--- NOTE | 2019-01-13 18:13 | RADIOLOGY REPORT (SQ) ---
EXAM DESCRIPTION: CHEST 2 VIEWS COMPLETED DATE/TIME: 01/13/2019 5:51 pm REASON FOR STUDY: chest pain COMPARISON: 09/15/2017 EXAM PARAMETERS: NUMBER OF VIEWS: two views TECHNIQUE: Digital Frontal and Lateral radiographic views of the chest acquired. RADIATION DOSE: NA LIMITATIONS: none FINDINGS: LUNGS AND PLEURA: No opacities, masses or pneumothorax. No pleural effusion. MEDIASTINUM AND HILAR STRUCTURES: No masses or contour abnormalities. HEART AND VASCULAR STRUCTURES: Heart normal size. No evidence for failure. BONES: No acute findings. HARDWARE: None in the chest. OTHER: No other significant finding. IMPRESSION: NO ACUTE RADIOGRAPHIC FINDING IN THE CHEST. TECHNICAL DOCUMENTATION: JOB ID: [id number] [facility]- All Rights Reserved Reading location - IP/workstation name: [email or web address]
--- NOTE | 2019-01-13 18:14 | EKG REPORT ---
SEVERITY:- NORMAL ECG - SINUS RHYTHM : Confirmed by: Elvis Knight MD 13-Jan-2019 18:14:18
[2019-01-13 18:31] LABS: ABSOLUTE BASOPHILS # (AUTO) 0.1 10^3/uL (0.0-0.2); ABSOLUTE EOSINOPHILS # (AUTO) 0.2 10^3/uL (0.0-0.6); ABSOLUTE LYMPHOCYTES (AUTO) 2.1 10^3/uL (0.5-4.7); ABSOLUTE MONOCYTES (AUTO) 0.5 10^3/uL (0.1-1.4); ABSOLUTE NEUT (AUTO) 4.4 10^3/uL (1.7-8.2); BASOPHILS % (AUTO) 0.7 % (0-2); EOSINOPHILS % (AUTO) 2.3 % (0-6); HEMOGLOBIN 14.1 g/dL (12.0-15.5); LYMPHOCYTES % (AUTO) 29.4 % (13-45); MEAN CORPUSCULAR HEMOGLOBIN 31.9 pg (27.0-33.4); MEAN CORPUSCULAR HGB CONC 34.3 g/dL (32.0-36.0); MEAN CORPUSCULAR VOLUME 93 fl (80-97); MONOCYTES % (AUTO) 6.5 % (3-13); PLATELET COUNT 263 10^3/uL (150-450); RED CELL DISTRIBUTION WIDTH 12.7 % (11.5-14.0); SEGMENTED NEUTROPHILS % (AUTO) 61.1 % (42-78); TOTAL CELLS COUNTED % (AUTO) 100 %; WHITE BLOOD COUNT 7.2 10^3/uL (4.0-10.5)
[2019-01-13 18:36] LABS: APPEARANCE,URINE CLEAR; BILIRUBIN,URINE NEGATIVE (NEGATIVE); COLOR,URINE YELLOW; GLUCOSE, URINE NEGATIVE (NEGATIVE); KETONES,URINE NEGATIVE (NEGATIVE); LEUKOCYTE ESTERASE,URINE TRACE (NEGATIVE); NITRITE,URINE NEGATIVE (NEGATIVE); PROTEIN,URINE NEGATIVE (NEGATIVE); URINE SPECIFIC GRAVITY 1.014; UROBILINOGEN,URINE NEGATIVE mg/dL (<2.0)
[2019-01-13 18:45] LABS: ALBUMIN 4.1 g/dL (3.5-5.0); ALKALINE PHOSPHATASE 48 U/L (38-126); ANION GAP 8 (5-19); ASPARTATE AMINO TRANSFERASE 25 U/L (14-36); BILIRUBIN,DIRECT 0.1 mg/dL (0.0-0.4); BILIRUBIN,TOTAL 0.5 mg/dL (0.2-1.3); BLOOD UREA NITROGEN 8 mg/dL (7-20); CALCIUM 9.1 mg/dL (8.4-10.2); CARBON DIOXIDE 24 mmol/L (22-30); CHLORIDE 108 mmol/L (98-107); GLUCOSE 107 mg/dL (75-110)
[2019-01-13] MEDS: NITROGLYCERIN 0.4 MG/TAB 25 TAB/BOTTLE SL PRN ×2 (21:39→21:51)
--- NOTE | 2019-01-13 22:14 | ER Document Report ---
ED Cardiac - General Chief Complaint: Chest Pain Stated Complaint: CHEST PAINS Time Seen by Provider: 01/13/19 17:32 Primary Care Provider: [facility] [[facility]] - Follow up as needed Mode of Arrival: Ambulatory TRAVEL OUTSIDE OF THE [place] IN LAST 30 DAYS: No - HPI Notes: Patient presents complaining of 1 day of chest pain. She states it started about 3 hours before arrival. It is a pressure sensation that radiates to her left arm. No previous history of cardiac disease. She states that nothing makes it better or worse. Exertion does not change the pain. She has been short of breath and nauseous with the pain. She has not been sweaty. She states she does not smoke. No history of hormone use. Patient denies any cough or cold symptoms. Pain is been moderate. - Related Data Allergies/Adverse Reactions: sulfamethoxazole [From Bactrim] Allergy (Verified 01/13/19 17:08) trimethoprim [From Bactrim] Allergy (Verified 01/13/19 17:08) Past Medical History - General Information source: Patient - Social History Smoking Status: Never Smoker Frequency of alcohol use: None Drug Abuse: None Family History: Arthritis, CVA, DM, Malignancy, Thyroid Disfunction Patient has suicidal ideation: No Patient has homicidal ideation: No Pulmonary Medical History: Reports: Hx Asthma, Hx Bronchitis, Hx Pneumonia Neurological Medical History: Reports: Hx Migraine Renal/ Medical History: Reports: Hx Ovarian Cysts. Denies: Hx Peritoneal Dialysis GI Medical History: Reports: Hx Gastroesophageal Reflux Disease - IBS, Hx Irritable Bowel, Hx Colonoscopy Musculoskeletal Medical History: Reports Hx Arthritis, Reports Hx Musculoskeletal Deformity, Reports Hx Musculoskeletal Trauma Psychiatric Medical History: Reports: Hx Anxiety, Hx Bipolar Disorder, Hx Depression - PTSD, Hx Post Traumatic Stress Disorder Traumatic Medical History: Reports: Hx Traumatic Brain Injury Past Surgical History: Reports: Hx Abdominal Surgery - umbilical hernia repair, Hx Adenoidectomy, Hx Cholecystectomy, Hx Hysterectomy, Hx Tonsillectomy, Hx Tubal Ligation, Hx Umbilical Hernia - Immunizations Immunizations up to date: Yes Hx Diphtheria, Pertussis, Tetanus Vaccination: Yes - 2009 Hx Pneumococcal Vaccination: 06/14/13 Review of Systems - Review of Systems Constitutional: denies: Chills, Fever Cardiovascular: Chest pain, Dyspnea Respiratory: Short of breath. denies: Cough Gastrointestinal: Nausea. denies: Abdominal pain, Diarrhea -: Yes All other systems reviewed and negative Physical Exam - Vital signs Vitals: Temp Pulse Resp BP Pulse Ox 97.9 F 89 16 124/66 97 01/13/19 17:18 01/13/19 17:18 01/13/19 17:18 01/13/19 17:18 01/13/19 17:18 Interpretation: Normal - General General appearance: Appears well, Alert - HEENT Head: Normocephalic, Atraumatic Eyes: Normal Pupils: PERRL - Respiratory Respiratory status: No respiratory distress Chest status: Nontender Breath sounds: Normal Chest palpation: Normal - Cardiovascular Rhythm: Regular Heart sounds: Normal auscultation Murmur: No - Abdominal Inspection: Normal Distension: No distension Bowel sounds: Normal Tenderness: Nontender Organomegaly: No organomegaly - Back Back: Normal, Nontender - Extremities General upper extremity: Normal inspection, Nontender, Normal color, Normal ROM, Normal temperature General lower extremity: Normal inspection, Nontender, Normal color, Normal ROM, Normal temperature, Normal weight bearing. No: Arun's sign - Neurological Neuro grossly intact: Yes Cognition: Normal Orientation: AAOx4 Brain Coma Scale Eye Opening: Spontaneous [place] Coma Scale Verbal: Oriented [place] Coma Scale Motor: Obeys Commands Brain Coma Scale Total: 15 Speech: Normal Motor strength normal: LUE, RUE, LLE, RLE Sensory: Normal - Psychological Associated symptoms: Normal affect, Normal mood - Skin Skin Temperature: Warm Skin Moisture: Dry Skin Color: Normal Course - Re-evaluation Re-evalutation: 01/13/19 22:15 Patient at this time states she is still having the pressure sensation. However 2 troponins are negative and 2 EKGs are negative. Her heart score is a 1. I find no evidence for cardiac or pulmonary disease. She states she can follow-up with her primary care physician tomorrow. This seems to be the most prudent course is to have patient pursue outpatient follow-up with her primary care physician tomorrow. She was instructed that she needs to discuss an outpatient cardiac stress test with her physician. - Vital Signs Vital signs: Temp Pulse Resp BP Pulse Ox 98.2 F 89 22 H 105/67 98 01/13/19 21:01 01/13/19 17:18 01/13/19 21:01 01/13/19 21:52 09/16/19 21:01 - Laboratory Result Diagrams: 01/13/19 18:05 01/13/19 18:05 Laboratory results interpreted by me: 01/13/19 01/13/19 18:05 18:05 Chloride 108 H Ur Leukocyte Esterase TRACE H - Diagnostic Test Radiology reviewed: Image reviewed, Reports reviewed - EKG Interpretation by Me EKG shows normal: Sinus rhythm Rate: Normal - 80 Rhythm: NSR [place]/QRS: No: Right axis deviation, Left axis deviation Additional EKG results interpreted by me: 01/13/19 22:15 Repeat EKG was performed that 2107. This EKG shows a sinus rhythm. Rate is 71. There is no ischemic changes. It is unchanged from the previous EKG. Discharge - Discharge Clinical Impression: Chest pain, atypical Condition: Stable Disposition: HOME, SELF-CARE Instructions: Chest Pain of Unclear Cause ([facility]) Additional Instructions: Please call your primary care physician first thing in the morning to arrange follow-up. Please discuss an outpatient cardiac stress test with your primary care physician. Referrals: [facility] [[facility]] - Follow up as needed
[2019-01-13 22:59] VITALS: BP 110/72
--- NOTE | 2019-01-14 07:47 | EKG REPORT ---
SEVERITY:- BORDERLINE ECG - SINUS RHYTHM NONSPECIFIC ST-T CHANGES ANTERIOR LEADS : Confirmed by: Elvis Knight MD 14-Jan-2019 07:46:34
== END 2019-01-13 22:59 | disposition home or self-care (01) ==
LOC: ER 17:02
DX: R07.89 Other chest pain (principal); R06.02 Shortness of breath; R11.0 Nausea; Z88.3 Allergy status to other anti-infective agents; Z90.49 Acquired absence of other specified parts of digestive tract; Z90.710 Acquired absence of both cervix and uterus
CPT/HCPCS: 36415; 71046; 80053; 81001; 84484; 85025; 93005; 93010; 99285

== ENCOUNTER 2019-02-03 12:52 | Emergency (ER) | payer OTHER, MEDICARE ==
--- NOTE | 2019-02-03 14:46 | ER Document Report ---
HPI - HPI Time Seen by Provider: 02/03/19 14:38 Notes: Patient is an otherwise healthy 43-year-old female presenting to the emergency department with complaints of lump to her right breast. Patient reports lump at the 12:00 location. She states that is been there for approximately 1 month and states that she has been having bloody drainage from her nipple. She denies any personal history of cancer but reports that her mother had breast cancer. - REPRODUCTIVE Reproductive: DENIES: : Past Medical History - General Information source: Patient - Social History Smoking Status: Never Smoker Frequency of alcohol use: None Drug Abuse: None Family History: Arthritis, CVA, DM, Malignancy, Thyroid Disfunction Pulmonary Medical History: Reports: Hx Asthma, Hx Bronchitis, Hx Pneumonia Neurological Medical History: Reports: Hx Migraine Renal/ Medical History: Reports: Hx Ovarian Cysts. Denies: Hx Peritoneal Dialysis GI Medical History: Reports: Hx Gastroesophageal Reflux Disease - IBS, Hx Irritable Bowel, Hx Colonoscopy Musculoskeletal Medical History: Reports Hx Arthritis, Reports Hx Musculoskeletal Deformity, Reports Hx Musculoskeletal Trauma Psychiatric Medical History: Reports: Hx Anxiety, Hx Bipolar Disorder, Hx Depression - PTSD, Hx Post Traumatic Stress Disorder Traumatic Medical History: Reports: Hx Traumatic Brain Injury Past Surgical History: Reports: Hx Abdominal Surgery - umbilical hernia repair, Hx Adenoidectomy, Hx Cholecystectomy, Hx Hysterectomy, Hx Tonsillectomy, Hx Tubal Ligation, Hx Umbilical Hernia - Immunizations Immunizations up to date: Yes Hx Diphtheria, Pertussis, Tetanus Vaccination: Yes - 2009 Hx Pneumococcal Vaccination: 06/14/13 Vertical Provider Document - CONSTITUTIONAL Notes: PHYSICAL EXAMINATION: GENERAL: Well-appearing, well-nourished and in no acute distress. HEAD: Atraumatic, normocephalic. EYES: Pupils equal round extraocular movements intact, conjunctiva are normal. ENT: Nares patent NECK: Normal range of motion LUNGS: No respiratory distress Musculoskeletal: Normal range of motion NEUROLOGICAL: Normal speech, normal gait. PSYCH: Normal mood, normal affect. SKIN: Palpable nodule noted at the 12-1 o'clock location of the left breast, no dimpling or erythema. No abnormality noted at the areola or nipple. - INFECTION CONTROL TRAVEL OUTSIDE OF THE [place] IN LAST 30 DAYS: No Course - Vital Signs Vital signs: Temp Pulse Resp BP Pulse Ox 98.1 F 73 18 124/52 L 100 02/03/19 13:37 10/07/19 13:37 02/03/19 13:37 02/03/19 13:37 02/03/19 13:37 Discharge - Discharge Clinical Impression: Breast lump Condition: Stable Disposition: HOME, SELF-CARE Additional Instructions: You have an appointment scheduled tomorrow [facility] 7[facility]45 [facility] and right breast ultrasound. An order sheet is enclosed with this packet. It is imperative that you follow-up with this appointment. Forms: Follow-Up Radiology Testing Referrals: [facility] [Outside] - Follow up as needed
[2019-02-03 16:16] VITALS: BP 120/52
== END 2019-02-03 16:16 | disposition home or self-care (01) ==
LOC: ER 12:52
DX: N63.11 Unspecified lump in the right breast, upper outer quadrant (principal)
CPT/HCPCS: 99283

== ENCOUNTER → 2019-02-04 | Outpatient (CLI) | payer OTHER, MEDICARE ==
--- NOTE | 2019-02-04 12:12 | WOMENS IMAGING REPORT ---
EXAM DESCRIPTION: U/S BREAST UNILAT LIMITED COMPLETE DATE/TIME: 02/04/2019 8:41 am REASON FOR STUDY: RT BREAST MASS AND DISCHARGE N63.0 UNSPECIFIED LUMP IN UNSPECIFIED BREAST FINDINGS: Please see combined report for performance of procedure and radiologic supervision and int erpretation. IMPRESSION: Please see combined report for performance of procedure and radiologic supervision and i nterpretation. Reading location - IP/workstation name: [email or web address]
--- NOTE | 2019-02-04 12:20 | WOMENS IMAGING REPORT ---
EXAM DESCRIPTION: BILAT DIAGNOSTIC MAMMO W/CAD COMPLETED DATE/TIME: 02/04/2019 8:16 am REASON FOR STUDY: BILAT DX N63.0 UNSPECIFIED LUMP IN UNSPECIFIED BREAST COMPARISON: Digital bilateral diagnostic mammogram dated 05/03/2016. EXAM PARAMETERS: Standard craniocaudal and mediolateral oblique views of each breast recorded using digital acquisition. Read with the assistance of CAD: .[employer] Version 9.2 LIMITATIONS: None. FINDINGS: RIGHT BREAST MASSES: A marker was placed over the clinically palpable area in the upper mid breast. No suspiciou s masses. CALCIFICATIONS: No new or suspicious calcifications. ARCHITECTURAL DISTORTION: None. DEVELOPING DENSITY: None. ASYMMETRY: None noted. OTHER: No other significant findings. LEFT BREAST MASSES: No suspicious masses. CALCIFICATIONS: No new or suspicious calcifications. ARCHITECTURAL DISTORTION: None. DEVELOPING DENSITY: None. ASYMMETRY: None noted. OTHER: No other significant finding. BREAST ULTRASOUND: TECHNIQUE: Static and dynamic grayscale images acquired of the right breast in the specific areas of clinical/mammographic concern. Selected color Doppler images recorded. ELASTOGRAPHY PERFORMED: No. LIMITATIONS: None. FINDINGS: MASS: The right breast was scanned at the 12 o'clock axis (area of palpable concern). No mass ident ified. Dense glandular tissue. The right areolar-periareolar area was also scanned (the patient states that she has a bloody right n ipple discharge). No mass identified. ELASTOGRAPHY CHARACTERISTICS: Not applicable. OTHER: No other significant finding. IMPRESSION: 1. No discrete mass is identified. Stable examination since the prior study dated 2016. BREAST DENSITY: c. The breasts are heterogeneously dense, which may obscure small masses. BIRAD: ASSESSMENT: 0 Incomplete: Needs additional imaging evaluation and/or prior mammograms for co mparison. RECOMMENDATION: 1. Clinical correlation and patient advised to follow-up with her provider. In vie w of the patient's given history and symptoms, further evaluation with MRI Breast with and without co ntrast maybe helpful. COMMENT: The patient has been notified of the results by letter per MQSA requirements. Additional no tification policies are in place for contacting patient with suspicious or incomplete findings. Quality ID #[id number]: The [employer] recommends an annual screening mammogram for women aged 40 years or over. This facility utilizes a reminder system to ensure that all patients receive reminder letters, and/or direct phone calls for appointments. This includes reminders for routine scr eening mammograms, diagnostic mammograms, or other Breast Imaging Interventions when appropriate. Th is patient will be placed in the appropriate reminder system. TECHNICAL DOCUMENTATION: FINDING NUMBER: (1) ASSESSMENT: (1) JOB ID: [id number] [employer]- All Rights Reserved Reading location - IP/workstation name: [email or web address]
== END ==
LOC: WI 07:45
PROVIDERS: ATTEND Nurse Practitioner
DX: N64.4 Mastodynia (principal); N63.0 Unspecified lump in unspecified breast
CPT/HCPCS: 76642; 77066

== ENCOUNTER → 2019-02-25 | Outpatient (CLI) | payer OTHER | LOC: RAD 12:42 | PROVIDERS: ATTEND Nurse Practitioner Adult Health | DX: N64.52 Nipple discharge (principal) | CPT/HCPCS: 77049; A9576 ==

== ENCOUNTER 2019-06-01 14:25 | Emergency (ER) | payer OTHER, MEDICARE ==
[2019-06-01 14:32] VITALS: BP 141/52
--- NOTE | 2019-06-01 14:44 | ER Document Report ---
HPI - HPI Patient complains to provider of: Right shoulder pain Time Seen by Provider: 06/01/19 14:36 Onset: Other Onset/Duration: Persistent Quality of pain: Achy Pain Level: 2 Context: 43-year-old female presents emergency department with complaints of left shoulder pain. Pt reports left shoulder pain x 3 days. Pt denies injury. Denies trauma. Denies falling. Reports she noticed it when she was putting a glass away. Pt able to move left shoulder, but reports pain with movement. Past medical history of injury to the shoulder. Denies other complaints such as fever vomiting diarrhea. Patient complains of pain with abduction of left arm or moving her arm backwards. She reports no pain when moving her left arm in front of her. Patient is left-handed. Associated Symptoms: None Exacerbated by: Movement Relieved by: Denies Similar symptoms previously: No Recently seen / treated by doctor: No - REPRODUCTIVE Reproductive: DENIES: : Past Medical History - General Information source: Patient - Social History Smoking Status: Former Smoker Cigarette use (# per day): No Frequency of alcohol use: None Drug Abuse: None Family History: Arthritis, CVA, DM, Malignancy, Thyroid Disfunction Patient has suicidal ideation: No Patient has homicidal ideation: No Pulmonary Medical History: Reports: Hx Asthma, Hx Bronchitis, Hx Pneumonia Neurological Medical History: Reports: Hx Migraine Renal/ Medical History: Reports: Hx Ovarian Cysts. Denies: Hx Peritoneal Dialysis GI Medical History: Reports: Hx Gastroesophageal Reflux Disease - IBS, Hx Irritable Bowel, Hx Colonoscopy Musculoskeletal Medical History: Reports Hx Arthritis, Reports Hx Musculoskeletal Deformity, Reports Hx Musculoskeletal Trauma Psychiatric Medical History: Reports: Hx Anxiety, Hx Bipolar Disorder, Hx Depre ssion - PTSD, Hx Post Traumatic Stress Disorder Traumatic Medical History: Reports: Hx Traumatic Brain Injury Past Surgical History: Reports: Hx Abdominal Surgery - umbilical hernia repair, Hx Adenoidectomy, Hx Cholecystectomy, Hx Hysterectomy, Hx Tonsillectomy, Hx Tubal Ligation, Hx Umbilical Hernia - Immunizations Immunizations up to date: Yes Hx Diphtheria, Pertussis, Tetanus Vaccination: Yes - 2009 Hx Pneumococcal Vaccination: 06/14/13 Vertical Provider Document - CONSTITUTIONAL Agree With Documented VS: Yes Exam Limitations: No Limitations General Appearance: WD/WN, No Apparent Distress - INFECTION CONTROL TRAVEL OUTSIDE OF THE [place]. IN LAST 30 DAYS: No - HEENT HEENT: Atraumatic, Normocephalic - NECK Neck: Normal Inspection, Supple. negative: Lymphadenopathy-Right - RESPIRATORY Respiratory: Breath Sounds Normal, No Respiratory Distress - CARDIOVASCULAR Cardiovascular: Regular Rate - GI/ABDOMEN Gastrointestinal: Abdomen Non-Tender - MUSCULOSKELETAL/EXTREMETIES Musculoskeletal/Extremeties: Tender - Complaints of left anterior shoulder tenderness, good radial pulse cap refill less than 3 seconds. No erythema no swelling no warmth no obvious deformity. - NEURO Level of Consciousness: Awake, Alert, Appropriate - DERM Integumentary: Warm, Dry Course - Re-evaluation Re-evalutation: 06/01/19 17:22 Patient presents with left shoulder pain. Denies trauma. Reports it just started hurting. She reports she possibly remembers hurting it when she raised her arm to get a glass. Denies past medical history of injury to the arm. Suspect rotator cuff tear. Patient was instructed on sling Tylenol Motrin for the pain ice packs and follow-up with orthopedics. She verbalized understanding to all instructions. - Vital Signs Vital signs: Temp Pulse Resp BP Pulse Ox 97.8 F 80 18 141/52 H 100 06/01/19 14:31 06/01/19 14:31 06/01/19 14:31 06/01/19 14:31 06/01/19 14:31 Procedures - Immobilization Left Arm Pre-Proc Neuro Vasc Exam: Normal Immobilizer type: Sling Performed by: PCT Post-Proc Neuro Vasc Exam: Unchanged from pre-exam Discharge - Discharge Clinical Impression: Left shoulder pain Qualifiers: Chronicity: acute Qualified Code(s): M25.512 - Pain in left shoulder Injury of tendon of left rotator cuff Qualifiers: Encounter type: initial encounter Qualified Code(s): S46.002A - Unspecified injury of muscle(s) and tendon(s) of the rotator cuff of left shoulder, initial encounter Condition: Stable Disposition: HOME, SELF-CARE Instructions: Use of [id number]-Knq-Oeynybe Ibuprofen ([facility]), Ice Packs ([facility]), Rotator Cuff Injury ([facility]), Temporary Sling ([facility]) Additional Instructions: *You have been evaluated for left shoulder pain suspect rotator cuff injury *Maintain the sling for comfort *Rest/Ice/Elevate to your left shoulder *[facility] *Take ibuprofen as indicated for pain *Return to ED for worsening condition, changes, needs Referrals: YOLANDA HENRY, MARIANO [NO LOCAL MD] - Follow up in 3-5 days
== END 2019-06-01 14:56 | disposition home or self-care (01) ==
LOC: ER 14:25
DX: S46.002A Unspecified injury of muscle(s) and tendon(s) of the rotator cuff of left shoulder, initial encounter (principal); M25.511 Pain in right shoulder; X58.XXXA Exposure to other specified factors, initial encounter; Z90.49 Acquired absence of other specified parts of digestive tract; Z90.710 Acquired absence of both cervix and uterus
CPT/HCPCS: 99283

== ENCOUNTER 2019-06-06 21:06 | Emergency (ER) | payer OTHER, MEDICARE ==
[2019-06-06] MEDS ORDERED: DICYCLOMINE HCL INJ 20 MG/2 ML AMPULE IM ONE (21:28)
[2019-06-06] MEDS ORDERED: ONDANSETRON 4 MG TAB.RAPDIS PO ONE (21:28)
--- NOTE | 2019-06-06 21:32 | ER Document Report ---
ED Medical Screen (RME) - General Stated Complaint: STOMACH PAIN Time Seen by Provider: 06/06/19 21:28 Primary Care Provider: JOSEPHINE COSTA [Primary Care Provider] - Follow up as needed Notes: 43-year-old female presents with generalized abdominal pain, nausea vomiting and diarrhea that started after eating [employer] tonight at 6 PM. Patient states that first she thought she needs to go to the bathroom but the pain has progressively gotten worse. Abdomen soft, diffusely tender. I have greeted and performed a rapid initial assessment of this patient. A comprehensive ED assessment and evaluation of the patient, analysis of test results and completion of the medical decision making process with be conducted by additional ED providers. TRAVEL OUTSIDE OF THE U.[place]. IN LAST 30 DAYS: No - Related Data Allergies/Adverse Reactions: sulfamethoxazole [From Bactrim] Allergy (Verified 06/01/19 14:36) trimethoprim [From Bactrim] Allergy (Verified 06/01/19 14:36) Past Medical History Pulmonary Medical History: Reports: Hx Asthma, Hx Bronchitis, Hx Pneumonia Neurological Medical History: Reports: Hx Migraine Renal/ Medical History: Reports: Hx Ovarian Cysts. Denies: Hx Peritoneal Dialysis GI Medical History: Reports: Hx Gastroesophageal Reflux Disease - IBS, Hx Irritable Bowel, Hx Colonoscopy Musculoskeltal Medical History: Reports Hx Arthritis, Reports Hx Musculoskeletal Deformity, Reports Hx Musculoskeletal Trauma Psychiatric Medical History: Reports: Hx Anxiety, Hx Bipolar Disorder, Hx Depression - PTSD, Hx Post Traumatic Stress Disorder Traumatic Medical History: Reports: Hx Traumatic Brain Injury Past Surgical History: Reports: Hx Abdominal Surgery - umbilical hernia repair, Hx Adenoidectomy, Hx Cholecystectomy, Hx Hysterectomy, Hx Tonsillectomy, Hx Tubal Ligation, Hx Umbilical Hernia - Immunizations Immunizations up to date: Yes Hx Diphtheria, Pertussis, Tetanus Vaccination: Yes - 2009 Physical Exam - Vital signs Vitals: Temp Pulse Resp BP Pulse Ox 97.5 F 86 16 128/64 H 100 06/06/19 21:10 06/06/19 21:10 06/06/19 21:10 06/06/19 21:10 06/06/19 21:10 Course - Vital Signs Vital signs: Temp Pulse Resp BP Pulse Ox 97.5 F 86 16 128/64 H 100 06/06/19 21:10 06/06/19 21:10 06/06/19 21:10 06/06/19 21:10 06/06/19 21:10 Doctor's Discharge - Discharge [facility] - Follow up as needed
[2019-06-06 22:18] LABS: ABSOLUTE EOSINOPHILS # (AUTO) 0.1 10^3/uL (0.0-0.6); ABSOLUTE LYMPHOCYTES (AUTO) 1.4 10^3/uL (0.5-4.7); ABSOLUTE MONOCYTES (AUTO) 0.7 10^3/uL (0.1-1.4); ABSOLUTE NEUT (AUTO) 7.1 10^3/uL (1.7-8.2); BASOPHILS % (AUTO) 0.1 % (0-2); HEMATOCRIT 41.4 % (36.0-47.0); HEMOGLOBIN 14.2 g/dL (12.0-15.5); LYMPHOCYTES % (AUTO) 15.2 % (13-45); MEAN CORPUSCULAR HEMOGLOBIN 32.1 pg (27.0-33.4); MEAN CORPUSCULAR HGB CONC 34.2 g/dL (32.0-36.0); MEAN CORPUSCULAR VOLUME 94 fl (80-97); MONOCYTES % (AUTO) 7.2 % (3-13); PLATELET COUNT 292 10^3/uL (150-450); RED BLOOD COUNT 4.41 10^6/uL (3.72-5.28); RED CELL DISTRIBUTION WIDTH 13.8 % (11.5-14.0); SEGMENTED NEUTROPHILS % (AUTO) 76.5 % (42-78); TOTAL CELLS COUNTED % (AUTO) 100 %; WHITE BLOOD COUNT 9.3 10^3/uL (4.0-10.5)
[2019-06-06 22:27] LABS: APPEARANCE,URINE SLIGHTLY-CLOUDY; BILIRUBIN,URINE NEGATIVE (NEGATIVE); COLOR,URINE YELLOW; GLUCOSE, URINE NEGATIVE (NEGATIVE); KETONES,URINE NEGATIVE (NEGATIVE); PROTEIN,URINE NEGATIVE (NEGATIVE); URINE SPECIFIC GRAVITY 1.025; UROBILINOGEN,URINE NEGATIVE mg/dL (<2.0)
[2019-06-06] MEDS ORDERED: NORMAL SALINE 1000 ML 1,000 ML IV ONE (22:33)
[2019-06-06 22:34] LABS: ALBUMIN 4.4 g/dL (3.5-5.0); ALKALINE PHOSPHATASE 65 U/L (38-126); ANION GAP 6 (5-19); ASPARTATE AMINO TRANSFERASE 30 U/L (14-36); BILIRUBIN,DIRECT 0.3 mg/dL (0.0-0.4); BILIRUBIN,TOTAL 0.3 mg/dL (0.2-1.3); BLOOD UREA NITROGEN 15 mg/dL (7-20); CALCIUM 9.7 mg/dL (8.4-10.2); CARBON DIOXIDE 28 mmol/L (22-30); CHLORIDE 105 mmol/L (98-107); GLUCOSE 80 mg/dL (75-110); POTASSIUM 5.2 mmol/L (3.6-5.0); TOTAL PROTEIN 7.7 g/dL (6.3-8.2)
[2019-06-06] MEDS ORDERED: KETOROLAC TROMETHAMINE INJ/PF 30 MG/1 ML SDV IV ONE (22:34)
--- NOTE | 2019-06-06 22:39 | ER Document Report ---
ED GI/ - General Chief Complaint: Nausea/Vomiting Stated Complaint: STOMACH PAIN Time Seen by Provider: 06/06/19 21:28 Primary Care Provider: JULISSA,JOSEPHINE [Primary Care Provider] - Follow up as needed Mode of Arrival: Ambulatory Information source: Patient Notes: This 43-year-old woman presents to the emergency department with a complaint of cramping abdominal pain with associated nausea and vomiting with diarrhea which began after she ate at [employer] this afternoon. Patient states that she began having cramping abdominal pain nausea soon after eating. She went to the gym and before she could start exercising she began having vomiting and diarrhea. She had 3 episodes of emesis, foodstuff, no blood and several episodes of diarrhea. She continues to have nausea and cramping abdominal pain no fever. She has a prior history of irritable bowel syndrome. TRAVEL OUTSIDE OF THE [place] IN LAST 30 DAYS: No - Related Data Allergies/Adverse Reactions: sulfamethoxazole [From Bactrim] Allergy (Verified 06/01/19 14:36) trimethoprim [From Bactrim] Allergy (Verified 06/01/19 14:36) Home Medications: lyrica Past Medical History - Social History Smoking Status: Never Smoker Family History: Arthritis, CVA, DM, Malignancy, Thyroid Disfunction Patient has suicidal ideation: No Patient has homicidal ideation: No Pulmonary Medical History: Reports: Hx Asthma, Hx Bronchitis, Hx Pneumonia Neurological Medical History: Reports: Hx Migraine Renal/ Medical History: Reports: Hx Ovarian Cysts. Denies: Hx Peritoneal Dialysis GI Medical History: Reports: Hx Gastroesophageal Reflux Disease - IBS, Hx Irritable Bowel, Hx Colonoscopy Musculoskeletal Medical History: Reports Hx Arthritis, Reports Hx Muscul oskeletal Deformity, Reports Hx Musculoskeletal Trauma Psychiatric Medical History: Reports: Hx Anxiety, Hx Bipolar Disorder, Hx Depression - PTSD, Hx Post Traumatic Stress Disorder Traumatic Medical History: Reports: Hx Traumatic Brain Injury Past Surgical History: Reports: Hx Abdominal Surgery - umbilical hernia repair, Hx Adenoidectomy, Hx Cholecystectomy, Hx Hysterectomy, Hx Tonsillectomy, Hx Tubal Ligation, Hx Umbilical Hernia - Immunizations Immunizations up to date: Yes Hx Diphtheria, Pertussis, Tetanus Vaccination: Yes - 2009 Hx Pneumococcal Vaccination: 06/14/13 Review of Systems - Review of Systems Notes: Constitutional: Negative for fever. HENT: Negative for sore throat. Eyes: Negative for visual changes. Cardiovascular: Negative for chest pain. Respiratory: Negative for shortness of breath. Gastrointestinal: + Abdominal pain, + nausea and vomiting, + diarrhea. Genitourinary: Negative for dysuria. Musculoskeletal: Negative for back pain. Skin: Negative for rash. Neurological: Negative for headaches, weakness or numbness. 10 point ROS negative except as marked above and in HPI. Physical Exam - Vital signs Vitals: Temp Pulse Resp BP Pulse Ox 97.5 F 86 16 128/64 H 100 06/06/19 21:10 06/06/19 21:10 06/06/19 21:10 06/06/19 21:10 06/06/19 21:10 - Notes Notes: PHYSICAL EXAMINATION: Physical Exam: General: Well-nourished well-developed 43-year-old woman in no acute distress HEENT: NC/AT, pupils equal round and reactive to light, MM moist,nares clear, oropharynx clear Neck: supple, no adenopathy, no masses. Lungs: clear, no wheezing, no rales no rhonchi CVS: Regular rate and rhythm no murmur gallop or rub Abdomen: Soft, active, mild diffuse tenderness, no masses, no hepatosplenomegaly Ext: No edema clubbing or cyanosis. Neuro: Alert and responsive, moving all 4 extremities on command, cranial nerves intact. Skin: Intact no open lesions, no rash PSYCH: Normal mood, normal affect. Course - Re-evaluation Re-evalutation: 06/07/19 01:03 Patient was given IV fluids and antiemetic, anti-spasmatic medications. She has improved with that treatment she is being discharged home with [facility] with instructions to increase her fluid intake over the next 24 to 48 hours. The patient acknowledges understanding plan and is in agreement. - Vital Signs Vital signs: Temp Pulse Resp BP Pulse Ox 97.7 F 58 L 18 118/53 L 100 06/07/19 01:26 06/07/19 01:26 06/07/19 01:26 06/07/19 01:26 06/07/19 01:26 - Laboratory Result Diagrams: 06/06/19 21:56 06/06/19 21:56 Laboratory results interpreted by me: 06/06/19 06/06/19 21:56 22:10 Potassium 5.2 H Urine Ascorbic Acid 40 H 06/07/19 01:03 I have reviewed laboratory data and used this information for the treatment decisions regarding the patient. Discharge - Discharge Clinical Impression: Enteritis Nausea and vomiting Qualifiers: Vomiting type: unspecified Vomiting Intractability: non-intractable Qualified Code(s): R11.2 - Nausea with vomiting, unspecified Diarrhea Qualifiers: Diarrhea type: unspecified type Qualified Code(s): R19.7 - Diarrhea, unspecified Condition: Good Disposition: HOME, SELF-CARE Instructions: Antinausea Medication ([facility]), Antispasmodics ([facility]), Diarrhea, Nonspecific ([facility]), Gastroenteritis (adult) ([facility]), Irritable Bowel Syndrome ([facility]) Additional Instructions: You are diagnosed with nausea vomiting and diarrhea related to ingestion of food from a local restaurant franchise. Please symptoms may be caused by irritation of the GI tract disagreeable food or by infectious etiology. Push fluids, use the medication Bentyl, Zofran as needed for symptom management. You may continue bowel rest until your symptoms have resolved without the need for medication. Follow-up with your doctor as needed or if your symptoms are worsening or not improving you may return to the emergency department. Prescriptions: Ondansetron [Zofran Odt 4 mg Tablet] 1 - 2 tab PO Q4HP PRN #10 tab.rapdis PRN Reason: Dicyclomine HCl [Bentyl 10 mg Capsule] 1 cap PO TID #30 cap [facility] - Follow up as needed
[2019-06-06] MEDS ORDERED: ONDANSETRON HCL INJ/PF 4 MG/2 ML SDV IV ONE (23:20)
[2019-06-07 01:27] VITALS: BP 118/53
== END 2019-06-07 01:26 | disposition home or self-care (01) ==
LOC: ER 21:06
DX: K52.9 Noninfective gastroenteritis and colitis, unspecified (principal); R11.2 Nausea with vomiting, unspecified; R10.84 Generalized abdominal pain; Z88.3 Allergy status to other anti-infective agents; Z90.49 Acquired absence of other specified parts of digestive tract; Z90.710 Acquired absence of both cervix and uterus
CPT/HCPCS: 99283; 36415; 83690; 84703; 85025; 80053; 81001; J0500; S0119; J1885; J2405; J7030

== ENCOUNTER 2019-07-02 09:02 | Emergency (ER) | payer OTHER, MEDICARE ==
--- NOTE | 2019-07-02 10:17 | ER Document Report ---
HPI - HPI Time Seen by Provider: 07/02/19 10:13 Pain Level: 3 Notes: CHIEF COMPLAINT: Bilateral knee injury HPI: 43-year-old female presenting to the emergency department for evaluation of bilateral knee injury. Patient states she has had issues with her knees in the past where they will "just give out". This happened again today while she was running and training for a marathon. Left knee gave out initially and she fell to the ground striking both knees on the ground. Complains of pain and a feeling of instability when walking. Denies other injuries or complaints ROS: See HPI - all other systems were reviewed and are otherwise negative Constitutional: no fever Integumentary: no rash Allergy: no hives Musculoskeletal: + extremity pain or swelling Neurological: no numbness/tingling, no weakness MEDICATIONS: I agree with the patient medications as charted by the RN. ALLERGIES: I agree with the allergies as charted by the RN. PAST MEDICAL HISTORY/PAST SURGICAL HISTORY: Reviewed and agree as charted by RN. SOCIAL HISTORY: Reviewed and agree as charted by RN. FAMILY HISTORY: No significant familial comorbid conditions directly related to patient complaint EXAM: Reviewed vital signs as charted by RN. CONSTITUTIONAL: Alert and oriented and responds appropriately to questions. Well-appearing; well-nourished, mild distress secondary to pain HEAD: Normocephalic; atraumatic EYES: PERRL; Conjunctivae clear, sclerae non-icteric ENT: normal nose; no rhinorrhea; moist mucous membranes NECK: Supple without meningismus CARD: symmetric distal pulses RESP: Normal chest excursion without splinting or tachypnea ABD/GI: non-distended. BACK: The back appears normal EXT: Normal ROM in all joints; no cyanosis, slight effusion over the anterior left knee is noted. No laxity on varus or valgus rotation bilaterally. Negative anterior drawer bilaterally. No ballottement of the patella. Mild tenderness on palpation over the bilateral anterior knees SKIN: Normal color for age and race; warm; dry; good turgor; no acute lesions noted NEURO: Moves all extremities equally; Motor and sensory function intact PSYCH: The patient's mood and manner are appropriate. Grooming and personal hygiene are appropriate. MDM: 43-year-old female with injury to the bilateral knees today. Will obtain x-ray to evaluate bone structure if no fracture is noted will refer to orthopedics for follow-up and evaluation. Patient follows at the [facility] - CONSTITUTIONAL Constitutional: DENIES: Fever, Chills - EENT EENT: DENIES: Sore Throat, Ear Pain, Eye problems - NEURO Neurology: DENIES: Headache - CARDIOVASCULAR Cardiovascular: DENIES: Chest pain - RESPIRATORY Respiratory: DENIES: Trouble Breathing, Coughing - GASTROINTESTINAL Gastrointestinal: DENIES: Abdominal Pain, Black / Bloody Stools - URINARY Urinary: DENIES: Dysuria, Urgency, Frequency - REPRODUCTIVE Reproductive: DENIES: : - MUSCULOSKELETAL Musculoskeletal: REPORTS: Extremity pain Past Medical History - Social History Smoking Status: Never Smoker Chew tobacco use (# tins/day): No Frequency of alcohol use: None Drug Abuse: None Family History: Arthritis, CVA, DM, Malignancy, Thyroid Disfunction Patient has suicidal ideation: No Patient has homicidal ideation: No Pulmonary Medical History: Reports: Hx Asthma, Hx Bronchitis, Hx Pneumonia Neurological Medical History: Reports: Hx Migraine Renal/ Medical History: Reports: Hx Ovarian Cysts. Denies: Hx Peritoneal Dialysis GI Medical History: Reports: Hx Gastroesophageal Reflux Disease - IBS, Hx Irritable Bowel, Hx Colonoscopy Musculoskeletal Medical History: Reports Hx Arthritis, Reports Hx Musculoskeletal Deformity, Reports Hx Musculoskeletal Trauma Psychiatric Medical History: Reports: Hx Anxiety, Hx Bipolar Disorder, Hx Depression - PTSD, Hx Post Traumatic Stress Disorder Traumatic Medical History: Reports: Hx Traumatic Brain Injury Past Surgical History: Reports: Hx Abdominal Surgery - umbilical hernia repair, Hx Adenoidectomy, Hx Cholecystectomy, Hx Hysterectomy, Hx Tonsillectomy, Hx Tubal Ligation, Hx Umbilical Hernia - Immunizations Immunizations up to date: Yes Hx Diphtheria, Pertussis, Tetanus Vaccination: Yes - 2009 Hx Pneumococcal Vaccination: 06/14/13 Vertical Provider Document - INFECTION CONTROL TRAVEL OUTSIDE OF THE [place] IN LAST 30 DAYS: No Course - Re-evaluation Re-evalutation: 07/02/19 10:51 Imaging study does not show evidence of fracture does not completely rule out soft tissue injury which patient is aware of, will discharge to follow-up with orthopedics through the [facility] - Vital Signs Vital signs: Temp Pulse Resp BP Pulse Ox 98.2 F 84 18 134/58 H 100 07/02/19 09:55 07/02/19 09:55 07/02/19 09:55 07/02/19 09:55 07/02/19 09:55 Discharge - Discharge Clinical Impression: Knee injury Qualifiers: Encounter type: initial encounter Laterality: unspecified laterality Qualified Code(s): S89.90XA - Unspecified injury of unspecified lower leg, initial encounter Condition: Stable Disposition: HOME, SELF-CARE Additional Instructions: Ice to the knees twice daily for 5 to 10 minutes at a time to help with swelling and discomfort. Take the Voltaren as prescribed to help with pain and discomfort. [facility] for [facility]. Imaging studies today did not show evidence of a bony fracture or injury but this does not rule out a soft tissue injury Prescriptions: Diclofenac Sodium [Voltaren 50 Mg Tablet.] 50 mg PO BID #20 tablet. [facility] [[facility]] - Follow up as needed
--- NOTE | 2019-07-02 10:42 | RADIOLOGY REPORT (SQ) ---
EXAM DESCRIPTION: KNEE LEFT 4 VIEW COMPLETED DATE/TIME: 07/02/2019 10:32 am REASON FOR STUDY: fall COMPARISON: None. NUMBER OF VIEWS: Four views. TECHNIQUE: AP, lateral, and both oblique radiographic images acquired of the left knee. LIMITATIONS: None. FINDINGS: MINERALIZATION: Normal. BONES: No acute fracture or dislocation. JOINT: No effusion. SOFT TISSUES: No soft tissue swelling. The quadriceps and patellar tendon silhouettes are intact. OTHER: Mild patellofemoral osteophytosis. IMPRESSION: No acute osseous abnormality of the left knee. TECHNICAL DOCUMENTATION: JOB ID: [id number] 2010 [employer]- All Rights Reserved Reading location - IP/workstation name: [email or web address]
--- NOTE | 2019-07-02 10:43 | RADIOLOGY REPORT (SQ) ---
EXAM DESCRIPTION: KNEE RIGHT 4 VIEWS COMPLETED DATE/TIME: 07/02/2019 10:34 am REASON FOR STUDY: fall COMPARISON: AP, lateral and sunrise views of the right knee from 08/10/2017. NUMBER OF VIEWS: Four views. TECHNIQUE: AP, lateral, and both oblique radiographic images acquired of the right knee. LIMITATIONS: None. FINDINGS: MINERALIZATION: Normal. BONES: No acute fracture or dislocation. JOINT: No effusion. SOFT TISSUES: No soft tissue swelling. The quadriceps and patellar tendon silhouettes are intact. OTHER: Mild patellofemoral osteophytosis. IMPRESSION: No acute osseous abnormality of the right knee. TECHNICAL DOCUMENTATION: JOB ID: [id number] 2010 [employer]- All Rights Reserved Reading location - IP/workstation name: [email or web address]
[2019-07-02 11:25] VITALS: BP 124/67
== END 2019-07-02 11:18 | disposition home or self-care (01) ==
LOC: ER 09:02
DX: S89.91XA Unspecified injury of right lower leg, initial encounter (principal); S89.92XA Unspecified injury of left lower leg, initial encounter; M25.462 Effusion, left knee; W19.XXXA Unspecified fall, initial encounter; Y93.02 Activity, running; J45.909 Unspecified asthma, uncomplicated
CPT/HCPCS: 99283

== ENCOUNTER 2019-07-10 16:43 | Emergency (ER) | payer OTHER, MEDICARE ==
--- NOTE | 2019-07-10 18:03 | ER Document Report ---
ED Respiratory Problem - General Chief Complaint: Cough Stated Complaint: COUGH,CONGESTION Time Seen by Provider: 07/10/19 18:02 Primary Care Provider: JOSEPHINE COSTA [Primary Care Provider] - Follow up as needed Notes: CHIEF COMPLAINT: Cough for 4 days HPI: 43-year-old female with asthma history presenting to the emergency department complaining of 4 days of upper respiratory symptoms and shortness of breath progressively worsening. She has had chills, no definite fevers. Patient states she was concerned because she has pneumonia history in the past. Patient states that she does normally go through the [place] and was told that she was low risk for coronavirus, her son is visiting her from [place] but is not sick. She states that they had told her to isolate over the last 2 days but as her symptoms became worse they told her to come to the emergency department ROS: See HPI - all other systems were reviewed and are otherwise negative Constitutional: no fever Eyes: no drainage, no blurred vision ENT: Positive runny nose, no sore throat Cardiovascular: no chest pain Resp: Positive SOB, positive cough GI: no vomiting, no diarrhea, no abdominal pain : no dysuria Integumentary: no rash Allergy: no hives Musculoskeletal: no extremity pain or swelling Neurological: no numbness/tingling, no weakness MEDICATIONS: I agree with the patient medications as charted by the RN. ALLERGIES: I agree with the allergies as charted by the RN. PAST MEDICAL HISTORY/PAST SURGICAL HISTORY: Reviewed and agree as charted by RN. SOCIAL HISTORY: Reviewed and agree as charted by RN. FAMILY HISTORY: No significant familial comorbid conditions directly related to patient complaint EXAM: Reviewed vital signs as charted by RN. CONSTITUTIONAL: Alert and oriented and responds appropriately to questions. Well-appearing; well-nourished HEAD: Normocephalic; atraumatic EYES: PERRL; Conjunctivae clear, sclerae non-icteric ENT: normal nose; no rhinorrhea; moist mucous membranes; pharynx without lesions noted, no uvula edema or deviation, no tonsillar hypertrophy, phonation normal NECK: Supple without meningismus; non-tender; no cervical lymphadenopathy, no masses CARD: RRR; no murmurs, no clicks, no rubs, no gallops; symmetric distal pulses RESP: Normal chest excursion without splinting or tachypnea; breath sounds with very slight expiratory wheezing noted, no rhonchi, no rales, pulse oximetry 97% on room air not hypoxic ABD/GI: Normal bowel sounds; non-distended; soft, non-tender, no rebound, no guarding; no palpable organomegaly or masses. BACK: The back appears normal and is non-tender to palpation, there is no CVA tenderness EXT: Normal ROM in all joints; non-tender to palpation; no cyanosis, no effusions, no edema SKIN: Normal color for age and race; warm; dry; good turgor; no acute lesions noted NEURO: Moves all extremities equally; Motor and sensory function intact PSYCH: The patient's mood and manner are appropriate. Grooming and personal hygiene are appropriate. MDM: 43-year-old female with asthma history presenting to the emergency department complaining of worsening upper respiratory symptoms over the last 4 days. Patient is low risk for coronavirus. Her son is visiting from [place] but he is not sick. Rapid flu and strep sent from triage. Will obtain chest x- ray for infiltrate will give steroids, breathing treatment reassess TRAVEL OUTSIDE OF THE [place] IN LAST 30 DAYS: No - Related Data Allergies/Adverse Reactions: sulfamethoxazole [From Bactrim] Allergy (Verified 07/02/19 10:03) trimethoprim [From Bactrim] Allergy (Verified 07/02/19 10:03) Past Medical History - Social History Smoking Status: Unknown if Ever Smoked Family History: Arthritis, CVA, DM, Malignancy, Thyroid Disfunction Pulmonary Medical History: Reports: Hx Asthma, Hx Bronchitis, Hx Pneumonia Neurological Medical History: Reports: Hx Migraine Renal/ Medical History: Reports: Hx Ovarian Cysts. Denies: Hx Peritoneal Dialysis GI Medical History: Reports: Hx Gastroesophageal Reflux Disease - IBS, Hx Irritable Bowel, Hx Colonoscopy Musculoskeletal Medical History: Reports Hx Arthritis, Reports Hx Muscu loskeletal Deformity, Reports Hx Musculoskeletal Trauma Psychiatric Medical History: Reports: Hx Anxiety, Hx Bipolar Disorder, Hx Depression - PTSD, Hx Post Traumatic Stress Disorder Traumatic Medical History: Reports: Hx Traumatic Brain Injury Past Surgical History: Reports: Hx Abdominal Surgery - umbilical hernia repair, Hx Adenoidectomy, Hx Cholecystectomy, Hx Hysterectomy, Hx Tonsillectomy, Hx Tubal Ligation, Hx Umbilical Hernia - Immunizations Immunizations up to date: Yes Hx Diphtheria, Pertussis, Tetanus Vaccination: Yes - 2009 Hx Pneumococcal Vaccination: 02/15/14 Physical Exam - Vital signs Vitals: Temp Pulse Resp BP Pulse Ox 98.5 F 87 16 148/74 H 98 07/10/19 16:50 07/10/19 16:50 07/10/19 16:50 07/10/19 16:50 07/10/19 16:50 Course - Re-evaluation Re-evalutation: 07/10/19 19:02 Patient feels better after breathing treatment. Her influenza and rapid strep are both negative. I believe that this is likely a viral etiology. Patient is low risk for coronavirus. Patient has albuterol at home. We will continue steroids, she will follow-up with her PCP - Vital Signs Vital signs: Temp Pulse Resp BP Pulse Ox 98.5 F 87 16 148/74 H 98 07/10/19 16:50 07/10/19 16:50 07/10/19 16:50 07/10/19 16:50 07/10/19 16:50 Discharge - Discharge Clinical Impression: Acute bronchospasm due to viral infection Condition: Stable Disposition: HOME, SELF-CARE Additional Instructions: Continue to use your albuterol treatments every 4 hours. Take the steroids as prescribed. Your flu and strep tests were negative. Your chest x-ray did not show evidence of pneumonia at this time. If you have worsening symptoms return for reevaluation Prescriptions: Prednisone [Deltasone 20 mg Tablet] 2 tab PO DAILY 5 Days #10 tablet [facility]errals: [facility] [[facility]] - Follow up as needed
[2019-07-10] MEDS ORDERED: PREDNISONE 20 MG TABLET PO ONE (18:07)
[2019-07-10] MEDS ORDERED: IPRATROPIUM/ALBUTEROL 0.5-2.5 MG/3 ML AMPUL NEB ONE (18:08)
[2019-07-10 18:21] LABS: A TYPE INFLUENZA AG NEGATIVE (NEGATIVE)
[2019-07-10 18:22] LABS: B INFLUENZA AG NEGATIVE (NEGATIVE)
--- NOTE | 2019-07-10 19:23 | RADIOLOGY REPORT (SQ) ---
EXAM DESCRIPTION: CHEST 2 VIEWS COMPLETED DATE/TIME: 07/10/2019 6:49 pm REASON FOR STUDY: cough COMPARISON: None. EXAM PARAMETERS: NUMBER OF VIEWS: two views TECHNIQUE: Digital Frontal and Lateral radiographic views of the chest acquired. RADIATION DOSE: NA LIMITATIONS: none FINDINGS: LUNGS AND PLEURA: No opacities, masses or pneumothorax. No pleural effusion. MEDIASTINUM AND HILAR STRUCTURES: No masses or contour abnormalities. HEART AND VASCULAR STRUCTURES: Heart normal size. No evidence for failure. BONES: No acute findings. HARDWARE: None in the chest. OTHER: No other significant finding. IMPRESSION: NO ACUTE RADIOGRAPHIC FINDING IN THE CHEST. TECHNICAL DOCUMENTATION: JOB ID: [id number] 2010 [id number]- All Rights Reserved Reading location - IP/workstation name: [email or web address]
[2019-07-10 19:32] VITALS: BP 134/56
== END 2019-07-10 19:35 | disposition home or self-care (01) ==
LOC: ER 16:43
DX: B34.9 Viral infection, unspecified (principal); J45.909 Unspecified asthma, uncomplicated; R06.02 Shortness of breath; R68.83 Chills (without fever); R09.89 Other specified symptoms and signs involving the circulatory and respiratory systems; R05 Cough; Z79.899 Other long term (current) drug therapy; Z87.01 Personal history of pneumonia (recurrent); Z88.1 Allergy status to other antibiotic agents
CPT/HCPCS: 94640; 99283; 87070; 87880; 87804; 71046; J7512; J7620

== ENCOUNTER 2019-07-15 19:56 | Emergency (ER) | payer OTHER, MEDICARE ==
[2019-07-15] MEDS ORDERED: ONDANSETRON 4 MG TAB.RAPDIS PO ONE (20:20)
--- NOTE | 2019-07-15 20:22 | ER Document Report ---
ED Medical Screen (RME) - General Chief Complaint: Nausea/Vomiting/Diarrhea Stated Complaint: FEVER VOMITING Time Seen by Provider: 07/15/19 20:18 Primary Care Provider: JULISSA,JOSEPHINE [Primary Care Provider] - Follow up as needed Mode of Arrival: Ambulatory Information source: Patient Notes: 43-year-old female presented to ED for complaint of cough congestion fever naus ea and vomiting. She states she had a fever earlier today but she does not have a fever now. She does have an elevated pulse at this time. States her pulse used to run that high but has not recently. She is alert and oriented respirations regular nonlabored speaking in full sentences. She does walk with a even steady gait. I have greeted and performed a rapid initial assessment of this patient. A comprehensive ED assessment and evaluation of the patient, analysis of test results and completion of medical decision making process will be conducted by an additional ED providers. TRAVEL OUTSIDE OF THE [place] IN LAST 30 DAYS: No - Related Data Allergies/Adverse Reactions: sulfamethoxazole [From Bactrim] Allergy (Verified 07/02/19 10:03) trimethoprim [From Bactrim] Allergy (Verified 07/02/19 10:03) Past Medical History Pulmonary Medical History: Reports: Hx Asthma, Hx Bronchitis, Hx Pneumonia Neurological Medical History: Reports: Hx Migraine Renal/ Medical History: Reports: Hx Ovarian Cysts. Denies: Hx Peritoneal Di alysis GI Medical History: Reports: Hx Gastroesophageal Reflux Disease - IBS, Hx Irritable Bowel, Hx Colonoscopy Musculoskeltal Medical History: Reports Hx Arthritis, Reports Hx Musculoskeletal Deformity, Reports Hx Musculoskeletal Trauma Psychiatric Medical History: Reports: Hx Anxiety, Hx Bipolar Disorder, Hx Depression - PTSD, Hx Post Traumatic Stress Disorder Traumatic Medical History: Reports: Hx Traumatic Brain Injury Past Surgical History: Reports: Hx Abdominal Surgery - umbilical hernia repair, Hx Adenoidectomy, Hx Cholecystectomy, Hx Hysterectomy, Hx Tonsillectomy, Hx Tubal Ligation, Hx Umbilical Hernia - Immunizations Immunizations up to date: Yes Hx Diphtheria, Pertussis, Tetanus Vaccination: Yes - 2009 Physical Exam - Vital signs Vitals: Temp Pulse Resp BP Pulse Ox 97.9 F 110 H 20 132/82 H 97 07/15/19 19:59 07/15/19 19:59 07/15/19 19:59 07/15/19 19:59 07/15/19 19:59 Course - Vital Signs Vital signs: Temp Pulse Resp BP Pulse Ox 97.9 F 110 H 20 132/82 H 97 07/15/19 19:59 07/15/19 19:59 07/15/19 19:59 07/15/19 19:59 07/15/19 19:59 Doctor's Discharge - Discharge [facility]errals: [facility] [[facility]] - Follow up as needed
[2019-07-15 20:59] LABS: ABSOLUTE LYMPHOCYTES (AUTO) 0.7 10^3/uL (0.5-4.7); ABSOLUTE MONOCYTES (AUTO) 0.3 10^3/uL (0.1-1.4); ABSOLUTE NEUT (AUTO) 9.3 10^3/uL (1.7-8.2); BASOPHILS % (AUTO) 0.1 % (0-2); HEMATOCRIT 42.5 % (36.0-47.0); HEMOGLOBIN 14.6 g/dL (12.0-15.5); MEAN CORPUSCULAR HEMOGLOBIN 32.3 pg (27.0-33.4); MEAN CORPUSCULAR HGB CONC 34.4 g/dL (32.0-36.0); MEAN CORPUSCULAR VOLUME 94 fl (80-97); MONOCYTES % (AUTO) 2.6 % (3-13); PLATELET COUNT 300 10^3/uL (150-450); RED BLOOD COUNT 4.53 10^6/uL (3.72-5.28); RED CELL DISTRIBUTION WIDTH 13.3 % (11.5-14.0); SEGMENTED NEUTROPHILS % (AUTO) 90.3 % (42-78); TOTAL CELLS COUNTED % (AUTO) 100 %; WHITE BLOOD COUNT 10.4 10^3/uL (4.0-10.5)
[2019-07-15 20:59] LABS: APPEARANCE,URINE SLIGHTLY-CLOUDY; BILIRUBIN,URINE NEGATIVE (NEGATIVE); COLOR,URINE YELLOW; GLUCOSE, URINE NEGATIVE (NEGATIVE); KETONES,URINE NEGATIVE (NEGATIVE); PROTEIN,URINE NEGATIVE (NEGATIVE); URINE SPECIFIC GRAVITY 1.019; UROBILINOGEN,URINE NEGATIVE mg/dL (<2.0)
[2019-07-15 21:12] LABS: ALBUMIN 4.1 g/dL (3.5-5.0); ALKALINE PHOSPHATASE 66 U/L (38-126); ANION GAP 8 (5-19); ASPARTATE AMINO TRANSFERASE 19 U/L (14-36); BILIRUBIN,TOTAL 0.3 mg/dL (0.2-1.3); BLOOD UREA NITROGEN 16 mg/dL (7-20); CALCIUM 9.5 mg/dL (8.4-10.2); CARBON DIOXIDE 27 mmol/L (22-30); CHLORIDE 103 mmol/L (98-107); GLUCOSE 103 mg/dL (75-110); POTASSIUM 4.8 mmol/L (3.6-5.0); TOTAL PROTEIN 7.2 g/dL (6.3-8.2)
[2019-07-15 21:12] LABS: A TYPE INFLUENZA AG NEGATIVE (NEGATIVE); B INFLUENZA AG NEGATIVE (NEGATIVE)
--- NOTE | 2019-07-15 21:28 | RADIOLOGY REPORT (SQ) ---
EXAM DESCRIPTION: PA and lateral radiographs of the chest CLINICAL HISTORY: 43 years Female, Cough congestion fever COMPARISON: Two views of the chest 07/10/2019 FINDINGS: Lungs: Lungs are clear. No pneumonia or edema. No pneumothorax or pleural effusion. Mediastinum: Cardiac and mediastinal silhouette are normal. Bones: Osseous structures are normal. Clips are present in the right upper quadrant. IMPRESSION: No acute process. No significant interval change.
--- NOTE | 2019-07-16 01:20 | ER Document Report ---
HPI - HPI Time Seen by Provider: 07/15/19 20:18 Pain Level: 2 Notes: Patient is a 43-year-old female with h/o asthma and MH disorders presents complaining of having nasal congestion/discharge, cough, nausea/vomiting. Overall symptoms for 10 days. Patient states that she was seen here about 6 days ago and states that she has been having continued symptoms after finishing the steroids. She does have some sinus pressure and postnasal drip associated as well. No known exposure to coronavirus or persons under investigation. No travel outside the country. She is able to eat and drink without difficulty, but does have decreased p.o. intake. Nausea and vomiting did not start until the past couple days. Denies any headache, recent fever, head injury, neck pain , sore throat, chest pain, palpitations, syncope, shortness of breath, wheeze, dyspnea, abdominal pain, diarrhea, urinary retention, dysuria, hematuria, or rash. - ROS Systems Reviewed and Negative: Yes All other systems reviewed and negative - CONSTITUTIONAL Constitutional: REPORTS: Chills. DENIES: Fever - RESPIRATORY Respiratory: REPORTS: Coughing - REPRODUCTIVE Reproductive: DENIES: : Past Medical History - General Information source: Patient - Social History Smoking Status: Never Smoker Family History: Arthritis, CVA, DM, Malignancy, Thyroid Disfunction Patient has suicidal ideation: No Patient has homicidal ideation: No Pulmonary Medical History: Reports: Hx Asthma, Hx Bronchitis, Hx Pneumonia Neurological Medical History: Reports: Hx Migraine Renal/ Medical History: Reports: Hx Ovarian Cysts. Denies: Hx Peritoneal Dialysis GI Medical History: Reports: Hx Gastroesophageal Reflux Disease - IBS, Hx Irritable Bowel, Hx Colonoscopy Musculoskeletal Medical History: Reports Hx Arthritis, Reports Hx Musculoskeleta l Deformity, Reports Hx Musculoskeletal Trauma Psychiatric Medical History: Reports: Hx Anxiety, Hx Bipolar Disorder, Hx Depression - PTSD, Hx Post Traumatic Stress Disorder Traumatic Medical History: Reports: Hx Traumatic Brain Injury Past Surgical History: Reports: Hx Abdominal Surgery - umbilical hernia repair, Hx Adenoidectomy, Hx Cholecystectomy, Hx Hysterectomy, Hx Tonsillectomy, Hx Tubal Ligation, Hx Umbilical Hernia - Immunizations Immunizations up to date: Yes Hx Diphtheria, Pertussis, Tetanus Vaccination: Yes - 2009 Hx Pneumococcal Vaccination: 06/14/13 Vertical Provider Document - CONSTITUTIONAL Agree With Documented VS: Yes Notes: PHYSICAL EXAMINATION: GENERAL: Well-appearing, well-nourished and in no acute distress. A&Ox4. Answers questions appropriately. Moves comfortably w/o notable distress HEAD: Atraumatic, normocephalic. EYES: Pupils equal round and reactive to light, extraocular movements intact, sclera anicteric, conjunctiva are normal. ENT: Nares patent and with clear discharge. oropharynx no erythema without exudates. No tonsilar hypertrophy without erythema or exudate. No palatine shift. Uvula midline. No tongue protrusion. No drooling, hoarseness, or airway compromise. Moist mucous membranes. No sinus tenderness. NECK: Normal range of motion, supple without lymphadenopathy. No rig idity/meningismus. LUNGS: Breath sounds clear to auscultation bilaterally and equal. No wheezes ra les or rhonchi. No retractions HEART: Regular rate and rhythm without murmurs, rubs, gallops. ABDOMEN: Soft, nontender, nondistended abdomen. No guarding, no rebound. Normal bowel sounds present. No CVA tenderness bilaterally. NEUROLOGICAL: Normal speech, normal gait. PSYCH: Normal mood, normal affect. SKIN: Warm, Dry, normal turgor, no rashes or lesions noted. - INFECTION CONTROL TRAVEL OUTSIDE OF THE [place] IN LAST 30 DAYS: No Course - Re-evaluation Re-evalutation: 07/16/19 01:16 Patient is an afebrile, well-hydrated, 43-year-old female who presents to the emergency department with n/v and nasal carloz/discharge. I overall suspect her illness to be viral. Vitals are acceptable without significant tachycardia, tachypnea, or hypoxia. PE is otherwise unremarkable. She is nontoxic-appearing and is tolerating p.o. without difficulty. Lungs are clear to auscultation bilaterally. Rapid strep was negative with a throat culture pending, flu negative. CXR negative. No further labs or imaging warranted at this time. Patient does not present clinically has coronavirus and has low risk otherwise of exposure. Low suspicion for any meningitis, sepsis, peritonsillar/pharyngeal abscess, respiratory compromise, Luciano's, or other emergent systemic condition at this time. Patient is aware this condition can change from initial presentation and she needs to monitor symptoms closely. Rx for pocket script of zithromax to use with worsening symptoms x2-3 days. Conservative measures otherwise for symptoms. Recheck with your PCM in 2-3 days. Return to the ED with any worsening/concerning symptoms otherwise as reviewed in discharge. Patient is in agreement. - Vital Signs Vital signs: Temp Pulse Resp BP Pulse Ox 97.8 F 88 18 114/70 100 07/16/19 00:34 07/16/19 00:34 07/16/19 00:34 07/16/19 00:34 07/16/19 00:34 - Laboratory Result Diagrams: 07/15/19 20:40 07/15/19 20:40 Laboratory results interpreted by me: 07/15/19 07/15/19 20:32 20:40 Lymph % (Auto) 7.0 L Dare % (Auto) 2.6 L Absolute Neuts (auto) 9.3 H Seg Neutrophils % 90.3 H Leukocyte Esterase Rfl TRACE H Discharge - Discharge Clinical Impression: Nasal congestion with rhinorrhea, Cough Nausea and vomiting Qualifiers: Vomiting type: unspecified Vomiting Intractability: non-intractable Qualified Code(s): R11.2 - Nausea with vomiting, unspecified Condition: Stable Disposition: HOME, SELF-CARE Instructions: Antinausea Medication ([facility]) Additional Instructions: Maintain adequate fluid and food intake [place] diet (B.R.A.T.) Bananas, rice, apples, toast, etc tylenol/motrin if needed Monitor for any worsening symptoms Cold medicines as needed Make sure you are staying hydrated enough to urinate and have normal BM's Recheck with your PCM in 2-3 days Consider consult with Gastroenterology for ongoing/worsening symptoms Return to the ED with any worsening symptoms and/or development of fever, headache, chest pain, palpitations, syncope, shortness of breath, trouble breathing, abdominal pain, n/v/d, blood in stool/urine, weakness, or other worsening symptoms that are concerning to you. Prescriptions: Metoclopramide HCl [Reglan] 10 mg PO BID PRN #6 tablet PRN Reason: Azithromycin [Zithromax 250 mg Tablet] 250 mg PO ASDIR PRN #6 tablet PRN Reason: [facility]errals: [facility] [[facility]] - Follow up as needed
[2019-07-16 01:46] VITALS: BP 116/68
== END 2019-07-16 01:36 | disposition home or self-care (01) ==
LOC: ER 19:56
DX: R09.81 Nasal congestion (principal); R05 Cough; R11.2 Nausea with vomiting, unspecified; R68.83 Chills (without fever); Z90.49 Acquired absence of other specified parts of digestive tract; Z90.710 Acquired absence of both cervix and uterus
CPT/HCPCS: 99283; 36415; 87070; 87880; 84703; 85025; 80053; 81001; 87804; 71046; S0119

== ENCOUNTER 2019-07-26 05:27 | Emergency (ER) | payer OTHER, MEDICARE ==
--- NOTE | 2019-07-26 08:02 | RADIOLOGY REPORT (SQ) ---
EXAM: XR Chest, 1 View EXAM DATE/TIME: 07/26/2019 7:37 AM CLINICAL HISTORY: The patient is 43 years old and is Female; cough TECHNIQUE: Frontal view of the chest. COMPARISON: Chest radiograph from 07/15/2019 FINDINGS: LUNGS: Unremarkable. No consolidation. PLEURAL SPACE: Unremarkable. No pneumothorax. HEART: No significant enlargement of the cardiac silhouette. MEDIASTINUM: Unremarkable. BONES/JOINTS: No acute osseous findings. IMPRESSION: No acute findings visualized in the chest.
--- NOTE | 2019-07-26 08:15 | ER Document Report ---
Entered by NATHAN DYKES SCRIBE 07/26/19 0701 Acting as scribe for:ART BENJAMIN MD ED Respiratory Problem - General Chief Complaint: Shortness Of Breath Stated Complaint: SHORTNESS OF BREATH,FEVER,HEADACHE,NAUSEA Time Seen by Provider: 07/26/19 06:13 Primary Care Provider: [facility] [[facility]] - Follow up as needed Notes: This 43-year-old female patient presents to the emergency department today with complaints a 3-week history of a cough and sore throat that has not responded to previously prescribed azithromycin, Augmentin, and steroids. Patient has been seen multiple times for this cough and sore throat and she was found to be negative for influenza A/influenza B/strep throat on both 07/09 and 07/14. Of note, the patient's son visited her the first week of june and he was living in [place], [place]. TRAVEL OUTSIDE OF THE [place] IN LAST 30 DAYS: No - Related Data Allergies/Adverse Reactions: sulfamethoxazole [From Bactrim] Allergy (Verified 07/02/19 10:03) trimethoprim [From Bactrim] Allergy (Verified 07/02/19 10:03) Home Medications: prednisone, augmentin, abilify im q6 weeks, amloviq for migranes q mnth Past Medical History - Social History Smoking Status: Never Smoker Family History: Arthritis, CVA, DM, Malignancy, Thyroid Disfunction Patient has suicidal ideation: No Patient has homicidal ideation: No Pulmonary Medical History: Reports: Hx Asthma, Hx Bronchitis, Hx Pneumonia Neurological Medical History: Reports: Hx Migraine Renal/ Medical History: Reports: Hx Ovarian Cysts. Denies: Hx Peritoneal Dialysis GI Medical History: Reports: Hx Gastroesophageal Reflux Disease - IBS, Hx Irritable Bowel, Hx Colonoscopy Musculoskeletal Medical History: Reports Hx Arthritis, Reports Hx Musculoskeletal Deformity, Reports Hx Musculoskeletal Trauma Psychiatric Medical History: Reports: Hx Anxiety, Hx Bipolar Disorder, Hx Depression - PTSD, Hx Post Traumatic Stress Disorder Traumatic Medical History: Reports: Hx Traumatic Brain Injury Past Surgical History: Reports: Hx Abdominal Surgery - umbilical hernia repair, Hx Adenoidectomy, Hx Cholecystectomy, Hx Hysterectomy, Hx Tonsillectomy, Hx Tubal Ligation, Hx Umbilical Hernia - Immunizations Immunizations up to date: Yes Hx Diphtheria, Pertussis, Tetanus Vaccination: Yes - 2009 Hx Pneumococcal Vaccination: 06/14/13 Review of Systems - Review of Systems Constitutional: See HPI, Fever - subjective EENT: See HPI, Throat pain Cardiovascular: No symptoms reported Respiratory: See HPI, Cough Gastrointestinal: No symptoms reported Genitourinary: No symptoms reported Female Genitourinary: No symptoms reported Musculoskeletal: No symptoms reported Skin: No symptoms reported Hematologic/Lymphatic: No symptoms reported Neurological/Psychological: No symptoms reported -: Yes All other systems reviewed and negative Physical Exam - Notes Notes: Physical Exam: General: Alert and non-toxic appearing. HEENT: Normocephalic. Atraumatic. PERRL. Extraocular movements intact. Posterior oropharynx erythema without exudate, airway is patent. TMs are clear and non-bulging bilaterally. Neck: Supple. Non-tender. Respiratory: No respiratory distress. Clear and equal breath sounds bilaterally. Cardiovascular: Regular rate and rhythm. Abdominal: Normal Inspection. Non-tender. No distension. Normal Bowel Sounds. Back: No gross abnormalities. Extremities: Moves all four extremities. Upper extremities: Normal inspection. Normal ROM. Lower extremities: Normal inspection. No edema. Normal ROM. Neurological: Normal cognition. AAOx4. Normal speech. Psychological: Normal affect. Normal Mood. Skin: Warm. Dry. Normal color. Course - Re-evaluation Re-evalutation: 07/26/19 08:11 Patient resting comfortably no signs of distress. Vital signs are stable. - Diagnostic Test Radiology reviewed: Image reviewed, Reports reviewed Radiology results interpreted by me: 07/26/19 08:12 Chest x-ray no acute process no infiltrate no evidence for pneumonia. Discharge - Discharge Clinical Impression: Upper respiratory infection Condition: Stable Disposition: HOME, SELF-CARE Instructions: Acetaminophen, Upper Respiratory Illness ([facility]) Additional Instructions: Upper Respiratory Illness You have a viral infection of the respiratory passages -- a "cold." This common infection causes nasal congestion, drainage, and often sore throat and cough. It is caused by a virus and is highly contagious. The disease usually lasts a week or more, though the worst symptoms are usually over in 3 or 4 days. There is no "cure" for the viral infection -- it must run its course. If there is a complication, such as bacterial infection in the nose, sinuses, middle ear, or bronchial tubes, antibiotics may be required, but antibiotics won't affect the virus. If you smoke, you should STOP!! Drink plenty of fluids. A humidifier may help. An expectorant medication or decongestant may make you more comfortable. Use acetaminophen or ibuprofen for fever or aches. See the doctor if fever persists over two or three days, if there is any significant worsening of your symptoms, or if you simply fail to improve as expected. Today you were tested for the coronavirus. That test will be sent to the laboratory and once it is completed which may takes days to perhaps a week or more you are to continue self quarantine for the next 14 days. Once test results have been revealed to you if further diagnosing work-up evaluations are indicated it will depend on the test results. Follow-up with your primary care physician. And again self quarantine for the next 14 days. There are no new prescriptions at this time. Continue your course of steroids and Augmentin to complete those courses of treatment. Referrals: [facility] [Primary [facility]] - Follow up as needed I personally performed the services described in the documentation, reviewed and edited the documentation which was dictated to the scribe in my presence, and it accurately records my words and actions.
[2019-07-26 08:42] VITALS: BP 119/52
[2019-07-26 08:45] LABS: A TYPE INFLUENZA AG NEGATIVE (NEGATIVE)
[2019-07-26 08:46] LABS: B INFLUENZA AG NEGATIVE (NEGATIVE)
== END 2019-07-26 08:42 | disposition home or self-care (01) ==
LOC: ER 05:27
DX: J06.9 Acute upper respiratory infection, unspecified (principal); R06.02 Shortness of breath; R50.9 Fever, unspecified; R51 Headache; R11.0 Nausea; R05 Cough; J02.9 Acute pharyngitis, unspecified; Z88.2 Allergy status to sulfonamides; Z79.899 Other long term (current) drug therapy; J45.909 Unspecified asthma, uncomplicated; Z20.828 Contact with and (suspected) exposure to other viral communicable diseases
CPT/HCPCS: 36415; 71045; 87635; 87804; 99283

== ENCOUNTER 2019-08-15 15:34 | Emergency (ER) | payer OTHER, MEDICARE ==
[2019-08-15 15:44] VITALS: BP 123/60
[2019-08-15] MEDS ORDERED: LIDOCAINE 2% VISCOUS SOLN 15 ML UDCUP PO ONE (16:10)
--- NOTE | 2019-08-15 16:25 | ER Document Report ---
ED Fall - General Chief Complaint: Fall Injury Stated Complaint: FALL/LEG LACERATION/ANKLE PAIN/KNEE PAIN Time Seen by Provider: 08/15/19 16:08 Primary Care Provider: GEOFFREY JENKINS MD [ACTIVE PROVISIONAL STAFF] - Follow up as needed [facility] [[facility]] - Follow up as needed Mode of Arrival: Wheelchair Information source: Patient Notes: 43-year-old female presented to ED for complaint of pain to the right ankle and left knee with abrasions to the left lower leg. She states she was weed eating when she tripped causing abrasions from falling on cement to the leg and twisted the ankle. Patient is alert oriented respirations regular nonlabored speaking in full sentences. TRAVEL OUTSIDE OF THE [place] IN LAST 30 DAYS: No - HPI Occurred: Just prior to arrival Where: Home, Outdoors Context: Tripped Associated symptoms: None Location of injury/pain: Ankle - Right, Knee - Left, Lower extremity - Left Quality of pain: Burning, Sharp, Throbbing Severity: Moderate Pain Level: 3 - Related data Allergies/Adverse Reactions: sulfamethoxazole [From Bactrim] Allergy (Verified 08/15/19 16:01) trimethoprim [From Bactrim] Allergy (Verified 08/15/19 16:01) Past Medical History - General Information source: Patient - Social History Smoking Status: Never Smoker Chew tobacco use (# tins/day): No Frequency of alcohol use: None Drug Abuse: None Lives with: Family Family History: Arthritis, CVA, DM, Malignancy, Thyroid Disfunction Patient has suicidal ideation: No Patient has homicidal ideation: No - Past Medical History Cardiac Medical History: Reports: None Pulmonary Medical History: Reports: Hx Asthma, Hx Bronchitis, Hx Pneumonia EENT Medical History: Reports: None Neurological Medical History: Reports: Hx Migraine Endocrine Medical History: Reports: None Renal/ Medical History: Reports: Hx Ovarian Cysts Malignancy Medical History: Reports: None GI Medical History: Reports: Hx Gastroesophageal Reflux Disease - IBS, Hx Irritable Bowel, Hx Colonoscopy Musculoskeletal Medical History: Reports Hx Arthritis, Reports Hx Musculoskeletal Deformity, Reports Hx Musculoskeletal Trauma Skin Medical History: Reports None Psychiatric Medical History: Reports: Hx Anxiety, Hx Bipolar Disorder, Hx Depression - PTSD, Hx Post Traumatic Stress Disorder Traumatic Medical History: Reports: Hx Traumatic Brain Injury Infectious Medical History: Reports: None Past Surgical History: Reports: Hx Abdominal Surgery - umbilical hernia repair, Hx Adenoidectomy, Hx Cholecystectomy, Hx Hysterectomy, Hx Tonsillectomy, Hx Tubal Ligation, Hx Umbilical Hernia - Immunizations Immunizations up to date: Yes Hx Diphtheria, Pertussis, Tetanus Vaccination: Yes - 2009 Hx Pneumococcal Vaccination: 06/14/13 Review of Systems - Review of Systems Constitutional: No symptoms reported EENT: No symptoms reported Cardiovascular: No symptoms reported Respiratory: No symptoms reported Gastrointestinal: No symptoms reported Genitourinary: No symptoms reported Female Genitourinary: No symptoms reported Musculoskeletal: Joint pain - Right ankle left knee, Other - Left lower leg bruising swelling abrasions Skin: No symptoms reported Hematologic/Lymphatic: No symptoms reported Neurological/Psychological: No symptoms reported -: Yes All other systems reviewed and negative Physical Exam - Vital signs Vitals: Temp Pulse Resp BP Pulse Ox 97.8 F 101 H 16 123/60 99 08/15/19 15:41 08/15/19 15:41 08/15/19 15:41 08/15/19 15:41 08/15/19 15:41 Interpretation: Normal - General General appearance: Appears well, Alert - HEENT Head: Normocephalic, Atraumatic Eyes: Normal Pupils: PERRL - Respiratory Respiratory status: No respiratory distress Chest status: Nontender Breath sounds: Normal Chest palpation: Normal - Cardiovascular Rhythm: Regular Heart sounds: Normal auscultation Murmur: No - Abdominal Inspection: Normal Distension: No distension Bowel sounds: Normal Tenderness: Nontender Organomegaly: No organomegaly - Back Back: Normal, Nontender - Extremities General upper extremity: Normal inspection, Nontender, Normal color, Normal ROM, Normal temperature General lower extremity: Normal temperature. No: Arun's sign Knee: Tender - Left, Abrasion, Pain with ROM - Left Calf: Tender, Abrasion Ankle: Tender, Edema, Limited ROM - Right - Neurological Neuro grossly intact: Yes Cognition: Normal Orientation: AAOx4 [place] Coma Scale Eye Opening: Spontaneous Brain Coma Scale Verbal: Oriented [place] Coma Scale Motor: Obeys Commands [place] Coma Scale Total: 15 Speech: Normal Motor strength normal: LUE, RUE, LLE, RLE Sensory: Normal - Psychological Associated symptoms: Normal affect, Normal mood - Skin Skin Temperature: Warm Skin Moisture: Dry Skin Color: Normal Course - Re-evaluation Re-evalutation: 08/15/19 18:31 Discussed x-ray results with patient. Written report of x-rays given to patient to follow-up with primary care. She was also given name and number of orthopedic. She does have a sprain to her right ankle contusion to her left knee and abrasions to her left leg. Abrasions were cleaned with surgical scrub and saline bacitracin applied. - Vital Signs Vital signs: Temp Pulse Resp BP Pulse Ox 97.8 F 101 H 16 123/60 99 08/15/19 15:41 08/15/19 15:41 08/15/19 15:41 08/15/19 15:41 08/15/19 15:41 - Diagnostic Test Radiology reviewed: Image reviewed, Reports reviewed Discharge - Discharge Clinical Impression: Abrasion, left lower leg, initial encounter Right ankle sprain Qualifiers: Encounter type: initial encounter Involved ligament of ankle: unspecified ligament Qualified Code(s): S93.401A - Sprain of unspecified ligament of right ankle, initial encounter Contusion of left knee and lower leg Qualifiers: Encounter type: initial encounter Qualified Code(s): S80.02XA - Contusion of left knee, initial encounter Condition: Stable Disposition: HOME, SELF-CARE Additional Instructions: CONTUSION: Your injury has resulted in a contusion -- a crushing of the deep tissues. No injury to important structures was detected during the physician's exam. Contusions vary in the amount of pain they cause, and in the length of time required for healing. Typically, the area will become bruised, and will remain painful to touch for two or three weeks. However, most patients are back to working and playing within a few days. After the initial period of rest and cold-packs, your symptoms (together with the doctor's recommendations) will determine how rapidly you can get back to full activity. Usually this means "do what feels okay, but don't do things that hurt." If re-examination was recommended, it's important to follow up as instructed. Call the doctor or return any time if pain increases, if swelling becomes severe, if you develop numbness or weakness in an injured extremity, or if any other alarming symptoms occur. ABRASIONS: An abrasion is a scraping injury of the skin. Some scarring may result. The seriousness of an abrasion is not always obvious at first. Hidden tissue damage may be present and infection may occur despite proper care. Complete healing may take from ten days to as long as a month. The healing time depends on the depth of the abrasion, and on the amount of crushing of underlying tissues from the injury. Keep the wound and dressing clean. Do not shower or bathe the area until okayed by the doctor. If the dressing gets wet, remove it and blot the wound dr y, then reapply a clean dressing. Dressings should be changed every day. Sunscreen should be used for six months after the skin is healed. If any signs of infection occur (swelling, redness, increasing tenderness, red streaks, profuse purulent drainage from the abrasion, tender lumps in the armpit or groin above the abrasion, or fever), see the doctor immediately. SPRAINED ANKLE: Your sprained ankle results from stretching or tearing of the ligaments which support the ankle. This usually results from twisting the foot inward and under. The ligaments will require time and protection in order to heal properly. Many ankle sprains are quite disabling, and should be taken seriously. The usual treatment for an ankle sprain is cold packs; protection with tape, splints, or wraps; elevation; and staying off the ankle for at least a day. As the ankle improves, you can walk IF it's not painful to bear weight. Sports are best postponed until healing is complete. More serious sprains usually require strengthening exercises after early healing. Your physician has assessed the seriousness of the ligament injury to your ankle. However, the treatment may change, depending on how your ankle progresses. If further exams were recommended, it is important that you follow through. Call the doctor if your foot becomes numb, painful, or severely swollen. JOHNSON WRAP: A compression dressing (johnson wrap) has been placed. This helps hold the area still. It limits swelling and internal bleeding. The wrap should be comfortably snug -- not tight. You should feel a sense of pressure, but not severe pain under the wrap. Unless the physician tells you otherwise, you can adjust the wrap for comfort. If the wrap causes symptoms suggesting it's too tight -- uncomfortable pressure, swelling or discoloration beyond the wrap, numbness, or severe pain -- you must loosen the wrap. If these symptoms don't resolve promptly, return for re-evaluation. ANKLE STIRRUP SPLINT: You are to use an ankle brace called a stirrup splint. This type of brace allows you to place greater stresses on the ankle without risk of re-injury, and is often used for more severe ankle injuries such as avulsion fractures and ligament ruptures. The splint can be worn over a sock or tape. For proper support, wear the splint with a shoe over it. It's important that the splint fit properly. Adjust the heel tension, if needed. If your splint has air bladders, peel back the bottom of each air bladder, then move the Velcro attachment of the heel strap up or down. Air bladder pressure can be adjusted by pulling up the valve at the top, threading the air tube down into the main bladder, then blowing air into the bladder or squeezing it out. The two sides of the stirrup can be moved forward or back on your ankle by changing the attachment of the main straps. If you are unable to use the ankle comfortably in the splint, return for re-evaluation. USE OF CRUTCHES: The doctor has recommended that you not bear weight at this time. You will need to use crutches. Adjust the crutches so the tops come to about two inches under the armpit while you are standing upright. Use your hands -- not your armpits -- to support your weight. To get into a chair, support yourself with one crutch on the injured side. Hold the chair with the other hand, then lower yourself while putting all your weight on the good leg. Going up stairs is `good leg up, step up, then bring up crutches and bad leg.' Down stairs is `bad leg and crutches down, then bring good leg down.' If you develop numbness or swelling in an arm or hand, you are using the crutches incorrectly. Return if you are having any problems with the crutches. ICE & ELEVATION: Apply ice packs frequently against the painful area. Many different schedules are recommended, such as "20 minutes on, 20 minutes off" or "one hour ice, two hours rest." If you need to work, you may need to go longer between ice treatments. You should plan to have the area ice packed AT LEAST one-fourth of the time. The ice should be applied over the wrap, tape, or splint, or over a layer of cloth -- not directly against the skin. Some ice bags have a built-in cloth and can be put directly on the skin. Your injured part should be elevated as much as possible over the next 48 hours. Try to keep the injury above the level of the heart. Avoid use of the injured area. Elevation and rest will decrease the swelling. USE OF TDXL-CVW-JAKUFRO IBUPROFEN: Ibuprofen (Advil, Nuprin, Medipren, Motrin IB) is a medication for fever and pain control. In addition, it has anti- inflammatory effects which may be beneficial, especially in the treatment of injuries. It's best to take ibuprofen with food. Persons with ulcer disease or allergy to aspirin should notify their physician of this before taking ibuprofen. Ibuprofen can be given every four to six hours, for a total of four doses daily. Age Pain or fever dose Antiinflammatory dose 6-8 yr 200 mg (1 tab) 200 mg (1 tab) 9-11 yr 200 mg (1 tab) 200-400 mg (1-2 tab) 11-14 yr 200-400 mg (1-2 tab) 400 mg (2 tab) 15-adult 400 mg (2 tab) 600 mg (3 tab) USE OF TYLENOL (ACETAMINOPHEN): Acetaminophen may be taken for pain relief or fever control. It's much safer than aspirin, offering a wider range of "safe" dosages. It is safe during . Some brand names are Tylenol, Panadol, Datril, Anacin 3, Tempra, and Liquiprin. Acetaminophen can be repeated every four hours. The following are maximum recommended dosages: WEIGHT Dose Drops Elixir Chewable(80mg) (LBS.) drprs=droppers tsp=teaspoon 6 40 mg 0.4 ml (1/2) 6-11 80 mg 0.8 ml (full) tsp 1 tab 12-16 120 mg 1 1/2 drprs 3/4 tsp 1 1/2 tabs 17-23 160 mg 2 drprs 1 tsp 2 tabs 24-30 240 mg 3 drprs 1 1/2 tsp 3 tabs 30-35 320 mg 2 tsp 4 tabs 36-41 360 mg 2 1/4 tsp 4 1/2 tabs 42-47 400 mg 2 1/2 tsp 5 tabs 48-53 480 mg 3 tsp 6 tabs 54-59 520 mg 3 1/4 tsp 6 1/2 tabs 60-64 560 mg 3 1/2 tsp 7 tabs 65-70 600 mg 3 3/4 tsp 7 1/2 tabs 71-76 640 mg 4 tsp 8 tabs 77-82 720 mg 4 1/2 tsp 9 tabs 83-88 800 mg 5 tsp 10 tabs >89 pounds or adults 650 mg to 900 mg Acetaminophen can be repeated every four hours. Maximum dose not to exceed 4000 mg a day. These maximum recommended dosages are slightly higher than the dosages written on the product container, but these dosages are very safe and below the toxic dosage for acetaminophen. FOLLOW-UP CARE: If you have been referred to a physician for follow-up care, call the physicians office for an appointment as you were instructed or within the next two days. If you experience worsening or a significant change in your symptoms, notify the physician immediately or return to the Emergency Department at any time for re-evaluation. Referrals: [facility] [[facility]] - Follow up as needed GEOFFREY JENKINS MD [ACTIVE PROVISIONAL STAFF] - Follow up as needed
--- NOTE | 2019-08-15 16:37 | RADIOLOGY REPORT (SQ) ---
EXAM DESCRIPTION: KNEE LEFT 4 VIEW IMAGES COMPLETED DATE/TIME: 08/15/2019 4:29 pm REASON FOR STUDY: fall pain and injury COMPARISON: None. NUMBER OF VIEWS: Four views. TECHNIQUE: AP, lateral, and both oblique radiographic images acquired of the left knee. LIMITATIONS: None. FINDINGS: MINERALIZATION: Normal. BONES: No acute fracture or dislocation. JOINT: No effusion. SOFT TISSUES: No radiopaque foreign body. OTHER: No other finding. IMPRESSION: No acute osseous abnormality of the left knee. TECHNICAL DOCUMENTATION: JOB ID: [id number] 2010 [email or web address]- All Rights Reserved Reading location - IP/workstation name: [email or web address]
--- NOTE | 2019-08-15 16:38 | RADIOLOGY REPORT (SQ) ---
EXAM DESCRIPTION: TIBIA FIBULA LEFT IMAGES COMPLETED DATE/TIME: 08/15/2019 4:29 pm REASON FOR STUDY: fall pain and injury COMPARISON: None. NUMBER OF VIEWS: Two views. TECHNIQUE: Two radiographic images acquired of the left tibia and fibula to include the knee and ank le in at least one projection. LIMITATIONS: None. FINDINGS: MINERALIZATION: Normal. BONES: No acute fracture or dislocation. No periosteal reaction or osseous lesion. SOFT TISSUES: No soft tissue swelling or radiopaque foreign body. OTHER: No other finding. IMPRESSION: No acute osseous abnormality of the left tibia and fibula. TECHNICAL DOCUMENTATION: JOB ID: [id number] 2010 [employer]- All Rights Reserved Reading location - IP/workstation name: [email or web address]
--- NOTE | 2019-08-15 16:40 | RADIOLOGY REPORT (SQ) ---
EXAM DESCRIPTION: ANKLE RIGHT COMPLETE IMAGES COMPLETED DATE/TIME: 08/15/2019 4:29 pm REASON FOR STUDY: fall pain and injury COMPARISON: None. NUMBER OF VIEWS: Three views. TECHNIQUE: AP, lateral, and oblique radiographic images acquired of the right ankle. LIMITATIONS: None. FINDINGS: MINERALIZATION: Normal. BONES: The corticated osseous fragments that project inferior to the medial malleolus could represent the sequela of a prior injury. There is no acute fracture or dislocation. The ankle mortise and ta lar dome are intact. JOINTS: No effusions. SOFT TISSUES: Soft tissue swelling around the lateral malleolus. OTHER: Enthesophytes at the calcaneal insertion of the plantar fascia. IMPRESSION: Soft tissue swelling around the lateral malleolus without an associated acute osseous ab normality. TECHNICAL DOCUMENTATION: JOB ID: [id number] 2010 [employer]- All Rights Reserved Reading location - IP/workstation name: [email or web address]
== END 2019-08-15 17:02 | disposition home or self-care (01) ==
LOC: ER 15:34
DX: S80.812A Abrasion, left lower leg, initial encounter (principal); S93.401A Sprain of unspecified ligament of right ankle, initial encounter; S80.02XA Contusion of left knee, initial encounter; M25.571 Pain in right ankle and joints of right foot; M25.562 Pain in left knee; W01.0XXA Fall on same level from slipping, tripping and stumbling without subsequent striking against object, initial encounter; Z88.3 Allergy status to other anti-infective agents; Z90.49 Acquired absence of other specified parts of digestive tract; Z90.710 Acquired absence of both cervix and uterus
CPT/HCPCS: 99283; 73610; 73564; 73590; J3490

== ENCOUNTER 2019-08-31 17:23 | Emergency (ER) | payer OTHER, MEDICARE ==
--- NOTE | 2019-08-31 17:46 | ER Document Report ---
ED Medical Screen (RME) - General Chief Complaint: Fall Stated Complaint: FALL/LOW BACK, RIGHT WRIST PAIN Time Seen by Provider: 08/31/19 17:44 Primary Care Provider: JULISSA,JOSEPHINE [Primary Care Provider] - Follow up as needed Mode of Arrival: Ambulatory Information source: Patient Notes: 43-year-old female presented to ED for complaint of falling down the stairs about an hour and a half ago. She states she fell down 4 steps and landed on her wrist. She does have right wrist and low back pain. She is not able to move the right wrist. She does not have any cauda equina, she denies any loss of control of bowel bladder, saddle anesthesia, no loss of control or sensation to the lower extremities. She does have some bony tenderness to the lumbar spine more pain to the right than to the left side of the lower back. She is alert oriented respirations regular nonlabored speaking in full sentences. She states she does have a history of bipolar, PTSD, IBS, migraines, and fibromyalgia. I have greeted and performed a rapid initial assessment of this patient. A comprehensive ED assessment and evaluation of the patient, analysis of test results and completion of medical decision making process will be conducted by an additional ED providers. TRAVEL OUTSIDE OF THE [place] IN LAST 30 DAYS: No - Related Data Allergies/Adverse Reactions: sulfamethoxazole [From Bactrim] Allergy (Verified 08/31/19 17:36) trimethoprim [From Bactrim] Allergy (Verified 08/31/19 17:36) Past Medical History - Social History Chew tobacco use (# tins/day): No Frequency of alcohol use: None Drug Abuse: None Pulmonary Medical History: Reports: Hx Asthma, Hx Bronchitis, Hx Pneumonia Neurological Medical History: Reports: Hx Migraine Renal/ Medical History: Reports: Hx Ovarian Cysts GI Medical History: Reports: Hx Gastroesophageal Reflux Disease - IBS, Hx Irritable Bowel, Hx Colonoscopy Musculoskeltal Medical History: Reports Hx Arthritis, Reports Hx Musculoskeletal Deformity, Reports Hx Musculoskeletal Trauma Psychiatric Medical History: Reports: Hx Anxiety, Hx Bipolar Disorder, Hx Depression - PTSD, Hx Post Traumatic Stress Disorder Traumatic Medical History: Reports: Hx Traumatic Brain Injury Past Surgical History: Reports: Hx Abdominal Surgery - umbilical hernia repair, Hx Adenoidectomy, Hx Cholecystectomy, Hx Hysterectomy, Hx Tonsillectomy, Hx Tubal Ligation, Hx Umbilical Hernia - Immunizations Immunizations up to date: Yes Hx Diphtheria, Pertussis, Tetanus Vaccination: Yes - 2009 Physical Exam - Vital signs Vitals: Temp Pulse Resp BP Pulse Ox 98.9 F 101 H 18 121/67 99 08/31/19 17:35 08/31/19 17:35 08/31/19 17:35 08/31/19 17:35 08/31/19 17:35 Course - Vital Signs Vital signs: Temp Pulse Resp BP Pulse Ox 98.9 F 101 H 18 121/67 99 08/31/19 17:37 08/31/19 17:35 08/31/19 17:35 08/31/19 17:35 08/31/19 17:35 Doctor's Discharge - Discharge Referrals: [facility] [[facility]] - Follow up as needed
--- NOTE | 2019-08-31 18:13 | RADIOLOGY REPORT (SQ) ---
EXAM DESCRIPTION: L SPINE WHOLE IMAGES COMPLETED DATE/TIME: 08/31/2019 5:00 pm REASON FOR STUDY: Fall pain to the right wrist and low back COMPARISON: None. NUMBER OF VIEWS: Five views including obliques. TECHNIQUE: AP, lateral, oblique, and sacral radiographic images acquired of the lumbar spine. LIMITATIONS: None. FINDINGS: MINERALIZATION: Normal. SEGMENTATION: Normal. No transitional anatomy. ALIGNMENT: Normal. VERTEBRAE: Maintained height. No fracture or worrisome bone lesion. Mild spondylosis with small end plate osteophytes. DISCS: Mild degenerative disc disease with mild loss of intervertebral disc height. POSTERIOR ELEMENTS: Pedicles and facets are intact. No pars defect or posterior arch defects. HARDWARE: None in the spine. PARASPINAL SOFT TISSUES: Normal. PELVIS: Intact as visualized. No fractures or worrisome bone lesions. SI joints intact. OTHER: No other significant finding. IMPRESSION: No acute fracture or dislocation of the lumbar spine. Mild spondylosis and degenerative disc disease. TECHNICAL DOCUMENTATION: JOB ID: [id number] 2010 [employer]- All Rights Reserved Reading location - IP/workstation name: [email or web address]
--- NOTE | 2019-08-31 18:23 | RADIOLOGY REPORT (SQ) ---
EXAM DESCRIPTION: WRIST RIGHT 3 VIEWS IMAGES COMPLETED DATE/TIME: 08/31/2019 5:00 pm REASON FOR STUDY: Fall pain to the right wrist and low back COMPARISON: None. NUMBER OF VIEWS: Three views. TECHNIQUE: AP, lateral, and oblique radiographic images acquired of the right wrist. LIMITATIONS: None. FINDINGS: MINERALIZATION: Normal. BONES: No acute fracture or dislocation. No worrisome bone lesions. Normal alignment. SOFT TISSUES: No soft tissue swelling. No foreign body. OTHER: No other significant finding. IMPRESSION: NEGATIVE STUDY OF THE RIGHT WRIST. NO RADIOGRAPHIC EVIDENCE OF ACUTE INJURY. TECHNICAL DOCUMENTATION: JOB ID: [id number] 2010 [employer]- All Rights Reserved Reading location - IP/workstation name: [email or web address]
--- NOTE | 2019-08-31 19:12 | ER Document Report ---
ED General - General Chief Complaint: Fall Stated Complaint: FALL/LOW BACK, RIGHT WRIST PAIN Time Seen by Provider: 08/31/19 17:44 Primary Care Provider: [facility] [Primary Care Provider] - Follow up as needed Mode of Arrival: Ambulatory Information source: Patient TRAVEL OUTSIDE OF THE [place] IN LAST 30 DAYS: No - HPI Onset: Just prior to arrival Onset/Duration: Sudden Severity: Moderate Associated symptoms: Other - mild swelling of right wrist Exacerbated by: Movement - of right wrist and of low back Relieved by: Remaining still Similar symptoms previously: No Recently seen / treated by doctor: No Notes: 43 year old female with a history of Fibromyalgia, GERD, IBS, Asthma here in the ER for pain in her left wrist and low back after felling down 4 steps. The patient says she tripped and fell while on the steps. The patient endorses some mild swelling of her left wrist. The patient took Aleve at home before coming to the ER. Movement of the patient's back and left wrist make the pain worse. - Related Data Allergies/Adverse Reactions: sulfamethoxazole [From Bactrim] Allergy (Verified 08/31/19 17:36) trimethoprim [From Bactrim] Allergy (Verified 08/31/19 17:36) Past Medical History - General Information source: Patient - Social History Smoking Status: Never Smoker Chew tobacco use (# tins/day): No Frequency of alcohol use: None Drug Abuse: None Family History: Arthritis, CVA, DM, Malignancy, Thyroid Disfunction Patient has homicidal ideation: No Pulmonary Medical History: Reports: Hx Asthma, Hx Bronchitis, Hx Pneumonia Neurological Medical History: Reports: Hx Migraine Renal/ Medical History: Reports: Hx Ovarian Cysts GI Medical History: Reports: Hx Gastroesophageal Reflux Disease - IBS, Hx Irritable Bowel, Hx Colonoscopy Musculoskeletal Medical History: Reports Hx Arthritis, Reports Hx Musculoskeletal Deformity, Reports Hx Musculoskeletal Trauma Psychiatric Medical History: Reports: Hx Anxiety, Hx Bipolar Disorder, Hx Depression - PTSD, Hx Post Traumatic Stress Disorder Traumatic Medical History: Reports: Hx Traumatic Brain Injury Past Surgical History: Reports: Hx Abdominal Surgery - umbilical hernia repair, Hx Adenoidectomy, Hx Cholecystectomy, Hx Hysterectomy, Hx Tonsillectomy, Hx Tubal Ligation, Hx Umbilical Hernia - Immunizations Immunizations up to date: Yes Hx Diphtheria, Pertussis, Tetanus Vaccination: Yes - 2009 Hx Pneumococcal Vaccination: 06/14/13 Review of Systems - Review of Systems Constitutional: No symptoms reported EENT: No symptoms reported Cardiovascular: No symptoms reported Respiratory: No symptoms reported Gastrointestinal: No symptoms reported Genitourinary: No symptoms reported Female Genitourinary: No symptoms reported Musculoskeletal: Back pain, Other - left wrist pain Skin: No symptoms reported Hematologic/Lymphatic: No symptoms reported Neurological/Psychological: No symptoms reported -: Yes All other systems reviewed and negative Physical Exam - Vital signs Vitals: Temp Pulse Resp BP Pulse Ox 98.9 F 101 H 18 121/67 99 08/31/19 17:35 08/31/19 17:35 08/31/19 17:35 08/31/19 17:35 08/31/19 17:35 - Notes Notes: GENERAL: Well-appearing, well-nourished and in no acute distress. HEAD: Atraumatic, normocephalic. EYES: Pupils equal round and reactive to light, extraocular movements intact, sclera anicteric, conjunctiva are normal. ENT: External Ears normal, nares patent, oropharynx clear without exudates. Moist mucous membranes. NECK: Normal range of motion, supple without lymphadenopathy or JVD. LUNGS: Breath sounds clear to auscultation bilaterally and equal. No wheezes rales or rhonchi. HEART: Regular rate and rhythm without murmurs, rubs or gallops. ABDOMEN: Soft, nontender, normoactive bowel sounds. No guarding, no rebound. No masses appreciated. BACK: Tender in paralumbar area of low back. No step offs or skin changes. EXTREMITIES: Left wrist tender to palpation diffusely with mild swelling. 2+ radial pulses. No specific snuff box tenderness on palpation. Normal range of motion, no pitting or edema. No clubbing or cyanosis. NEUROLOGICAL: Cranial nerves II through XII grossly intact. Normal speech, normal gait. PSYCH: Normal mood, normal affect. SKIN: Warm, Dry, normal turgor, no rashes or lesions noted. Course - Re-evaluation Re-evalutation: 08/31/19 22:47 The patient fell down some steps and now she has pain in her lumbar spine region and left wrists. Xrays of these areas show no fractures. Patient prescribed Mobic, told to use heating pads, told to use ice packs, and she was told to follow up with her PCP if symptoms persist. - Vital Signs Vital signs: Temp Pulse Resp BP Pulse Ox 98.5 F 90 16 126/73 H 100 08/31/19 19:53 08/31/19 19:53 08/31/19 19:53 08/31/19 19:53 08/31/19 19:53 - Diagnostic Test Radiology reviewed: Image reviewed, Reports reviewed Discharge - Discharge Clinical Impression: Sprain of wrist, right Qualifiers: Encounter type: initial encounter Qualified Code(s): S63.501A - Unspecified sprain of right wrist, initial encounter Lumbar contusion Qualifiers: Encounter type: initial encounter Qualified Code(s): S30.0XXA - Contusion of lower back and pelvis, initial encounter Condition: Stable Disposition: HOME, SELF-CARE Instructions: Low Back Pain ([facility]), Wrist Sprain ([facility]) Additional Instructions: Use the prescribed Mobic for pain along with over the counter tylenol, a heating pad, and an ice pack. Follow up with your primary care doctor if symptoms persist over the next few weeks. Prescriptions: Meloxicam [Mobic 7.5 Mg Tablet] 7.5 mg PO BID PRN #20 tablet PRN Reason: Referrals: [facility] [Primary Care Provider] - Follow up as needed
[2019-08-31 19:54] VITALS: BP 126/73
== END 2019-08-31 19:54 | disposition home or self-care (01) ==
LOC: ER 17:23
DX: S30.0XXA Contusion of lower back and pelvis, initial encounter (principal); S63.501A Unspecified sprain of right wrist, initial encounter; W10.9XXA Fall (on) (from) unspecified stairs and steps, initial encounter; Y93.E5 Activity, floor mopping and cleaning; J45.909 Unspecified asthma, uncomplicated; Z88.1 Allergy status to other antibiotic agents
CPT/HCPCS: 72110; 99283

== ENCOUNTER 2019-09-23 06:01 | Emergency (ER) | payer OTHER, MEDICARE ==
--- NOTE | 2019-09-23 06:22 | ER Document Report ---
ED General - General Chief Complaint: Urinary Problem Stated Complaint: PAINFUL URINATION/BACK PAIN Time Seen by Provider: 09/23/19 06:20 Primary Care Provider: JULISSA,JOSEPHINE [Primary Care Provider] - Follow up as needed Notes: 43-year-old female presents with right-sided back pain and dysuria for 1 day history of kidney infections but no stones, no hematuria or fever. No nausea or vomiting. Able to tolerate p.o. The patient has NO history of travel to high- risk locations for COVID-19 or contact with persons under investigation for or confirmed positive for COVID-19. TRAVEL OUTSIDE OF THE [place] IN LAST 30 DAYS: No - Related Data Allergies/Adverse Reactions: sulfamethoxazole [From Bactrim] Allergy (Verified 08/31/19 17:36) trimethoprim [From Bactrim] Allergy (Verified 08/31/19 17:36) Past Medical History - General Information source: Patient - Social History Smoking Status: Never Smoker Frequency of alcohol use: None Drug Abuse: None Family History: Arthritis, CVA, DM, Malignancy, Thyroid Disfunction Patient has homicidal ideation: No Pulmonary Medical History: Reports: Hx Asthma, Hx Bronchitis, Hx Pneumonia Neurological Medical History: Reports: Hx Migraine Renal/ Medical History: Reports: Hx Ovarian Cysts GI Medical History: Reports: Hx Gastroesophageal Reflux Disease - IBS, Hx Irritable Bowel, Hx Colonoscopy Musculoskeletal Medical History: Reports Hx Arthritis, Reports Hx Musculoskeletal Deformity, Reports Hx Musculoskeletal Trauma Psychiatric Medical History: Reports: Hx Anxiety, Hx Bipolar Disorder, Hx Depression - PTSD, Hx Post Traumatic Stress Disorder Traumatic Medical History: Reports: Hx Traumatic Brain Injury Past Surgical History: Reports: Hx Abdominal Surgery - umbilical hernia repair, Hx Adenoidectomy, Hx Cholecystectomy, Hx Hysterectomy, Hx Tonsillectomy, Hx Tubal Ligation, Hx Umbilical Hernia - Immunizations Immunizations up to date: Yes Hx Diphtheria, Pertussis, Tetanus Vaccination: Yes - 2009 Hx Pneumococcal Vaccination: 06/14/13 Review of Systems - Review of Systems Notes: REVIEW OF SYSTEMS GEN: Denies fever, chills, weight loss ENT: Denies sore throat, nasal discharge, ear pain EYES: Denies blurry vision, eye pain, discharge CV: Denies chest pain, palpitations, edema RESP: Denies cough, shortness of breath, wheezing GI: Area suprapubic pressure MSK: Back pain SKIN: Denies rash, skin lesions LYMPH: Denies swollen glands/lymph nodes NEURO: Denies headache, focal weakness or numbness, dizziness PSYCH: Denies depression, suicidal or homicidal ideation PHYSICAL EXAMINATION General: No acute distress, well-nourished Head: Atraumatic, normocephalic ENT: Mouth normal, oropharynx moist, no exudates or tonsillar enlargement Eyes: Conjunctiva normal, pupils equal, lids normal Neck: No JVD, supple, no guarding CVS: Normal rate, regular rhythm, no murmurs Resp: No resp distress, equal and normal breath sounds bilaterally GI: Nondistended, soft, no tenderness to palpation, no rebound or guarding Ext: No deformities, no edema, normal range of motion in upper and lower ext Back: No CVA or midline TTP Skin: No rash, warm Lymphatic: No lymphadeopathy noted Neuro: Awake, alert. Face symmetric. GCS 15. Physical Exam - Vital signs Vitals: Temp 97.9 F 09/23/19 06:16 Course - Re-evaluation Re-evalutation: 09/23/19 06:22 Clinical pyelonephritis no evidence of sepsis in a well-appearing female with no relevant past history ER wait times are up to 8 hours at this time, and I did let her know that we would be discharging her with a prescription and I will call her cell phone if she is or has any other findings on her UA. She is amenable to this I have discussed with the patient there likely diagnosis, aftercare plan, follow-up plans and my usual and customary return precautions. They verbalized understanding of this. - Vital Signs Vital signs: Temp Pulse Resp BP Pulse Ox 97.9 F 09/23/19 06:16 Discharge - Discharge Clinical Impression: Pyelonephritis Condition: Good Disposition: HOME, SELF-CARE Prescriptions: Nitrofurantoin Monohyd/M-Cryst [Macrobid 100 mg Capsule] 100 mg PO BID #14 cap Phenazopyridine HCl [Pyridium 100 Mg Tablet] 100 mg PO BIDP PRN #12 tablet PRN Reason: Forms: Return to Work Referrals: [facility] [Primary Care Provider] - Follow up as needed
[2019-09-23 06:58] LABS: APPEARANCE,URINE CLOUDY; BILIRUBIN,URINE NEGATIVE (NEGATIVE); COLOR,URINE YELLOW; GLUCOSE, URINE NEGATIVE (NEGATIVE); KETONES,URINE NEGATIVE (NEGATIVE); LEUKOCYTE ESTERASE,URINE LARGE (NEGATIVE); NITRITE,URINE NEGATIVE (NEGATIVE); PROTEIN,URINE 100 mg/dL (NEGATIVE); URINE SPECIFIC GRAVITY 1.023; UROBILINOGEN,URINE NEGATIVE mg/dL (<2.0)
== END 2019-09-23 06:39 | disposition home or self-care (01) ==
LOC: ER 06:01
DX: N12 Tubulo-interstitial nephritis, not specified as acute or chronic (principal); R39.198 Other difficulties with micturition; R30.9 Painful micturition, unspecified; M54.9 Dorsalgia, unspecified; Z88.2 Allergy status to sulfonamides; Z88.8 Allergy status to other drugs, medicaments and biological substances; J45.909 Unspecified asthma, uncomplicated
CPT/HCPCS: 81001; 81025; 99283

== ENCOUNTER 2019-10-04 16:38 | Emergency (ER) | payer OTHER, MEDICARE ==
[2019-10-04] MEDS ORDERED: NORMAL SALINE 1000 ML 1,000 ML IV PRN (17:00)
--- NOTE | 2019-10-04 17:02 | ER Document Report ---
ED Medical Screen (RME) - General Chief Complaint: Abdominal Pain Stated Complaint: LOWER ABDOMINAL PAIN Time Seen by Provider: 10/04/19 17:00 Primary Care Provider: JOSEPHINE COSTA [Primary Care Provider] - Follow up as needed Notes: This 43-year-old female presents to the emergency room today stating she had right lower quadrant abdominal discomfort which is been ongoing for the last 2 days she has anorexia has a lot of discomfort to the light right lower quadrant especially when she ambulates striking her heel hard. I greeted and performed a rapid initial assessment of this patient. Comprehensive ED assessment and evaluation of the patient, analysis of test results and completion of the medical decision making process will be conducted by additional ED providers. TRAVEL OUTSIDE OF THE [place] IN LAST 30 DAYS: No - Related Data Allergies/Adverse Reactions: sulfamethoxazole [From Bactrim] Allergy (Verified 10/04/19 16:55) trimethoprim [From Bactrim] Allergy (Verified 10/04/19 16:55) Past Medical History - Social History Chew tobacco use (# tins/day): No Frequency of alcohol use: None Drug Abuse: None Pulmonary Medical History: Reports: Hx Asthma, Hx Bronchitis, Hx Pneumonia Neurological Medical History: Reports: Hx Migraine Renal/ Medical History: Reports: Hx Ovarian Cysts GI Medical History: Reports: Hx Gastroesophageal Reflux Disease - IBS, Hx Irritable Bowel, Hx Colonoscopy Musculoskeltal Medical History: Reports Hx Arthritis, Reports Hx Musculoskeletal Deformity, Reports Hx Musculoskeletal Trauma Psychiatric Medical History: Reports: Hx Anxiety, Hx Bipolar Disorder, Hx Depression - PTSD, Hx Post Traumatic Stress Disorder Traumatic Medical History: Reports: Hx Traumatic Brain Injury Past Surgical History: Reports: Hx Abdominal Surgery - umbilical hernia repair, Hx Adenoidectomy, Hx Cholecystectomy, Hx Hysterectomy, Hx Tonsillectomy, Hx Tubal Ligation, Hx Umbilical Hernia - Immunizations Immunizations up to date: Yes Hx Diphtheria, Pertussis, Tetanus Vaccination: Yes - 2009 Physical Exam - Vital signs Vitals: Temp Pulse Resp BP Pulse Ox 98.1 F 78 14 114/57 L 100 10/04/19 16:41 10/04/19 16:41 10/04/19 16:41 10/04/19 16:41 10/04/19 16:41 Course - Vital Signs Vital signs: Temp Pulse Resp BP Pulse Ox 98.1 F 78 14 114/57 L 100 10/04/19 16:55 10/04/19 16:41 10/04/19 16:41 10/04/19 16:41 10/04/19 16:41 Doctor's Discharge - Discharge Referrals: [facility] [Primary Care Provider] - Follow up as needed
[2019-10-04 17:36] LABS: ABSOLUTE EOSINOPHILS # (AUTO) 0.1 10^3/uL (0.0-0.6); ABSOLUTE LYMPHOCYTES (AUTO) 2.2 10^3/uL (0.5-4.7); ABSOLUTE MONOCYTES (AUTO) 0.5 10^3/uL (0.1-1.4); ABSOLUTE NEUT (AUTO) 4.8 10^3/uL (1.7-8.2); BASOPHILS % (AUTO) 0.5 % (0-2); EOSINOPHILS % (AUTO) 1.5 % (0-6); HEMATOCRIT 40.4 % (36.0-47.0); LYMPHOCYTES % (AUTO) 28.3 % (13-45); MEAN CORPUSCULAR HEMOGLOBIN 32.1 pg (27.0-33.4); MEAN CORPUSCULAR HGB CONC 34.6 g/dL (32.0-36.0); MEAN CORPUSCULAR VOLUME 93 fl (80-97); PLATELET COUNT 295 10^3/uL (150-450); RED BLOOD COUNT 4.35 10^6/uL (3.72-5.28); RED CELL DISTRIBUTION WIDTH 13.3 % (11.5-14.0); SEGMENTED NEUTROPHILS % (AUTO) 62.7 % (42-78); TOTAL CELLS COUNTED % (AUTO) 100 %; WHITE BLOOD COUNT 7.7 10^3/uL (4.0-10.5)
[2019-10-04 17:39] LABS: APPEARANCE,URINE CLEAR; BILIRUBIN,URINE NEGATIVE (NEGATIVE); COLOR,URINE STRAW; GLUCOSE, URINE NEGATIVE (NEGATIVE); KETONES,URINE NEGATIVE (NEGATIVE); LEUKOCYTE ESTERASE,URINE TRACE (NEGATIVE); NITRITE,URINE NEGATIVE (NEGATIVE); PROTEIN,URINE NEGATIVE (NEGATIVE); URINE SPECIFIC GRAVITY 1.003; UROBILINOGEN,URINE NEGATIVE mg/dL (<2.0)
--- NOTE | 2019-10-04 17:46 | RADIOLOGY REPORT (SQ) ---
EXAM DESCRIPTION: CT ABD/PELVIS NO ORAL OR IV IMAGES COMPLETED DATE/TIME: 10/04/2019 5:31 pm REASON FOR STUDY: pain COMPARISON: 08/14/2016 TECHNIQUE: CT scan of the abdomen and pelvis performed without intravenous or oral contrast. Images reviewed with lung, soft tissue, and bone windows. Reconstructed coronal and sagittal MPR images revi ewed. All images stored on PACS. All CT scanners at this facility use dose modulation, iterative reconstruction, and/or weight based d osing when appropriate to reduce radiation dose to as low as reasonably achievable (ALARA). [facility]: Dose Right [facility]: CareDose [facility]: Dose Right [facility]: Teradose 4D [facility]: Smart IF[employer] RADIATION DOSE: CT Rad equipment meets quality standard of care and radiation dose reduction techniq ues were employed. CTDIvol: 13.2 mGy. DLP: 727 mGy-cm.mGy. LIMITATIONS: None. FINDINGS: LOWER CHEST: No significant findings. No nodules or infiltrates. NON-CONTRASTED LIVER, SPLEEN, ADRENALS: Evaluation limited by lack of IV contrast. No identified sign ificant masses. PANCREAS: No masses. No peripancreatic inflammatory changes. GALLBLADDER: Surgically absent. RIGHT KIDNEY AND URETER: No cysts identified. No solid masses. No calcified stones. No hydronephrosis or hydroureter. LEFT KIDNEY AND URETER: No cysts identified. No solid masses. No calcified stones. No hydronephrosis or hydroureter. AORTA AND RETROPERITONEUM: No aneurysm. No retroperitoneal masses or adenopathy. BOWEL AND PERITONEAL CAVITY: No obvious masses or inflammatory changes. No free fluid. APPENDIX: Normal. PELVIS, BLADDER, AND ABDOMINAL WALL:Prior hysterectomy No free fluid. Unremarkable bladder. BONES: No acute findings. OTHER: No other significant finding. IMPRESSION: NO ACUTE FINDINGS. TECHNICAL DOCUMENTATION: JOB ID: [id number] [place]-72 Quality ID # [id number]: Final reports with documentation of one or more dose reduction techniques (e.g., Au tomated exposure control, adjustment of the mA and/or kV according to patient size, use of iterative reconstruction technique) 2010 [employer]- All Rights Reserved Reading location - IP/workstation name: [employer]
[2019-10-04 21:38] LABS: ALBUMIN 4.4 g/dL (3.5-5.0); ALKALINE PHOSPHATASE 65 U/L (38-126); ANION GAP 7 (5-19); ASPARTATE AMINO TRANSFERASE 21 U/L (14-36); BILIRUBIN,TOTAL 0.7 mg/dL (0.2-1.3); BLOOD UREA NITROGEN 9 mg/dL (7-20); CALCIUM 9.4 mg/dL (8.4-10.2); CARBON DIOXIDE 24 mmol/L (22-30); CHLORIDE 107 mmol/L (98-107); GLUCOSE 90 mg/dL (75-110); POTASSIUM 4.1 mmol/L (3.6-5.0); TOTAL PROTEIN 7.6 g/dL (6.3-8.2)
[2019-10-04] MEDS ORDERED: MORPHINE SULFATE 10 MG/ML INJ IV ONE (23:27)
[2019-10-04] MEDS ORDERED: MORPHINE SULFATE IR 15 MG TABLET PO ONE (23:29)
--- NOTE | 2019-10-04 23:29 | ER Document Report ---
ED General - General Chief Complaint: Abdominal Pain Stated Complaint: LOWER ABDOMINAL PAIN Time Seen by Provider: 10/04/19 17:00 Primary Care Provider: JOSEPHINE COSTA [Primary Care Provider] - Follow up as needed Notes: 43-year-old female presenting with 2 days of right lower quadrant pain. States pain has become sharp and worth worse with movement. Becomes dull when she is sitting down. Notes some nausea and chills. She has taken Tylenol with no relief of pain. Pain is nonradiating. Denies any pain with urination or gross hematuria. Denies any vaginal bleeding or vaginal discharge. She is sexually active. Denies new sexual partners. Is having some diarrhea. 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 Had a colonoscopy 1-2 year ago which showed no abnormal findings. No vomiting. Patient has a past medical history of IBS D, ovarian cysts, partial hysterectomy, cholecystectomy. TRAVEL OUTSIDE OF THE [place] IN LAST 30 DAYS: No - Related Data Allergies/Adverse Reactions: sulfamethoxazole [From Bactrim] Allergy (Verified 10/04/19 16:55) trimethoprim [From Bactrim] Allergy (Verified 10/04/19 16:55) Past Medical History - Social History Smoking Status: Never Smoker Chew tobacco use (# tins/day): No Frequency of alcohol use: None Drug Abuse: None Family History: Arthritis, CVA, DM, Malignancy, Thyroid Disfunction Patient has homicidal ideation: No Pulmonary Medical History: Reports: Hx Asthma, Hx Bronchitis, Hx Pneumonia Neurological Medical History: Reports: Hx Migraine Renal/ Medical History: Reports: Hx Ovarian Cysts GI Medical History: Reports: Hx Gastroesophageal Reflux Disease - IBS, Hx Irritable Bowel, Hx Colonoscopy Musculoskeletal Medical History: Reports Hx Arthritis, Reports Hx Musculoskeletal Deformity, Reports Hx Musculoskeletal Trauma Psychiatric Medical History: Reports: Hx Anxiety, Hx Bipolar Disorder, Hx Depression - PTSD, Hx Post Traumatic Stress Disorder Traumatic Medical History: Reports: Hx Traumatic Brain Injury Past Surgical History: Reports: Hx Abdominal Surgery - umbilical hernia repair, Hx Adenoidectomy, Hx Cholecystectomy, Hx Hysterectomy, Hx Tonsillectomy, Hx Tubal Ligation, Hx Umbilical Hernia - Immunizations Immunizations up to date: Yes Hx Diphtheria, Pertussis, Tetanus Vaccination: Yes - 2009 Hx Pneumococcal Vaccination: 06/14/13 Review of Systems - Review of Systems Constitutional: See HPI EENT: No symptoms reported Cardiovascular: No symptoms reported Respiratory: No symptoms reported Gastrointestinal: See HPI Genitourinary: No symptoms reported Female Genitourinary: Painful intercourse Musculoskeletal: No symptoms reported Physical Exam - Vital signs Vitals: Temp Pulse Resp BP Pulse Ox 98.1 F 78 14 114/57 L 100 10/04/19 16:41 10/04/19 16:41 10/04/19 16:41 10/04/19 16:41 10/04/19 16:41 Interpretation: Normal - Notes Notes: Adult General: GENERAL: Alert, interacts well. No acute distress HEAD: Normocephalic, atraumatic EYES: Pupils equal, round and reactive to light. Extraocular movements intact. ENT: Oral mucosa moist, tongue midline. Oropharynx unremarkable. Airway patent. Nares patent, sinuses nontender, ear canals unremarkable, TMs intact. NECK: Full range of motion. Supple. Trachea midline. LUNGS: Clear to auscultation bilaterally, no wheezes, rales, or rhonchi. No respiratory distress. Nontender chest wall. HEART: Regular rate and rhythm. No murmurs, rubs or gallops. ABDOMEN: Soft, tender to palpation on RLQ and RUQ. No guarding. Nondistended. Bowel sounds present in all 4 quadrants. GENITOURINARY: Deferred EXTREMITIES: Moves all 4 extremities spontaneously. BACK: Moves all extremities with full range of motion. NEUROLOGICAL: Alert and oriented x3. Normal speech. Strength 5/ 5 in all extremities. PSYCH: Normal affect, normal mood. SKIN: Warm, dry, normal turgor. No rashes or lesions noted. Course - Re-evaluation Re-evalutation: 10/05/19 00:[address] scan shows no acute findings. Appendix was visualized and is normal. Patient has no free fluid in her abdomen. Labs are unremarkable. She is afebrile, not tachycardic. Morphine provided some relief of her pain. Is able to keep fluids down. Discussed the findings with patient. Suspect pain is more due to lymphadenitis due to negative findings on CT scan. Recommend patient follow-up with her primary care provider and GI specialist as soon as possible. She can continue to take Tylenol and ibuprofen for the pain. She was prescribed a [place] dispense back from the ER. Return precautions discussed to include worsening symptoms or development of new symptoms. All questions answered. Patient is agreeable with plan. - Vital Signs Vital signs: Temp Pulse Resp BP Pulse Ox 98.2 F 88 16 120/66 99 10/04/19 22:08 10/04/19 22:08 10/04/19 22:08 10/04/19 21:34 10/04/19 22:08 - Laboratory Result Diagrams: 10/04/19 17:15 10/04/19 21:00 Laboratory results interpreted by me: 10/04/19 17:15 Ur Leukocyte Esterase TRACE H Discharge - Discharge Clinical Impression: Abdominal pain Qualifiers: Abdominal location: right lower quadrant Qualified Code(s): R10.31 - Right lower quadrant pain Condition: Stable Disposition: HOME, SELF-CARE Instructions: Abdominal Pain ([facility]), Oral Narcotic Medication ([facility]) Additional Instructions: Please follow up with your primary care provider as soon as possible. Return to the emergency department if your symptoms worsen or you develop new symptoms. Prescriptions: Dicyclomine HCl [Bentyl 20 mg Tablet] 20 mg PO Q4D #20 tablet Referrals: [facility] [Primary Care Provider] - Follow up as needed
[2019-10-04] MEDS ORDERED: ONDANSETRON 4 MG TAB.RAPDIS PO ONE (23:32)
[2019-10-05] MEDS ORDERED: HYDROCODONE/ACETAMINOPHEN 5-325 MG (6 TAB/ER DISP) PO PRN (00:24)
[2019-10-05 00:49] VITALS: BP 114/60
== END 2019-10-05 00:50 | disposition home or self-care (01) ==
LOC: ER 16:38
DX: R10.31 Right lower quadrant pain (principal); Z88.3 Allergy status to other anti-infective agents; Z90.49 Acquired absence of other specified parts of digestive tract
CPT/HCPCS: 99284; 36415; 83690; 85025; 80053; 81001; 74176; S0119

== ENCOUNTER 2019-12-14 11:31 | Emergency (ER) | payer MEDICARE, OTHER ==
--- NOTE | 2019-12-14 12:45 | ER Document Report ---
ED Flu Like - General Chief Complaint: Flu Symptoms Stated Complaint: SORE THROAT,SHORTNESS OF BREATH Time Seen by Provider: 12/14/19 12:45 Primary Care Provider: [facility] [Primary Care Provider] - Follow up as needed Mode of Arrival: Ambulatory Information source: Patient Notes: 44-year-old female arrives with 3-week history of sore throat and left earache. Patient was given Zithromax last week and her symptoms progressed into worsening sore throat. No other family members are sick. She tested negative for cosby virus last week. Patient denies any cephalgia nuchal rigidity chest pain heart murmurs. She has a history of PTSD from [place]. She also reports she has a yeast infection vaginally after taking the Zithromax and would like some medication for this as well. She denies any rhinorrhea denies any eye problems or conjunctivitis. She does admit to dyne aphasia. She denies any nausea or vomiting but can take Augmentin in the past without problems. TRAVEL OUTSIDE OF THE [place] IN LAST 30 DAYS: No - HPI Onset: Last week Timing/Duration: Worse Quality of pain: Achy Severity: Moderate Pain Level: 2 CO exposure: No - Related Data Allergies/Adverse Reactions: sulfamethoxazole [From Bactrim] Allergy (Verified 12/14/19 12:34) trimethoprim [From Bactrim] Allergy (Verified 12/14/19 12:34) Past Medical History - General Information source: Patient - Social History Smoking Status: Never Smoker Cigarette use (# per day): No Chew tobacco use (# tins/day): No Smoking Education Provided: No Frequency of alcohol use: None Drug Abuse: None Lives with: Family Family History: Arthritis, CVA, DM, Malignancy, Thyroid Disfunction Patient has suicidal ideation: No Patient has homicidal ideation: No Pulmonary Medical History: Reports: Hx Asthma, Hx Bronchitis, Hx Pneumonia Neurological Medical History: Reports: Hx Migraine Renal/ Medical History: Reports: Hx Ovarian Cysts GI Medical History: Reports: Hx Gastroesophageal Reflux Disease - IBS, Hx Irritable Bowel, Hx Colonoscopy Musculoskeletal Medical History: Reports Hx Arthritis, Reports Hx Mus culoskeletal Deformity, Reports Hx Musculoskeletal Trauma Psychiatric Medical History: Reports: Hx Anxiety, Hx Bipolar Disorder, Hx Depression - PTSD, Hx Post Traumatic Stress Disorder Traumatic Medical History: Reports: Hx Traumatic Brain Injury Past Surgical History: Reports: Hx Abdominal Surgery - umbilical hernia repair, Hx Adenoidectomy, Hx Cholecystectomy, Hx Hysterectomy, Hx Tonsillectomy, Hx Tubal Ligation, Hx Umbilical Hernia - Immunizations Immunizations up to date: Yes Hx Diphtheria, Pertussis, Tetanus Vaccination: Yes - 2009 Hx Pneumococcal Vaccination: 06/14/13 Review of Systems - Review of Systems Constitutional: No symptoms reported EENT: See HPI, Ear pain, Throat pain Cardiovascular: No symptoms reported Respiratory: No symptoms reported Gastrointestinal: No symptoms reported Genitourinary: No symptoms reported Female Genitourinary: No symptoms reported Musculoskeletal: No symptoms reported Skin: No symptoms reported Hematologic/Lymphatic: No symptoms reported Neurological/Psychological: No symptoms reported Physical Exam - Vital signs Vitals: Temp Pulse Resp BP Pulse Ox 97.9 F 96 20 139/62 H 100 12/14/19 11:37 12/14/19 11:37 12/14/19 11:37 12/14/19 11:37 12/14/19 11:37 Interpretation: Normal - HEENT Head: Normocephalic, Atraumatic Eyes: Normal Pupils: PERRL Mouth/Lips: Normal Mucous membranes: Normal Pharynx: Erythema, Uvular edema - with herpetic like lesions over uvula Neck: Normal - Respiratory Respiratory status: No respiratory distress Chest status: Nontender Breath sounds: Normal Chest palpation: Normal - Cardiovascular Rhythm: Regular Heart sounds: Normal auscultation Murmur: No - Abdominal Inspection: Normal Distension: No distension Bowel sounds: Normal Tenderness: Nontender Organomegaly: No organomegaly - Rectal Hemorrhoids: Other - deferred - Genitourinary [place] exam: Other - deferred - Back Back: Normal - Extremities General upper extremity: Normal inspection General lower extremity: Normal inspection - Neurological Neuro grossly intact: Yes Cognition: Normal Orientation: AAOx4 [place] Coma Scale Eye Opening: Spontaneous Brain Coma Scale Verbal: Oriented [place] Coma Scale Motor: Obeys Commands Brain Coma Scale Total: 15 Speech: Normal Motor strength normal: LUE, RUE, LLE, RLE Sensory: Normal - Psychological Associated symptoms: Normal affect - Skin Skin Temperature: Warm Skin Moisture: Dry Course - Vital Signs Vital signs: Temp Pulse Resp BP Pulse Ox 97.9 F 96 20 139/62 H 100 12/14/19 12:20 12/14/19 11:37 12/14/19 11:37 12/14/19 11:37 12/14/19 11:37 - Laboratory Laboratory results interpreted by me: 12/14/19 12:20 Urine Blood SMALL H Leukocyte Esterase Rfl LARGE H Discharge - Discharge Clinical Impression: Yeast infection involving the vagina and surrounding area Pharyngitis Qualifiers: Pharyngitis/tonsillitis etiology: unspecified etiology Qualified Code(s): J02.9 - Acute pharyngitis, unspecified Otitis externa, left Qualifiers: Otitis externa type: unspecified type Chronicity: unspecified Qualified Code(s): H60.92 - Unspecified otitis externa, left ear Condition: Good Disposition: HOME, SELF-CARE Additional Instructions: Follow-up with personal doctor this week if symptoms persist return to ER if symptoms worsen take medicines as directed encourage fluids apply [employer] Lotrimin to affected vulvar if severe pain occurs to pudendal's. Use gargle and spit with Magic mouthwash as needed every 1-3 hours. Prescriptions: Amoxicillin/Potassium Clav [Augmentin 875-125 Tablet] 1 tab PO BID #20 tab Fluconazole [Diflucan] 150 mg PO DAILY #3 tablet Nystatin/Dexameth/Diphen [Magic Mouthwash ([facility] Formula) Susp] 5 ml PO QID #120 ml Acyclovir [Zovirax 200 mg Capsule] 200 mg PO TID #21 capsule [facility]errals: [facility] [Primary Care Provider] - Follow up as needed
[2019-12-14 12:58] LABS: APPEARANCE,URINE SLIGHTLY-CLOUDY; BILIRUBIN,URINE NEGATIVE (NEGATIVE); COLOR,URINE YELLOW; GLUCOSE, URINE NEGATIVE (NEGATIVE); KETONES,URINE NEGATIVE (NEGATIVE); PROTEIN,URINE NEGATIVE (NEGATIVE); URINE SPECIFIC GRAVITY 1.009; UROBILINOGEN,URINE NEGATIVE mg/dL (<2.0)
[2019-12-14 13:54] VITALS: BP 132/74
== END 2019-12-14 13:45 | disposition home or self-care (01) ==
LOC: ER 11:31
DX: J02.9 Acute pharyngitis, unspecified (principal); H60.92 Unspecified otitis externa, left ear; B37.3 Candidiasis of vulva and vagina; H92.02 Otalgia, left ear; Z88.1 Allergy status to other antibiotic agents; J45.909 Unspecified asthma, uncomplicated
CPT/HCPCS: 81001; 87070; 87880; 99283

== ENCOUNTER 2019-12-16 17:59 | Emergency (ER) | payer OTHER, MEDICARE ==
[2019-12-16 18:49] LABS: ABSOLUTE EOSINOPHILS # (AUTO) 0.1 10^3/uL (0.0-0.6); ABSOLUTE LYMPHOCYTES (AUTO) 2.4 10^3/uL (0.5-4.7); ABSOLUTE MONOCYTES (AUTO) 0.5 10^3/uL (0.1-1.4); ABSOLUTE NEUT (AUTO) 5.2 10^3/uL (1.7-8.2); BASOPHILS % (AUTO) 0.3 % (0-2); HEMATOCRIT 43.7 % (36.0-47.0); HEMOGLOBIN 14.8 g/dL (12.0-15.5); LYMPHOCYTES % (AUTO) 29.1 % (13-45); MEAN CORPUSCULAR HEMOGLOBIN 31.5 pg (27.0-33.4); MEAN CORPUSCULAR HGB CONC 33.8 g/dL (32.0-36.0); MEAN CORPUSCULAR VOLUME 93 fl (80-97); PLATELET COUNT 319 10^3/uL (150-450); RED BLOOD COUNT 4.69 10^6/uL (3.72-5.28); RED CELL DISTRIBUTION WIDTH 13.7 % (11.5-14.0); SEGMENTED NEUTROPHILS % (AUTO) 63.6 % (42-78); TOTAL CELLS COUNTED % (AUTO) 100 %; WHITE BLOOD COUNT 8.1 10^3/uL (4.0-10.5)
[2019-12-16] MEDS ORDERED: ONDANSETRON HCL INJ/PF 4 MG/2 ML SDV IV ONE (19:01)
[2019-12-16] MEDS ORDERED: FENTANYL CITRATE INJ/PF 100 MCG/2 ML AMPUL IV ONE (19:01)
[2019-12-16] MEDS ORDERED: NORMAL SALINE 1000 ML 1,000 ML IV ONE (19:01)
--- NOTE | 2019-12-16 19:09 | ER Document Report ---
ED GI/ - General Chief Complaint: Abdominal Pain Stated Complaint: ABDOMINAL PAIN Time Seen by Provider: 12/16/19 18:37 Primary Care Provider: JULISSA,JOSEPHINE [Primary Care Provider] - Follow up as needed Mode of Arrival: Ambulatory Information source: Patient Notes: Patient presents complaining of nausea vomiting diarrhea and abdominal pain that started yesterday. Patient states he is vomited 3 times and had diarrhea 4 times. Patient reports subjective fever yesterday. Patient denies any urinary symptoms. Patient denies any vaginal discharge. TRAVEL OUTSIDE OF THE [place] IN LAST 30 DAYS: No - HPI Patient complains to provider of: Abdominal pain, Diarrhea, Vomiting Onset: Yesterday Timing/Duration: Persistent Quality of pain: Sharp Pain Level: 4 Location: RLQ Vaginal bleeding (Compared to normal period): None Menstrual period history: denies: Associated symptoms: Diarrhea, Nausea, Vomiting. denies: Blood in emesis, Blood in stool, Constipation, Dysuria, Fever, Urinary hesitancy, Urinary frequency, Urinary retention, Urinary urgency Exacerbated by: Denies Relieved by: Denies Similar symptoms previously: No Recently seen / treated by doctor: No - Related Data Allergies/Adverse Reactions: sulfamethoxazole [From Bactrim] Allergy (Verified 12/14/19 12:34) trimethoprim [From Bactrim] Allergy (Verified 12/14/19 12:34) Past Medical History - General Information source: Patient - Social History Smoking Status: Never Smoker Frequency of alcohol use: None Drug Abuse: None Occupation: None Lives with: Family Family History: Arthritis, CVA, DM, Malignancy, Thyroid Disfunction Patient has homicidal ideation: No Pulmonary Medical History: Reports: Hx Asthma, Hx Bronchitis, Hx Pneumonia Neurological Medical History: Reports: Hx Migraine Renal/ Medical History: Reports: Hx Ovarian Cysts GI Medical History: Reports: Hx Gastroesophageal Reflux Disease - IBS, Hx Irritable Bowel, Hx Colonoscopy Musculoskeletal Medical History: Reports Hx Arthritis, Reports Hx Fibromyalgia, Reports Hx Musculoskeletal Deformity, Reports Hx Musculoskeletal Trauma Psychiatric Medical History: Reports: Hx Anxiety, Hx Bipolar Disorder, Hx Depression - PTSD, Hx Post Traumatic Stress Disorder Traumatic Medical History: Reports: Hx Traumatic Brain Injury Past Surgical History: Reports: Hx Abdominal Surgery - umbilical hernia repair, Hx Adenoidectomy, Hx Cholecystectomy, Hx Hysterectomy, Hx Tonsillectomy, Hx Tubal Ligation, Hx Umbilical Hernia - Immunizations Immunizations up to date: Yes Hx Diphtheria, Pertussis, Tetanus Vaccination: Yes - 2009 Hx Pneumococcal Vaccination: 06/14/13 Review of Systems - Review of Systems Constitutional: Fever - Yesterday subjective, none today EENT: No symptoms reported Cardiovascular: No symptoms reported. denies: Chest pain Respiratory: No symptoms reported. denies: Cough, Short of breath Gastrointestinal: Abdominal pain, Diarrhea, Nausea, Vomiting Genitourinary: No symptoms reported. denies: Dysuria, Flank pain Female Genitourinary: No symptoms reported. denies: Vaginal discharge, Vaginal bleeding Musculoskeletal: No symptoms reported. denies: Back pain Skin: No symptoms reported Hematologic/Lymphatic: No symptoms reported Neurological/Psychological: No symptoms reported Physical Exam - Vital signs Vitals: Temp Pulse Resp BP Pulse Ox 97.8 F 95 20 137/85 H 100 12/16/19 18:06 12/16/19 18:06 12/16/19 18:06 12/16/19 18:06 12/16/19 18:06 - General General appearance: Appears well, Alert In distress: None - HEENT Head: Normocephalic Eyes: Normal Nasal: Normal Mouth/Lips: Normal Mucous membranes: Normal Neck: Normal, Supple. No: Lymphadenopathy - Respiratory Respiratory status: No respiratory distress Chest status: Nontender Breath sounds: Normal. No: Rales, Rhonchi, Stridor, Wheezing Chest palpation: Normal - Cardiovascular Rhythm: Regular Heart sounds: S1 appreciated, S2 appreciated Murmur: No - Abdominal Inspection: Obese Distension: No distension Bowel sounds: Normal Tenderness: Tender - RLQ Organomegaly: No organomegaly - Back Back: Normal, Nontender. No: CVA tenderness - Extremities General upper extremity: Normal inspection, Normal strength General lower extremity: Normal inspection, Normal strength - Neurological Neuro grossly intact: Yes Cognition: Normal Brain Coma Scale Eye Opening: Spontaneous Brain Coma Scale Verbal: Oriented Brain Coma Scale Motor: Obeys Commands Mouthcard Coma Scale Total: 15 - Psychological Associated symptoms: Normal affect - Skin Skin Temperature: Warm Skin Moisture: Dry Skin Color: Normal Course - Re-evaluation Re-evalutation: 12/16/19 21:08 Patient's abdomen soft, no guarding. CT scan reviewed, no concern for any acute appendicitis, obstructive uropathy, or any other acute pathology. Review of imaging does show a large stool mass to the right lower quadrant. Patient encouraged to increase fluids stay well-hydrated. Patient presents with abdominal pain without signs of peritonitis or other life-threatening or serious etiology. Patient appears stable for discharge and has been instructed to return immediately if the symptoms worsen in any way. - Vital Signs Vital signs: Temp Pulse Resp BP Pulse Ox 98.7 F 75 18 110/60 100 12/16/19 21:29 12/16/19 21:29 12/16/19 21:29 12/16/19 21:29 12/16/19 21:29 - Laboratory Result Diagrams: 12/16/19 18:27 12/16/19 18:27 Laboratory results interpreted by me: 12/16/19 12/16/19 18:27 19:40 Glucose 114 H AST 38 H ALT 36 H Ur Leukocyte Esterase LARGE H Labs- All tests 24 hr 12/16/19 12/16/19 12/16/19 18:27 18:27 19:40 WBC 8.1 RBC 4.69 Hgb 14.8 Hct 43.7 MCV 93 MCH 31.5 MCHC 33.8 RDW 13.7 Plt Count 319 Lymph % (Auto) 29.1 [place] % (Auto) 6.0 Eos % (Auto) 1.0 Baso % (Auto) 0.3 Absolute Neuts (auto) 5.2 Absolute Lymphs (auto) 2.4 Absolute Monos (auto) 0.5 Absolute Eos (auto) 0.1 Absolute Basos (auto) 0.0 Seg Neutrophils % 63.6 Sodium 139.7 Potassium 4.5 Chloride 107 Carbon Dioxide 24 Anion Gap 9 BUN 7 Creatinine 0.79 Est GFR ( Amer) > 60 Est GFR (MDRD) Non-Af > 60 Glucose 114 H Calcium 9.3 Total Bilirubin 0.4 Direct Bilirubin 0.0 Neonat Total Bilirubin Not Reportable Neonat Direct Bilirubin Not Reportable Neonat Indirect Bili Not Reportable AST 38 H ALT 36 H Alkaline Phosphatase 68 Total Protein 7.1 Albumin 4.1 Lipase 75.4 Urine Color YELLOW Urine Appearance SLIGHTLY-CLOUDY Urine pH 7.0 Ur Specific [place] 1.011 Urine Protein NEGATIVE Urine Glucose (UA) NEGATIVE Urine Ketones NEGATIVE Urine Blood NEGATIVE Urine Nitrite NEGATIVE Urine Bilirubin NEGATIVE Urine Urobilinogen NEGATIVE Ur Leukocyte Esterase LARGE H Urine WBC (Auto) 2 Urine RBC (Auto) 1 U Hyaline Cast (Auto) 1 Urine Bacteria (Auto) TRACE Squamous Epi Cells Auto 11 Urine Mucus (Auto) RARE Urine Ascorbic Acid NEGATIVE - Diagnostic Test Radiology reviewed: Reports reviewed Discharge - Discharge Clinical Impression: Nausea vomiting and diarrhea Abdominal pain Qualifiers: Abdominal location: right lower quadrant Qualified Code(s): R10.31 - Right lower quadrant pain Condition: Stable Disposition: HOME, SELF-CARE Instructions: Antinausea Medication ([facility]), Antispasmodics ([facility]), Diarrhea, Nonspecific ([facility]), Observation for Appendicitis ([facility]), Vomiting ([facility]) Additional Instructions: Return immediately for any new or worsening symptoms Followup with your primary care provider, call tomorrow to make a followup appointment Prescriptions: Dicyclomine HCl [Bentyl 20 mg Tablet] 20 mg PO QID PRN #12 tablet PRN Reason: Ondansetron [Zofran Odt 4 mg Tablet] 1 tab PO Q6H #15 tab.rapdis [facility]errals: [facility] [Primary Care Provider] - Follow up as needed
[2019-12-16 19:11] LABS: ALBUMIN 4.1 g/dL (3.5-5.0); ALKALINE PHOSPHATASE 68 U/L (38-126); ANION GAP 9 (5-19); ASPARTATE AMINO TRANSFERASE 38 U/L (14-36); BILIRUBIN,TOTAL 0.4 mg/dL (0.2-1.3); BLOOD UREA NITROGEN 7 mg/dL (7-20); CALCIUM 9.3 mg/dL (8.4-10.2); CARBON DIOXIDE 24 mmol/L (22-30); CHLORIDE 107 mmol/L (98-107); GLUCOSE 114 mg/dL (75-110); POTASSIUM 4.5 mmol/L (3.6-5.0); TOTAL PROTEIN 7.1 g/dL (6.3-8.2)
[2019-12-16 20:00] LABS: APPEARANCE,URINE SLIGHTLY-CLOUDY; BILIRUBIN,URINE NEGATIVE (NEGATIVE); COLOR,URINE YELLOW; GLUCOSE, URINE NEGATIVE (NEGATIVE); KETONES,URINE NEGATIVE (NEGATIVE); LEUKOCYTE ESTERASE,URINE LARGE (NEGATIVE); NITRITE,URINE NEGATIVE (NEGATIVE); PROTEIN,URINE NEGATIVE (NEGATIVE); URINE SPECIFIC GRAVITY 1.011; UROBILINOGEN,URINE NEGATIVE mg/dL (<2.0)
--- NOTE | 2019-12-16 20:34 | RADIOLOGY REPORT (SQ) ---
CT ABDOMEN PELVIS WITH IV CONTRAST HISTORY: Right lower quadrant pain. COMPARISON: 10/04/2019 TECHNIQUE: CT scan of the abdomen and pelvis was performed with IV contrast. This exam was performed according to our departmental dose-optimization program, which includes automated exposure control, adjustment of the mA and/or kV according to patient size and/or use of iterative reconstruction technique. FINDINGS: The lung bases are clear. No pleural or pericardial effusions. There is no hiatal hernia. There has been a prior cholecystectomy. The liver, spleen, pancreas, adrenal glands, and kidneys are unremarkable. No hydronephrosis or urinary stones are seen. There has been a prior hysterectomy. The stomach and duodenum are unremarkable. No small bowel obstruction. The appendix is normal. No evidence of acute diverticulitis. No adenopathy, free fluid, or free air is identified. Prior ventral hernia repair. No acute bony findings are seen. The aorta and IVC are unremarkable. IMPRESSION: No acute abdominal or pelvic findings.
[2019-12-16 21:36] VITALS: BP 110/60
== END 2019-12-16 21:36 | disposition home or self-care (01) ==
LOC: ER 17:59
DX: R11.2 Nausea with vomiting, unspecified (principal); R19.7 Diarrhea, unspecified; R10.31 Right lower quadrant pain; R50.9 Fever, unspecified; Z88.2 Allergy status to sulfonamides; J45.909 Unspecified asthma, uncomplicated
CPT/HCPCS: 99285; 96361; 96374; 96375; 36415; 87086; 83690; 85025; 80053; 81001; 74177; J3010; J2405; J7030

== ENCOUNTER 2020-01-14 15:55 | Emergency (ER) | payer OTHER, MEDICARE ==
--- NOTE | 2020-01-14 16:52 | ER Document Report ---
ED Medical Screen (RME) - General Chief Complaint: Headache Stated Complaint: HEADACHE Time Seen by Provider: 01/14/20 16:48 [facility] Care Provider: [facility] [[facility] Care Provider] - Follow up as needed Information source: Patient Notes: 44-year-old female presents to ED for complaint of headache. She states she has migraines and is taken all of her medications with no relief. She states she has been here and taken the Compazine Toradol and Benadryl mixture in the past and it did help. She is alert oriented respirations regular nonlabored speaking in full sentences. I have reviewed her history with her and she has updated it today. She does not smoke drink or use any illicit drugs. I have greeted and performed a rapid initial assessment of this patient. A comprehensive ED assessment and evaluation of the patient, analysis of test results and completion of medical decision making process will be conducted by an additional ED providers. TRAVEL OUTSIDE OF THE [place] IN LAST 30 DAYS: No - Related Data Smoking: Non-smoker Frequency of alcohol use: None Drug Abuse: None Allergies/Adverse Reactions: sulfamethoxazole [From Bactrim] Allergy (Verified 12/14/19 12:34) trimethoprim [From Bactrim] Allergy (Verified 12/14/19 12:34) Past Medical History - General Information source: Patient - Social History Cigarette use (# per day): Yes Frequency of alcohol use: None Drug Abuse: None Lives with: Family Family history: Reviewed & Not Pertinent - Past Medical History Cardiac Medical History: Reports: None Pulmonary Medical History: Reports: Hx Asthma, Hx Bronchitis, Hx Pneumonia EENT Medical History: Reports: None Neurological Medical History: Reports: Hx Migraine Endocrine Medical History: Reports: None Renal/ Medical History: Reports: Hx Ovarian Cysts Malignancy Medical History: Reports: None GI Medical History: Reports: Hx Gastroesophageal Reflux Disease - IBS, Hx Irritable Bowel, Hx Colonoscopy Musculoskeltal Medical History: Reports Hx Arthritis, Reports Hx Fibromyalgia, Reports Hx Musculoskeletal Deformity, Reports Hx Musculoskeletal Trauma Skin Medical History: Reports None Psychiatric Medical History: Reports: Hx Anxiety, Hx Bipolar Disorder, Hx Depression - PTSD, Hx Post Traumatic Stress Disorder Traumatic Medical History: Reports: Hx Traumatic Brain Injury Infectious Medical History: Reports: None Past Surgical History: Reports: Hx Adenoidectomy, Hx Cholecystectomy, Hx Hysterectomy, Hx Tonsillectomy, Hx Tubal Ligation, Hx Umbilical Hernia - Immunizations Immunizations up to date: Yes Hx Diphtheria, Pertussis, Tetanus Vaccination: Yes - 2009 Physical Exam - Vital signs Vitals: Temp Pulse Resp BP Pulse Ox 98.8 F 87 18 128/69 H 98 01/14/20 16:12 01/14/20 16:12 01/14/20 16:12 01/14/20 16:12 01/14/20 16:12 Course - Vital Signs Vital signs: Temp Pulse Resp BP Pulse Ox 98.8 F 87 18 128/69 H 98 01/14/20 16:12 01/14/20 16:12 01/14/20 16:12 01/14/20 16:12 01/14/20 16:12 Doctor's Discharge - Discharge [facility]errals: [facility] [Primary Care Provider] - Follow up as needed
[2020-01-14] MEDS ORDERED: NORMAL SALINE 1000 ML 1,000 ML IV ONE (16:53)
[2020-01-14] MEDS ORDERED: ACETAMINOPHEN 325 MG TABLET PO ONE (16:53)
[2020-01-14] MEDS ORDERED: KETOROLAC TROMETHAMINE INJ/PF 30 MG/1 ML SDV IV ONE (16:53)
[2020-01-14] MEDS ORDERED: PROCHLORPERAZINE EDISYLATE INJ 10 MG/2 ML VIAL IV ONE (16:53)
[2020-01-14] MEDS ORDERED: ONDANSETRON 4 MG TAB.RAPDIS PO ONE (16:53)
[2020-01-14] MEDS ORDERED: DIPHENHYDRAMINE HCL 50 MG/ML VIAL IV ONE (16:53)
--- NOTE | 2020-01-14 18:52 | ER Document Report ---
ED Headache - General Chief Complaint: Headache Stated Complaint: HEADACHE Time Seen by Provider: 01/14/20 16:48 Primary Care Provider: MAX MONTES MD [NO LOCAL MD] - Follow up as needed [facility] [[facility]] - Follow up as needed Mode of Arrival: Ambulatory Information source: Patient Notes: Patient reports frontal headache pain that started this morning and has gradually worsened throughout the day. Patient reports a history of migraines and states that this headache is typical of headaches that she has had in the past. Patient reports nausea without any vomiting or diarrhea. Patient denies any fever. Patient denies any recent illness. TRAVEL OUTSIDE OF THE [place] IN LAST 30 DAYS: No - HPI Patient complains to provider of: Headache Patient reports: Occasional migraines Onset was: Gradual Quality of pain: Achy, Throbbing Pain Level: 4 Associated symptoms: Photophobia. denies: Chills, Fever, Stiff neck Exacerbated by: Light, Noise Similar symptoms previously: Yes Recently seen / treated by doctor: No - Related Data Allergies/Adverse Reactions: sulfamethoxazole [From Bactrim] Allergy (Verified 01/14/20 16:49) trimethoprim [From Bactrim] Allergy (Verified 01/14/20 16:49) Home Medications: amobic,topomax, imitrex Past Medical History - General Information source: Patient - Social History Smoking Status: Never Smoker Cigarette use (# per day): Yes Chew tobacco use (# tins/day): No Frequency of alcohol use: None Drug Abuse: None Occupation: None Lives with: Family Family History: Arthritis, CVA, DM, Malignancy, Thyroid Disfunction Patient has homicidal ideation: No - Past Medical History Cardiac Medical History: Reports: None Pulmonary Medical History: Reports: Hx Asthma, Hx Bronchitis, Hx Pneumonia EENT Medical History: Reports: None Neurological Medical History: Reports: Hx Migraine Endocrine Medical History: Reports: None Renal/ Medical History: Reports: Hx Ovarian Cysts Malignancy Medical History: Reports: None GI Medical History: Reports: Hx Gastroesophageal Reflux Disease - IBS, Hx Irritable Bowel, Hx Colonoscopy Musculoskeletal Medical History: Reports Hx Arthritis, Reports Hx Fibromyalgia, Reports Hx Musculoskeletal Deformity, Reports Hx Musculoskeletal Trauma Skin Medical History: Reports None Psychiatric Medical History: Reports: Hx Anxiety, Hx Bipolar Disorder, Hx Depression - PTSD, Hx Post Traumatic Stress Disorder Traumatic Medical History: Reports: Hx Traumatic Brain Injury Infectious Medical History: Reports: None Past Surgical History: Reports: Hx Adenoidectomy, Hx Cholecystectomy, Hx Hysterectomy, Hx Tonsillectomy, Hx Tubal Ligation, Hx Umbilical Hernia - Immunizations Immunizations up to date: Yes Hx Diphtheria, Pertussis, Tetanus Vaccination: Yes - 2009 Hx Pneumococcal Vaccination: 06/14/13 Review of Systems - Review of Systems Constitutional: No symptoms reported. denies: Chills, Fever EENT: No symptoms reported Cardiovascular: No symptoms reported Respiratory: No symptoms reported. denies: Cough, Short of breath Gastrointestinal: Nausea. denies: Abdominal pain, Vomiting Genitourinary: No symptoms reported Female Genitourinary: No symptoms reported Musculoskeletal: No symptoms reported. denies: Back pain, Muscle pain, Neck pain Skin: No symptoms reported. denies: Rash Hematologic/Lymphatic: No symptoms reported Neurological/Psychological: Headaches Physical Exam - Vital signs Vitals: Temp Pulse Resp BP Pulse Ox 98.8 F 87 18 128/69 H 98 01/14/20 16:12 01/14/20 16:12 01/14/20 16:12 01/14/20 16:12 01/14/20 16:12 - General General appearance: Appears well, Alert In distress: None - HEENT Head: Normocephalic, Atraumatic Eyes: Normal Conjunctiva: Normal Extraocular movements intact: Yes Pupils: PERRL Nasal: Normal Mouth/Lips: Normal Mucous membranes: Normal Pharynx: Normal. No: Tonsillar hypertrophy Neck: Normal, Supple. No: Lymphadenopathy, Meningismus - Respiratory Respiratory status: No respiratory distress Chest status: Nontender Breath sounds: Normal. No: Rales, Rhonchi, Stridor, Wheezing Chest palpation: Normal - Cardiovascular Rhythm: Regular Heart sounds: No: S1 appreciated, S2 appreciated - Abdominal Inspection: Normal - Back Back: Normal, Nontender. No: Vertebra tenderness - Extremities General upper extremity: Normal inspection, Normal strength General lower extremity: Normal inspection, Normal strength - Neurological Neuro grossly intact: Yes Cognition: Normal Orientation: AAOx4 [place] Coma Scale Eye Opening: Spontaneous [place] Coma Scale Verbal: Oriented Brain Coma Scale Motor: Obeys Commands [place] Coma Scale Total: 15 - Psychological Associated symptoms: Normal affect, Normal mood - Skin Skin Temperature: Warm Skin Moisture: Dry Skin Color: Normal Course - Re-evaluation Re-evalutation: 01/14/20 19:47 Patient reports only modest improvement of her headache pain down to a 3.5 out of 5 scale. Additional medication at this time. 01/14/20 20:26 Patient reports improvement of her headache pain at this time. The patient presents with headache without signs of CAFETERIA ATTENDANT bleed, stroke, infection, or other serious etiology. The patient is neurologically intact. Given the extremely low risk of these diagnoses further testing and evaluation for these possibilities does not appear to be indicated at this time. The patient has been instructed to return if the symptoms worsen or change in any way. - Vital Signs Vital signs: Temp Pulse Resp BP Pulse Ox 97.7 F 71 16 116/58 L 99 01/14/20 20:50 01/14/20 20:50 01/14/20 20:50 01/14/20 20:50 01/14/20 20:50 Discharge - Discharge Clinical Impression: Headache Qualifiers: Headache type: unspecified Headache chronicity pattern: unspecified pattern Intractability: not intractable Qualified Code(s): R51 - Headache Condition: Stable Disposition: HOME, SELF-CARE Instructions: Antinausea Medication ([facility]), Intravenous Compazine for Headaches ([facility]), Use of Diphenhydramine, Headache ([facility]), Pain Medication Injection ([facility]), Toradol Injection ([facility]) Additional Instructions: Return immediately for any new or worsening symptoms Followup with your primary care provider, call tomorrow to make a followup appointment Follow-up with your neurologist for a recheck, call tomorrow for a follow-up appointment [facility]errals: [facility] [Primary Care Provider] - Follow up as needed MAX MONTES MD [NO LOCAL MD] - Follow up as needed
[2020-01-14] MEDS ORDERED: FENTANYL CITRATE INJ/PF 100 MCG/2 ML AMPUL IV ONE (19:47)
[2020-01-14 20:58] VITALS: BP 116/58
== END 2020-01-14 20:57 | disposition home or self-care (01) ==
LOC: ER 15:55
DX: G43.909 Migraine, unspecified, not intractable, without status migrainosus (principal); R11.0 Nausea; J45.909 Unspecified asthma, uncomplicated; Z79.899 Other long term (current) drug therapy; Z88.1 Allergy status to other antibiotic agents
CPT/HCPCS: 99284; 96361; 96374; 96375; J1200; S0119; J3010; J1885; J0780; J7030

== ENCOUNTER 2020-01-27 15:58 | Emergency (ER) | payer OTHER, MEDICARE ==
[2020-01-27] MEDS ORDERED: ACETAMINOPHEN 325 MG TABLET PO ONE (16:46)
--- NOTE | 2020-01-27 16:46 | ER Document Report ---
HPI - HPI Patient complains to provider of: right knee pain, left ankle injury Time Seen by Provider: 01/27/20 16:38 Notes: 44 year old female to the Ed with C/O left ankle injury and right knee pain. States that she was cooling down after running on the treadmill at the gym when her left ankle twisted and she went down on the right knee. She had a to be helped up. She can wait on the lower legs, but it creates a bit of pain for her. Denies hitting her head or any LOC. denies any back, chest, abd pain. States she took Nsaids before arrival. She drove herself. - REPRODUCTIVE Reproductive: DENIES: : Past Medical History - General Information source: Patient - Social History Smoking Status: Never Smoker Frequency of alcohol use: None Drug Abuse: None Family History: Arthritis, CVA, DM, Malignancy, Thyroid Disfunction Pulmonary Medical History: Reports: Hx Asthma, Hx Bronchitis, Hx Pneumonia Neurological Medical History: Reports: Hx Migraine Renal/ Medical History: Reports: Hx Ovarian Cysts GI Medical History: Reports: Hx Gastroesophageal Reflux Disease - IBS, Hx Irritable Bowel, Hx Colonoscopy Musculoskeletal Medical History: Reports Hx Arthritis, Reports Hx Fibromyalgia, Reports Hx Musculoskeletal Deformity, Reports Hx Musculoskeletal Trauma Psychiatric Medical History: Reports: Hx Anxiety, Hx Bipolar Disorder, Hx Depression - PTSD, Hx Post Traumatic Stress Disorder Traumatic Medical History: Reports: Hx Traumatic Brain Injury Past Surgical History: Reports: Hx Adenoidectomy, Hx Cholecystectomy, Hx Hysterectomy, Hx Tonsillectomy, Hx Tubal Ligation, Hx Umbilical Hernia - Immunizations Immunizations up to date: Yes Hx Diphtheria, Pertussis, Tetanus Vaccination: Yes - 2009 Hx Pneumococcal Vaccination: 06/14/13 Vertical Provider Document - CONSTITUTIONAL General Appearance: WD/WN, No Apparent Distress - INFECTION CONTROL TRAVEL OUTSIDE OF THE [place] IN LAST 30 DAYS: No - HEENT HEENT: Atraumatic, Normocephalic, PERRLA - NECK Neck: Normal Inspection, Supple - RESPIRATORY Respiratory: Breath Sounds Normal, No Respiratory Distress. negative: Rales, Rhonchi, Wheezing - CARDIOVASCULAR Cardiovascular: Regular Rate, Regular Rhythm, No Murmur - GI/ABDOMEN Gastrointestinal: Abdomen Soft, Abdomen Non-Tender - BACK Back: Normal Inspection Notes: Nontender to palpation of midline cervical, thoracic, lumbar spine with negative straight leg raise bilaterally - MUSCULOSKELETAL/EXTREMETIES Notes: There is tenderness to palpation to the lateral aspect of the left ankle with noted mild ecchymosis and edema. Patient with increased pain with dorsiflexion and plantar flexion. She still retains her strength in both of these movements at 5 out of 5 despite the pain. Nontender to palpation over all the toes forefoot midfoot and hindfoot. She also has no tenderness to palpation over her left knee or left hip. Cap refill in all toes is less than 2 seconds. DP pulses are intact and equal. There is tenderness to palpation over the anterior joint line of the right knee. There is mild edema without ecchymosis or obvious deformity. There is no high riding patella. There is increased pain with flexion and extension of the knee but strength again is maintained at 5 out of 5 against resistance. There is negative anterior drawer and negative valgus varus stress testing. Nontender to palpation over the left hip, left ankle, left foot. - NEURO Level of Consciousness: Awake, Alert, Appropriate Motor/Sensory: No Motor Deficit, No Sensory Deficit - DERM Integumentary: Warm, Dry Course - Re-evaluation Re-evalutation: 01/27/20 Impression: Left ankle sprain, right knee strain. X-rays negative for any fracture. Will place patient in an Binu wrap for knee and ankle stirrup for the ankle. Will place on crutches. Encouraged rest, ice, compression, elevation. Will send home with pain control. Will give information for follow-up with orthopedist. Patient agrees with plan. - Vital Signs Vital signs: Temp Pulse Resp BP Pulse Ox 98.1 F 96 18 115/70 98 01/27/20 16:15 01/27/20 16:15 01/27/20 16:15 01/27/20 16:15 01/27/20 16:15 - Diagnostic Test Radiology reviewed: Image reviewed, Reports reviewed Procedures - Immobilization Left Ankle Pre-Proc Neuro Vasc Exam: Normal Immobilizer type: Ankle stirrup Performed by: PCT Post-Proc Neuro Vasc Exam: Normal Alignment checked and good: Yes Discharge - Discharge Clinical Impression: Fall Qualifiers: Encounter type: initial encounter Qualified Code(s): W19.XXXA - Unspecified fall, initial encounter Ankle sprain Qualifiers: Encounter type: initial encounter Involved ligament of ankle: unspecified ligament Laterality: left Qualified Code(s): S93.402A - Sprain of unspecified ligament of left ankle, initial encounter Strain of right knee Qualifiers: Encounter type: initial encounter Qualified Code(s): S86.911A - Strain of unspecified muscle(s) and tendon(s) at lower leg level, right leg, initial encounter Condition: Stable Disposition: HOME, SELF-CARE Instructions: Ice Packs ([facility]), Splint Precautions ([facility]), Sprained Ankle ([facility]) Additional Instructions: Take medicines as prescribed. Rest ice elevate the ankle and the knee. Ice for 20 minutes at a time. Return if worsening symptoms. Follow-up with your primary care. No exercise for 1 week. Prescriptions: Methocarbamol [Robaxin 500 mg Tablet] 500 mg PO QID #20 tablet Acetaminophen with Codeine [Tylenol #3 Tablet] 1 each PO Q6H PRN #9 tablet PRN Reason: Referrals: [facility] [[facility]] - Follow up in 1 week
--- NOTE | 2020-01-27 17:27 | RADIOLOGY REPORT (SQ) ---
EXAM DESCRIPTION: ANKLE LEFT COMPLETE IMAGES COMPLETED DATE/TIME: 01/27/2020 4:59 pm REASON FOR STUDY: ankle injury COMPARISON: 10/01/2016 NUMBER OF VIEWS: Three views. TECHNIQUE: AP, lateral, and oblique radiographic images acquired of the left ankle. LIMITATIONS: None. FINDINGS: MINERALIZATION: Normal. BONES: No acute fracture or dislocation. No worrisome bone lesions. Re- demonstration of a in small ossicle adjacent to the distal fibula, consistent with sequela of remote trauma. JOINTS: No effusions. SOFT TISSUES: Trace lateral soft tissue swelling. No foreign body. OTHER: No other significant finding. IMPRESSION: No evidence of acute osseous injury. TECHNICAL DOCUMENTATION: JOB ID: [id number] 2010 [email or web address]- All Rights Reserved Reading location - IP/workstation name: [email or web address]
--- NOTE | 2020-01-27 17:28 | RADIOLOGY REPORT (SQ) ---
EXAM DESCRIPTION: KNEE RIGHT 4 VIEWS IMAGES COMPLETED DATE/TIME: 01/27/2020 4:59 pm REASON FOR STUDY: knee injury COMPARISON: None. NUMBER OF VIEWS: Four views. TECHNIQUE: AP, lateral, and both oblique radiographic images acquired of the right knee. LIMITATIONS: None. FINDINGS: MINERALIZATION: Normal. BONES: No acute fracture or dislocation. No worrisome bone lesions. JOINT: No effusion. SOFT TISSUES: No soft tissue swelling. No radio-opaque foreign body. OTHER: No other significant finding. IMPRESSION: No evidence of acute osseous injury. TECHNICAL DOCUMENTATION: JOB ID: [id number] 2010 [email or web address]- All Rights Reserved Reading location - IP/workstation name: [email or web address]
[2020-01-27 17:55] VITALS: BP 130/78
== END 2020-01-27 17:53 | disposition home or self-care (01) ==
LOC: ER 15:58
DX: S93.402A Sprain of unspecified ligament of left ankle, initial encounter (principal); S86.911A Strain of unspecified muscle(s) and tendon(s) at lower leg level, right leg, initial encounter; X50.1XXA Overexertion from prolonged static or awkward postures, initial encounter; Y92.39 Other specified sports and athletic area as the place of occurrence of the external cause; J45.909 Unspecified asthma, uncomplicated
CPT/HCPCS: 99283